=== PATIENT | male | born 1975 | race Caucasian/White ===

== ENCOUNTER 2018-06-19 13:29 | Emergency (ER) | payer MEDICAID, SELFPAY ==
[2018-06-19 13:31] VITALS: BP 160/96; PULSE 77; RESP 18; TEMP 36.7; O2SAT 98; BMI 23.3
--- NOTE | 2018-06-19 13:51 | ED.DCSUM_ITS ---
- ER Visit Summary Date of Service: 06/19/18 Chief Complaint: [] Pelvic pressure dysuria for weeks History of Present Illness: The patient is a 43 M [] indicates he has pelvic pressure and dysuria for weeks. He was seen by his primary care physician Dr. Russell he had a full physical exam cleaning rectal exam was told that he had prostatitis he was started on Cipro narcotic pain medicines, he was seen yesterday in the office and had extensive lab workup done results are not available indicates he keeps having a crampy pain in his suprapubic area and the sense that he has to void quite a bit and with dysuria he tried contacting Dr. Russell's office there was no response and he came to the emergency department. He was also told by his history that some of this might be related to prostate cancer but at 43 years of age he has no history of that. He has had no fever no cough no vomiting his bowel bladder habits have otherwise been unremarkable he is taking the Cipro and the narcotic pain medication Physical Examination: [] General, no distress resting comfortably he is afebrile his blood pressure was 160/90, he points directly to the suprapubic area as the focus of the pain when he gets it he is in no distress HEENT is generally unremarkable The neck is supple no adenopathy Cardiovascular, regular rate and rhythm Lungs, clear bilateral Abdomen, soft nontender His exam shows normal tech testicles and penis nontender no hernias are apparent, we discussed rectal exam he preferred to defer that he had one recently and it was tender, Extremities, no clubbing cyanosis or edema Neurologic, awake alert answering questions appropriately moving all 4 extremities Test Results: [] Emergency Department Course and Treatment: []'s time I discussed the patient the broad range of options we discussed additional lab work studies etc. but he indicates he just had 10 tubes of blood drawn to the doctor's office and he would prefer that we find out what those blood test showed, he is also concerned about prostate cancer and I explained that I understood his concerns but that diagnosis could not be established or followed through the emergency department but I would be happy to refer him to urology, he did really not wish to have any other ED evaluations but he did agree to provide urine sample we will send a UA and urine culture, in addition the patient's physician to try discussed the case with them and determine results of labs I did discuss with Dr. Russell, the patient had a normal PSA normal CMP and labs his white count was 11.9 in addition he had a normal abdominal ultrasound and a normal scrotal ultrasound that showed nothing acute through the outpatient management workup, his UA today shows really nothing acute Discussed all these test results with the patient, he is comfortable at this information he again agrees that there is no additional studies that need to be done to the emergency department given these lab results, he agrees to continue the medications and follow-up with all of his outpatient providers in addition he understands and I explained to his physicians that the urine culture is pending he will follow-up in his be referred to [place] [facility] and return for change in symptoms. Treatment Plan: [] Disposition: [] Home stable Impression: [] Intermittent pelvic pain, concern for prostatitis This note was generated with [employer] dictation software. It may contain incorrect words, spelling, and punctuation that were not noted in review of the chart prior to signing ED Disposition - Plan for ED Patient: Chief Complaint: Abd Pain Referrals: [facility],Out of [NON-STAFF] -
[2018-06-19 13:59] LABS: Red Blood Cells-Urine 0 SEEN /hpf (0-5); White Blood Cells 0 SEEN /hpf (0-5)
[2018-06-19 14:09] LABS: Color, Urine Yellow (Yellow); Glucose, Dipstick Normal (Normal); Ketone-Dipstick 5 mg/dl (Negative); Leukocyte Esterase-Dipstick 25 /ul (Negative); Nitrite-Dipstick Negative (Negative); Occult Blood-Urine Negative /ul (Negative); Protein-Dipstick 30 mg/dl (Negative); Urine Bilirubin Dipstick Negative (Negative); Urine Clarity Sl. Cloudy (Clear); Urine Urobilinogen 1 mg/dl (Normal)
[2018-06-19 14:21] LABS: Bacteria RARE /hpf (None Seen); Calcium Oxalate Crystals Ur 1+ /hpf (<or=2+); Mucous, Urine 1+ /hpf (<or=2+); Squamous Epithelial Cells - UA 0-5 SEEN /hpf (0-5)
--- NOTE | 2018-06-19 14:51 | ED.DEP ---
ED Disposition - Plan for ED Patient: Chief Complaint: Abd Pain Instructions: ED Pelvic Pain [facility] Referrals: [facility],Out of [NON-STAFF] - Cecilio Berrios MD [STAFF PHYSICIAN] -
[2018-06-19 15:07] VITALS: RESP 18; O2SAT 98
== END 2018-06-19 15:07 | disposition home or self-care (01) ==
LOC: ED 14:14
PROVIDERS: Emergency Provider Emergency Medicine; Family Provider Family Medicine; PCP Family Medicine
DX: R10.2 Pelvic and perineal pain (principal); R30.0 Dysuria
CPT/HCPCS: 81001; 87086; 99282; A4216

== ENCOUNTER 2018-09-06 23:58 | Emergency (ER) | payer MEDICAID, SELFPAY ==
[2018-09-07] VITALS: BP 121/72; PULSE 68; RESP 18; TEMP 36.4; O2SAT 99; BMI 23.3
[2018-09-07 00:07] VITALS: O2SAT 99
--- NOTE | 2018-09-07 00:12 | RAD_ITS ---
STUDY: X-RAY CHEST REASON FOR EXAM: Male, 43 years old. Cough TECHNIQUE: 2 views COMPARISON: 06/26/2015 FINDINGS: The lungs are clear and expanded. There is no demonstrated pleural abnormality. Normal size heart. Normal mediastinum and avril. Normal visualized pulmonary arteries. Normal visualized aortic arch and descending thoracic aorta. Normal visualized thoracic spine. Normal visualized ribs, clavicles, and shoulders. There is no demonstrated abnormality of the visualized soft tissue structures of the upper abdomen. RAD/Chest PA and Lateral IMPRESSION: Normal x-ray examination of the chest. No acute findings in the lungs Electronically Signed: Luis A Smallwood MD at 1:34 EST Tel , Service support ,
--- NOTE | 2018-09-07 00:14 | ED.VISSUMM ---
- ER Visit Summary Date of Service: 09/07/18 Chief Complaint: Subjective dyspnea History of Present Illness: The patient is a 43 M history of ADHD. Chronic pain for which she is on Percocet. And smokes half to 1 pack of cigarettes a day. Patient states the last 3 days has had a cough. At times feel as he has trouble breathing. Productive white sputum. No fever but positive chills. No history of DVT or PE. No significant travel, surgery or immobilization. No leg pain or swelling. No hemoptysis. Physical Examination: Well-appearing middle-age male. Vital signs are stable afebrile. Pulse ox 9 9% on room air no signs of hypoxia. No distress. HEENT exam unremarkable. Smell of tobacco on his breath. Neck nontender no JVD. No lymphadenopathy. Lungs clear to auscultation bilaterally. No rales, rhonchi or wheezing. Equal and symmetrical. Dry cough. Heart regular rate and rhythm no murmur. Abdomen soft nontender. Remedies moves all 4. Calves nontender without edema or cords. Neurologically awake and alert with no focal motor deficits. Test Results: Chest x-ray 2 views shows shows no acute abnormality. Read by myself. No infiltrate. No pneumothorax. Normal cardiac silhouette. Emergency Department Course and Treatment: Clinically and historically the patient has a viral bronchitis. I also counseled him to stop smoking. I went over the chest x-ray results with patient and on repeat exam at 00:35 a.m. he is doing well. Treatment Plan: Symptomatic treatment. Highly encouraged him to stop smoking. He states inhalers make him lightheaded and did not want one. Disposition: Discharge Impression: Viral bronchitis Tobacco abuse This note was generated with [employer] dictation software. It may contain incorrect words, spelling, and punctuation that were not noted in review of the chart prior to signing ED Disposition - Plan for ED Patient: Disposition: Home or Assisted Living Instructions: ED URI Viral Referrals: Isak Wallace DO [Primary Care Provider] - 1 Week if not improving Additional Instructions: Stop smoking!! Follow-up with your doctor as needed.
--- NOTE | 2018-09-07 00:16 | ED.DEP ---
ED Disposition - Plan for ED Patient: Disposition: Home or Assisted Living Instructions: ED URI Viral Referrals: Isak Wallace DO [Primary Care Provider] - 1 Week if not improving Additional Instructions: Stop smoking!! Follow-up with your doctor as needed.
[2018-09-07 00:43] VITALS: BP 128/87; PULSE 73; RESP 16; O2SAT 97
== END 2018-09-07 00:44 | disposition home or self-care (01) ==
PROVIDERS: Emergency Provider Emergency Medicine; Family Provider Family Medicine; PCP Family Medicine
DX: J20.8 Acute bronchitis due to other specified organisms (principal); Z72.0 Tobacco use; F90.9 Attention-deficit hyperactivity disorder, unspecified type; G89.29 Other chronic pain
CPT/HCPCS: 71046; 99282

== ENCOUNTER 2018-09-15 04:00 | Observation (INO) | payer MEDICAID, SELFPAY ==
[2018-09-15] VITALS (11 sets, daily range): BP systolic 117–150; BP diastolic 70–119; PULSE 64–98; RESP 14–19; TEMP 36.6–37.2; O2SAT 96–100; BMI 23.0; BMI 28.0
--- NOTE | 2018-09-15 04:24 | RAD_ITS ---
STUDY: X-RAY CHEST REASON FOR EXAM: Male, 43 years old. Dizziness this evening. Now vomiting in reporting stomach cramps. Chronic chest pain. Smoker. TECHNIQUE: Frontal and lateral views of the chest. COMPARISON: 09/07/2018. FINDINGS: The lungs are clear and expanded. There is no demonstrated pleural abnormality. Normal size heart. Normal mediastinum and avril. Normal visualized pulmonary arteries. Normal visualized aortic arch and descending thoracic aorta. Normal visualized thoracic spine. Normal visualized ribs, clavicles, and shoulders. There is no demonstrated abnormality of the visualized soft tissue structures of the upper abdomen. RAD/Chest PA and Lateral IMPRESSION: Normal x-ray examination of the chest. Electronically Signed: Rl Soto MD at 5:17 EST , Service support ,
[2018-09-15] MEDS: proMETHazine 25 MG/ML Syringe 12.5 MG IV (04:36)
[2018-09-15] MEDS: 0.9% Normal Saline 1,000 ML 1000 ML IV (04:36)
[2018-09-15 04:37] LABS: Absolute Lymphocyte Count 4.59 X10^3/ul (0.83-4.51); Absolute Neutrophil Count 12.6 X10^3/uL (2.0-7.7); Basophil# 0.03 X10^3/uL; Basophil% 0.2 % (0-1); Eosinophil# 0.49 X10^3/uL; Eosinophils% 2.6 % (0-5); Hematocrit 46.6 % (40-54); Hemoglobin 15.6 g/dl (13.0-16.5); Lymphocyte # 4.59 X10^3/ul (4.0); Lymphocyte % 24.1 % (19-41); Mean Corp Hgb Conc 33.5 g/gl (32-36); Mean Corpuscular Hgb 30.5 pg (27.0-32.0); Mean Platelet Vol. 9.2 fl (6.2-12.0); Monocyte% 6.8 % (0-10); Neutrophil # 12.61 X10^3/uL (2.7-7.7); POSITIVE COUNT NO; POSITIVE DIFFERENTIAL NO; POSITIVE MORPHOLOGY NO; Platelet Count 306 K/mm3 (150-450); RBC Distribution Width CV 12.7 % (11.6-14.6); RBC Distribution Width SD 41.4 fl (35.1-43.9); Red Blood Count 5.12 M/mm3 (4.6-6.2); White Blood Count 19.1 K/mm3 (4.4-11.0)
[2018-09-15 04:49] LABS: AST(SGOT) 16 U/L (15-37); Alanine Aminotransfer ALT/SGPT 26 U/L (16-61); Albumin, Serum 4.2 g/dL (3.2-5.0); Alkaline Phosphatase 128 U/L (45-117); Anion Gap 9 (5-15); BUN 13 mg/dL (7-18); Calcium,Total 9.8 mg/dL (8.5-10.1); Chloride 101 mmol/L (98-107); Creatinine, Serum 0.87 mg/dL (0.70-1.30); EST Glomerular Filtration Rate 101 mL/min (>60); Est Glom Filt Rate - Afr Amer 123 mL/min (>60); Glucose 117 mg/dL (74-106); Lipase 185 U/L (73-393); Potassium 4.1 mmol/L (3.5-5.1); Protein, Total 8.2 g/dL (6.4-8.2); Sodium Level 141 mmol/L (136-145)
--- NOTE | 2018-09-15 05:25 | CT_ITS ---
STUDY: CT ABDOMEN AND PELVIS WITH CONTRAST REASON FOR EXAM: Male, 43 years old. Nausea and vomiting. Abdominal pain. RADIATION DOSAGE (If Supplied By Facility): CTDIvol = ( 9.86 ) mGy, DLP = ( 475.76 ) mGycm TECHNIQUE: Transaxial images were obtained from the dome of the diaphragm to the symphysis pubis without oral contrast. 100 ml of Isovue 300 contrast was administered. Sagittal and coronal images were reconstructed. There are respiratory motion artifact at multiple levels of the mid and upper abdomen. Individualized dose optimization techniques were used for this CT. COMPARISON: None. FINDINGS: The visualized lung bases are unremarkable. The visualized portions of the heart are within normal limits. Normal liver. Normal gallbladder and extrahepatic biliary system. There is mild splenomegaly. Normal pancreas. Normal bilateral adrenal glands. Normal right kidney. Normal left kidney. Normal visualized stomach. There is mildly prominent fluid distention of loops of jejunum, without abnormal dilatation. There is also mild mural thickening of jejunal loops, possibly representing an enteritis. There is moderately prominent colonic feces. Otherwise normal colon. The appendix is visualized on coronal images 45-54 and it appears normal.. There is atherosclerotic calcification of the abdominal aorta, without a demonstrated aneurysm. Normal inferior vena cava. Normal retroperitoneum. Normal urinary bladder. Normal abdominal wall. Normal osseous structures. CT/Abdomen/Pelvis W IV Cont ONLY IMPRESSION: Mild mural thickening and fluid distention of loops of jejunum, possibly representing infectious or inflammatory enteritis. No evidence for bowel obstruction. Prominent colonic feces, suggesting constipation. Atherosclerosis. Mild splenomegaly. No evidence for appendicitis or diverticulitis. Electronically Signed: Rl Soto MD at 6:24 EST , Service support ,
--- NOTE | 2018-09-15 06:14 | ED.RN ---
PT SLEEPING. MORPHINE NOT GIVEN AT THIS TIME.
--- NOTE | 2018-09-15 06:37 | ED.DCSUM_ITS ---
- ER Visit Summary Date of Service: 09/15/18 Chief Complaint: Nausea and vomiting History of Present Illness: The patient is a 43 M who presents with nausea and vomiting. He became acutely ill about 10 hours ago. He complains of severe nausea and vomiting as well as cramping epigastric abdominal pain. Emesis has been nonbloody and nonbilious. No diarrhea. He has had a recent URI-like illness with congestion rhinorrhea and productive cough. He complains of feeling short of breath. No fever. Physical Examination: Afebrile vitals notable for heart rate 98 Moist mucous membranes Heart regular rate and rhythm Lungs are clear Abdomen soft nondistended he has diffuse nonfocal abdominal tenderness no guarding no rebound Alert Test Results: Labs notable for white blood cell count of 19.1. Alkaline phosphatase 128. Lipase normal. CT of the abdomen and pelvis shows mild mural thickening and fluid distention of the jejunum possible infectious or inflammatory enteritis. Two-view chest x-ray was normal. Emergency Department Course and Treatment: Patient was treated with IV fluids morphine and Phenergan. Given the degree of leukocytosis and findings of enteritis I did cover with antibiotics. Patient was given IV Cipro and Flagyl. Patient will be admitted. Treatment Plan: [] Disposition: Admit Impression: Enteritis This note was generated with [employer] dictation software. It may contain incorrect words, spelling, and punctuation that were not noted in review of the chart prior to signing ED Disposition - Plan for ED Patient: Referrals: Isak Wallace DO [Primary Care Provider] -
[2018-09-15] MEDS: Ciprofloxacin 400 MG/200 ML BAG 200 MG IV (06:47)
--- NOTE | 2018-09-15 06:47 | ED.RN ---
PT STATES HE'S UNABLE TO URINATE FOR UA AT THIS TIME.
--- NOTE | 2018-09-15 07:12 | ED.RN ---
OFFERED PT PAIN MEDS, HE STATES THAT HIS PAIN IS TOLERABLE RIGHT NOW AND DOESN'T WANT THE MORPHINE UNTIL HIS PAIN GETS WORSE.
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
[2018-09-15] MEDS: Morphine 4 MG/ML Syringe IV (07:49)
[2018-09-15] MEDS: Morphine 2 MG/ML Syringe 1 MG IV ×3 (10:27→21:54)
[2018-09-15] MEDS: Ondansetron 4 MG/2 ML Vial IV (10:27)
[2018-09-15] MEDS: Enoxaparin 40 MG/0.4 ML Syringe SC (10:32)
[2018-09-15 10:46] LABS: Bacteria 0 SEEN /hpf (None Seen); Mucous, Urine 0 SEEN /hpf (<or=2+); Red Blood Cells-Urine 0 SEEN /hpf (0-5)
[2018-09-15 10:48] LABS: Color, Urine Yellow (Yellow); Glucose, Dipstick Normal (Normal); Ketone-Dipstick 5 mg/dl (Negative); Leukocyte Esterase-Dipstick 25 /ul (Negative); Nitrite-Dipstick Negative (Negative); Occult Blood-Urine Negative /ul (Negative); Protein-Dipstick 15 mg/dl (Negative); Specific Gravity, Urine 1.005 (1.002-1.030); Urine Bilirubin Dipstick Negative (Negative); Urine Clarity Clear (Clear); Urine Urobilinogen 1 mg/dl (Normal)
[2018-09-15 10:55] LABS: Squamous Epithelial Cells - UA 0-5 SEEN /hpf (0-5); White Blood Cells 0-5 SEEN /hpf (0-5)
[2018-09-15] MEDS: proMETHazine 25 MG/ML Syringe 6.25 MG IV (15:04)
[2018-09-15] MEDS: 0.9% Normal Saline 1,000 ML 100 ML IV (20:43)
[2018-09-15] MEDS: Ciprofloxacin 200 MG/100 ML BAG 100 MG IV (20:46)
[2018-09-16] MEDS: Sodium Chloride 0.65% 1 SPRAY SPRAY.BTL NASAL ×3 (02:09→09:46)
[2018-09-16] MEDS: Morphine 2 MG/ML Syringe 1 MG IV ×3 (02:09→11:06)
[2018-09-16 02:19] VITALS: BP 121/77; PULSE 66; RESP 18; TEMP 37.3; O2SAT 96
[2018-09-16 06:20] LABS: Absolute Lymphocyte Count 2.18 X10^3/ul (0.83-4.51); Absolute Neutrophil Count 2.6 X10^3/uL (2.0-7.7); Basophil# 0.01 X10^3/uL; Basophil% 0.2 % (0-1); Eosinophil# 0.28 X10^3/uL; Hematocrit 35.9 % (40-54); Hemoglobin 11.6 g/dl (13.0-16.5); Lymphocyte # 2.18 X10^3/ul (4.0); Lymphocyte % 39.1 % (19-41); Mean Corp Hgb Conc 32.3 g/gl (32-36); Mean Corpuscular Hgb 30.2 pg (27.0-32.0); Mean Corpuscular Volume 93.5 fL (80-94); Monocyte# 0.46 X10^3/uL; Monocyte% 8.3 % (0-10); Neutrophil # 2.62 X10^3/uL (2.7-7.7); POSITIVE COUNT NO; POSITIVE DIFFERENTIAL NO; POSITIVE MORPHOLOGY NO; Platelet Count 197 K/mm3 (150-450); RBC Distribution Width CV 12.6 % (11.6-14.6); RBC Distribution Width SD 42.2 fl (35.1-43.9); Red Blood Count 3.84 M/mm3 (4.6-6.2); White Blood Count 5.6 K/mm3 (4.4-11.0)
[2018-09-16 06:54] LABS: Anion Gap 6 (5-15); BUN 16 mg/dL (7-18); BUN/Creat Ratio 20.8 RATIO (10-20); Calcium,Total 7.9 mg/dL (8.5-10.1); Chloride 108 mmol/L (98-107); Creatinine, Serum 0.77 mg/dL (0.70-1.30); EST Glomerular Filtration Rate 117 mL/min (>60); Est Glom Filt Rate - Afr Amer 141 mL/min (>60); Estimated Creatinine Clearance 94.55 ml/min; Glucose 99 mg/dL (74-106); Potassium 3.8 mmol/L (3.5-5.1); Sodium Level 142 mmol/L (136-145)
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
[2018-09-16 08:28] VITALS: BP 115/75; PULSE 72; RESP 18; TEMP 36.8; O2SAT 98
[2018-09-16] MEDS: Enoxaparin 40 MG/0.4 ML Syringe SC (09:34)
[2018-09-16] MEDS: proMETHazine 25 MG/ML Syringe 6.25 MG IV (09:38)
[2018-09-16] MEDS: 0.9% Normal Saline 1,000 ML 100 ML IV (09:45)
[2018-09-16] MEDS: Ciprofloxacin 200 MG/100 ML BAG 100 MG IV (11:01)
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
--- NOTE | 2018-09-16 12:30 | PCM.DC ---
- Discharge Diagnoses Current Active Problems: Current Active and Chronic Problems Enteritis (Acute) Anxiety (Chronic) Chronic pain (Chronic) Leucocytosis (Acute) You will use the following diet at home:: Other - In advise you to stick to a clear liquid diet for the next 24 hours and then advance to no caffeine diet Your food should be the consistency of: Regular Your liquids should be the consistency of: Regular/Thin Discharge Activity: Return to Normal Activity May resume sexual activity in: No Restrictions Call your doctor if you observe: Fever of 101 or Higher, Dizziness, Fainting spells, Uncontrolled pain, - - recurrent uncontrolled vomiting or severe diarrhea Instructions: ED Gastroenteritis Viral Pending Tests on Discharge: none Allergies/Adverse Reactions: Allergies No Known Allergies Allergy (Verified 09/15/18 04:06) Medications to take at Discharge ALPRAZolam [Xanax] 1 mg PO TID 06/26/15 Oxycodone HCl/Acetaminophen [Percocet 10-325 mg Tablet] 1 tablet PO Q6H PRN PRN 06/26/15 Dextroamphetamine/Amphetamine [Dextroamp-Amphet ER 30 mg Cap] 30 mg PO DAILY 06/19/18 proMETHazine tablet [Phenergan tablet] 25 mg PO Q6H PRN PRN #10 tablet 09/16/18 The following prescriptions were given: proMETHazine tablet [Phenergan tablet] 25 mg PO Q6H PRN PRN #10 tablet PRN Reason: nausea and vomiting Primary Care Physician: Isak Wallace DO [Primary Care Provider] - Please follow up with your Primary Care Physician in: has an appt for 09/17 Test Results: Test results from this visit will be discussed in further detail at your follow-up appointment, if applicable. Proposed Discharge Date: 09/16/18
--- NOTE | 2018-09-16 12:34 | DCINST_ITS ---
- Discharge Diagnoses Current Active Problems: Current Active and Chronic Problems Enteritis (Acute) Anxiety (Chronic) Chronic pain (Chronic) Leucocytosis (Acute) You will use the following diet at home:: Other - In advise you to stick to a clear liquid diet for the next 24 hours and then advance to no caffeine diet Your food should be the consistency of: Regular Your liquids should be the consistency of: Regular/Thin Discharge Activity: Return to Normal Activity May resume sexual activity in: No Restrictions Call your doctor if you observe: Fever of 101 or Higher, Dizziness, Fainting sp ells, Uncontrolled pain, - - recurrent uncontrolled vomiting or severe diarrhea Instructions: ED Gastroenteritis Viral Pending Tests on Discharge: none Allergies/Adverse Reactions: Allergies No Known Allergies Allergy (Verified 09/15/18 04:06) Medications to take at Discharge ALPRAZolam [Xanax] 1 mg PO TID 06/26/15 Oxycodone HCl/Acetaminophen [Percocet 10-325 mg Tablet] 1 tablet PO Q6H PRN PRN 06/26/15 Dextroamphetamine/Amphetamine [Dextroamp-Amphet ER 30 mg Cap] 30 mg PO DAILY 06/19/18 proMETHazine tablet [Phenergan tablet] 25 mg PO Q6H PRN PRN #10 tablet 09/16/18 The following prescriptions were given: proMETHazine tablet [Phenergan tablet] 25 mg PO Q6H PRN PRN #10 tablet PRN Reason: nausea and vomiting Primary Care Physician: Isak Wallace DO [Primary Care Provider] - Please follow up with your Primary Care Physician in: has an appt for 09/17 Test Results: Test results from this visit will be discussed in further detail at your follow- up appointment, if applicable. Proposed Discharge Date: 09/16/18
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
[2018-09-16 13:29] VITALS: BP 122/77; PULSE 64; RESP 16; TEMP 36.9; O2SAT 97
== END 2018-09-16 13:56 | disposition home or self-care (01) ==
LOC: ED 05:33 → MS3 07:29
PROVIDERS: Admitting Provider Internal Medicine; Emergency Provider Emergency Medicine; Family Provider Family Medicine; PCP Family Medicine; Visit Provider Internal Medicine
DX: K52.9 Noninfective gastroenteritis and colitis, unspecified (principal); F41.9 Anxiety disorder, unspecified; Z79.899 Other long term (current) drug therapy; G89.4 Chronic pain syndrome; F32.9 Major depressive disorder, single episode, unspecified; F17.210 Nicotine dependence, cigarettes, uncomplicated; F11.20 Opioid dependence, uncomplicated; F98.8 Other specified behavioral and emotional disorders with onset usually occurring in childhood and adolescence
CPT/HCPCS: 36415; 71046; 74177; 80048; 80053; 81001; 83690; 85025; 96361; 96365; 96366; 96367; 96372; 96375; 96376; 97802; 99218; 99282; 99406; J7030; Q9967; A4216; G0378; J0744; J2405

== ENCOUNTER 2018-09-30 22:08 | Emergency (ER) | payer MEDICAID, SELFPAY ==
[2018-09-15 08:17] VITALS: BMI 28.0
[2018-09-30 22:08] VITALS: BP 157/95; PULSE 89; RESP 18; TEMP 36.2; O2SAT 99; BMI 23.3
[2018-09-30 22:46] VITALS: PULSE 88; RESP 16; TEMP 36.8; O2SAT 98
--- NOTE | 2018-09-30 23:04 | EKG12_ITS ---
Test Reason : COUGH Blood Pressure : / mmHG Vent. Rate : 072 BPM Atrial Rate : 072 BPM P-R Int : 206 ms QRS Dur : 090 ms QT Int : 366 ms P-R-T Axes : 079 078 069 degrees QTc Int : 400 ms Normal sinus rhythm Normal ECG Confirmed by ANA MILES, ROSENDA ([id number]), order editor EMILIE ANNE ([id number] on 10/02/2018 3:52:45 PM Referred By: PANDA Confirmed By:ROSENDA PEREZ MD
[2018-09-30 23:15] VITALS: PULSE 89; RESP 16
[2018-09-30] MEDS: Ipratropium/Albuterol Sulfate 3 ML AMPUL.NEB INHALATION (23:15)
--- NOTE | 2018-09-30 23:20 | ED.VISSUMM ---
- ER Visit Summary Date of Service: 09/30/18 Chief Complaint: Cough, shortness of breath History of Present Illness: The patient is a 43 M presents to the emergency department cough and shortness of breath. The patient has a long-standing history of smoking. He was recently started on Symbicort. States over the past 24 hours, he had worsening dyspnea, wheezing, productive sputum. He denies fevers but does admit to chills. He states that sometimes, he coughed so much, he feels like he cannot catch his breath. He denies ever being diagnosed with COPD or asthma. He denies chest pain. He denies any leg swelling. He has no history of pulmonary embolus. He denies any pleuritic pain. Physical Examination: Vital signs reviewed General: Well-nourished, well-developed Head: Normocephalic, atraumatic Eyes: Pupils equal and reactive, extraocular muscles intact Neck, supple, no lymphadenopathy Heart: Regular rate and rhythm Respiratory: No distress, diminished with wheezing Abdomen: Soft, nontender, nondistended, no peritoneal signs Back: Nontender Extremities: Nontender, no edema, no cords Skin: Normal color no rash Neuro: Alert and oriented, no focal or lateralizing deficits Test Results: [] Emergency Department Course and Treatment: [Patient has wheezing and cough. He said productive sputum. I do suspect he likely has underlying lung disease. EKG was obtained. It was sinus rhythm without acute ischemia. Patient was given a nebulized breathing treatment and prednisone. He had improvement of his aeration. Chest x-ray was unremarkable. At this time, I am going to treat him as a COPD flare. Patient will be dispensed an inhaler, Prednisone, and Azithromycin. He Was Counseled on concerning Symptoms and Reasons to Return. He Will Be Discharged Home Treatment Plan: [] Disposition: Discharge Impression: 1. COPD exacerbation This note was generated with [employer] dictation software. It may contain incorrect words, spelling, and punctuation that were not noted in review of the chart prior to signing ED Disposition - Plan for ED Patient: Instructions: ED Upper Resp Infec Abx Tx Prescriptions: Albuterol Inhaler [Ventolin Hfa] 2 puff INHALATION Q4H PRN PRN #1 inhaler PRN Reason: Wheezing Azithromycin [Zithromax] 250 mg PO DAILY #4 tab Prednisone [Deltasone] 40 mg PO DAILY #10 tab Referrals: Isak Wallace DO [Primary Care Provider] -
--- NOTE | 2018-09-30 23:37 | RAD_ITS ---
STUDY: X-RAY CHEST REASON FOR EXAM: Male, 43 years old. Cough and shortness of breath TECHNIQUE: PA and lateral COMPARISON: September 15, 2018 FINDINGS: The lungs are clear and expanded. There is no demonstrated pleural abnormality. Normal size heart. Normal mediastinum and avril. Normal visualized pulmonary arteries. Normal visualized aortic arch and descending thoracic aorta. Normal visualized thoracic spine. Normal visualized ribs, clavicles, and shoulders. There is no demonstrated abnormality of the visualized soft tissue structures of the upper abdomen. No significant change since prior study RAD/Chest PA and Lateral IMPRESSION: Normal x-ray examination of the chest. Electronically Signed: Justin Osei MD at 23:52 EST , Service support ,
[2018-09-30 23:47] VITALS: PULSE 88; RESP 16; O2SAT 98
[2018-09-30] MEDS: predniSONE 20 MG Tablet 60 MG PO (23:53)
[2018-09-30] MEDS: Azithromycin 250 MG Tablet 500 MG PO (23:53)
== END 2018-09-30 23:56 | disposition home or self-care (01) ==
LOC: ED 23:20
PROVIDERS: Emergency Provider Emergency Medicine; Family Provider Family Medicine; PCP Family Medicine
DX: J44.1 Chronic obstructive pulmonary disease with (acute) exacerbation (principal); Z87.891 Personal history of nicotine dependence
CPT/HCPCS: 71046; 87804; 93005; 94640; 99282

== ENCOUNTER 2018-10-28 20:11 | Emergency (ER) | payer MEDICAID, SELFPAY ==
[2018-10-28 20:11] VITALS: BP 136/108; PULSE 87; RESP 18; TEMP 36.8; O2SAT 99; BMI 23.4
[2018-10-28 20:35] VITALS: BP 148/76; PULSE 88; RESP 16; O2SAT 98
--- NOTE | 2018-10-28 20:39 | EKG12_ITS ---
Test Reason : CP Blood Pressure : / mmHG Vent. Rate : 085 BPM Atrial Rate : 085 BPM P-R Int : 182 ms QRS Dur : 094 ms QT Int : 362 ms P-R-T Axes : 071 075 061 degrees QTc Int : 430 ms Normal sinus rhythm Normal ECG Confirmed by ANA MILES, ROSENDA ([id number]), scientific editor CAMPOS FERRARA ([id number]) on 10/30/2018 12:51:30 PM Referred By: MISSY Confirmed By:ROSENDA PEREZ MD
--- NOTE | 2018-10-28 20:39 | CT_ITS ---
STUDY: CT ABDOMEN AND PELVIS WITH CONTRAST REASON FOR EXAM: Male, 43 years old. Abdominal pain, worsening. RADIATION DOSAGE (If Supplied By Facility): CTDIvol = ( 12.11 ) mGy, DLP = ( 533.38 ) mGycm TECHNIQUE: Transaxial images were obtained from the dome of the diaphragm to the symphysis pubis without oral contrast. 100ml IV Isovue 300 was administered. Sagittal and coronal images were reconstructed. Individualized dose optimization techniques were used for this CT. COMPARISON: 09/15/2018. FINDINGS: Lung bases are clear. Visualized heart is normal. The liver is unremarkable. The gallbladder is unremarkable. The spleen and pancreas are unremarkable. The adrenal glands are normal. The kidneys are unremarkable. No stones or hydronephrosis. The aorta is normal in caliber. There is no free fluid, free air, or organized collection. No bowel obstruction or inflammatory change. Normal appendix. Urinary bladder is unremarkable. Normal abdominal wall. Normal osseous structures. CT/Abdomen/Pelvis W IV Cont ONLY IMPRESSION: Normal CT of the abdomen and pelvis. Electronically Signed: Annetta Muñiz MD at 22:56 EDT Tel , Service support ,
[2018-10-28] MEDS: Mag Hydrox/Al Hydrox/Simeth 30 ML UDC PO (20:47)
[2018-10-28 21:10] LABS: Absolute Lymphocyte Count 4.51 X10^3/ul (0.83-4.51); Absolute Neutrophil Count 4.8 X10^3/uL (2.0-7.7); Basophil# 0.01 X10^3/uL; Basophil% 0.1 % (0-1); Eosinophil# 0.18 X10^3/uL; Eosinophils% 1.8 % (0-5); Hematocrit 40.1 % (40-54); Hemoglobin 13.5 g/dl (13.0-16.5); Lymphocyte # 4.51 X10^3/ul (4.0); Mean Corp Hgb Conc 33.7 g/gl (32-36); Mean Platelet Vol. 8.8 fl (6.2-12.0); Monocyte# 0.73 X10^3/uL; Monocyte% 7.1 % (0-10); Neutrophil % 46.8 % (47-70); POSITIVE COUNT NO; POSITIVE DIFFERENTIAL NO; POSITIVE MORPHOLOGY NO; Platelet Count 255 K/mm3 (150-450); RBC Distribution Width CV 13.6 % (11.6-14.6); RBC Distribution Width SD 45.1 fl (35.1-43.9); Red Blood Count 4.36 M/mm3 (4.6-6.2); White Blood Count 10.3 K/mm3 (4.4-11.0)
[2018-10-28 21:12] LABS: AST(SGOT) 21 U/L (15-37); Alanine Aminotransfer ALT/SGPT 42 U/L (16-61); Albumin, Serum 3.5 g/dL (3.2-5.0); Alkaline Phosphatase 95 U/L (45-117); Anion Gap 4 (5-15); BUN 11 mg/dL (7-18); BUN/Creat Ratio 14.3 RATIO (10-20); Calcium,Total 8.2 mg/dL (8.5-10.1); Chloride 106 mmol/L (98-107); Creatinine, Serum 0.77 mg/dL (0.70-1.30); EST Glomerular Filtration Rate 116 mL/min (>60); Est Glom Filt Rate - Afr Amer 141 mL/min (>60); Estimated Creatinine Clearance 126.41 ml/min; Globulin 3.4 g/dL (2.2-4.2); Glucose 99 mg/dL (74-106); Lipase 72 U/L (73-393); Potassium 3.7 mmol/L (3.5-5.1); Protein, Total 6.9 g/dL (6.4-8.2); Sodium Level 138 mmol/L (136-145)
[2018-10-28 22:48] VITALS: BP 157/89; PULSE 87; RESP 14; O2SAT 98
--- NOTE | 2018-10-28 23:01 | ED.DEP ---
ED Disposition - Plan for ED Patient: Disposition: Home or Assisted Living Instructions: ED Abdominal Pain Unkn Cause Prescriptions: Sucralfate [Carafate] 1 gm PO 4X/DAY #60 tab Referrals: Isak Wallace DO [Primary Care Provider] -
[2018-10-28] MEDS: Morphine 4 MG/ML Syringe IV (23:05)
--- NOTE | 2018-10-28 23:07 | ED.DCSUM_ITS ---
- ER Visit Summary Date of Service: 10/28/18 Chief Complaint: Abdominal pain/chest pain History of Present Illness: The patient is a 43 M who has abdominal pain for a month. It radiates up into his chest today. The pain is sharp in his abdomen. It is in the epigastric region. Movement makes it worse. He denies nausea, vomiting, diarrhea or constipation. No urinary symptoms. He is taking Zofran at home to help with nausea. He is currently on amoxicillin for a tooth infection. He does have a history of GERD and takes Prevacid. He does have pain up in his chest that is worse with movement. Physical Examination: Vital signs reviewed. HEENT exam unremarkable. Heart is regular rate and rhythm without murmurs. Lungs are clear to auscultation. She does have tenderness to palpation in the sternal area. Abdomen is soft with diffuse tenderness. Extremities reveal no edema. Skin exam normal. Neurologic exam normal. Test Results: Normal sinus rhythm with rate of 85. No ST changes. Laboratory studies normal. CAT scan normal Emergency Department Course and Treatment: She was given a GI cocktail and felt better but the pain came back. He will be given morphine. I will add Carafate to his medication regimen. He will need to follow-up with his PCP Treatment Plan: [] Disposition: Discharge Impression: Abdominal pain, chest pain, muscular skeletal This note was generated with [employer]idian dictation software. It may contain incorrect words, spelling, and punctuation that were not noted in review of the chart prior to signing ED Disposition - Plan for ED Patient: Referrals: Isak Wallace DO [Primary Care Provider] -
[2018-10-28 23:11] VITALS: BP 168/80; PULSE 84; RESP 18; O2SAT 98
== END 2018-10-28 23:15 | disposition home or self-care (01) ==
PROVIDERS: Emergency Provider Emergency Medicine; Family Provider Family Medicine; PCP Family Medicine
DX: R10.9 Unspecified abdominal pain (principal); R07.89 Other chest pain; K21.9 Gastro-esophageal reflux disease without esophagitis; Z72.0 Tobacco use
CPT/HCPCS: 74177; 80053; 83690; 84484; 85025; 93005; 96374; 99285; Q9967; A4216

== ENCOUNTER → 2018-10-29 14:32 | Outpatient (CLI) | payer MEDICAID, SELFPAY ==
[2018-10-29 13:17] VITALS: BMI 22.9
== END ==
PROVIDERS: Family Provider Family Medicine; PCP Family Medicine; Referring Provider Internal Medicine Critical Care Medicine; Visit Provider Internal Medicine Critical Care Medicine
DX: R05 Cough (principal)
CPT/HCPCS: 87070; 87077; 87186; 87205

== ENCOUNTER → 2018-11-13 10:06 | Outpatient (CLI) | payer MEDICAID, SELFPAY ==
[2018-10-29 13:17] VITALS: BMI 22.9
--- NOTE | 2018-11-14 11:14 | PFT ---
INTRODUCTION: The patient is a 43-year-old male that presents for pulmonary function studies secondary to a diagnosis of dyspnea. Respiratory therapy reports good patient effort. Bronchodilators were used during testing. INTERPRETATION: Forced expiration spirometry demonstrates the presence of a mild large airways obstructive ventilatory defect. There was a significant response to aerosolized bronchodilators noted, based upon change in FEV1. Spirograms are of fair quality and do not plateau indicating slow emptying of the lungs. Body plethysmography was performed and reveals lung volumes to be within normal limits. Diffusing capacity by single breath CO is reduced at 67% of predicted. IMPRESSION: Fully reversible mild large airways obstructive ventilatory defect with preserved lung volumes and mild reduction in diffusing capacity.
== END ==
PROVIDERS: Family Provider Family Medicine; PCP Family Medicine; Referring Provider Internal Medicine Critical Care Medicine; Visit Provider Internal Medicine Critical Care Medicine
DX: R06.09 Other forms of dyspnea (principal)
CPT/HCPCS: 94060; 94726; 94729; 95811

== ENCOUNTER → 2018-11-14 10:23 | Outpatient (CLI) | payer MEDICAID, SELFPAY ==
[2018-10-29 13:17] VITALS: BMI 22.9
== END ==
PROVIDERS: Family Provider Family Medicine; PCP Family Medicine; Referring Provider Internal Medicine Infectious Disease; Visit Provider Internal Medicine Infectious Disease
DX: R05 Cough (principal)
CPT/HCPCS: 36415; 86704; 86705; 86706; 86708; 86709; 86803; 87015; 87070; 87101; 87116; 87205; 87206; 87340; 87385

== ENCOUNTER 2018-11-14 18:10 | Observation (INO) | payer MEDICAID, SELFPAY ==
[2018-10-29 13:17] VITALS: BMI 22.9
[2018-11-14] VITALS (8 sets, daily range): BP systolic 116–143; BP diastolic 63–84; PULSE 60–88; RESP 17–18; TEMP 36.7–37.1; O2SAT 92–100; BMI 22.6; BMI 22.5
--- NOTE | 2018-11-14 18:58 | EKG12_ITS ---
Test Reason : CP Blood Pressure : / mmHG Vent. Rate : 077 BPM Atrial Rate : 077 BPM P-R Int : 194 ms QRS Dur : 088 ms QT Int : 386 ms P-R-T Axes : 063 067 059 degrees QTc Int : 436 ms Normal sinus rhythm Normal ECG Confirmed by CHUCK TAYLOR ([id number]), film editor supervisor ARNOLDO POLLOCK ([id number]) on 11/17/2018 4:43:03 PM Referred By: ANTELMO/VADIM Confirmed By:CHUCK TAYLOR
--- NOTE | 2018-11-14 19:00 | RAD_ITS ---
STUDY: X-RAY CHEST REASON FOR EXAM: Male, 43 years old. Chest pain TECHNIQUE: Single AP portable view of the chest. COMPARISON: Prior study of September 30, 2018 FINDINGS: central service technician leads are present. The lungs are clear and expanded. There is no demonstrated pleural abnormality. Normal size heart. Normal mediastinum and avril. Normal visualized pulmonary arteries. Normal visualized aortic arch and descending thoracic aorta. Normal visualized thoracic spine. Normal visualized ribs, clavicles, and shoulders. There is no demonstrated abnormality of the visualized soft tissue structures of the upper abdomen. RAD/Chest 1 View (Portable) IMPRESSION: Normal x-ray examination of the chest. Electronically Signed: Juan Sarabia MD at 19:24 EDT , Service support ,
--- NOTE | 2018-11-14 19:00 | ED.VISSUMM ---
- ER Visit Summary Date of Service: 11/14/18 Chief Complaint: Chest pain History of Present Illness: The patient is a 43 M presenting with chest pain. Patient states this started 1 hour prior to arrival. He was at rest and began having 10 out of 10 midsternal chest pain. He has associated shortness of breath and diaphoresis. He has recently been treated for a lung infection and finished antibiotics 3 days ago. He is a smoker. Denies PE/DVT risk factors. Physical Examination: Vitals are stable. Patient is afebrile. Alert no acute distress. HEENT exam is unremarkable. Neck is supple. Lungs are clear and equal bilaterally. Heart is regular rate and rhythm. Abdomen is soft nontender nondistended. Extremities are unremarkable. Skin is warm and diaphoretic. No focal neurologic deficit. Remainder of exam is unremarkable. Emergency Department Course and Treatment: Patient given aspirin, morphine, Zofran. EKG is sinus rate of 77 with no acute ischemic changes. Chest x-ray shows no acute process. CBC, chemistries unremarkable. Troponin is negative. D-dimer normal. On reevaluation he is chest pain-free. Discussed with hospitalist for observation. Disposition: Observation Impression: Chest pain This note was generated with [employer] dictation software. It may contain incorrect words, spelling, and punctuation that were not noted in review of the chart prior to signing ED Disposition - Plan for ED Patient: Referrals: Isak Wallace DO [Primary Care Provider] -
[2018-11-14] MEDS: Aspirin 81 MG TAB.CHEW 324 MG PO (19:08)
[2018-11-14] MEDS: Morphine 4 MG/ML Syringe IV (19:08)
[2018-11-14] MEDS: Ondansetron 4 MG/2 ML Vial IV (19:08)
[2018-11-14 19:11] LABS: Absolute Lymphocyte Count 4.81 X10^3/ul (0.83-4.51); Absolute Neutrophil Count 3.4 X10^3/uL (2.0-7.7); Basophil# 0.02 X10^3/uL; Basophil% 0.2 % (0-1); Eosinophil# 0.39 X10^3/uL; Eosinophils% 4.2 % (0-5); Hematocrit 41.3 % (40-54); Hemoglobin 14.2 g/dl (13.0-16.5); Lymphocyte # 4.81 X10^3/ul (4.0); Lymphocyte % 51.4 % (19-41); Mean Corp Hgb Conc 34.4 g/gl (32-36); Mean Corpuscular Hgb 30.8 pg (27.0-32.0); Mean Corpuscular Volume 89.6 fL (80-94); Mean Platelet Vol. 9.4 fl (6.2-12.0); Monocyte# 0.74 X10^3/uL; Monocyte% 7.9 % (0-10); Neutrophil # 3.38 X10^3/uL (2.7-7.7); Neutrophil % 36.2 % (47-70); POSITIVE COUNT NO; POSITIVE DIFFERENTIAL NO; POSITIVE MORPHOLOGY NO; Platelet Count 307 K/mm3 (150-450); RBC Distribution Width CV 12.9 % (11.6-14.6); RBC Distribution Width SD 41.8 fl (35.1-43.9); Red Blood Count 4.61 M/mm3 (4.6-6.2); White Blood Count 9.4 K/mm3 (4.4-11.0)
[2018-11-14 19:16] LABS: D-Dimer Quantitative (DVT/PE) 0.35 FEU/ug/m (0.27-0.49)
[2018-11-14 19:22] LABS: Anion Gap 4 (5-15); BUN 14 mg/dL (7-18); BUN/Creat Ratio 18.5 RATIO (10-20); Chloride 106 mmol/L (98-107); Creatinine, Serum 0.76 mg/dL (0.70-1.30); EST Glomerular Filtration Rate 119 mL/min (>60); Est Glom Filt Rate - Afr Amer 144 mL/min (>60); Estimated Creatinine Clearance 125.61 ml/min; Glucose 91 mg/dL (74-106); Potassium 4.1 mmol/L (3.5-5.1); Sodium Level 140 mmol/L (136-145)
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
--- NOTE | 2018-11-14 21:40 | US_ITS ---
STUDY: ABDOMINAL ULTRASOUND -left UPPER QUADRANT REASON FOR VISIT: Male, 43 years old. Pain left upper quadrant TECHNIQUE: Ultrasound evaluation of the right upper quadrant was performed with real-time and static ghosh-scale imaging. TECHNICAL QUALITY: Adequate. COMPARISON: October 28, 2018 CT scan abdomen and pelvis FINDINGS: The spleen measures 9.8 x 4.6 x 3.8 cm. The spleen is homogeneous throughout and no evidence of visualized mass. The left kidney measures 10.1 x 4.6 x 3.8 cm. The left renal cortex measures 1.6 cm. There is no evidence of hydronephrosis. US/Spleen IMPRESSION: Normal visualized spleen and left kidney. Electronically Signed: Winsome Cabello MD at 22:23 EDT Tel , Service support ,
--- NOTE | 2018-11-14 21:40 | EKG12_ITS ---
Test Reason : CP Blood Pressure : / mmHG Vent. Rate : 064 BPM Atrial Rate : 064 BPM P-R Int : 214 ms QRS Dur : 094 ms QT Int : 402 ms P-R-T Axes : 070 071 071 degrees QTc Int : 414 ms Sinus rhythm with sinus arrhythmia with 1st degree A-V block Otherwise normal ECG When compared with ECG of 28-OCT-2018 20:37, WA interval has increased Confirmed by ANA MILES, ROSENDA ([id number]), graphic editor ARNOLDO POLLOCK ([id number]) on 11/19/2018 1:46:07 PM Referred By: MAYELA Confirmed By:ROSENDA PEREZ MD
[2018-11-14 21:53] LABS: Internal QC Validated? YES +Cl - CLEAR BKGD; Monotest Negative (Negative)
[2018-11-14 21:59] LABS: AST(SGOT) 17 U/L (15-37); Alanine Aminotransfer ALT/SGPT 22 U/L (16-61); Albumin, Serum 3.7 g/dL (3.2-5.0); Alkaline Phosphatase 124 U/L (45-117); Bilirubin, Direct 0.06 mg/dL (0.00-0.30); Globulin 3.5 g/dL (2.2-4.2); Lipase 91 U/L (73-393); Magnesium 1.9 mg/dL (1.6-2.6); Protein, Total 7.2 g/dL (6.4-8.2)
[2018-11-14] MEDS: Morphine 2 MG/ML Syringe IV (22:57)
[2018-11-14] MEDS: 0.9% Normal Saline 1,000 ML 100 ML IV (22:57)
[2018-11-14] MEDS: 0.9% NaCl Peripheral Flush Adult/Peds IV (22:58)
[2018-11-15] MEDS: oxyCODONE 5 MG Tablet PO (00:12)
[2018-11-15 02:59] VITALS: PULSE 57
[2018-11-15 04:00] VITALS: BP 120/73; PULSE 64; RESP 18; TEMP 36.7; O2SAT 96
[2018-11-15] MEDS: Morphine 2 MG/ML Syringe IV ×2 (04:18→09:41)
--- NOTE | 2018-11-15 05:55 | STEWCON_ITS ---
Reason For Study: CHEST PAIN Stress Results Protocol: Stress Echocardiogram Maximum Predicted HR: 176 bpm Target HR: 150 bpm % Maximum Predicted HR: 85 % DurationHeart Rate Stage (mm:ss) (bpm) BP Comment BASELINE 63 118/80DEFINITY 0.8 ML USED DURING STRESS JUNIOR PROTOCOL- STAGE 1 3:00 125 124/82PO 97% JUNIOR PROTOCOL- STAGE 2 3:00 150 130/80PO 95%, SOB, LEG PAIN RECOVERY 86 112/64PO 99% Stress Duration: 6:00 mm:ss Maximum Stress HR: 150 bpm Baseline Echocardiogram Findings The estimated ejection fraction is 60 %. Stress Echo Wall motion Data Resting WM Intermediate WM Stress WM Resting Wall Motion Wall Motion Stress No regional wall motion No regional wall motion abnormalities noted. abnormalities noted. EKG Data Normal intervals are noted. The patient exercised according to the regular Junior protocol for a total duration of 6:02. The maximum heart rate attained was 150 beats per minute. This was 85% of maximum predicted heart rate. The patient exercised into stage 3 of the Junior protocol. At peak exercise, upsloping ST changes only were noted, which did not meet the criteria for ischemia. No clinical angina was noted. Interpretation Summary The estimated ejection fraction is 60 %. Normal, adequate, treadmill echocardiogram. Negative for ischemia by EKG and echocardiographic criteria. No anginal symptoms noted. No arrhythmias noted. Appropriate blood pressure response to exercise. Below average exercise capacity for age however this may be due to his lower extremity injuries in the past. Decreased sensitivity due to poor echo windows requiring Definity agent. Final LVEF is 75%. Test terminated due to the attainment of target heart rate, leg discomfort and dyspnea. No complications. The study was technically difficult. Contrast injection was performed. Ordering Physician: Odalis^Annabel^L Referring Physician: Isak Wallace DO Performed By: ABBEY
--- NOTE | 2018-11-15 05:55 | EKG12_ITS ---
Test Reason : AM EKG Blood Pressure : / mmHG Vent. Rate : 055 BPM Atrial Rate : 055 BPM P-R Int : 214 ms QRS Dur : 096 ms QT Int : 420 ms P-R-T Axes : 061 067 067 degrees QTc Int : 401 ms Sinus bradycardia with sinus arrhythmia with 1st degree A-V block Otherwise normal ECG When compared with ECG of 14-NOV-2018 22:29, MANUAL COMPARISON REQUIRED, DATA IS UNCONFIRMED Confirmed by ANA MILES, ROSENDA ([id number]), production editor ARNOLDO POLLOCK ([id number]) on 11/19/2018 1:41:52 PM Referred By: MATEO Confirmed By:ROSENDA PEREZ MD
[2018-11-15 06:07] VITALS: BP 114/68; PULSE 68; RESP 18; TEMP 36.6; O2SAT 96
[2018-11-15] MEDS: Aspirin E.C. 81 MG Tablet PO (06:11)
[2018-11-15 06:20] LABS: Hematocrit 37.1 % (40-54); Hemoglobin 12.4 g/dl (13.0-16.5); International Normalized Ratio 1.1; Mean Corp Hgb Conc 33.4 g/gl (32-36); Mean Corpuscular Hgb 30.2 pg (27.0-32.0); Mean Corpuscular Volume 90.5 fL (80-94); Mean Platelet Vol. 8.9 fl (6.2-12.0); Platelet Count 257 K/mm3 (150-450); Prothrombin Time (Protime)PT. 13.5 SECONDS (11.7-14.9); RBC Distribution Width CV 12.8 % (11.6-14.6); Scan Indicated on CBC? Y/N NO; White Blood Count 6.7 K/mm3 (4.4-11.0)
[2018-11-15 06:21] LABS: Partial Thromboplast Time 33.8 Seconds (24.1-36.2)
[2018-11-15 06:36] LABS: AST(SGOT) 15 U/L (15-37); Alanine Aminotransfer ALT/SGPT 20 U/L (16-61); Alkaline Phosphatase 100 U/L (45-117); Anion Gap 4 (5-15); BUN 13 mg/dL (7-18); Calcium,Total 8.3 mg/dL (8.5-10.1); Chloride 110 mmol/L (98-107); Cholesterol 176 mg/dL (200); Creatinine, Serum 0.72 mg/dL (0.70-1.30); EST Glomerular Filtration Rate 126 mL/min (>60); Est Glom Filt Rate - Afr Amer 152 mL/min (>60); Estimated Creatinine Clearance 132.04 ml/min; Globulin 2.9 g/dL (2.2-4.2); Glucose 97 mg/dL (74-106); High Density Lipoprotein 34 mg/dL; Potassium 4.4 mmol/L (3.5-5.1); Protein, Total 5.9 g/dL (6.4-8.2); Sodium Level 142 mmol/L (136-145); Triglycerides 105 mg/dL; Very Low Density Lipoprotein 21 mg/dL (5-40)
[2018-11-15 06:45] VITALS: O2SAT 95
[2018-11-15 06:59] VITALS: PULSE 54
[2018-11-15] MEDS: ALPRAZolam 0.5 MG Tablet 1 MG PO (09:41)
[2018-11-15] MEDS: Pantoprazole Sodium 40 MG Tablet PO (09:41)
--- NOTE | 2018-11-15 10:05 | DCINST_ITS ---
- Discharge Diagnoses Current Active Problems: Current Active and Chronic Problems (Last Reviewed 10/29/18 @ 13:19 by Radha Miles) Chest pain (Acute) LUQ abdominal pain (Acute) Tobacco use (Chronic) You will use the following diet at home:: No restrictions Discharge Activity: Return to Normal Activity Call your doctor if you observe: Shortness of breath, Dizziness, Fainting spells, Chest pain Allergies/Adverse Reactions: Allergies No Known Allergies Allergy (Verified 11/14/18 18:11) Medications to take at Discharge ALPRAZolam [Xanax] 1 mg PO DAILY 06/26/15 Oxycodone HCl/Acetaminophen [Percocet 10-325 mg Tablet] 1 tab PO Q6H PRN PRN 06/26/15 Dextroamphetamine/Amphetamine [Dextroamp-Amphet ER 30 mg Cap] 30 mg PO BID 06/19/18 Omeprazole 40 mg PO DAILY 09/30/18 Primary Care Physician: Isak Wallace DO [Primary Care Provider] - Please follow up with your Primary Care Physician in: 1 Week Test Results: Test results from this visit will be discussed in further detail at your follow- up appointment, if applicable. Please Follow Up With: Bina House NP-C When: As scheduled Proposed Discharge Date: 11/15/18
[2018-11-15 10:17] VITALS: BP 109/68; PULSE 66; RESP 16; TEMP 36.6; O2SAT 95
--- NOTE | 2018-11-15 11:48 | NURSING ---
pt care and med administration done by SN Louise, done under the supervision of this RN.
--- NOTE | 2018-11-15 12:03 | DS.PCM_ITS ---
Discharge Date and Diagnosis Date of Admission: 11/14/18 Date of Discharge: 11/15/18 - Primary Discharge Diagnosis 1. Atypical chest pain, ACS ruled out 2. Moderate persistent asthma 3. Anxiety/depression/ADHD 4. Chronic pain syndrome/Narcotic dependence 5. Tobacco abuse 6. GERD - Secondary Discharge Diagnosis Chronic Problems (Last Reviewed 10/29/18 @ 13:19 by Radha Miles) Tobacco use (Chronic) ADD (attention deficit disorder) (Chronic) Anxiety (Chronic) Chronic pain (Chronic) Hospital Course and Treatment Imaging Results: Diagnostic Data Chest X-Ray 11/14/18 19:00 IMPRESSION: Normal x-ray examination of the chest. Electronically Signed: Juan Sarabia MD at 19:24 EDT , Service support , Spleen Ultrasound 11/14/18 21:40 IMPRESSION: Normal visualized spleen and left kidney. Electronically Signed: Winsome Cabello MD at 22:23 EDT Tel , Service support , Operations: None Procedures: - - Stress echo Summary of Care Provided: The patient is a 43 year old M admitted 11/14/18 due to chest pain. 1. Atypical chest pain, ACS ruled out-chest x-ray unremarkable. D-dimer normal. Troponin negative. Patient underwent stress echo which was negative for ischemia. Patient also complained of right upper quadrant pain on admission. Spleen ultrasound normal. Monoscreen negative. Patient denies further chest pain. Follow-up with primary care physician 1 week. 2. Moderate persistent asthma- following with Dr. Butt. Recent URI sx x3-4 weeks. CXR normal. Respiratory panel negative. Continue outpatient follow-up with pulmonary medicine. 3. Anxiety/depression/ADHD- Patient is on xanax, amphetamine. Recommend taper and discontinue benzo. Patient may benefit from SSRI. 4. Chronic pain syndrome/narcotic dependence- s/p trauma remotely. Patient refused UDS during admission. Recommend discontinuing narcotic regimen as outpatient and referral to pain management if pain is still a concern. 5. Tobacco abuse- encouraged tobacco cessation. 6. GERD-continue PPI. General: Alert, Oriented x3, Cooperative HEENT: Atraumatic, PERRLA, EOMI, Normocephalic Neck: Supple, No JVD, Negative Carotid Bruits Lungs: Clear to auscultation, Normal air movement Cardiovascular: Regular Rhythm, Normal S1, Normal S2, No murmurs, Bradycardic Abdomen: Bowel Sounds Present, Soft, Non Tender, Non-Distended Extremities: No clubbing, No cyanosis, No edema, Capillary Refill Less than 3 Seconds Skin: No rashes, No breakdown Musculoskeletal: No Tenderness to Palpation of Joints or Extremities Neurological: Cranial nerves II-XII grossly intact, Neuro grossly intact Psych/Mental Status: Normal Affect, Appropriate Patient seen and examined prior to discharge. Physical assessment as noted above. Patient is stable for discharge with follow up recommendations as noted above. This patient was seen by THI Shukla under the supervision of Dr. Ross. - Physical Exam Vital Signs Temp Pulse Resp BP Pulse Ox 97.9 F 66 16 109/68 95 11/15/18 10:17 11/15/18 10:17 11/15/18 10:17 11/15/18 10:17 11/15/18 10:17 Oxygen Delivery Method Room Air Weight: 157 lb 3.033 oz Body Mass Index (BMI) 22.5 Intake and Output for Last 24 Hours 11/13/18 11/14/18 11/15/18 23:59 23:59 23:59 Intake Total 360 / 360 598 / 598 Balance 360 / 360 598 / 598 Microbiology Past 72 Hours 11/14/18 22:34 Respiratory Panel (PCR) - Final Mucosa - Nasopharyngeal Laboratory Tests Past 24 Hrs 11/14/18 11/14/18 11/14/18 18:15 18:15 18:15 WBC 9.4 RBC 4.61 Hgb 14.2 Hct 41.3 MCV 89.6 MCH 30.8 MCHC 34.4 RDW 12.9 RDW Differential 41.8 Plt Count 307 MPV 9.4 Immature Gran % (Auto) 0.100 Neut % (Auto) 36.2 L Lymph % (Auto) 51.4 H [place] % (Auto) 7.9 Eos % (Auto) 4.2 Baso % (Auto) 0.2 Absolute Neuts (auto) 3.4 Absolute Lymphs (auto) 4.81 H Total Counted Not Reportable PT INR APTT D-Dimer Quant (PE/DVT) 0.35 Sodium 140 Potassium 4.1 Chloride 106 Carbon Dioxide 30.0 Anion Gap 4 L BUN 14 Creatinine 0.76 Estim Creat Clear Calc 125.61 Est GFR (MDRD) Af Amer 144 Est GFR (MDRD) Non-Af 119 BUN/Creatinine Ratio 18.5 Glucose 91 Calcium 9.0 Magnesium Total Bilirubin Direct Bilirubin AST ALT Alkaline Phosphatase Troponin I < 0.015 Total Protein Albumin Globulin Albumin/Globulin Ratio Triglycerides Cholesterol LDL Cholesterol VLDL Cholesterol HDL Cholesterol Lipase Monoscreen 11/14/18 11/14/18 11/14/18 18:15 21:10 21:10 WBC RBC Hgb Hct MCV MCH MCHC RDW RDW Differential Plt Count MPV Immature Gran % (Auto) Neut % (Auto) Lymph % (Auto) [place] % (Auto) Eos % (Auto) Baso % (Auto) Absolute Neuts (auto) Absolute Lymphs (auto) Total Counted PT INR APTT D-Dimer Quant (PE/DVT) Sodium Potassium Chloride Carbon Dioxide Anion Gap BUN Creatinine Estim Creat Clear Calc Est GFR (MDRD) Af Amer Est GFR (MDRD) Non-Af BUN/Creatinine Ratio Glucose Calcium Magnesium 1.9 Total Bilirubin 0.20 Direct Bilirubin 0.06 AST 17 ALT 22 Alkaline Phosphatase 124 H Troponin I 0.015 Total Protein 7.2 Albumin 3.7 Globulin 3.5 Albumin/Globulin Ratio Triglycerides Cholesterol LDL Cholesterol VLDL Cholesterol HDL Cholesterol Lipase 91 Monoscreen Negative 11/15/18 11/15/18 11/15/18 01:00 06:00 06:00 WBC 6.7 RBC 4.10 L Hgb 12.4 L Hct 37.1 L MCV 90.5 MCH 30.2 MCHC 33.4 RDW 12.8 RDW Differential 42.0 Plt Count 257 MPV 8.9 Immature Gran % (Auto) Neut % (Auto) Lymph % (Auto) [place] % (Auto) Eos % (Auto) Baso % (Auto) Absolute Neuts (auto) Absolute Lymphs (auto) Total Counted PT INR APTT D-Dimer Quant (PE/DVT) Sodium 142 Potassium 4.4 Chloride 110 H Carbon Dioxide 28.0 Anion Gap 4 L BUN 13 Creatinine 0.72 Estim Creat Clear Calc 132.04 Est GFR (MDRD) Af Amer 152 Est GFR (MDRD) Non-Af 126 BUN/Creatinine Ratio 18.0 Glucose 97 Calcium 8.3 L Magnesium Total Bilirubin 0.10 L Direct Bilirubin AST 15 ALT 20 Alkaline Phosphatase 100 Troponin I 0.015 Total Protein 5.9 L Albumin 3.0 L Globulin 2.9 Albumin/Globulin Ratio 1.0 Triglycerides 105 Cholesterol 176 LDL Cholesterol 121 VLDL Cholesterol 21 HDL Cholesterol 34 L Lipase Monoscreen 11/15/18 06:00 WBC RBC Hgb Hct MCV MCH MCHC RDW RDW Differential Plt Count MPV Immature Gran % (Auto) Neut % (Auto) Lymph % (Auto) [place] % (Auto) Eos % (Auto) Baso % (Auto) Absolute Neuts (auto) Absolute Lymphs (auto) Total Counted PT 13.5 INR 1.1 APTT 33.8 D-Dimer Quant (PE/DVT) Sodium Potassium Chloride Carbon Dioxide Anion Gap BUN Creatinine Estim Creat Clear Calc Est GFR (MDRD) Af Amer Est GFR (MDRD) Non-Af BUN/Creatinine Ratio Glucose Calcium Magnesium Total Bilirubin Direct Bilirubin AST ALT Alkaline Phosphatase Troponin I Total Protein Albumin Globulin Albumin/Globulin Ratio Triglycerides Cholesterol LDL Cholesterol VLDL Cholesterol HDL Cholesterol Lipase Monoscreen Discharge Diet: No Restrictions Discharge Activity: Return to Normal Activity Call your doctor if you observe: Shortness of breath, Dizziness, Fainting spells, Chest pain Home Medications: Medications to take at Discharge ALPRAZolam [Xanax] 1 mg PO DAILY 06/26/15 Oxycodone HCl/Acetaminophen [Percocet 10-325 mg Tablet] 1 tab PO Q6H PRN PRN 06/26/15 Dextroamphetamine/Amphetamine [Dextroamp-Amphet ER 30 mg Cap] 30 mg PO BID 06/19/18 Omeprazole 40 mg PO DAILY 09/30/18 Primary Care Physician: Isak Wallace DO [Primary Care Provider] - Please follow up with your Primary Care Physician in: 1 Week Please Follow Up With: Bina House NP-C When: As scheduled Disposition: Home Minutes spent on discharge:: 35 Patient Condition:: Stable Medical Necessity - Tobacco Use Smoking Status: Current every day smoker Tobacco Use: Cigarettes Meaningful Use Info Meaningful Use Diagnoses (Choose all that apply): None applicable
== END 2018-11-15 10:04 | disposition home or self-care (01) ==
LOC: ED 19:22 → PCU 20:59
PROVIDERS: Admitting Provider Family Medicine; Emergency Provider Emergency Medicine; Family Provider Family Medicine; PCP Family Medicine; Visit Provider Internal Medicine
DX: R07.89 Other chest pain (principal); R06.02 Shortness of breath; F98.8 Other specified behavioral and emotional disorders with onset usually occurring in childhood and adolescence; F41.9 Anxiety disorder, unspecified; G89.4 Chronic pain syndrome; F32.9 Major depressive disorder, single episode, unspecified; J45.40 Moderate persistent asthma, uncomplicated; F17.210 Nicotine dependence, cigarettes, uncomplicated; F11.20 Opioid dependence, uncomplicated; Z79.899 Other long term (current) drug therapy
CPT/HCPCS: 36415; 71045; 76705; 80048; 80053; 80061; 80076; 83690; 83735; 84484; 85025; 85027; 85379; 85610; 85730; 86308; 86704; 86705; 86706; 86708; 86709; 86803; 87015; 87070; 87077; 87101; 87106; 87116; 87205; 87206; 87340; 87385; 87633; 93005; 93017; 93350; 96361; 96374; 96375; 96376; 99218; 99285; 99406; J7030; Q9957; A4216; C8928; G0378; J2405

== ENCOUNTER → 2018-11-17 11:08 | Outpatient (CLI) | payer MEDICAID, SELFPAY ==
[2018-11-14 21:49] VITALS: BMI 22.5
== END ==
PROVIDERS: Family Provider Family Medicine; PCP Family Medicine; Referring Provider Internal Medicine Infectious Disease; Visit Provider Internal Medicine Infectious Disease
DX: R05 Cough (principal)

== ENCOUNTER 2018-11-18 03:57 | Emergency (ER) | payer MEDICAID, SELFPAY ==
[2018-11-14 21:49] VITALS: BMI 22.5
[2018-11-18 03:57] VITALS: BP 136/96; PULSE 87; RESP 20; TEMP 36.8; O2SAT 96; BMI 22.9
--- NOTE | 2018-11-18 04:13 | RAD_ITS ---
STUDY: X-RAY CHEST REASON FOR EXAM: Male, 43 years old. Productive cough TECHNIQUE: Single AP portable view of the chest. COMPARISON: None. FINDINGS: The lungs are clear and expanded. There is no demonstrated pleural abnormality. Normal size heart. Normal mediastinum and avril. Normal visualized pulmonary arteries. Normal visualized aortic arch and descending thoracic aorta. Normal visualized thoracic spine. Normal visualized ribs, clavicles, and shoulders. There is no demonstrated abnormality of the visualized soft tissue structures of the upper abdomen. RAD/Chest 1 View (Portable) IMPRESSION: Normal x-ray examination of the chest. Electronically Signed: Amadou Maguire, at 4:25 EDT Tel , Service support ,
--- NOTE | 2018-11-18 04:17 | ED.DCSUM_ITS ---
History of Present Illness Chief Complaint: Chest Other Informant: Patient Onset: Today Context: Sudden Onset Timing: Continuous Quality: Burning sensation and heartburn Location: Chest Current Severity: Mild Maximum Severity: Severe Worsened by: Breathing and coughing Relieved by: Nothing Associated Symptoms: Productive cough Narrative: Patient is a 43-year-old male. He has not a good informant. He states his respiratory panel was positive for viral infection. Reviewing prior records indicates that he was positive for strep pneumonia, staph aureus and streptococcal bacterial infection October 29, 2018. All of his respiratory panel was and influenza panel were negative. Patient is a smoker. He is decreased from 1 pack to half a pack. Discharge summary for last hospitalization was read. Diagnosis of persistent asthma and GERD. Patient reports no nasal congestion, rhinorrhea or postnasal drip. He denies ocular, visual or auditory symptoms. He denies ear pain. He does report cough of white colored sputum. This is an improvement. He denies hemoptysis. He has no history of PE or DVT. He states he is compliant with his medicine for GERD when questioned. He states he is completed all of his antibiotics. He denies leg pain, swelling or discoloration. He denies hematemesis, melena or hematochezia. Prior similar symptoms: Yes Recent Illness/Hospitalization: Yes - Past Medical History (1) Enteritis Status: Resolved (2) Hypersomnia Status: Acute (3) ADD (attention deficit disorder) Status: Chronic (4) Anxiety Status: Chronic (5) Tobacco use Status: Chronic Past Medical History - Allergies and Home Meds Allergies/Adverse Reactions: Allergies No Known Allergies Allergy (Verified 11/14/18 18:11) Primary Care Physician: Isak Wallace DO [Primary Care Provider] - Prior records reviewed: Yes - Reviewed most recent admission Surgical History: - - Multiple surgeries to the lower extremities, skin grafting. Lives: Alone Smoking Status: Current every day smoker Alcohol: Rare - Family History Maternal Family History: Reports: - - Mother with a history of stomach cancer, heart disease, stroke and at age 56 secondary to heart disease and stroke complications. Paternal Family History: Reports: - - Father with a history of heart disease, coronary disease, at age 52 secondary to heart disease complications. Review of Systems General: Denies: Chills, Fever, Malaise, Sweats Eyes: Denies: Visual changes - bilaterally, Blurred Vision - bilaterally, Diplopia ENT: Denies: Rhinorrhea, Sore throat Cardiovascular: Reports: Chest pain Respiratory: Reports: Dyspnea, Cough, Sputum. Denies: Dyspnea on exertion, Orthopnea, Paroxysmal nocturnal dyspnea Gastrointestinal: Denies: Abdominal pain, Nausea, Vomiting, Diarrhea, Constipation, Melena, Hematochezia, -, - Genitourinary: Denies: Dysuria, Hematuria, Frequency Musculoskeletal: Denies: Myalgias, Arthralgias, Neck pain, Back pain, Swelling, Extremity Pain, -, - Skin: Denies: Rash, Wounds Neurological: Denies: Headache, Weakness, Numbness Psych: Reports: Depression, Anxiety - Per review of records Allergy: Denies: Uticaria, Swelling of the mouth, Swelling of the tongue Physical Exam Vital Signs/Narrative: Vital Signs Temp Pulse Resp BP Pulse Ox 11/18/18 03:57 98.3 F 87 20 H 136/96 H 96 Inital Vital Signs reviewed: Yes General: Well nourished, Well developed, No Acute Distress Head: Normocephalic, Atraumatic Eyes: Perrl, EOMI. Negative for: Pale conjunctiva, Scleral icterus, - ENT: Moist mucous membranes, No rhinorrhea, TM's clear Neck: Supple, Nontender, No lymphadenopathy, No JVD, - Cardiovascular: Regular rate, Regular rhythm, No murmurs, Normal S1, Normal S2 Respiratory: No distress, Chest nontender, Wheezing, Decreased Air Movement - With increased expiratory phase. Negative for: CTA bilaterally Abdomen: Soft, Nontender, Nondistended, Normal bowel sounds Back: Nontender, Normal Inspection. Negative for: CVA tenderness Extremities: Nontender, No edema, - - There is no asymmetry, swelling, discoloration, leg vein distention, palpable cords or tenderness along the distribution of the deep venous system. Skin: Normal color, No rash. Negative for: Cyanosis, Jaundice, Rash Neurological: Alert, Oriented x3, Cranial nerves II-XII grossly intact, Normal Strength, Normal Sensation, Normal Gait Psychological: - - Affect is flat Diagnostic/Tx/Re-eval Chest X-Ray - ED: 1 View, Read by ED Physician, Unchanged, Normal, Heart, Lungs - There is slight aeration. The x-ray is unchanged from November 14, 2018., Mediastinum, Bony Structures, No Acute Disease Chest x-ray was interpreted by me and unchanged from prior. Impressions Chest X-Ray 11/18/18 04:13 IMPRESSION: Normal x-ray examination of the chest. Electronically Signed: Amadou Maguire, at 4:25 EDT Tel , Service support , 11/18/18 04:13 Chest 1 View (Portable) [RAD] Stat Laboratory Results 11/18/18 11/18/18 04:25 04:25 WBC 9.4 RBC 4.66 Hgb 14.5 Hct 41.7 MCV 89.5 MCH 31.1 MCHC 34.8 RDW 13.2 RDW Differential 42.7 Plt Count 264 MPV 8.7 Immature Gran % (Auto) 0.200 Neut % (Auto) 39.4 L Lymph % (Auto) 50.2 H [place] % (Auto) 4.8 Eos % (Auto) 5.0 Baso % (Auto) 0.4 Absolute Neuts (auto) 3.7 Absolute Lymphs (auto) 4.73 H Total Counted Not Reportable Sodium 142 Potassium 4.1 Chloride 108 H Carbon Dioxide 29.0 Anion Gap 5 BUN 13 Creatinine 0.87 Estim Creat Clear Calc 114.33 Est GFR (MDRD) Af Amer 122 Est GFR (MDRD) Non-Af 101 BUN/Creatinine Ratio 14.9 Glucose 92 Calcium 8.5 - Rhythm Strip Rhythm Strip: Sinus Rhythm Rate: 83 Ectopy: None - Medical Decision Making Chest x-ray is obtained because of productive cough with wheezing to evaluate for pneumonia in light of prior sputum culture positive for streptococcal pneumonia, staph aureus and streptococcal species. He received 125 mg Solu- Medrol as well as DuoNeb and albuterol. Baseline blood work was ordered in the event that he has an infiltrate or scarring severity. And because of her history of GERD and he is complaining of indigestion a GI cocktail was ordered. Patient was reassessed at 0445. He is no longer wheezing. Upon further questioning patient probably has COPD. Will discharge with tapering dose of prednisone. He was instructed to resume use of his inhalers, which he informed he was told stop. He was also informed that is his best interest to stop smoking immediately. ED Disposition - Plan for ED Patient: Disposition: Home or Assisted Living Diagnosis: Chronic obstructive pulmonary disease with bronchospasm, Chronic GERD Instructions: ED COPD Flare Prescriptions: Prednisone 10 mg PO UD #33 tab Referrals: Isak Wallace DO [Primary Care Provider] - 3-5 Days Additional Instructions: It is in your best interest to quit smoking immediately. Because you are a smoker you may have a cough for several weeks. Smoking exacerbates your reflux disease.
[2018-11-18] MEDS: Mag Hydrox/Al Hydrox/Simeth 30 ML UDC PO (04:18)
[2018-11-18] MEDS: MethylPREDNISolone 125 MG/2 ML Vial IV (04:18)
[2018-11-18] MEDS: Ipratropium/Albuterol Sulfate 3 ML AMPUL.NEB INHALATION (04:23)
[2018-11-18 04:24] VITALS: PULSE 94; RESP 18
[2018-11-18] MEDS: Albuterol 2.5 MG/3 ML VIAL.NEB. INHALATION ×2 (04:24)
[2018-11-18 04:43] LABS: Absolute Lymphocyte Count 4.73 X10^3/ul (0.83-4.51); Absolute Neutrophil Count 3.7 X10^3/uL (2.0-7.7); Basophil# 0.04 X10^3/uL; Basophil% 0.4 % (0-1); Eosinophil# 0.47 X10^3/uL; Hematocrit 41.7 % (40-54); Hemoglobin 14.5 g/dl (13.0-16.5); Lymphocyte # 4.73 X10^3/ul (4.0); Lymphocyte % 50.2 % (19-41); Mean Corp Hgb Conc 34.8 g/gl (32-36); Mean Corpuscular Hgb 31.1 pg (27.0-32.0); Mean Corpuscular Volume 89.5 fL (80-94); Mean Platelet Vol. 8.7 fl (6.2-12.0); Monocyte# 0.45 X10^3/uL; Monocyte% 4.8 % (0-10); Neutrophil # 3.71 X10^3/uL (2.7-7.7); Neutrophil % 39.4 % (47-70); Platelet Count 264 K/mm3 (150-450); RBC Distribution Width CV 13.2 % (11.6-14.6); RBC Distribution Width SD 42.7 fl (35.1-43.9); Red Blood Count 4.66 M/mm3 (4.6-6.2); White Blood Count 9.4 K/mm3 (4.4-11.0)
[2018-11-18 04:44] LABS: POSITIVE COUNT NO; POSITIVE DIFFERENTIAL NO; POSITIVE MORPHOLOGY NO
[2018-11-18 04:48] LABS: Anion Gap 5 (5-15); BUN 13 mg/dL (7-18); BUN/Creat Ratio 14.9 RATIO (10-20); Calcium,Total 8.5 mg/dL (8.5-10.1); Chloride 108 mmol/L (98-107); Creatinine, Serum 0.87 mg/dL (0.70-1.30); EST Glomerular Filtration Rate 101 mL/min (>60); Est Glom Filt Rate - Afr Amer 122 mL/min (>60); Estimated Creatinine Clearance 114.33 ml/min; Glucose 92 mg/dL (74-106); Potassium 4.1 mmol/L (3.5-5.1); Sodium Level 142 mmol/L (136-145)
[2018-11-18 05:14] VITALS: BP 137/84; PULSE 95; RESP 18; O2SAT 96
== END 2018-11-18 05:16 | disposition home or self-care (01) ==
PROVIDERS: Emergency Provider Emergency Medicine; Family Provider Family Medicine; PCP Family Medicine
DX: J44.9 Chronic obstructive pulmonary disease, unspecified (principal); J98.01 Acute bronchospasm; K21.9 Gastro-esophageal reflux disease without esophagitis; F17.200 Nicotine dependence, unspecified, uncomplicated; F41.9 Anxiety disorder, unspecified; F98.8 Other specified behavioral and emotional disorders with onset usually occurring in childhood and adolescence
CPT/HCPCS: 71045; 80048; 85025; 94640; 96374; 99285; A4216

== ENCOUNTER 2018-12-09 15:00 | Emergency (ER) | payer MEDICAID, SELFPAY ==
[2018-12-09 15:01] VITALS: BP 133/70; PULSE 85; RESP 15; TEMP 36.4; O2SAT 98; BMI 22.9
[2018-12-09 15:07] VITALS: BP 152/71; PULSE 74; RESP 18; TEMP 36.6; O2SAT 100
--- NOTE | 2018-12-09 15:17 | EKG12_ITS ---
Test Reason : DIZZY Blood Pressure : / mmHG Vent. Rate : 058 BPM Atrial Rate : 058 BPM P-R Int : 198 ms QRS Dur : 094 ms QT Int : 390 ms P-R-T Axes : 063 062 065 degrees QTc Int : 382 ms Sinus bradycardia Otherwise normal ECG Confirmed by CHUCK TAYLOR ([id number]), map editor CAMPOS FERRARA ([id number]) on 12/12/2018 11:06:46 AM Referred By: BRIDGER Confirmed By:CHUCK TAYLOR
[2018-12-09 15:24] VITALS: BP 113/80; BP 114/81; PULSE 73; PULSE 82
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
[2018-12-09] MEDS: Meclizine HCl 25 MG Tablet PO (15:32)
[2018-12-09 15:52] LABS: Anion Gap 2 (5-15); BUN 19 mg/dL (7-18); BUN/Creat Ratio 23.7 RATIO (10-20); Chloride 104 mmol/L (98-107); EST Glomerular Filtration Rate 111 mL/min (>60); Est Glom Filt Rate - Afr Amer 134 mL/min (>60); Estimated Creatinine Clearance 120.96 ml/min; Glucose 103 mg/dL (74-106); Potassium 4.2 mmol/L (3.5-5.1); Sodium Level 136 mmol/L (136-145)
[2018-12-09 16:09] LABS: Hematocrit 42.6 % (40-54); Hemoglobin 14.7 g/dl (13.0-16.5); Mean Corp Hgb Conc 34.5 g/gl (32-36); Mean Corpuscular Hgb 30.4 pg (27.0-32.0); Mean Corpuscular Volume 88.2 fL (80-94); Mean Platelet Vol. 9.4 fl (6.2-12.0); Platelet Count 238 K/mm3 (150-450); RBC Distribution Width CV 12.4 % (11.6-14.6); RBC Distribution Width SD 39.8 fl (35.1-43.9); Red Blood Count 4.83 M/mm3 (4.6-6.2); White Blood Count 6.6 K/mm3 (4.4-11.0)
[2018-12-09 16:12] LABS: Scan Indicated on CBC? Y/N NO
[2018-12-09 17:00] VITALS: BP 125/71; PULSE 65; RESP 17; O2SAT 100
--- NOTE | 2018-12-09 17:16 | ED.DEP ---
ED Disposition - Plan for ED Patient: Disposition: Home or Assisted Living Instructions: ED Dizziness [facility] Prescriptions: Meclizine HCl [Antivert] 25 mg PO 4X/DAY PRN PRN #14 tab PRN Reason: Dizziness Referrals: Isak Wallace DO [Primary Care Provider] - 1 Week if not improving
== END 2018-12-09 17:23 | disposition home or self-care (01) ==
PROVIDERS: Emergency Provider Emergency Medicine; Family Provider Family Medicine; PCP Family Medicine
DX: R42 Dizziness and giddiness (principal); R05 Cough; Z72.0 Tobacco use; R00.1 Bradycardia, unspecified
CPT/HCPCS: 80048; 85027; 93005; 99284; A4216

== ENCOUNTER → 2018-12-19 15:26 | Outpatient (CLI) | payer MEDICAID, SELFPAY ==
[2018-12-18 14:53] VITALS: BMI 22.9
[2018-12-19 16:22] LABS: Absolute Lymphocyte Count 3.51 X10^3/ul (0.83-4.51); Absolute Neutrophil Count 3.4 X10^3/uL (2.0-7.7); Basophil# 0.04 X10^3/uL; Basophil% 0.5 % (0-1); Eosinophil# 0.47 X10^3/uL; Eosinophils% 5.9 % (0-5); Hematocrit 41.4 % (40-54); Hemoglobin 14.1 g/dl (13.0-16.5); Lymphocyte # 3.51 X10^3/ul (4.0); Lymphocyte % 43.8 % (19-41); Mean Corp Hgb Conc 34.1 g/gl (32-36); Mean Corpuscular Hgb 30.3 pg (27.0-32.0); Mean Corpuscular Volume 88.8 fL (80-94); Mean Platelet Vol. 9.4 fl (6.2-12.0); Monocyte# 0.58 X10^3/uL; Monocyte% 7.2 % (0-10); Neutrophil # 3.41 X10^3/uL (2.7-7.7); Neutrophil % 42.5 % (47-70); Platelet Count 262 K/mm3 (150-450); RBC Distribution Width CV 12.5 % (11.6-14.6); RBC Distribution Width SD 39.9 fl (35.1-43.9); Red Blood Count 4.66 M/mm3 (4.6-6.2)
[2018-12-19 16:27] LABS: POSITIVE COUNT NO; POSITIVE DIFFERENTIAL NO; POSITIVE MORPHOLOGY NO
[2018-12-29 16:08] LABS: Alternaria alternata <0.10 kU/L (Class 0); Bermuda Grass <0.10 kU/L (Class 0); Bluegrass, Kentucky 0.16 kU/L (Class 0/I); Cat Hair/Dander, Standard <0.10 kU/L (Class 0); D farinae Mite <0.10 kU/L (Class 0); D pteronyssinus <0.10 kU/L (Class 0); Dog Epithelia <0.10 kU/L (Class 0); Elm, American White 0.17 kU/L (Class 0/I); Oak, White 0.11 kU/L (Class 0/I); Plantain, English 0.17 kU/L (Class 0/I)
[2018-12-30 00:09] LABS: Aspirgillus flavus Negative (Neg:<1:1); Aspirgillus fumigatus Negative (Neg:<1:1); Aspirgillus niger Negative (Neg:<1:1)
[2018-12-30 16:45] LABS: Immunoglobulin E 59 IU/mL (6-495)
[2018-12-30 16:46] LABS: Mouse Urine <0.10 kU/L (Class 0)
== END ==
PROVIDERS: Family Provider Family Medicine; PCP Family Medicine; Referring Provider Nurse Practitioner Acute Care; Visit Provider Nurse Practitioner Acute Care
DX: R05 Cough (principal)
CPT/HCPCS: 36415; 82785; 85025; 86003; 86606

== ENCOUNTER 2019-03-11 19:00 | Emergency (ER) | payer MEDICAID, SELFPAY ==
[2018-12-18 14:53] VITALS: BMI 22.9
[2019-03-11 19:00] VITALS: BP 126/87; PULSE 83; RESP 18; TEMP 36.3; O2SAT 97; BMI 24.3
--- NOTE | 2019-03-11 19:59 | EKG12_ITS ---
Test Reason : CP Blood Pressure : / mmHG Vent. Rate : 081 BPM Atrial Rate : 081 BPM P-R Int : 162 ms QRS Dur : 092 ms QT Int : 358 ms P-R-T Axes : 073 072 067 degrees QTc Int : 415 ms Normal sinus rhythm Possible Left atrial enlargement Borderline ECG Confirmed by CHUCK TAYLOR ([id number]), electronic news gathering editor CAMPOS FERRARA ([id number]) on 03/16/2019 1:26:47 PM Referred By: Confirmed By:CHUCK TAYLOR
--- NOTE | 2019-03-11 19:59 | CT_ITS ---
STUDY: CTA CHEST REASON FOR EXAM: Male, 43 years old. Chest pain RADIATION DOSAGE (If Supplied By Facility): CTDIvol = ( 9.91 ) mGy, DLP = ( 371.22 ) mGycm TECHNIQUE: The examination was performed with the intravenous administration of 100 IV Isovue 370. Post-processing of the angiographic images was performed, with multiplanar reformation and 3D reconstruction. Individualized dose optimization techniques were used for this CT. COMPARISON: None. FINDINGS: Normal enhancement of the main pulmonary artery and right and left pulmonary arteries. Normal enhancement of the bilateral peripheral pulmonary arteries. There is no demonstrated pulmonary embolism. Normal thoracic aorta and visualized great vessels. There is no demonstrated aortic dissection. Normal heart and pericardium. Normal mediastinum. Normal hilar regions. Normal visualized trachea and bronchi. The lungs are well expanded. There is no consolidation. There is a right lower lobe 2 mm nodule, series 2 image 95. Normal pleura. Normal chest wall structures. Normal osseous structures. Normal visualized upper abdomen. CT/CTA Chest W/WO Contrast IMPRESSION: No evidence of pulmonary embolism. 2 mm right lower lobe nodule. Otherwise, clear lungs. Electronically Signed: Justin Delcid, at 21:04 EDT Tel , Service support ,
[2019-03-11 20:10] LABS: Absolute Neutrophil Count 2.8 X10^3/uL (2.0-7.7); Basophil# 0.02 X10^3/uL; Basophil% 0.2 % (0-1); Eosinophil# 0.31 X10^3/uL; Eosinophils% 3.8 % (0-5); Hematocrit 41.9 % (40-54); Hemoglobin 14.3 g/dL (13.0-16.5); Lymphocyte % 56.7 % (19-41); Mean Corp Hgb Conc 34.1 g/dL (32-36); Mean Corpuscular Hgb 31.2 pg (27.0-32.0); Mean Corpuscular Volume 91.5 fL (80-94); Mean Platelet Vol. 9.1 fl (6.2-12.0); Monocyte# 0.41 X10^3/uL; Monocyte% 5.1 % (0-10); NRBC Flagged by Analyzer 0 % (0-5); Neutrophil # 2.76 X10^3/uL (2.7-7.7); Neutrophil % 34.1 % (47-70); Platelet Count 247 K/mm3 (150-450); RBC Distribution Width CV 11.9 % (11.6-14.6); RBC Distribution Width SD 39.8 fl (35.1-43.9); Red Blood Count 4.58 M/mm3 (4.6-6.2); White Blood Count 8.1 K/mm3 (4.4-11.0)
[2019-03-11 20:15] VITALS: PULSE 69; RESP 13; O2SAT 97
[2019-03-11 20:23] LABS: Anion Gap 2 (5-15); BUN 13 mg/dL (7-18); BUN/Creat Ratio 14.5 RATIO (10-20); Calcium,Total 9.2 mg/dL (8.5-10.1); Chloride 105 mmol/L (98-107); Creatinine, Serum 0.89 mg/dL (0.70-1.30); EST Glomerular Filtration Rate 98 mL/min (>60); Est Glom Filt Rate - Afr Amer 118 mL/min (>60); Estimated Creatinine Clearance 109.36 ml/min; Glucose 98 mg/dL (74-106); Potassium 4.2 mmol/L (3.5-5.1); Sodium Level 138 mmol/L (136-145)
[2019-03-11] MEDS: Ondansetron 4 MG/2 ML Vial IV (20:55)
[2019-03-11] MEDS: 0.9% Normal Saline 1,000 ML 1000 ML IV (20:55)
[2019-03-11] MEDS: Morphine 4 MG/ML Syringe IV (20:55)
[2019-03-11 20:56] VITALS: BP 123/81; PULSE 74; RESP 12; O2SAT 99
--- NOTE | 2019-03-11 21:39 | ED.DCSUM_ITS ---
- ER Visit Summary Date of Service: 03/11/19 Chief Complaint: Chest pain History of Present Illness: The patient is a 43 M with chest pain that he describes as a tightness and swelling. This has been going on for 3 days. He has been dealing with this though for a long time. He has some coughing and lightheadedness but denies any other associated symptoms. He has been evaluated by cardiology, pulmonology, GI, neuro, ED visits. He has had a stress test in November which was unremarkable. He had an echo and a sleep study. He has seen therapy. Physical Examination: Afebrile and vital signs unremarkable. Alert and oriented. No acute distress. Heart regular rate and rhythm. Lungs clear. Extremities unremarkable. Nontender no edema. Skin normal. Test Results: EKG showed sinus rhythm rate of 81. No sign of acute ischemia or infarction pattern. CBC, BMP, troponin unremarkable. CTA showed no evidence of PE. He has a 2 mm right lower lobe nodule. Emergency Department Course and Treatment: Patient presents with atypical chest pain. He has been evaluated with a stress test and by multiple specialties. He said that he had a remote history of DVT, and he has had a D-dimer test but not a CTA recently. I did repeat his EKG, labs, and I checked a CTA. His work-up was unremarkable. He received fluids and morphine for pain. I advised the patient that I do not have any answers for him. It does not seem to be ACS as he had a recent negative stress test and his testing here is unremarkable once again. There is no evidence of PE, dissection, or other acute or life-threatening pathology. Patient was advised to follow-up with his specialist. He was prescribed a burst therapy of prednisone as this has helped in the past. Treatment Plan: As above Disposition: Discharge Impression: 1. Chest pain unclear etiology This note was generated with [employer] dictation software. It may contain incorrect words, spelling, and punctuation that were not noted in review of the chart prior to signing ED Disposition - Plan for ED Patient: Referrals: Isak Wallace DO [Primary Care Provider] -
--- NOTE | 2019-03-11 21:42 | ED.DEP ---
ED Disposition - Plan for ED Patient: Instructions: CHEST PAIN, Uncertain Cause Prescriptions: Prednisone 10 mg PO UD #33 tab Prescription Printed Referrals: Isak Wallace DO [Primary Care Provider] -
[2019-03-11] MEDS: predniSONE 20 MG Tablet 60 MG PO (21:57)
[2019-03-11 21:58] VITALS: BP 124/85; PULSE 71; RESP 16; O2SAT 98
== END 2019-03-11 21:59 | disposition home or self-care (01) ==
LOC: ED 19:59
PROVIDERS: Emergency Provider Emergency Medicine; Family Provider Family Medicine; PCP Family Medicine
DX: R07.9 Chest pain, unspecified (principal); R05 Cough; R42 Dizziness and giddiness; Z86.718 Personal history of other venous thrombosis and embolism; Z72.0 Tobacco use
CPT/HCPCS: 71275; 80048; 84484; 85025; 93005; 96361; 96374; 96375; 99285; J7030; Q9967; A4216; J2405

== ENCOUNTER 2019-03-15 07:11 | Emergency (ER) | payer MEDICAID, SELFPAY ==
[2019-03-15 07:12] VITALS: BP 123/78; PULSE 86; RESP 18; TEMP 36.6; O2SAT 99; BMI 23.5
[2019-03-15 07:22] VITALS: O2SAT 98
--- NOTE | 2019-03-15 07:22 | RAD_ITS ---
STUDY: X-RAY CHEST REASON FOR EXAM: Male, 43 years old. Chest tightness. History of lung infection TECHNIQUE: PA and lateral views of the chest. COMPARISON: 11/18 2018 chest x-ray FINDINGS: The lungs are clear and expanded. There is no demonstrated pleural abnormality. Normal size heart. Normal mediastinum and avril. Normal visualized pulmonary arteries. Normal visualized aortic arch and descending thoracic aorta. Normal visualized thoracic spine. Normal visualized ribs, clavicles, and shoulders. There is no demonstrated abnormality of the visualized soft tissue structures of the upper abdomen. RAD/Chest PA and Lateral IMPRESSION: Normal x-ray examination of the chest. Electronically Signed: Winsome Cabello MD at 8:11 EDT Tel , Service support ,
--- NOTE | 2019-03-15 07:22 | ED.VIS.GEN ---
History of Present Illness Chief Complaint: Cough Onset: Days Current Severity: Moderate Maximum Severity: Moderate Narrative: Patient was seen in the ED on March 11 with long-standing atypical chest pain. He has had work-ups via multiple specialties with no specific cause. He had a stress test earlier this year and had a negative CTA of his chest just a few days ago. Patient was given a burst of prednisone at that time. Patient presents back this morning reporting no improvement in his symptoms. He continues to have cough and shortness of breath with chest heaviness. He states he is now coughing up foamy material similar to when he had pneumonia approximately a year ago. He does feel as if he is wheezing. He states he is using inhalers at home without improvement. No fever or chills. Past Medical History - Allergies and Home Meds Allergies/Adverse Reactions: Allergies No Known Allergies Allergy (Verified 03/15/19 07:12) Primary Care Physician: Isak Wallace DO [Primary Care Provider] - Surgical History: - Smoking Status: Current every day smoker - Family History Maternal Family History: Reports: - - Mother with a history of stomach cancer, heart disease, stroke and at age 56 secondary to heart disease and stroke complications. Paternal Family History: Reports: - - Father with a history of heart disease, coronary disease, at age 52 secondary to heart disease complications. Review of Systems General: Denies: Chills, Fever Eyes: Denies: Visual changes - bilaterally ENT: Denies: Bilateral ear pain Cardiovascular: Reports: Chest pain Respiratory: Reports: Dyspnea, Cough, Sputum Gastrointestinal: Denies: Abdominal pain, Nausea, Vomiting Genitourinary: Denies: Dysuria Musculoskeletal: Denies: Back pain Skin: Denies: Rash Neurological: Denies: Headache Endocrine: Denies: Polyuria, Polydipsia Hematologic: Denies: Easy bruising Allergy: Denies: Uticaria Physical Exam Vital Signs/Narrative: Vital Signs Temp Pulse Resp BP Pulse Ox 03/15/19 07:12 97.8 F 86 18 123/78 H 99 Inital Vital Signs reviewed: Yes General: Well nourished, Well developed Head: Normocephalic ENT: Moist mucous membranes Neck: Supple Cardiovascular: Regular rate, Regular rhythm Respiratory: Diminished Abdomen: Soft, Nontender Back: Nontender Extremities: Nontender Skin: Normal color, No rash Neurological: Alert, Oriented x3 Psychological: Normal affect Diagnostic/Tx/Re-eval Chest X-Ray - ED: 2 View, Read by ED Physician, Chronic Changes, No Infiltrates - Medical Decision Making Patient was given a DuoNeb treatment here. Repeat evaluation he does have improved air movement. He still has prednisone at home to continue. His chest x-ray does not show focal infiltrate per my review. He will be treated with a course of doxycycline, first dose given here. ED Disposition - Plan for ED Patient: Disposition: Home or Assisted Living Diagnosis: Bronchitis Instructions: BRONCHITIS, Antiobiotic Treatment (Adult) Prescriptions: Doxycycline 100 mg PO BID #20 capsule Referrals: Isak Wallace DO [Primary Care Provider] - 1-2 Weeks
[2019-03-15] MEDS: Ipratropium/Albuterol Sulfate 3 ML AMPUL.NEB INHALATION (07:38)
[2019-03-15 07:39] VITALS: PULSE 68; RESP 16
[2019-03-15] MEDS: Doxycycline 100 MG CAPSULE PO (08:12)
[2019-03-15 08:14] VITALS: BP 113/69; PULSE 72; RESP 15; O2SAT 98
== END 2019-03-15 08:34 | disposition home or self-care (01) ==
LOC: ED 07:55
PROVIDERS: Emergency Provider Emergency Medicine; Family Provider Family Medicine; PCP Family Medicine
DX: J40 Bronchitis, not specified as acute or chronic (principal); F17.200 Nicotine dependence, unspecified, uncomplicated
CPT/HCPCS: 71046; 94640; 99283

== ENCOUNTER 2019-03-16 12:12 | Emergency (ER) | payer MEDICAID, SELFPAY ==
[2019-03-15 07:12] VITALS: BMI 23.5
[2019-03-16 12:13] VITALS: BP 149/94; PULSE 118; RESP 20; TEMP 36.6; O2SAT 99; BMI 23.3
[2019-03-16] MEDS: Ondansetron ODT 4 MG Tablet 8 MG PO (13:08)
[2019-03-16] MEDS: Ketorolac 60 MG/2 ML Vial IM (13:08)
--- NOTE | 2019-03-16 15:38 | ED.DCSUM_ITS ---
- ER Visit Summary Date of Service: 03/16/19 Chief Complaint: Vomiting History of Present Illness: The patient is a 43 M who presents the emergency department for the third time in a week. He was seen on 03 11 for chest pain and again yesterday. He states that 3:00 this morning he began to vomit and he irais es any diarrhea. He notes his chronic chest pain which is flaring back up again. No fevers. No bad food exposure. Physical Examination: Afebrile noted slight tachycardia which was taken while he was actively vomiting Gen: Well-nourished well-developed Head: Normocephalic atraumatic Eyes: Perrl EOMI ENT: TMs clear no rhinorrhea moist mucous membranes Neck: Supple no lymphadenopathy no JVD nontender CVS: Regular rate rhythm no murmurs normal S1-S2 (heart rate down to 82 at rest) Respiratory: No distress clear to auscultation bilaterally chest nontender Abdomen: Soft nontender nondistended normal bowel sounds no masses Back: Nontender Extremity: Nontender no edema Skin: Normal color no rash Neuro: alert orientated ?3 CN II-XII intact normal strength sensation reflexes gait cerebellar Psych: Normal affect normal mood Emergency Department Course and Treatment: Dose of Toradol for pain and oral Zofran. Repeat exam finds him resting comfortably with no further vomiting. P.o. passed. I will write for Zofran at home. He will return if worsening or concerns Impression: 1. Vomiting This note was generated with [employer] dictation software. It may contain incorrect words, spelling, and punctuation that were not noted in review of the chart prior to signing ED Disposition - Plan for ED Patient: Disposition: Home or Assisted Living Instructions: VOMITING (5y-Adult) Prescriptions: Ondansetron [Zofran Odt] 4 mg PO Q6H PRN PRN #20 tab PRN Reason: Nausea Prescription Printed Referrals: Isak Wallace DO [Primary Care Provider] - As soon as possible
[2019-03-16 15:52] VITALS: RESP 18
== END 2019-03-16 15:53 | disposition home or self-care (01) ==
PROVIDERS: Emergency Provider Emergency Medicine; Family Provider Family Medicine; PCP Family Medicine
DX: R11.2 Nausea with vomiting, unspecified (principal); R10.9 Unspecified abdominal pain; R07.9 Chest pain, unspecified; G89.29 Other chronic pain; Z72.0 Tobacco use
CPT/HCPCS: 96372; 99282

== ENCOUNTER 2019-03-19 18:53 | Emergency (ER) | payer MEDICAID, SELFPAY ==
[2019-03-19 18:54] VITALS: BP 148/100; PULSE 85; RESP 16; TEMP 36.9; O2SAT 98; BMI 24.5
--- NOTE | 2019-03-19 19:01 | ED.RN ---
CALLED FOR EKG PER RN REQUEST, PULLED OLD EKGS FOR
--- NOTE | 2019-03-19 19:20 | RAD_ITS ---
STUDY: X-RAY CHEST REASON FOR EXAM: Male, 43 years old. Chest pain TECHNIQUE: Frontal view of the chest COMPARISON: X-ray chest March 15, 2019 FINDINGS: The lungs are clear. There are no pleural effusions. There is no pneumothorax. The heart is normal in size. The visualized osseous structures are within normal limits. RAD/Chest 1 View (Portable) IMPRESSION: No acute thoracic pathology. Electronically Signed: Justin Delcid, at 19:36 EDT Tel , Service support ,
[2019-03-19 19:27] LABS: D-Dimer Quantitative (DVT/PE) 0.28 FEU/ug/m (0.27-0.49)
[2019-03-19] MEDS: 0.9% Normal Saline 1,000 ML 999 ML IV (19:32)
[2019-03-19 19:33] LABS: Absolute Neutrophil Count 4.2 X10^3/uL (2.0-7.7); Basophil# 0.05 X10^3/uL; Basophil% 0.5 % (0-1); Hematocrit 40.4 % (40-54); Hemoglobin 13.9 g/dL (13.0-16.5); Lymphocyte % 48.4 % (19-41); Mean Corp Hgb Conc 34.4 g/dL (32-36); Mean Corpuscular Hgb 31.7 pg (27.0-32.0); Mean Corpuscular Volume 92.2 fL (80-94); Mean Platelet Vol. 9.1 fl (6.2-12.0); Monocyte# 0.64 X10^3/uL; Monocyte% 6.3 % (0-10); NRBC Flagged by Analyzer 0 % (0-5); Neutrophil # 4.21 X10^3/uL (2.7-7.7); Neutrophil % 41.6 % (47-70); Platelet Count 254 K/mm3 (150-450); RBC Distribution Width CV 11.8 % (11.6-14.6); RBC Distribution Width SD 40.4 fl (35.1-43.9); Red Blood Count 4.38 M/mm3 (4.6-6.2); White Blood Count 10.1 K/mm3 (4.4-11.0)
[2019-03-19 19:43] LABS: ALB/GLOB Ratio 1.3 RATIO (0.9-2.4); AST(SGOT) 13 U/L (15-37); Alanine Aminotransfer ALT/SGPT 19 U/L (16-61); Albumin, Serum 3.6 g/dL (3.2-5.0); Alkaline Phosphatase 92 U/L (45-117); Anion Gap 3 (5-15); BUN 19 mg/dL (7-18); BUN/Creat Ratio 23.8 RATIO (10-20); Calcium,Total 8.7 mg/dL (8.5-10.1); Chloride 104 mmol/L (98-107); EST Glomerular Filtration Rate 111 mL/min (>60); Est Glom Filt Rate - Afr Amer 135 mL/min (>60); Estimated Creatinine Clearance 121.67 ml/min; Globulin 2.8 g/dL (2.2-4.2); Glucose 122 mg/dL (74-106); Magnesium 1.9 mg/dL (1.6-2.6); Potassium 3.6 mmol/L (3.5-5.1); Protein, Total 6.4 g/dL (6.4-8.2); Sodium Level 138 mmol/L (136-145); Thyroid Stim Hormone (TSH) 3.67 uIU/mL (0.358-3.74)
[2019-03-19 20:01] LABS: BNP,B-Type NATRIURETIC PEPTIDE 37.7 pg/mL (0-100)
--- NOTE | 2019-03-19 20:27 | ED.DCSUM_ITS ---
History of Present Illness Chief Complaint: Chest Pain Informant: Patient Narrative: Patient presenting for evaluation secondary to chest pain and syncope. Patient reports that over the course of the last couple of months he has basically been dealing with continuous chest pain that will wax and wane. He reports that it has also been associated with a multitude of syncopal events. Patient states that these typically will be associated with him feeling lightheaded, and then passing out for short amount of time, and then when he wakes up a couple seconds later he feels as if his heart is pounding out of his chest. Patient has been admitted for this and underwent a stress echo that was found to be negative. He also has had multiple emergency department work-ups including CT angiograms and blood work that were found to be negative. Patient states that he is working with his primary care physician for this, and is waiting for approval of a 48- hour Holter monitor. Patient just states that the symptoms are persistent, and feel as if they are getting somewhat worse. There is associated with generalized malaise but he denies any fever or unintended weight loss nausea vomiting or diarrhea. No seizure-like activity with these passing out episodes. Patient denies any history of IV drug abuse. Patient had a work-up in the emergency department at an outside facility yesterday was found to be negative. Review of systems otherwise negative. Past Medical History - Allergies and Home Meds Allergies/Adverse Reactions: Allergies No Known Allergies Allergy (Verified 03/19/19 18:54) Primary Care Physician: Isak Wallace DO [Primary Care Provider] - Past Medical History: - - Prior history of syncope Surgical History: - Smoking Status: Current every day smoker Alcohol: None Drugs: None - Family History Maternal Family History: Reports: - - Mother with a history of stomach cancer, heart disease, stroke and at age 56 secondary to heart disease and stroke complications. Paternal Family History: Reports: - - Father with a history of heart disease, coronary disease, at age 52 secondary to heart disease complications. Physical Exam Vital Signs/Narrative: Vital Signs Temp Pulse Resp BP Pulse Ox 03/19/19 18:54 98.4 F 85 16 148/100 H 98 Diagnostic/Tx/Re-eval - Medical Decision Making Patient presented secondary to multiple syncopal episodes. EKG demonstrates sinus rhythm of [address] segments normal T waves no evidence of acute ischemia or arrhythmia normal MN and QTc intervals. CBC, CMP, TSH, troponin, and d-dimer were obtained which were all found to be unremarkable. Chest x-ray also unremarkable. I reviewed patient's records, he has had an admission for the same presentation with a negative cardiac echo and stress test. He had negative CT angiograms, he is a multiple negative work-ups in the emergency department but has never seen cardiology for this. I discussed patient's case with covering cardiology and did arrange for the patient to have a 48-hour Holter monitor placed in the emergency department and acute follow-up with cardiology. I do not believe that he requires admission at this point. This does not seem like seizure-like activity. Patient was informed of all this, and he will be discharged with cardiology follow-up. ED Disposition - Plan for ED Patient: Disposition: Home or Assisted Living Diagnosis: Syncope Instructions: SYNCOPE, Unk Cause Referrals: Morelia Ross MD [STAFF PHYSICIAN] - 2 Days
[2019-03-19 21:05] VITALS: BP 158/90; PULSE 66; RESP 16; O2SAT 100
== END 2019-03-19 21:06 | disposition home or self-care (01) ==
PROVIDERS: Emergency Provider Emergency Medicine; Family Provider Family Medicine; PCP Family Medicine
DX: R55 Syncope and collapse (principal); Z82.49 Family history of ischemic heart disease and other diseases of the circulatory system; F17.200 Nicotine dependence, unspecified, uncomplicated; R07.9 Chest pain, unspecified
CPT/HCPCS: 71045; 80053; 83735; 83880; 84443; 84484; 85025; 85379; 93005; 96360; 99285; J7030; A4216

== ENCOUNTER → 2019-03-19 20:41 | Outpatient (CLI) | payer MEDICAID, SELFPAY ==
[2019-03-19 18:54] VITALS: BMI 24.5
== END ==
PROVIDERS: Family Provider Family Medicine; PCP Family Medicine; Visit Provider Specialist
DX: R55 Syncope and collapse (principal); R07.9 Chest pain, unspecified
CPT/HCPCS: 71045; 80053; 83735; 83880; 84443; 84484; 85025; 85379; 93005; 93225; 93226; 96360; 99285; J7030; A4216

== ENCOUNTER → 2019-03-27 12:10 | Outpatient (CLI) | payer MEDICAID, SELFPAY ==
[2019-03-19 18:54] VITALS: BMI 24.5
[2019-03-27 12:43] LABS: Absolute Lymphocyte Count 3.89 X10^3/uL (0.83-4.51); Absolute Neutrophil Count 5.9 X10^3/uL (2.0-7.7); Basophil# 0.02 X10^3/uL; Basophil% 0.2 % (0-1); Eosinophil# 0.17 X10^3/uL; Eosinophils% 1.6 % (0-5); Hematocrit 41.7 % (40-54); Hemoglobin 14.1 g/dL (13.0-16.5); Lymphocyte # 3.89 X10^3/ul (4.0); Lymphocyte % 37.1 % (19-41); Mean Corp Hgb Conc 33.8 g/dL (32-36); Mean Corpuscular Volume 91.6 fL (80-94); Monocyte# 0.53 X10^3/uL; Monocyte% 5.1 % (0-10); NRBC Flagged by Analyzer 0 % (0-5); Neutrophil # 5.85 X10^3/uL (2.7-7.7); Neutrophil % 55.8 % (47-70); Platelet Count 283 K/mm3 (150-450); RBC Distribution Width CV 11.9 % (11.6-14.6); Red Blood Count 4.55 M/mm3 (4.6-6.2); White Blood Count 10.5 K/mm3 (4.4-11.0)
[2019-03-27 13:18] LABS: AST(SGOT) 16 U/L (15-37); Alanine Aminotransfer ALT/SGPT 23 U/L (16-61); Albumin, Serum 3.6 g/dL (3.2-5.0); Alkaline Phosphatase 109 U/L (45-117); Anion Gap 4 (5-15); BUN 17 mg/dL (7-18); BUN/Creat Ratio 22.6 RATIO (10-20); Calcium,Total 9.1 mg/dL (8.5-10.1); Chloride 106 mmol/L (98-107); Creatinine, Serum 0.75 mg/dL (0.70-1.30); EST Glomerular Filtration Rate 119 mL/min (>60); Est Glom Filt Rate - Afr Amer 144 mL/min (>60); Globulin 3.6 g/dL (2.2-4.2); Glucose 96 mg/dL (74-106); Potassium 4.1 mmol/L (3.5-5.1); Protein, Total 7.2 g/dL (6.4-8.2); Sodium Level 140 mmol/L (136-145)
== END ==
PROVIDERS: Family Provider Family Medicine; PCP Family Medicine
DX: R42 Dizziness and giddiness (principal); R51 Headache
CPT/HCPCS: 36415; 80053; 85025

== ENCOUNTER → 2019-04-22 12:50 | Outpatient (CLI) | payer MEDICAID, SELFPAY ==
[2019-04-14 11:05] VITALS: BMI 23.3
--- NOTE | 2019-04-22 12:52 | CDU_ITS ---
Reason For Study: VERTIGO Rt. Velocities/BP Lt. Velocities/BP Prox CCA 152/36 cm/sec. Prox CCA 196/53 cm/sec. Mid CCA 121/35 cm/sec. Mid CCA 124/36 cm/sec. Dist CCA 132/41 cm/sec. Dist CCA 163/47 cm/sec. Prox ICA 141/46 cm/sec. Prox ICA 131/33 cm/sec. Mid ICA 123/48 cm/sec. Mid ICA 156/476 cm/sec. Dist ICA 101/41 cm/sec. Dist ICA 116/44 cm/sec. Rt. ICA/CCA = .9. Lt. ICA/CCA = .8. Prox ECA 123/24 cm/sec. Prox ECA 128/25 cm/sec. Rt. Vert. 33/13 cm/sec. Lt. Vert. 72/33 cm/sec. Right Extracranial There is intimal thickening but no significant atherosclerotic plaque noted in the right common carotid artery. There is heterogeneous, irregular atherosclerotic plaque noted in the right internal carotid artery. There is heterogeneous, irregular atherosclerotic plaque noted in the right external carotid artery. Antegrade flow is noted in the right vertebral artery. Left Extracranial There is intimal thickening but no significant atherosclerotic plaque noted in the left common carotid artery. There is heterogeneous, irregular atherosclerotic plaque noted in the left internal carotid artery. There is homogeneous, irregular atherosclerotic plaque noted in the left external carotid artery. Antegrade flow is noted in the left vertebral artery. Procedure Carotid Duplex [id number]. Exam performed in department. Interpretation Summary Based upon velocity criteria, the degree of stenosis in the internal carotid arteries appears to be 50-69%. However, ghosh-scale and color-flow imaging suggests a lesser degree of stenosis, <50% bilaterally. Flow within the vertebral arteries is antegrade bilaterally. Ordering Physician: Morelia Ross Referring Physician: JANET NICOLAS Performed By: Alexia Zarate, RONALD, RVT
== END ==
PROVIDERS: Family Provider Family Medicine; PCP Family Medicine; Referring Provider Specialist; Visit Provider Specialist
DX: R42 Dizziness and giddiness (principal)
CPT/HCPCS: 93880

== ENCOUNTER 2019-04-25 13:22 | Emergency (ER) | payer MEDICAID, SELFPAY ==
[2019-04-14 11:05] VITALS: BMI 23.3
[2019-04-25 13:23] VITALS: BP 114/77; PULSE 97; RESP 20; TEMP 36.8; O2SAT 98; BMI 23.4
--- NOTE | 2019-04-25 13:45 | ED.DCSUM_ITS ---
History of Present Illness Informant: Patient, Spouse/S.O. Onset: Month(s) - 1 month Activity at onset: Light Activity, Rest, Sleep Timing: Continuous Quality: Dyspnea on exertion, Wheezing Current Severity: Severe Maximum Severity: Severe Worsened by: Coughing, Exertion Relieved by: Albuterol Associated Symptoms: Cough, Green sputum, Rhinorrhea, Sore throat Chest Pain: None Narrative: 43-year-old male with a history of asthma presents to the emergency department with cough congestion shortness of breath for 1 month. No hemoptysis. No chest pain. No fevers. No vomiting or diarrhea. No lightheadedness or dizziness. He has been using his albuterol MDI more frequently. No leg pain or swelling. No recent travel or surgery. No history of DVT or PE. Currently on antibiotics for dental infection. Rest of review of systems negative. Prior similar symptoms: Yes Recent Illness/Hospitalization: No <Salvador Marinelli - Last Filed: 04/25/19 15:11> <Anshu Ford - Last Filed: 04/25/19 22:08> Chief Complaint: Shortness of Breath Past Medical History Prior records reviewed: Yes Past Medical History: - - asthma Surgical History: - Smoking Status: Current every day smoker - Family History Maternal Family History: Family History (Last Reviewed 04/14/19 @ 11:54 by Morelia Ross MD) Mother Cancer Heart disease CVA (cerebral vascular accident) Father Heart disease CAD (coronary artery disease) Family History: Reports: - - Mother with a history of stomach cancer, heart di sease, stroke and at age 56 secondary to heart disease and stroke complications. Paternal Family History: Family History (Last Reviewed 04/14/19 @ 11:54 by Morelia Ross MD) Mother Cancer Heart disease CVA (cerebral vascular accident) Father Heart disease CAD (coronary artery disease) Family History: Reports: - - Father with a history of heart disease, coronary disease, at age 52 secondary to heart disease complications. <Salvador Marinelli - Last Filed: 04/25/19 15:11> - Family History Maternal Family History: Family History (Last Reviewed 04/14/19 @ 11:54 by Morelia Ross MD) Mother Cancer Heart disease CVA (cerebral vascular accident) Father Heart disease CAD (coronary artery disease) Paternal Family History: Family History (Last Reviewed 04/14/19 @ 11:54 by Morelia Ross MD) Mother Cancer Heart disease CVA (cerebral vascular accident) Father Heart disease CAD (coronary artery disease) <Anshu Ford - Last Filed: 04/25/19 22:08> - Allergies and Home Meds Allergies/Adverse Reactions: Allergies No Known Allergies Allergy (Verified 04/25/19 13:23) Primary Care Physician: Isak Wallace DO [Primary Care Provider] - Review of Systems All systems negative except as indicated General: Denies: Chills, Fever ENT: Reports: Rhinorrhea, Sore throat Respiratory: Reports: Dyspnea, Cough, Sputum, Dyspnea on exertion Gastrointestinal: Denies: Abdominal pain, Nausea, Vomiting Musculoskeletal: Denies: Myalgias, Arthralgias Neurological: Denies: Headache <Salvador Marinelli - Last Filed: 04/25/19 15:11> Physical Exam Vital Signs/Narrative: Vital Signs Temp Pulse Resp BP Pulse Ox 04/25/19 13:23 98.3 F 97 20 H 114/77 98 Inital Vital Signs reviewed: Yes General: Well nourished, Well developed, No Acute Distress Head: Normocephalic, Atraumatic Eyes: Perrl, EOMI ENT: Moist mucous membranes, TM's clear, Nasal congestion Neck: Supple, Nontender, No lymphadenopathy Cardiovascular: Regular rate, Regular rhythm, No murmurs Respiratory: No distress, Chest nontender, Wheezing, Decreased Air Movement Abdomen: Soft, Nontender, Nondistended, Normal bowel sounds, No masses Back: Nontender, Normal Inspection Extremities: Nontender, No edema Skin: Normal color, No rash <Salvador Marinelli - Last Filed: 04/25/19 15:11> Diagnostic/Tx/Re-eval Chest X-Ray - ED: 2 View, Read by ED Physician, Read by Radiologist, No Acute Disease Treatment - Dyspnea: Albuterol, Steroid Repeat Evaluation: Improved With Ambulation: Asymptomatic - Medical Decision Making Patient was given prednisone and aerosols. Chest x-ray was unremarkable. Patient feels improved on repeat evaluation. Repeat vital signs are stable. He ambulates without difficulty. He is not short of breath with ambulation. Will discharge home with prednisone and Tessalon Perles. He will follow-up with his marketing outreach coordinator. <Salvador Marinelli - Last Filed: 04/25/19 15:11> - Medical Decision Making Patient was seen with me. I did a [id number] examination with the patient. Patient presents with shortness of breath and asthma attack. Patient admits to a cough. Patient states this is been getting worse over the past several days. Patient denies any chest pain. Vital signs are stable. Patient is afebrile. Patient is in no acute distress. Oral mucosa is pink and moist. Neck is supple. Trachea is midline. There is no JVD noted. Heart was regular rate and rhythm. Lungs were slightly diminished bilaterally. There is good respiratory effort noted. Abdomen is soft and nontender. Cranial nerves II through XII are intact. There are no focal motor or sensory deficits noted. Patient was given aerosols and prednisone here. PA and lateral chest x-ray does not show any acute cardiopulmonary process. Patient was feeling better on reevaluation. Patient was given a prescription for prednisone. Patient was instructed to return if worse in any way. Patient was instructed to follow-up with his primary care physician and marketing outreach coordinator in 5 to 7 days. Patient understood and was agreeable with the plan. All questions were answered. <Anshu Ford - Last Filed: 04/25/19 22:08> ED Disposition <Salvador Marinelli - Last Filed: 04/25/19 15:11> <Anshu Ford - Last Filed: 04/25/19 22:08> - Plan for ED Patient: Disposition: Home or Assisted Living Diagnosis: Asthma exacerbation Instructions: ASTHMA, Acute (Adult) Prescriptions: Prednisone [Deltasone] 40 mg PO DAILY #10 tab Prescription Printed Benzonatate [Tessalon Perle] 200 mg PO TID PRN PRN #20 cap PRN Reason: Cough Prescription Printed Referrals: Isak Wallace DO [Primary Care Provider] -
[2019-04-25] MEDS: Ipratropium/Albuterol Sulfate 3 ML AMPUL.NEB INHALATION (13:56)
--- NOTE | 2019-04-25 14:00 | RAD_ITS ---
STUDY: X-RAY CHEST REASON FOR EXAM: Male, 43 years old. Shortness of breath TECHNIQUE: Frontal and lateral views of the chest COMPARISON: 03/19/2019 FINDINGS: The lungs are clear. There are no pleural effusions. There is no pneumothorax. The heart is normal in size. The visualized osseous structures are within normal limits. RAD/Chest PA and Lateral IMPRESSION: No acute thoracic pathology. Electronically Signed: Saad Harris, at 14:33 EDT Tel , Service support ,
[2019-04-25] MEDS: predniSONE 20 MG Tablet 60 MG PO (14:04)
[2019-04-25 14:05] VITALS: BP 114/77; PULSE 97; RESP 20; TEMP 36.8; O2SAT 99
[2019-04-25 14:11] VITALS: O2SAT 98
[2019-04-25] MEDS: Albuterol 2.5 MG/3 ML VIAL.NEB. INHALATION (14:33)
[2019-04-25 15:00] VITALS: BP 111/63; PULSE 63; RESP 18; TEMP 36.6; O2SAT 99
[2019-04-25 15:13] VITALS: BP 111/63; PULSE 64; RESP 18; O2SAT 99
[2019-04-25 15:22] VITALS: BP 111/63; PULSE 64; RESP 18; O2SAT 99
== END 2019-04-25 15:51 | disposition home or self-care (01) ==
PROVIDERS: Emergency Provider Physician Assistant Medical; Family Provider Family Medicine; PCP Family Medicine
DX: J45.901 Unspecified asthma with (acute) exacerbation (principal); F17.200 Nicotine dependence, unspecified, uncomplicated; Z82.3 Family history of stroke; Z82.49 Family history of ischemic heart disease and other diseases of the circulatory system
CPT/HCPCS: 71046; 94640; 99283

== ENCOUNTER 2019-05-01 10:07 | Day surgery (SDC) | payer MEDICAID, SELFPAY ==
[2019-04-29 15:02] VITALS: BMI 22.3
[2019-04-29 17:09] LABS: Absolute Lymphocyte Count 2.45 X10^3/uL (0.83-4.51); Absolute Neutrophil Count 6.6 X10^3/uL (2.0-7.7); Basophil# 0.02 X10^3/uL; Basophil% 0.2 % (0-1); Eosinophil# 0.01 X10^3/uL; Eosinophils% 0.1 % (0-5); Hematocrit 45.8 % (40-54); Hemoglobin 15.2 g/dL (13.0-16.5); Lymphocyte # 2.45 X10^3/ul (4.0); Lymphocyte % 26.2 % (19-41); Mean Corp Hgb Conc 33.2 g/dL (32-36); Mean Corpuscular Hgb 30.5 pg (27.0-32.0); Mean Corpuscular Volume 91.8 fL (80-94); Mean Platelet Vol. 8.9 fl (6.2-12.0); Monocyte# 0.26 X10^3/uL; Monocyte% 2.8 % (0-10); NRBC Flagged by Analyzer 0 % (0-5); Neutrophil # 6.57 X10^3/uL (2.7-7.7); Neutrophil % 70.4 % (47-70); Platelet Count 276 K/mm3 (150-450); RBC Distribution Width CV 11.9 % (11.6-14.6); RBC Distribution Width SD 40.4 fl (35.1-43.9); Red Blood Count 4.99 M/mm3 (4.6-6.2); White Blood Count 9.3 K/mm3 (4.4-11.0)
[2019-04-29 17:35] LABS: Anion Gap 4 (5-15); BUN 13 mg/dL (7-18); BUN/Creat Ratio 13.9 RATIO (10-20); Calcium,Total 9.1 mg/dL (8.5-10.1); Chloride 101 mmol/L (98-107); Creatinine, Serum 0.93 mg/dL (0.70-1.30); EST Glomerular Filtration Rate 93 mL/min (>60); Est Glom Filt Rate - Afr Amer 113 mL/min (>60); Glucose 115 mg/dL (74-106); Potassium 3.8 mmol/L (3.5-5.1); Prothrombin Time (Protime)PT. 12.9 SECONDS (11.7-14.9); Sodium Level 137 mmol/L (136-145)
[2019-04-29 17:36] LABS: Partial Thromboplast Time 30.7 Seconds (24.1-36.2)
[2019-04-30 10:00] VITALS: BMI 22.6
[2019-05-01] VITALS (12 sets, daily range): BP systolic 107–182; BP diastolic 56–108; PULSE 49–71; RESP 10–18; O2SAT 96–98; BMI 22.6
--- NOTE | 2019-05-01 14:00 | EKG12_ITS ---
Test Reason : CP Blood Pressure : / mmHG Vent. Rate : 065 BPM Atrial Rate : 065 BPM P-R Int : 168 ms QRS Dur : 096 ms QT Int : 378 ms P-R-T Axes : 069 067 067 degrees QTc Int : 393 ms Normal sinus rhythm Minimal voltage criteria for LVH, may be normal variant Borderline ECG Confirmed by LUCY MILES, KHANH ([id number]), industrial editor JADE ROSENBERG ([id number]) on 05/04/2019 3:19:02 PM Referred By: Morelia Ross Confirmed By:KHANH AYALA MD
--- NOTE | 2019-05-01 14:39 | CASEMGMT ---
FLORENCE DIOP NOTE: Pt had PCI done and plan is for pt to be discharged home on Brilinta. FLORENCE DIOP to room to talk with pt and . Brilinta Savings Card given to them and discussed how to use/apply @ drug store. Discussed importance of taking medication as prescribed. 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 Pt and voice understanding. Gary ESPINOZA RN, CM
--- NOTE | 2019-05-01 15:01 | CRPHASE1 ---
Patient Communication Former Patient:: Phase I, Phase II PHII Cardiac Rehab Discussed with Patient:: Yes Guide to Cardiac Rehab Given to Patient:: Yes Cardiac Rehab Facility Choice List Given to Patient:: Yes Choice Program [facility] PHII:: Communication Given to CR, Refer to [facility] Choice Program Other:: Communication Given to CR, With permission faxed order and referral information Refer Phase II Cardiac Rehab:: Yes Sessions:: 36 sessions - 3 days/wk, 12 weeks Risk Factors/Lifestyle Smoking Status: Current every day smoker Hx Metabolic Disorders: No Hx Dyslipidemia: No Hx Obesity: No Height: 5 ft 10 in - BMI 22.7 Stress: Home/Family Risk Factor for Sedentary Lifestyle: Moderate Risk Family History: Family History (Last Reviewed 04/29/19 @ 15:58 by Morelia Ross MD) Mother Cancer Heart disease CVA (cerebral vascular accident) Father Heart disease CAD (coronary artery disease) Family History: Cancer, Heart Disease, Stroke Phase I Education Given On:: [place], Nutrition, Antiplatelet medication, Smoking cessation Issues Affecting Care:: None Knowledge of Condition:: Yes Learning Preferences: Verbal, Written - FAMILY AT BEDSIDE Medical/Surgical History NC:: No CAD:: No Cardiomyopathy:: No COPD:: No Asthma:: Yes Diabetes:: No Hypertension:: No Dyslipidemia:: No GERD:: Yes Anxiety:: Yes Other Medical/Surgical Issues:: ADD Discharge/Home/Social Eval Discharge Disposition: Home Cardiac Rehabilitation Info Cardiac Rehabilitation Program Information: Cardiac Rehabilitation is important for patients like you who are recovering from a heart problem. Cardiac rehabilitation programs are recognized as integral to the continued care of the patient with coronary heart disease. The cardiac rehabilitation program is designed to optimize a patient's physical, psychological, and social functioning. Health client care manager work in cardiac rehabilitation programs and assist you with getting the treatments you need to get stronger and healthier - like exercise, healthy eating habits, and medications. Cardiac rehabilitation has been show to help people with heart problems live longer and have better life enjoyment than people who do not go to cardiac rehabilitation. Please contact the Cardiac Rehabilitation Program at [facility] at in two weeks if you have not heard from them.
--- NOTE | 2019-05-01 15:04 | CRPH1.INST_ITS ---
General Education CAD and cardiac anatomy and function:: Patient communicates acknowledgment, Family communicates acknowledgment Explanation of diagnoses and procedures:: Patient communicates acknowledgment, Family communicates acknowledgment Sign/Symptoms of IL:: Patient communicates acknowledgment, Family communicates acknowledgment Antiplatelet therapy: Patient communicates acknowledgment, Family communicates acknowledgment Proper use of NTG-SL: Not instructed Emergency procedures and activation of EMS: Patient communicates acknowledgment, Family communicates acknowledgment Compliance of all prescribed medications: Patient communicates acknowledgment, Family communicates acknowledgment - FAMILY AT BEDSIDE Smoking Patient Nicotine/Smoking Risk Factors Are:: Cigarettes Recommendations Include:: Smoking cessation strategies/Smoking packet, Second- hand smoke recommendation, Participation in a smoking cessation program Nicotine/Smoking Response Code:: Patient communicates acknowledgment, Family communicates acknowledgment Dyslipidemia Patient Dyslipidemia Risk Factors Are:: HDL Recommendations Include:: Lipid profile provided, Reviewed NCEP/ATP guidelines, Therapeutic Lifestyle Change dietary guidelines Dyslipidemia Response Code:: Patient communicates acknowledgment, Family communicates acknowledgment Overweight/Obesity Patient Overweight/Obesity Risk Factors Are:: BMI Normal [18-25 & < 65 years old] Hypertension Patient Hypertension Risk Factors Are:: No documented hx of HTN Heart Disease Patient Heart Disease Risk Factors Are:: Family history of heart disease < 65 years old Recommendations Include:: Educated family members of their risk, Educated family members of importance of prevention of heart disease Heart Disease Response Code:: Patient communicates acknowledgment, Family communicates acknowledgment Diabetes Patient Diabetes Risk Factors Are:: No documented hx of diabetes Metabolic Syndrome Patient Metabolic Syndrome Risk Factors Are [3 of 5]:: Low HDL <40 [male] or < 50 [female] Recommendations Include:: Does not meet criteria Sedentary Patient Sedentary Risk Factors Are:: Lack of regular exercise Recommendations Include:: Aerobic exercise 5-7 times/week for 20-30 minutes continuously, Benefits of regular exercise, Discussed home walking program, Monitored Outpatient Cardiac Rehab Sedentary Response Code:: Patient communicates acknowledgment, Family communicates acknowledgment Stress Recommendations Include:: Identification of stressors, and assessment of coping skills, Stress management techniques Stress Response Code:: Patient communicates acknowledgment, Family communicates acknowledgment
--- NOTE | 2019-05-01 15:07 | DCINST_ITS ---
Discharge Diet: Low fat/ Low Cholesterol Discharge Activity: Return to Normal Activity May shower in (days): 1 - No tub baths for 5 days May resume sexual activity in: 1-2 weeks, 4-6 weeks Lifting Restrictions: Do not lift anything greater than 10 pounds for 3 days Call your doctor if your incision/area has: Continuous Slow Oozing, Sudden Increased Bleeding, Increased Pain/ Swelling, Increased Redness, Foul Smelling Discharge, Swelling at the incision site Call your doctor if you observe: Fever of 101 or Higher, Shortness of breath, Chest pain Remove Dressing in (days):: 1 Cleanse incision/area with: Soap & Water Additional Instructions: He will continue with aspirin therapy. You will remain on Brilinta therapy for at least one year. If any when asked you to stop your Brilinta, please call the [place] [facility] at [phone]. You have been started on cholesterol lowering medication due to coronary artery disease and plaque buildup. Further cardiac medications will be assessed on an outpatient basis. You are scheduled for an appointment with Dr. Ross on 05/13/2019 at 10:30 AM to evaluate overall progress. You may be contacted by cardiac rehab prior to this appointment. Allergies/Adverse Reactions: Allergies No Known Allergies Allergy (Verified 04/30/19 10:01) Medications to take at Discharge Oxycodone HCl/Acetaminophen [Percocet 10-325 mg Tablet] 1 tab PO Q6H PRN PRN 06/26/15 Dextroamphetamine/Amphetamine [Dextroamp-Amphet ER 30 mg Cap] 30 mg PO BID 06/19/18 Ondansetron [Zofran Odt] 4 mg PO Q6H PRN PRN #20 tab 03/16/19 albuterol sulfate HFA 90 mcg/actuation aerosol inhaler 2 puff INHALATION Q6H PRN 04/14/19 Benzonatate [Tessalon Perle] 200 mg PO TID PRN PRN #20 cap 04/25/19 Prednisone [Deltasone] 40 mg PO DAILY #10 tab 04/25/19 alprazolam 1 mg tablet 1 mg PO TID tab 04/29/19 amoxicillin 500 mg capsule PO #30 cap 04/29/19 budesonide-formoterol HFA 80 mcg-4.5 mcg/actuation aerosol inhaler 2 puff INHALATION BID 04/29/19 omeprazole 40 mg capsule,delayed release 1 tab PO DAILY #30 cap 04/29/19 Primary Care Physician: Isak Wallace DO [Primary Care Provider] - Test Results: Test results from this visit will be discussed in further detail at your follow- up appointment, if applicable. Please Follow Up With: Dr. Ross When: 05/13/2019 at 10:30 AM Proposed Discharge Date: 05/02/19 Cardiac Rehabilitation Info Cardiac Rehabilitation Program Information: Cardiac Rehabilitation is important for patients like you who are recovering from a heart problem. Cardiac rehabilitation programs are recognized as integral to the continued care of the patient with coronary heart disease. The cardiac rehabilitation program is designed to optimize a patient's physical, psychological, and social functioning. Health daycare teacher work in cardiac rehabilitation programs and assist you with getting the treatments you need to get stronger and healthier - like exercise, healthy eating habits, and medications. Cardiac rehabilitation has been show to help people with heart problems live longer and have better life enjoyment than people who do not go to cardiac rehabilitation. Please contact the Cardiac Rehabilitation Program at [facility] at in two weeks if you have not heard from them.
--- NOTE | 2019-05-01 15:09 | PCM.PN.BLA ---
Progress Note Patient's medication will continually be assessed and will be considered for beta-robert and ALLYSON inhibitor/ARB therapy on an outpatient basis.
[2019-05-01] MEDS: oxyCODONE 5 MG Tablet 10 MG PO (15:26)
[2019-05-01] MEDS: ALPRAZolam 0.5 MG Tablet 1 MG PO (15:27)
[2019-05-01] MEDS: 0.9% Normal Saline 1,000 ML 100 ML IV (15:30)
[2019-05-01 16:28] LABS: Hematocrit 39.2 % (40-54); Hemoglobin 13.5 g/dL (13.0-16.5); Mean Corp Hgb Conc 34.4 g/dL (32-36); Mean Corpuscular Hgb 30.8 pg (27.0-32.0); Mean Corpuscular Volume 89.5 fL (80-94); Mean Platelet Vol. 8.8 fl (6.2-12.0); Platelet Count 258 K/mm3 (150-450); RBC Distribution Width CV 11.8 % (11.6-14.6); RBC Distribution Width SD 38.8 fl (35.1-43.9); Red Blood Count 4.38 M/mm3 (4.6-6.2); White Blood Count 12.6 K/mm3 (4.4-11.0)
[2019-05-01] MEDS: Albuterol 2.5 MG/3 ML VIAL.NEB. INHALATION (17:00)
--- NOTE | 2019-05-01 20:50 | NURSING ---
pt left AMA. Risks of leaving explained to pt and , Dr. Ross notified. IV removed, stent card given, prescription for brilinta called to pt pharmacy by Dr. Finney. Copy of AMA paper given to pt.
--- NOTE | 2019-05-06 09:50 | CL.I_ITS ---
Patient Name: RAYMOND ZAMBRANO Study Date: 05/01/2019 Performing: Clary Ross MD Ht: 70 inches 178 cm : 1975 Wt: 154.2 lbs 69.85 kg Age: 43 Gender: male BSA: 1.87 PROCEDURE(S) PERFORMED MG19-RED/COR/LV [id number] W OR WO PTCA, SINGLE CORONARY ARTERY [id number], EACH ADD'L CORONARY ART, SAME MAJOR CLINICAL PROFILE AND CO-MORBIDITIES Indications: ACS > 24 hrs Heart Failure: None Stress/Imaging Stress/Image Study Performed: No CAD Presentations: Unstable angina. CONCLUSIONS CAD as described. Preserved EF. No significant or MR. Successful PCI of pLAD/D1 bifurcation with D ES to pLAD and PTCA of D1. RECOMMENDATIONS Follow up with primary forming machine adjuster RICK Indefinijose alejandro Brdonavon for at least 12 months Risk factor modification DESCRIPTION OF PROCEDURE The patient arrived to the procedure lab. The risks and benefits of the procedure as well as a full d escription of our services here and lack of surgical backup were fully explained to the patient and/o r their significant other prior to the catheterization. The Timeout was completed, verifying the colton ect patient and procedure. The patient's procedural site was prepped and draped in the usual fashion. Local anesthetic was given subcutaneously to right radial region with Lidocaine 2%. Using a modified Seldinger technique, arterial access was obtained via the right radial artery, a 6Fr sheath was inse rted.. LV to AO pullback pressures were then recorded. Left Coronary Artery selective angiography wa s performed in multiple views using a 5 Fr. JL3.5 catheter. Left Ventriculography was performed in RA O projection using a 5 Fr. JR4. Right Coronary Artery selective angiography was then performed in mul tiple views using a 5 Fr. JR 4 catheterThe images were reviewed and options discussed. A decision was then made to proceed with an Intervention, IVUS or other adjunct procedure. XB 3 Guide catheter was inserted and engaged into the LCA. BMW Guide wire was advanced to the LAD . runthrough Guide wire was advanced to the 1st Diagonal. 2.0x12 emerge Balloon catheter was advanced across lesion in the first diagonal, ostial. PTCA balloon inflated at 12 atms for 10 secs. 2.0x 10 a ngiosculpt Cutting balloon catheter was advanced to the lesion in the first diagonal, ostial. 2.0x 10 angiosculpt Cutting balloon catheter was advanced to the lesion in the first diagonal, ostial. 3.0 x 20 emerge Balloon catheter was advanced across lesion in the LAD, proximal. PTCA balloon inflated at 6 atms for 8 secs. 3.0 x 24 EluNIR Drug Eluting stent was advanced across the lesion in the LAD, pro ximal. 2.25 x 12 emerge Balloon catheter was advanced across lesion in the first diagonal, ostial. 2. 5 x 15 Emerge Balloon catheter was advanced across lesion in the LAD, proximal. The arterial sheath was pulled and a TR Band was applied for hemostasis CORONARY ANGIOGRAPHY DOMINANCE: Right Dominant LEFT HEART ASSESSMENT Left Ventricular Ejection Fraction: by LV Gram 60 % Normal LV wall motion LEFT MAIN: Mild luminal irregularities LEFT ANTERIOR DESCENDING ARTERY: 70 % Stenosis DIAGONAL 1: Ostial - 90 % Stenosis CIRCUMFLEX ARTERY: mild difffuse disease RIGHT CORONARY ARTERY: Mild luminal irregularities VALVE FINDINGS: No Aortic Valve Stenosis No Mitral Insufficency INTERVENTION INFORMATION LESION SITE: 1st Diagonal (Ostial) Lesion Complexity: High/C, chronic total occlusion: No, lesion at bifurcation: Yes, thrombus present: No, lesion length: 12 mm, culprit lesion: Yes, Previously treated lesion: No Pre Stenosis: 90 % Pre intervention LINDY flow: 3 PROCEDURE: Balloon Angioplasty, Cutting Balloon Angioplasty Post Stenosis: 20 % Post intervention LINDY flow: 3 Lesion Devices: Cordis 6 Fr XB3.0 100cm Guide Catheter Terumo .014 Runthrough Extra Floppy 180cm straight [employer]ranetics Angiosculpt RX 2.0x10 Scoring Balloon Spectranetics Angiosculpt RX 2.5x10 Scoring Balloon Luis Daniel Sci EMERGE MR 2.00x12 BALLOON Luis Daniel Sci EMERGE MR 2.25x12 BALLOON LESION SITE: LAD (Proximal) Lesion Complexity: High/C, chronic total occlusion: No, lesion at bifurcation: Yes, thrombus present: No, lesion length: 20 mm, culprit lesion: Yes, Previously treated lesion: No Pre Stenosis: 70 % Pre intervention LINDY flow: 3 PROCEDURE: Drug Eluting Stent with pre and post dilatation Post Stenosis: 0 % Post intervention LINDY flow: 3 Lesion Devices: Cordis 6 Fr XB3.0 100cm Guide Catheter Durán .014 BMW [place] Straight 190cm Luis Daniel Sci EMERGE MR 3.00x20 BALLOON [employer] WALI RX 3.0x24 Luis Daniel Sci EMERGE MR 2.50x15 BALLOON COMPLICATIONS No Complications PROCEDURE MEDICATIONS Fentanyl 50 mcg IV Versed 1 mg IV Oxygen: 2 L/min via nasal cannula Brilinta 180 mg PO 05/01/2019 13:29:15 Aspirin (325mg) 1 Tabs PO @ 05/01/2019 13:29:40 Heparin given IA 05/01/2019 12:15:27 Heparin 3000 unit(s) IV 05/01/2019 12:34:30 Heparin 1000 unit(s) IV 05/01/2019 13:28:59 Verapamil 2.5mg, Ntg 100mcgs, 3000 units of Heparin given IA 05/01/2019 12:15:27 IV Bolus: .9 NaCl 250 ml total 05/01/2019 13:40:20 SUMMARY OF HEMODYNAMIC DATA Time AIR REST ECG 10:33:21 LV 127/16, 22 12:17:39 LV 137/13, 17 12:17:45 LVp 125/15, 18 12:17:56 AOp 122/86 (103) 12:18:01 AO 111/86 (100) SA 12:18:29 LVp 150/9, 23 12:28:21 AOp 135/77 (99) 12:28:26 AO 132/80 (101) 12:28:37 Signed By Clary Ross MD On 05/01/2019 5:19:33 PM Clary Ross MD
== END 2019-05-01 21:00 | disposition left against medical advice (07) ==
LOC: CLSP 10:07 → ICU 13:01
PROVIDERS: Family Provider Family Medicine; PCP Family Medicine; Referring Provider Specialist; Visit Provider Specialist
DX: I25.10 Atherosclerotic heart disease of native coronary artery without angina pectoris (principal); R07.9 Chest pain, unspecified; R00.2 Palpitations; R42 Dizziness and giddiness; K21.9 Gastro-esophageal reflux disease without esophagitis; F41.9 Anxiety disorder, unspecified; F17.200 Nicotine dependence, unspecified, uncomplicated
CPT/HCPCS: 36415; 80048; 85025; 85027; 85610; 85730; 92921; 92928; 93005; 93458; 94640; 99152; 99153; C1874; J7030; J7040; C1725; C1769; C1887; C1894; C9600; J1327; Q9967

== ENCOUNTER 2019-05-01 21:59 | Observation (INO) | payer MEDICAID, SELFPAY ==
[2019-05-01 14:10] VITALS: BMI 22.6
[2019-05-01 22:02] VITALS: BP 110/82; PULSE 85; RESP 18; TEMP 36.7; O2SAT 99; BMI 22.6
--- NOTE | 2019-05-01 22:20 | ED.VIS.GEN ---
History of Present Illness Chief Complaint: Chest Pain Informant: Patient Onset: Today Current Severity: Mild Maximum Severity: Moderate Narrative: Patient had a heart cath performed today with right radial approach and received 1 stent. Patient is recovering in the ICU this evening. When he was told his girlfriend would have to leave not be able to stay with him he became upset and signed out AMA from the ICU. After arriving home patient states his chest pain and shortness of breath recurred. He presents back tonight requesting readmission. - Past Medical History (1) Coronary artery disease Status: Acute (2) Chest pain Status: Acute Past Medical History - Allergies and Home Meds Allergies/Adverse Reactions: Allergies No Known Allergies Allergy (Verified 05/01/19 22:05) Prior records reviewed: Yes Past Medical History: - - Reviewed Surgical History: - Lives: Spouse/ Significant Other Smoking Status: Current every day smoker - Family History Maternal Family History: Family History (Last Reviewed 04/29/19 @ 15:58 by Morelia Ross MD) Mother Cancer Heart disease CVA (cerebral vascular accident) Father Heart disease CAD (coronary artery disease) Family History: Reports: - - Mother with a history of stomach cancer, heart disease, stroke and at age 56 secondary to heart disease and stroke complications. Paternal Family History: Family History (Last Reviewed 04/29/19 @ 15:58 by Morelia Ross MD) Mother Cancer Heart disease CVA (cerebral vascular accident) Father Heart disease CAD (coronary artery disease) Family History: Reports: - - Father with a history of heart disease, coronary disease, at age 52 secondary to heart disease complications. Review of Systems General: Denies: Chills, Fever Eyes: Denies: Visual changes - bilaterally ENT: Denies: Bilateral ear pain Cardiovascular: Reports: Chest pain Respiratory: Reports: Dyspnea. Denies: Cough Gastrointestinal: Denies: Abdominal pain, Nausea, Vomiting, Diarrhea Genitourinary: Denies: Dysuria Skin: Denies: Wounds Neurological: Denies: Headache, Weakness, Parasthesia Allergy: Denies: Uticaria Physical Exam Vital Signs/Narrative: Vital Signs Temp Pulse Resp BP Pulse Ox 05/01/19 22:02 98.0 F 85 18 110/82 H 99 Inital Vital Signs reviewed: Yes Head: Normocephalic, Atraumatic ENT: Moist mucous membranes Cardiovascular: Regular rate, Regular rhythm Respiratory: No distress, CTA bilaterally Abdomen: Soft, Nontender Extremities: - - Dressing in place to right radial cath access site intact. Neurological: Alert, Oriented x3 Psychological: - - Anxious ED Disposition - Plan for ED Patient: Disposition: Acute Care Hospital [facility] Diagnosis: Chest pain
[2019-05-01] MEDS: 0.9% Normal Saline 1,000 ML 150 ML IV (22:30)
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
[2019-05-01] MEDS: Morphine 4 MG/ML Syringe IV (22:31)
[2019-05-01] MEDS: Ondansetron 4 MG/2 ML Vial IV (22:31)
[2019-05-01 22:33] VITALS: PULSE 65; RESP 13; O2SAT 99
[2019-05-01 22:39] VITALS: BP 131/85; PULSE 64
[2019-05-01] MEDS: Nitroglycerin SL (ED/IMG/CATH) 0.4 MG TABLET SUBLINGUAL (22:39)
[2019-05-01] MEDS: TICAGRELOR 90 MG TABLET PO (22:39)
[2019-05-01 23:00] VITALS: BMI 22.8; BMI 22.9
[2019-05-01 23:20] VITALS: PULSE 61
[2019-05-01 23:30] VITALS: BP 112/57; PULSE 57; RESP 14; O2SAT 98
[2019-05-01 23:45] VITALS: BP 100/61; PULSE 56; RESP 11; O2SAT 98
[2019-05-02] VITALS (17 sets, daily range): BP systolic 86–158; BP diastolic 39–90; PULSE 44–80; RESP 10–18; TEMP 36.6–36.9; O2SAT 92–100
[2019-05-02] MEDS: ALPRAZolam 0.5 MG Tablet 1 MG PO ×2 (00:04→06:49)
--- NOTE | 2019-05-02 01:28 | NURSING ---
Report received from Patricio Fuller RN at approximately 01:10. This RN will resuming care of patient.
[2019-05-02 04:08] LABS: Absolute Lymphocyte Count 5.26 X10^3/uL (0.83-4.51); Absolute Neutrophil Count 5.4 X10^3/uL (2.0-7.7); Basophil# 0.02 X10^3/uL; Basophil% 0.2 % (0-1); Eosinophil# 0.15 X10^3/uL; Eosinophils% 1.3 % (0-5); Hematocrit 39.1 % (40-54); Hemoglobin 13.1 g/dL (13.0-16.5); Lymphocyte # 5.26 X10^3/ul (4.0); Lymphocyte % 46.1 % (19-41); Mean Corp Hgb Conc 33.5 g/dL (32-36); Mean Corpuscular Hgb 30.9 pg (27.0-32.0); Mean Corpuscular Volume 92.2 fL (80-94); Mean Platelet Vol. 8.6 fl (6.2-12.0); Monocyte# 0.53 X10^3/uL; Monocyte% 4.6 % (0-10); NRBC Flagged by Analyzer 0 % (0-5); Neutrophil # 5.41 X10^3/uL (2.7-7.7); Neutrophil % 47.4 % (47-70); POSITIVE DIFFERENTIAL YES; Platelet Count 238 K/mm3 (150-450); RBC Distribution Width CV 12.2 % (11.6-14.6); RBC Distribution Width SD 41.2 fl (35.1-43.9); Red Blood Count 4.24 M/mm3 (4.6-6.2); White Blood Count 11.4 K/mm3 (4.4-11.0)
[2019-05-02 04:11] LABS: Differential Indicated SCAN CRITERIA MET
[2019-05-02 04:25] LABS: Anion Gap 3 (5-15); BUN 10 mg/dL (7-18); BUN/Creat Ratio 13.9 RATIO (10-20); Calcium,Total 8.2 mg/dL (8.5-10.1); Chloride 109 mmol/L (98-107); Creatinine, Serum 0.72 mg/dL (0.70-1.30); EST Glomerular Filtration Rate 126 mL/min (>60); Est Glom Filt Rate - Afr Amer 152 mL/min (>60); Estimated Creatinine Clearance 134.26 ml/min; Glucose 87 mg/dL (74-106); Sodium Level 145 mmol/L (136-145)
--- NOTE | 2019-05-02 04:30 | EKG12_ITS ---
Test Reason : CP Blood Pressure : / mmHG Vent. Rate : 052 BPM Atrial Rate : 052 BPM P-R Int : 204 ms QRS Dur : 094 ms QT Int : 432 ms P-R-T Axes : 062 067 063 degrees QTc Int : 401 ms Sinus bradycardia with sinus arrhythmia Otherwise normal ECG Confirmed by LUCY MILES, KHANH ([id number]), commercial production editor JADE ROSENBERG ([id number]) on 05/13/2019 2:23:21 PM Referred By: Khanh Sanford Confirmed By:KHANH AYALA MD
[2019-05-02] MEDS: 0.9% Normal Saline 1,000 ML 150 ML IV (05:23)
[2019-05-02] MEDS: Morphine 4 MG/ML Syringe IV ×2 (05:25→09:00)
[2019-05-02] MEDS: Albuterol 2.5 MG/3 ML VIAL.NEB. INHALATION (08:45)
[2019-05-02] MEDS: Budesonide Respules 0.5 MG/2 ML AMPUL.NEB. INHALATION (08:46)
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
[2019-05-02] MEDS: TICAGRELOR 90 MG TABLET PO (09:03)
[2019-05-02] MEDS: Enoxaparin 40 MG/0.4 ML Syringe SC (09:03)
[2019-05-02] MEDS: Aspirin E.C. 81 MG Tablet PO (09:03)
[2019-05-02] MEDS: Pantoprazole Sodium 40 MG Tablet PO (09:03)
--- NOTE | 2019-05-02 09:20 | CM.UR ---
Dr. Ross asked about in-network MH providers d/t this patient has PTSD. States needs ongoing OP treatment for his MH condition. Printed list from [facility] website and in-network providers. Marisa Jordan RN, CCM.
[2019-05-02] MEDS: Sertraline 50 MG Tablet PO (10:38)
[2019-05-02] MEDS: clonazePAM 1 MG Tablet PO (10:38)
--- NOTE | 2019-05-02 11:40 | CON.PCM_ITS ---
Problem List (1) Chest pain Status: Acute Qualifiers: Chest pain type: unspecified Qualified Code(s): R07.9 - Chest pain, unspecified (2) Coronary artery disease Status: Acute (3) S/P PTCA (percutaneous transluminal coronary angioplasty) Status: Acute (4) Tobacco use Status: Chronic Reason for Consult Date of Consultation: 05/02/19 History of Present Illness: The patient is a 43 year oldigv-sjvq-hun white male who was recently evaluated by Dr. Ross with diagnostic cardiac catheterization and underwent PCI/stent of the LAD and PCI/PTCA of the diagonal branch who was being monitored overnight with tentative plans for release home today if stable who subsequently left prior to elective discharge AGAINST MEDICAL ADVICE and presented back to the hospital for concerns of chest discomfort who was placed back in the CVICU for reevaluation with cardiovascular consultation. The patient states that he left AGAINST MEDICAL ADVICE as his significant other was unable to spend the night in the room with him. He states after leaving he experienced chest discomfort. He now believes it was related to anxiety. However he presented back to the hospital for reassessment. He was placed back in the CVICU. At the present time he states he has been resting comfortably with no chest discomfort and no difficulty breathing. He has had no other new acute symptoms. His ECG demonstrated sinus rhythm with a left axis deviation with left anterior fascicular block and a nonspecific T wave abnormality. His cardiac rhythm has remained sinus rhythm. He states that the present time he request discharge home to be with his family. He states that he cannot remain in the hospital any longer. [] Past Medical History Allergies/Adverse Reactions: Allergies No Known Allergies Allergy (Verified 05/01/19 22:05) Home Medications: Ambulatory Orders Medication Instructions Recorded Oxycodone HCl/Acetaminophen 1 tab PO Q6H PRN PRN 06/26/15 [Percocet 10-325 mg Tablet] Dextroamphetamine/Amphetamine 30 mg PO BID 06/19/18 [Dextroamp-Amphet ER 30 mg Cap] Ondansetron [Zofran Odt] 4 mg PO Q6H PRN PRN #20 tab 03/16/19 albuterol sulfate HFA 90 2 puff INHALATION Q6H PRN 04/14/19 mcg/actuation aerosol inhaler Benzonatate [Tessalon Perle] 200 mg PO TID PRN PRN #20 cap 04/25/19 Prednisone [Deltasone] 40 mg PO DAILY #10 tab 04/25/19 alprazolam 1 mg tablet 1 mg PO TID tab 04/29/19 amoxicillin 500 mg capsule PO #30 cap 04/29/19 budesonide-formoterol HFA 80 2 puff INHALATION BID 04/29/19 mcg-4.5 mcg/actuation aerosol inhaler omeprazole 40 mg capsule,delayed 1 tab PO DAILY #30 cap 04/29/19 release Past Medical History (Chronic Problems): Chronic Problems (Last Reviewed 04/29/19 @ 15:58 by Morelia Ross MD) Tobacco use (Chronic) Hypersomnia (Chronic) ADD (attention deficit disorder) (Chronic) Anxiety (Chronic) Chronic pain (Chronic) Surgical History: - Psychiatric History: Anxiety, Depression - *Family History Maternal Family History: Family History (Last Reviewed 04/29/19 @ 15:58 by Morelia Ross MD) Mother Cancer Heart disease CVA (cerebral vascular accident) Father Heart disease CAD (coronary artery disease) History Items: - - Mother with a history of stomach cancer, heart disease, stroke and at age 56 secondary to heart disease and stroke complications. Paternal Family History: Family History (Last Reviewed 04/29/19 @ 15:58 by Morelia Ross MD) Mother Cancer Heart disease CVA (cerebral vascular accident) Father Heart disease CAD (coronary artery disease) History Items: - - Father with a history of heart disease, coronary disease, at age 52 secondary to heart disease complications. Lives: Spouse/ Significant Other Smoking Status: Current every day smoker Review of Systems - Review of Systems General: Denies: Fever, Night Sweats, Fatigue Cardiovascular: Reports: Chest Discomfort. Denies: Shortness of Breath, Orthopnea, PND, Peripheral Edema, Palpitations, Lightheadedness, Dizziness, Near Syncope, Syncope Respiratory: Denies: Cough, Sputum Production, Hemoptysis Gastrointestinal: Denies: Hematemesis, Hematochezia, Melena Genitourinary: Denies: Dysuria, Hematuria Skin: Denies: Rash Subjectve: This is a 43-year-old white male who appears to be resting comfortably at the moment in no acute distress. Objective: Vital Signs Temp Pulse Resp BP Pulse Ox 98.2 F 80 12 158/72 H 100 05/02/19 09:00 05/02/19 11:00 05/02/19 11:00 05/02/19 11:00 05/02/19 11:00 Oxygen Delivery Method Room Air Weight: 163 lb 12.855 oz Body Mass Index (BMI) 22.8 Intake and Output for Last 24 Hours 04/30/19 05/01/19 05/02/19 23:59 23:59 23:59 Intake Total 1834 Balance 1834 General: Awake, Alert, Oriented x 3, No Acute Distress HEENT: Atraumatic, Normocephalic, PERRL, EOMI, Sclera Non Icteric Oral: Moist Mucosa Neck: Supple, Good ROM, No JVD Lungs: Clear to auscultation Cardiovascular: Regular Rhythm, Normal S1, Normal S2 Vascular: No Carotid Bruits Abdomen: Bowel Sounds Present, Soft, Non Tender Extremities: No edema Neurological: No Focal Motor or Sensory Deficit Psych/Mental Status: Anxious 05/02/19 04:00: Sodium 145, Potassium 4.0, Chloride 109 H, Carbon Dioxide 33.0 H , Anion Gap 3 L, BUN 10, Creatinine 0.72, Est GFR (MDRD) Af Amer 152, Est GFR (MDRD) Non-Af 126, BUN/Creatinine Ratio 13.9, Glucose 87, Calcium 8.2 L 05/02/19 04:00: WBC 11.4 H, RBC 4.24 L, Hgb 13.1, Hct 39.1 L, MCV 92.2, MCH 30.9, MCHC 33.5, Plt Count 238, MPV 8.6, Immature Gran % (Auto) 0.400, Neut % (Auto) 47.4, Lymph % (Auto) 46.1 H, Sharkey % (Auto) 4.6, Eos % (Auto) 1.3, Baso % (Auto) 0.2, Absolute Neuts (auto) 5.4, Nucleated RBC % 0 Rhythm: Sinus rhythm EKG: As noted above Assessment/Plan 1. Chest pain The patient, status post discharge AGAINST MEDICAL ADVICE, return based upon concerns of chest pain. He states in retrospect he believes this was anxiety generated. At the moment he is having no ongoing symptoms. He was reassessed in the emergency department and by internal medicine. He did have a follow-up ECG. He had no acute ECG changes. At the present time he appears to be resting comfortably with no ongoing acute symptoms. His cardiac rate and rhythm appear to be sinus. Again his ECG demonstrates no acute changes. His previous cardiac catheterization/PCI films were reviewed. At the present time would be recommended he continue aggressive cardiovascular risk factor evaluation and care. It was not felt that he required additional cardiac diagnostic studies or therapeutic intervention at this time barring a change in his clinical course. He will need continued future outpatient cardiovascular follow-up. 2. CAD status post LAD PTCA/stent and diagonal branch PTCA Again at this time his recurrent symptoms appear to be atypical with respect to underlying cardiovascular disease. His symptoms may be related to his anxiety and multiple noncardiovascular issues. From a cardiac standpoint he appears to be symptomatically/hemodynamically stable. His ECG demonstrates no acute changes. It would be recommended he continue cardiovascular medical therapy and outpatient follow-up. 3. Tobacco abuse He has been counseled on the need to stop cigarette smoking. Of note, the patient has multiple noncardiovascular issues. These issues are being addressed by internal medicine as best as the patient will allow. Hop efully the patient will follow-up as an outpatient for both his cardiovascular and noncardiovascular issues. The patient's case was discussed and reviewed with Dr. Ross. This note was generated using a voice recognition system and there may be incorrect words, spelling or punctuation that were not noted when reviewing the office note prior to saving.
--- NOTE | 2019-05-02 13:18 | PCM.DC ---
- Discharge Diagnoses Current Active Problems: Current Active and Chronic Problems (Last Reviewed 04/29/19 @ 15:58 by Morelia Ross MD) S/P PTCA (percutaneous transluminal coronary angioplasty) (Acute) Chest pain (Acute) You will use the following diet at home:: Cardiac - low salt and low cholesterol Your food should be the consistency of: Regular Your liquids should be the consistency of: Regular/Thin Discharge Activity: - - work up to walking 30 minutes a day to keep your heart healthy. No hils until you start cardiac rehab and they tell you it is OK to walk hills. you can walk on the flat now. May resume sexual activity in: No Restrictions Call your doctor if your incision/area has: Continuous Slow Oozing, Sudden Increased Bleeding, Increased Pain/ Swelling, Increased Redness, Foul Smelling Discharge, Swelling at the incision site Call your doctor if you observe: Fever of 101 or Higher, Shortness of breath, Fainting spells, Chest pain Instructions: Your Body's Response to Anxiety, Treating Anxiety Disorders with Therapy, Understanding Anxiety Disorders, Treating Anxiety Disorders with Medication, Coping with PTSD, Understanding Post-Traumatic Stress Disorder (PTSD), Treating Post-Traumatic Stress Disorder (PTSD) with Medication, Treating Posttraumatic Stress Disorder (PTSD) with Therapy Additional Instructions: 1. Your heart is good. The artery is open and has a stent in it to keep it open. Take both the Brilinta and the Aspirin every day to keep the stent open. after 1 year the Brilinta can be discontinued. The chest pain that you are getting is mostly due to panic attacks and anxiety. This is not going to go away unless you get on the proper medication AND go to therapy to learn what your triggers are and how to control your response to the triggers. Meds alone will not make you better. 2. I have started you on a long acting anxiety reliever call Klonopin. You will ken this every 12 H. IF you get a panic attack with CP, lightheadedness, shortness og breath take 1/2 of a Xanax. I ahev also started you on a drug called Zoloft (also called sertraline). this drug treats anxiety and depressions and it is not addictive. It will take a month to reach its full potential. If you are still anxious in 1 month I would increase the dose to 100 mg daily. 3. Get your teeth fixed and start wearing the CPAP. Your body is sleep deprived and that will make every pain worse and increase anxiety and depression. 4. Start taking better care of yourself.......the way you feel now is crappy and there are things that can be done with therapy and medication that can help you feel better.......good luck. 5. Your cholesterol is kind of high so you will be taking Lipitor (atorvastatin) every night. You will need to have a lipid panel and a liver profile checked after 4-6 weeks on the lipitor. Allergies/Adverse Reactions: Allergies No Known Allergies Allergy (Verified 05/01/19 22:05) Medications to take at Discharge Oxycodone HCl/Acetaminophen [Percocet 10-325 mg Tablet] 1 tab PO Q6H PRN PRN 06/26/15 Dextroamphetamine/Amphetamine [Dextroamp-Amphet ER 30 mg Cap] 30 mg PO BID 06/19/18 Ondansetron [Zofran Odt] 4 mg PO Q6H PRN PRN #20 tab 03/16/19 albuterol sulfate HFA 90 mcg/actuation aerosol inhaler 2 puff INHALATION Q6H PRN 04/14/19 Benzonatate [Tessalon Perle] 200 mg PO TID PRN PRN #20 cap 04/25/19 Prednisone [Deltasone] 40 mg PO DAILY #10 tab 04/25/19 amoxicillin 500 mg capsule PO #30 cap 04/29/19 budesonide-formoterol HFA 80 mcg-4.5 mcg/actuation aerosol inhaler 2 puff INHALATION BID 04/29/19 omeprazole 40 mg capsule,delayed release 1 tab PO DAILY #30 cap 04/29/19 ALPRAZolam [Xanax] 0.5 mg PO Q6H PRN PRN tab 05/02/19 Aspirin E.C. [Ecotrin] 81 mg PO DAILY@0800 tab 05/02/19 Atorvastatin Calcium [Lipitor] 40 mg PO QHS #30 tab 05/02/19 Clonazepam [Klonopin] 1 mg PO Q12 #28 tablet 05/02/19 Nicotine [Nicoderm Cq] 21 mg TRANSDERM. DAILY #28 patch 05/02/19 Nitroglycerin (INPATIENT USE) [Nitrostat] 0.4 mg SUBLINGUAL Q5M PRN #1 bottle 05/02/19 Sertraline HCl [Zoloft] 50 mg PO DAILY #30 tab 05/02/19 Ticagrelor [Brilinta] 90 mg PO BID tab 05/02/19 The following prescriptions were given: Clonazepam [Klonopin] 1 mg PO Q12 #28 tablet Transmission Status: Sent to [facility] #30 Atorvastatin Calcium [Lipitor] 40 mg PO QHS #30 tab Transmission Status: Pending to [facility] #30 Nicotine [Nicoderm Cq] 21 mg TRANSDERM. DAILY #28 patch Transmission Status: Pending to [facility] #30 Nitroglycerin (INPATIENT USE) [Nitrostat] 0.4 mg SUBLINGUAL Q5M PRN #1 bottle PRN Reason: Cardiac/Chest Pain Transmission Status: Pending to [facility] #30 Sertraline HCl [Zoloft] 50 mg PO DAILY #30 tab Transmission Status: Pending to [facility] #30 Primary Care Physician: Isak Wallace DO [Primary Care Provider] - Please follow up with your Primary Care Physician in: 1-2 weeks Test Results: Test results from this visit will be discussed in further detail at your follow-up appointment, if applicable. Please Follow Up With: Morelia Ross MD When: 2 weeks Proposed Discharge Date: 05/02/19
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
== END 2019-05-02 14:00 | disposition home or self-care (01) ==
LOC: ED 22:35 → ICU 05-02 06:18
PROVIDERS: Admitting Provider Family Medicine; Emergency Provider Emergency Medicine; Family Provider Family Medicine; PCP Family Medicine; Referring Provider Family Medicine; Visit Provider Internal Medicine
DX: I25.110 Atherosclerotic heart disease of native coronary artery with unstable angina pectoris (principal); F98.8 Other specified behavioral and emotional disorders with onset usually occurring in childhood and adolescence; G89.4 Chronic pain syndrome; K21.9 Gastro-esophageal reflux disease without esophagitis; F32.9 Major depressive disorder, single episode, unspecified; G47.33 Obstructive sleep apnea (adult) (pediatric); F43.10 Post-traumatic stress disorder, unspecified; F17.210 Nicotine dependence, cigarettes, uncomplicated; E78.5 Hyperlipidemia, unspecified; F41.1 Generalized anxiety disorder; Z79.899 Other long term (current) drug therapy; Z79.52 Long term (current) use of systemic steroids; Z95.5 Presence of coronary angioplasty implant and graft; Z91.19 Patient's noncompliance with other medical treatment and regimen; J45.40 Moderate persistent asthma, uncomplicated; R42 Dizziness and giddiness; R00.2 Palpitations; R07.9 Chest pain, unspecified
CPT/HCPCS: 36415; 80048; 85025; 85027; 85610; 85730; 92921; 92928; 93005; 93458; 94640; 96361; 96372; 96374; 96375; 96376; 97802; 99152; 99153; 99218; 99284; 99406; C1874; J7030; J7040; A4216; C1725; C1769; C1887; C1894; C9600; G0378; J1327; J2405; Q9967

== ENCOUNTER 2019-06-10 13:24 | Emergency (ER) | payer MEDICAID, SELFPAY ==
[2019-05-28 09:19] VITALS: BMI 23.1
[2019-06-10 13:25] VITALS: BP 139/88; PULSE 84; RESP 15; TEMP 36.6; O2SAT 99; BMI 24.0
--- NOTE | 2019-06-10 13:56 | EKG12_ITS ---
Test Reason : VOMITTING Blood Pressure : / mmHG Vent. Rate : 060 BPM Atrial Rate : 060 BPM P-R Int : 216 ms QRS Dur : 096 ms QT Int : 398 ms P-R-T Axes : 063 061 065 degrees QTc Int : 398 ms Sinus rhythm with 1st degree A-V block Otherwise normal ECG Confirmed by ANA MILES, ROSENDA ([id number]), clinical editor CAMPOS FERRARA ([id number]) on 06/16/2019 2:17:28 PM Referred By: CASSIDY Confirmed By:ROSEDNA PEREZ MD
[2019-06-10] MEDS: Ondansetron 4 MG/2 ML Vial IV (14:13)
[2019-06-10] MEDS: 0.9% Normal Saline 1,000 ML 1000 ML IV (14:13)
[2019-06-10 14:31] LABS: Absolute Neutrophil Count 5.4 X10^3/uL (2.0-7.7); Basophil# 0.04 X10^3/uL; Basophil% 0.4 % (0-1); Eosinophil# 0.27 X10^3/uL; Hematocrit 40.1 % (40-54); Hemoglobin 13.3 g/dL (13.0-16.5); Mean Corp Hgb Conc 33.2 g/dL (32-36); Mean Corpuscular Hgb 30.4 pg (27.0-32.0); Mean Corpuscular Volume 91.8 fL (80-94); Mean Platelet Vol. 9.1 fl (6.2-12.0); Monocyte# 0.55 X10^3/uL; Monocyte% 6.1 % (0-10); NRBC Flagged by Analyzer 0 % (0-5); Neutrophil % 60.2 % (47-70); Platelet Count 222 K/mm3 (150-450); RBC Distribution Width CV 12.5 % (11.6-14.6); RBC Distribution Width SD 42.3 fl (35.1-43.9); Red Blood Count 4.37 M/mm3 (4.6-6.2)
[2019-06-10 14:42] LABS: AST(SGOT) 15 U/L (15-37); Alanine Aminotransfer ALT/SGPT 31 U/L (16-61); Albumin, Serum 3.5 g/dL (3.2-5.0); Alkaline Phosphatase 111 U/L (45-117); Anion Gap 6 (5-15); BUN 14 mg/dL (7-18); BUN/Creat Ratio 17.9 RATIO (10-20); Calcium,Total 8.7 mg/dL (8.5-10.1); Chloride 105 mmol/L (98-107); Creatinine, Serum 0.78 mg/dL (0.70-1.30); EST Glomerular Filtration Rate 114 mL/min (>60); Est Glom Filt Rate - Afr Amer 138 mL/min (>60); Estimated Creatinine Clearance 124.79 ml/min; Globulin 3.5 g/dL (2.2-4.2); Glucose 83 mg/dL (74-106); Lipase 67 U/L (73-393); Potassium 4.3 mmol/L (3.5-5.1); Sodium Level 139 mmol/L (136-145)
[2019-06-10 15:25] VITALS: RESP 16
--- NOTE | 2019-06-10 15:40 | CT_ITS ---
STUDY: CT ABDOMEN AND PELVIS WITH CONTRAST REASON FOR EXAM: Male, 43 years old. Abdominal pain. Nausea vomiting. RADIATION DOSAGE (If Supplied By Facility): CTDIvol = ( 13.21 ) mGy, DLP = ( 654.03 ) mGycm TECHNIQUE: Transaxial images were obtained from the dome of the diaphragm to the symphysis pubis without oral contrast. IV Isovue 300 100 was administered. Sagittal and coronal images were reconstructed. Individualized dose optimization techniques were used for this CT. COMPARISON: 10/28/2018. CTA chest 03/11/2019. FINDINGS: Heart size is normal. Ill-defined nodular density in the right middle lobe on image 1, partially imaged. This is new compared to the prior CTA of March 2019. The liver is unremarkable. The gallbladder is unremarkable. The spleen and pancreas are unremarkable. The adrenal glands are normal. The kidneys are unremarkable. No stones or hydronephrosis. The aorta is normal in caliber. There is no free fluid, free air, or organized collection. No bowel obstruction or inflammatory change. Normal appendix. Urinary bladder is unremarkable. Normal abdominal wall. Normal osseous structures. CT/Abdomen/Pelvis W IV Cont ONLY IMPRESSION: 1. Partially imaged new nodular density in the right middle lobe. Consider CT chest for further evaluation. 2. No acute abdominal or pelvic process. Electronically Signed: Annetta Muñiz MD at 17:07 EST Tel , Service support ,
--- NOTE | 2019-06-10 16:11 | ED.DCSUM_ITS ---
- ER Visit Summary Date of Service: 06/10/19 Chief Complaint: Nausea vomiting dizziness History of Present Illness: The patient is a 43 M who states that last night developed a headache some intermittent chest pain and some leg pains and generally felt poorly. This morning he felt very lightheaded had nausea vomiting. States he has been constipated but that has been ongoing for several weeks due to numerous medication changes after his HI and PCI. No fevers. Physical Examination: Afebrile vital signs are stable Gen: Well-nourished well-developed Head: Normocephalic atraumatic Eyes: Perrl EOMI ENT: TMs clear no rhinorrhea moist mucous membranes Neck: Supple no lymphadenopathy no JVD nontender CVS: Regular rate rhythm no murmurs normal S1-S2 Respiratory: No distress clear to auscultation bilaterally chest nontender Abdomen: Soft mild tenderness to palpation in the lower abdomen without guarding or rebound nondistended normal bowel sounds no masses Back: Nontender Extremity: Nontender no edema Skin: Normal color no rash Neuro: alert orientated ?3 CN II-XII intact normal Psych: Normal affect normal mood Test Results: CBC CMP and lipase are normal. Troponin 0 0.034. EKG sinus at a rate of 60. CT abdomen pelvis was obtained. Results are currently pending. Emergency Department Course and Treatment: Patient received IV fluids and Zofran. He is feeling better than what he did when he came in. He notes no further nausea but still states he has having some dizziness. I suspect that this is a viral illness. Impression: 1. Vomiting 2. Lightheaded. This note was generated with [employer] dictation software. It may contain incorrect words, spelling, and punctuation that were not noted in review of the chart prior to signing <Ron Das - Last Filed: 06/10/19 16:49> - ER Visit Summary Date of Service: 06/10/19 Patient was checked out to me to check CT abdomen results. CT abdomen shows partially imaged new nodular density in the right middle lobe. Consider CT chest for further evaluation. No acute abdominal or pelvic process. CT chest was ordered and shows bronchial wall thickening in the right middle lobe, suspicious for focal bronchitis. Nodular density in the right middle lobe is likely associated with bronchitis or alveolitis. Shotty mediastinal adenopathy, likely reactive. Patient is advised of these findings. Advised to follow-up with primary care physician. He is requesting discharge home. Advised return to ED for worsening complaints. This note was generated with [employer] dictation software. It may contain incorrect words, spelling, and punctuation that were not noted in review of the chart prior to signing <Rosa Neff - Last Filed: 06/10/19 18:07> ED Disposition <Ron Das - Last Filed: 06/10/19 16:49> <Rosa Neff - Last Filed: 06/10/19 18:07> - Plan for ED Patient: Disposition: Home or Assisted Living Instructions: DIZZINESS, Unk Cause, VOMITING (5y-Adult) Referrals: Isak Wallace DO [Primary Care Provider] - (in 2 days if continued symptoms)
[2019-06-10] MEDS: 0.9% Normal Saline 1,000 ML 250 ML IV (16:39)
[2019-06-10 17:00] VITALS: BP 127/94; PULSE 69; RESP 16; TEMP 36.7; O2SAT 96
--- NOTE | 2019-06-10 17:17 | CT_ITS ---
STUDY: CT CHEST WITHOUT CONTRAST REASON FOR EXAM: Male, 43 years old. Lower lobe density, abnormal abdominal CT. RADIATION DOSAGE (If Supplied By Facility): CTDIvol = ( 11.95 ) mGy, DLP = ( 456.81 ) mGycm TECHNIQUE: Transaxial imaging was performed without the administration of intravenous contrast material. Individualized dose optimization techniques were used for this CT. COMPARISON: None. FINDINGS: Heart size is normal. No pericardial effusion. The aorta is normal in caliber. Shotty mediastinal adenopathy. No hilar or axillary adenopathy. No pleural effusion. There is bronchial wall thickening in the right middle lobe, lateral segment. Bronchi are otherwise unremarkable. There is an ill-defined nodular density in the right middle lobe measuring approximately 1 x 1 cm. The lungs are otherwise clear. No discrete mass, interstitial or cystic disease. CT/Chest without Contrast IMPRESSION: 1. Bronchial wall thickening in the right middle lobe, suspicious for focal bronchitis. 2. Nodular density in the right middle lobe is likely associated with bronchitis or alveolitis. 3. Shotty mediastinal adenopathy, likely reactive. Electronically Signed: Annetta Muñiz MD at 17:55 EST Tel , Service support ,
== END 2019-06-10 18:21 | disposition home or self-care (01) ==
PROVIDERS: Emergency Provider Emergency Medicine; Family Provider Family Medicine; PCP Family Medicine
DX: R11.2 Nausea with vomiting, unspecified (principal); R42 Dizziness and giddiness; I25.2 Old myocardial infarction; K59.00 Constipation, unspecified; K21.9 Gastro-esophageal reflux disease without esophagitis; I25.10 Atherosclerotic heart disease of native coronary artery without angina pectoris; Z72.0 Tobacco use; F41.9 Anxiety disorder, unspecified; F98.8 Other specified behavioral and emotional disorders with onset usually occurring in childhood and adolescence
CPT/HCPCS: 71250; 74177; 80053; 83690; 84484; 85025; 93005; 96361; 96374; 99284; Q9967; J2405

== ENCOUNTER 2019-07-10 00:27 | Emergency (ER) | payer MEDICAID, SELFPAY ==
[2019-07-10 00:27] VITALS: BP 152/88; PULSE 75; RESP 16; TEMP 36.5; O2SAT 99; BMI 24.4
[2019-07-10 00:31] VITALS: PULSE 80
--- NOTE | 2019-07-10 00:51 | RAD_ITS ---
STUDY: X-RAY CHEST REASON FOR EXAM: Male, 44 years old. Chest pain TECHNIQUE: PA and lateral chest COMPARISON: 04/25/2019. FINDINGS: The lungs are clear and expanded. There is no demonstrated pleural abnormality. Normal size heart. Normal mediastinum and avril. Normal visualized pulmonary arteries. Normal visualized aortic arch and descending thoracic aorta. Normal visualized thoracic spine. Normal visualized ribs, clavicles, and shoulders. There is no demonstrated abnormality of the visualized soft tissue structures of the upper abdomen. RAD/Chest PA and Lateral IMPRESSION: Normal x-ray examination of the chest. Electronically Signed: Christophe Cohcran, at 2:09 EST Tel , Service support ,
--- NOTE | 2019-07-10 00:51 | EKG12_ITS ---
Test Reason : CP Blood Pressure : / mmHG Vent. Rate : 072 BPM Atrial Rate : 072 BPM P-R Int : 224 ms QRS Dur : 084 ms QT Int : 386 ms P-R-T Axes : 061 067 065 degrees QTc Int : 422 ms Sinus rhythm with 1st degree A-V block Otherwise normal ECG Confirmed by ALMA MILES, GEORGE ([id number]), editor in chief newspaper ARNOLDO POLLOCK ([id number]) on 07/12/2019 10:04:58 AM Referred By: ANTONINA Confirmed By:SRINIVASAN MARQUEZ MD
--- NOTE | 2019-07-10 00:52 | ED.VIS.CHEST ---
History of Present Illness Chief Complaint: Chest Pain Informant: Patient Onset: Hours - 1 Activity at onset: Rest - lying in bed when started Quality: Dull - nonpleuritic Location: Left Chest - without radiation Current Severity: Moderate Maximum Severity: Moderate Worsened By: Nothing Relieved By: Nothing - hasn't tried any meds Associated Symptoms: Diaphoresis - felt clammy, Cough - productive x 1-2 wks. Negative for: Nausea, Vomiting, Dyspnea, Fever, Lightheadedness, Palpitations Narrative: Patient had a stent placed 3 months ago. He states this is different pain than he had when that was going on. He has been compliant with his aspirin and Brilinta. Since he has been on Brilinta he has seen red spots all over on occasion. He also states while I am here I want to have my abdominal pain checked out. Is been having lower abdominal pain that wakes him up for 30 many mornings, sometimes they are better after bowel movement but not always. He has chronic constipation. The pain is been for couple months. It is currently there but mild. It does not radiate. No urinary issues. Occasionally saw some blood when he wipes after straining of bowel movements, the last time was 5 days ago. No perianal pain. States he had a trip to and from [place] a week ago. Denies any new pain or swelling in his legs but then discusses that he has chronic pain and swelling in his legs from some type of injury and surgery that he had remotely. - Past Medical History (1) Atherosclerosis of coronary artery of [place] heart without angina pectoris Status: Chronic Comment: 3.0 x 24 mm EluNIR WALI to LAD 05/01/19 (2) Carotid stenosis Status: Chronic (3) Presence of stent in coronary artery Status: Chronic Comment: 3.0 x 24 mm EluNIR WALI to LAD 05/01/19 (4) S/P PTCA (percutaneous transluminal coronary angioplasty) Status: Chronic (5) ADD (attention deficit disorder) Status: Chronic (6) Chronic pain Status: Chronic (7) Dyslipidemia (high LDL; low HDL) Status: Chronic (8) GERD (gastroesophageal reflux disease) Status: Chronic (9) Generalized anxiety disorder with panic attacks Status: Chronic (10) Hypersomnia Status: Chronic (11) Noncompliance with CPAP treatment Status: Chronic (12) Obstructive sleep apnea Status: Chronic (13) PTSD (post-traumatic stress disorder) Status: Chronic (14) Poor dentition Status: Chronic Past Medical History - Allergies and Home Meds Allergies/Adverse Reactions: Allergies No Known Allergies Allergy (Verified 07/10/19 00:35) Primary Care Physician: Isak Wallace DO [Primary Care Provider] - Surgical History: - - ortho LE Lives: With Family Smoking Status: Current every day smoker Drugs: None - Family History Maternal Family History: Family History (Last Reviewed 05/28/19 @ 09:18 by Zully Rivera) Mother Cancer Heart disease CVA (cerebral vascular accident) Father Heart disease CAD (coronary artery disease) Family History: Reports: - - Mother with a history of stomach cancer, heart disease, stroke and at age 56 secondary to heart disease and stroke complications. Paternal Family History: Family History (Last Reviewed 05/28/19 @ 09:18 by Zully Rivera) Mother Cancer Heart disease CVA (cerebral vascular accident) Father Heart disease CAD (coronary artery disease) Family History: Reports: - - Father with a history of heart disease, coronary disease, at age 52 secondary to heart disease complications. Review of Systems General: Reports: Sweats. Denies: Chills, Fever Eyes: Denies: Visual changes - bilaterally, Diplopia ENT: Denies: Rhinorrhea, Sore throat Cardiovascular: Reports: Chest pain. Denies: Palpitations Respiratory: Reports: Cough, Sputum, Dyspnea on exertion - chronic x months; at baseline. Denies: Dyspnea, Orthopnea Gastrointestinal: Reports: Abdominal pain, Constipation, Hematochezia. Denies: Nausea, Vomiting, Diarrhea, Melena Genitourinary: Denies: Dysuria, Hematuria, Frequency Musculoskeletal: Reports: Swelling, Extremity Pain. Denies: Neck pain, Back pain Skin: Denies: Rash, Wounds Neurological: Denies: Headache, Weakness, Numbness Physical Exam Vital Signs/Narrative: Vital Signs Temp Pulse Resp BP Pulse Ox 07/10/19 00:31 80 07/10/19 00:27 97.7 F L 75 16 152/88 H 99 Diagnostic/Tx/Re-eval Impressions Chest X-Ray 07/10/19 00:51 IMPRESSION: Normal x-ray examination of the chest. Electronically Signed: Christophe Cochran, at 2:09 EST Tel , Service support , 07/10/19 00:51 Chest PA and Lateral [RAD] Stat Laboratory Results 07/10/19 07/10/19 00:40 00:40 WBC 9.8 RBC 4.47 L Hgb 13.7 Hct 40.4 MCV 90.4 MCH 30.6 MCHC 33.9 RDW Std Deviation 39.8 RDW Coeff of Denia 12.1 Plt Count 244 MPV 8.9 Immature Gran % (Auto) 0.200 Neut % (Auto) 44.4 L Lymph % (Auto) 45.7 H Hopkins % (Auto) 6.1 Eos % (Auto) 3.4 Baso % (Auto) 0.2 Absolute Neuts (auto) 4.3 Absolute Lymphs (auto) 4.46 Nucleated RBC % 0 Sodium 138 Potassium 3.8 Chloride 103 Carbon Dioxide 29.0 Anion Gap 6 BUN 16 Creatinine 0.81 Estim Creat Clear Calc 118.91 Est GFR (MDRD) Af Amer 132 Est GFR (MDRD) Non-Af 109 BUN/Creatinine Ratio 19.7 Glucose 95 Calcium 9.1 Troponin I < 0.015 - Rhythm Strip Rhythm Strip: Sinus Rhythm Rate: 72 Ectopy: None - EKG Initial EKG Interpretation: Sinus Rhythm, No Acute Injury Pattern, - - nml axis, first-degree AV block, otherwise normal EKG Prior: Unchanged - 06/10/2019 Treatment: GI Cocktail Repeat Eval: 08/14 - improved LINDY Risk: H/O CAD, ASA within 7 days Score: 2 - Medical Decision Making After GI cocktail the patient is feeling better with regards to his lower abdominal pain and his left chest pain. This certainly does not confirm that it is esophageal or GI in nature although that is in the differential diagnosis, given his normal EKG I do not suspect this is acute coronary syndrome or in-stent stenosis. He wants to go home. We discussed what we know and what we do not know based on his unremarkable work-up, and discussed that we could lower his risk of going home and having an acute myocardial event with repeating his troponin III hours after the initial, or admitting him. He declines all this and understands, he will follow-up. Discussed reasons to return. ED Disposition - Plan for ED Patient: Disposition: Home or Assisted Living Diagnosis: Left-sided chest pain, Lower abdominal pain Instructions: CHEST PAIN, Uncertain Cause Referrals: Isak Wallace DO [Primary Care Provider] - Morelia Ross MD [STAFF PHYSICIAN] - 5-7 Days (call for appt)
[2019-07-10 01:01] LABS: Absolute Lymphocyte Count 4.46 X10^3/uL (0.83-4.51); Absolute Neutrophil Count 4.3 X10^3/uL (2.0-7.7); Basophil# 0.02 X10^3/uL; Basophil% 0.2 % (0-1); Eosinophil# 0.33 X10^3/uL; Eosinophils% 3.4 % (0-5); Hematocrit 40.4 % (40-54); Hemoglobin 13.7 g/dL (13.0-16.5); Lymphocyte # 4.46 X10^3/ul (4.0); Lymphocyte % 45.7 % (19-41); Mean Corp Hgb Conc 33.9 g/dL (32-36); Mean Corpuscular Hgb 30.6 pg (27.0-32.0); Mean Corpuscular Volume 90.4 fL (80-94); Mean Platelet Vol. 8.9 fl (6.2-12.0); Monocyte# 0.59 X10^3/uL; Monocyte% 6.1 % (0-10); NRBC Flagged by Analyzer 0 % (0-5); Neutrophil # 4.33 X10^3/uL (2.7-7.7); Neutrophil % 44.4 % (47-70); Platelet Count 244 K/mm3 (150-450); RBC Distribution Width CV 12.1 % (11.6-14.6); RBC Distribution Width SD 39.8 fl (35.1-43.9); Red Blood Count 4.47 M/mm3 (4.6-6.2); White Blood Count 9.8 K/mm3 (4.4-11.0)
[2019-07-10] MEDS: Mag Hydrox/Al Hydrox/Simeth 30 ML UDC PO (01:11)
[2019-07-10 01:15] LABS: Anion Gap 6 (5-15); BUN 16 mg/dL (7-18); BUN/Creat Ratio 19.7 RATIO (10-20); Calcium,Total 9.1 mg/dL (8.5-10.1); Chloride 103 mmol/L (98-107); Creatinine, Serum 0.81 mg/dL (0.70-1.30); EST Glomerular Filtration Rate 109 mL/min (>60); Est Glom Filt Rate - Afr Amer 132 mL/min (>60); Estimated Creatinine Clearance 118.91 ml/min; Glucose 95 mg/dL (74-106); Potassium 3.8 mmol/L (3.5-5.1); Sodium Level 138 mmol/L (136-145)
[2019-07-10 01:37] VITALS: BP 145/70; PULSE 80; RESP 14; O2SAT 98
[2019-07-10 02:18] VITALS: BP 146/92; PULSE 98; RESP 14; O2SAT 98
[2019-07-10 02:45] VITALS: BP 131/89; PULSE 88; RESP 14; O2SAT 98
== END 2019-07-10 02:45 | disposition home or self-care (01) ==
PROVIDERS: Emergency Provider Emergency Medicine; Family Provider Family Medicine; PCP Family Medicine
DX: R07.89 Other chest pain (principal); R10.30 Lower abdominal pain, unspecified; K59.09 Other constipation; E78.5 Hyperlipidemia, unspecified; I25.10 Atherosclerotic heart disease of native coronary artery without angina pectoris; Z95.5 Presence of coronary angioplasty implant and graft; G89.29 Other chronic pain; K21.9 Gastro-esophageal reflux disease without esophagitis; F98.8 Other specified behavioral and emotional disorders with onset usually occurring in childhood and adolescence; F41.1 Generalized anxiety disorder; G47.10 Hypersomnia, unspecified; G47.33 Obstructive sleep apnea (adult) (pediatric); F43.10 Post-traumatic stress disorder, unspecified; F17.200 Nicotine dependence, unspecified, uncomplicated; Z91.19 Patient's noncompliance with other medical treatment and regimen; Z82.3 Family history of stroke; Z82.49 Family history of ischemic heart disease and other diseases of the circulatory system
CPT/HCPCS: 71046; 80048; 84484; 85025; 93005; 99285; A4216

== ENCOUNTER 2019-12-17 12:08 | Emergency (ER) | payer MEDICAID, SELFPAY ==
[2019-08-19 10:47] VITALS: BMI 24.5
[2019-12-17 12:08] VITALS: BP 127/101; PULSE 117; RESP 18; TEMP 36.6; O2SAT 96; BMI 23.7
--- NOTE | 2019-12-17 12:25 | RAD_ITS ---
STUDY: X-RAY CHEST REASON FOR EXAM: Male, 44 years old. Cough, SOB TECHNIQUE: Single AP portable view of the chest. COMPARISON: Comparison is made with prior study dated July 10, 2019. FINDINGS: EKG electrodes are seen. The lungs are clear and expanded. There is no demonstrated pleural abnormality. Normal size heart. Normal mediastinum and avril. Normal visualized pulmonary arteries. Normal visualized aortic arch and descending thoracic aorta. Normal visualized thoracic spine. Normal visualized ribs, clavicles, and shoulders. There is no demonstrated abnormality of the visualized soft tissue structures of the upper abdomen. RAD/Chest 1 View (Portable) IMPRESSION: Normal x-ray examination of the chest. Electronically Signed: Alan Huerta, at 13:30 EDT , Service support ,
--- NOTE | 2019-12-17 12:25 | EKG12_ITS ---
Test Reason : SOB Blood Pressure : / mmHG Vent. Rate : 088 BPM Atrial Rate : 088 BPM P-R Int : 190 ms QRS Dur : 084 ms QT Int : 376 ms P-R-T Axes : 062 064 053 degrees QTc Int : 454 ms Normal sinus rhythm with sinus arrhythmia Normal ECG Confirmed by CHUCK TAYLOR ([id number]), editorial writer ARNOLDO POLLOCK ([id number]) on 12/21/2019 1:20:59 PM Referred By: MISSY Confirmed By:CHUCK TAYLOR
--- NOTE | 2019-12-17 12:36 | ED.DCSUM_ITS ---
- ER Visit Summary Date of Service: 12/17/19 Chief Complaint: Shortness of breath History of Present Illness: The patient is a 44 M who presents with shortness of breath. He states that started yesterday. He had to turn on his oxygen last night because he was getting short of breath. He has been coughing up some sputum. His temperature was 101.3 degrees last night. 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 He is on aspirin and Brilinta for coronary disease with stents. He is a smoker. Physical Examination: Vital signs reviewed. HEENT exam unremarkable. Heart is tachycardic and regular rhythm without murmurs. Lungs have rhonchorous breath sounds bilaterally. Abdomen is soft and nontender. Extremities reveal no edema. Skin exam normal. Neurologic exam normal. Test Results: EKG is sinus rhythm with a rate of 88. No ST changes. Chest x- ray normal. White blood cell count normal. Potassium 3.4. Glucose 114. Troponin and d-dimer are negative Emergency Department Course and Treatment: Patient's pulse ox and pulse have been normal throughout his stay. He is fairly him symptomatic at this point. I did speak with the [facility]. They did approve a coronavirus test for this patient. This will be sent off. He was educated to quarantine himself at home. He states that he does have family members with similar symptoms. I told him that they all need to isolate themselves together since they are all symptomatic. They will follow-up with him as far as his test results. Treatment Plan: [] Disposition: Discharge Impression: Dyspnea, suspected COVID-19 This note was generated with [employer] dictation software. It may contain incorrect words, spelling, and punctuation that were not noted in review of the chart prior to signing ED Disposition - Plan for ED Patient: Disposition: Home or Assisted Living Referrals: Isak Wallace DO [Primary Care Provider] -
[2019-12-17 13:03] VITALS: BP 146/62; PULSE 83; RESP 14; TEMP 36.2; O2SAT 96
[2019-12-17 13:09] LABS: Absolute Lymphocyte Count 3.64 X10^3/uL (0.83-4.51); Absolute Neutrophil Count 3.4 X10^3/uL (2.0-7.7); Basophil# 0.03 X10^3/uL; Basophil% 0.4 % (0-1); Eosinophil# 0.14 X10^3/uL; Eosinophils% 1.8 % (0-5); Hematocrit 36.7 % (40-54); Hemoglobin 12.7 g/dL (13.0-16.5); Lymphocyte # 3.64 X10^3/ul (4.0); Mean Corp Hgb Conc 34.6 g/dL (32-36); Mean Corpuscular Hgb 30.7 pg (27.0-32.0); Mean Corpuscular Volume 88.6 fL (80-94); Monocyte# 0.39 X10^3/uL; Monocyte% 5.1 % (0-10); NRBC Flagged by Analyzer 0 % (0-5); Neutrophil # 3.38 X10^3/uL (2.7-7.7); Neutrophil % 44.6 % (47-70); Platelet Count 216 K/mm3 (150-450); RBC Distribution Width CV 13.1 % (11.6-14.6); RBC Distribution Width SD 41.9 fl (35.1-43.9); Red Blood Count 4.14 M/mm3 (4.6-6.2); White Blood Count 7.6 K/mm3 (4.4-11.0)
[2019-12-17 13:20] LABS: Anion Gap 6 (5-15); BUN 19 mg/dL (7-18); BUN/Creat Ratio 22.1 RATIO (10-20); Chloride 103 mmol/L (98-107); Creatinine, Serum 0.86 mg/dL (0.70-1.30); EST Glomerular Filtration Rate 102 mL/min (>60); Est Glom Filt Rate - Afr Amer 124 mL/min (>60); Glucose 114 mg/dL (74-106); Potassium 3.4 mmol/L (3.5-5.1); Sodium Level 137 mmol/L (136-145)
[2019-12-17 13:28] LABS: BNP,B-Type NATRIURETIC PEPTIDE 13.9 pg/mL (0-100)
[2019-12-17 13:35] LABS: D-Dimer Quantitative (DVT/PE) 0.35 FEU/ug/m (0.27-0.49)
[2019-12-17 14:00] VITALS: BP 102/61; PULSE 87; RESP 18; TEMP 36.1; O2SAT 99
[2019-12-17 14:05] VITALS: BP 102/61; PULSE 87; RESP 18; O2SAT 99
== END 2019-12-17 14:06 | disposition home or self-care (01) ==
LOC: ED 14:05
PROVIDERS: Emergency Provider Emergency Medicine; PCP Family Medicine
DX: R06.00 Dyspnea, unspecified (principal); R05 Cough; Z03.818 Encounter for observation for suspected exposure to other biological agents ruled out; Z79.82 Long term (current) use of aspirin; Z95.5 Presence of coronary angioplasty implant and graft; I25.10 Atherosclerotic heart disease of native coronary artery without angina pectoris; K21.9 Gastro-esophageal reflux disease without esophagitis; Z72.0 Tobacco use
CPT/HCPCS: 71045; 80048; 83605; 83880; 84484; 85025; 85379; 87040; 87635; 93005; 94799; 99284; G2023; U0002; U0004

== ENCOUNTER → 2020-03-01 16:50 | Outpatient (CLI) | payer MEDICAID, SELFPAY ==
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
== END ==
PROVIDERS: PCP Family Medicine; Referring Provider Family Medicine; Visit Provider Family Medicine
DX: M54.5 Low back pain (principal)
CPT/HCPCS: 72100; 72220

== ENCOUNTER → 2020-03-08 12:36 | Outpatient (CLI) | payer MEDICAID, SELFPAY ==
[2020-03-08 13:24] LABS: Color, Urine Straw (Yellow); Glucose, Dipstick Normal (Normal); Hematocrit 39.4 % (40-54); Hemoglobin 13.2 g/dL (13.0-16.5); Ketone-Dipstick Negative (Negative); Leukocyte Esterase-Dipstick Negative /ul (Negative); Mean Corp Hgb Conc 33.5 g/dL (32-36); Mean Corpuscular Hgb 30.8 pg (27.0-32.0); Mean Corpuscular Volume 91.8 fL (80-94); Mean Platelet Vol. 8.8 fl (6.2-12.0); Nitrite-Dipstick Negative (Negative); Occult Blood-Urine Negative /ul (Negative); Platelet Count 273 K/mm3 (150-450); Protein-Dipstick Negative (Negative); RBC Distribution Width CV 12.5 % (11.6-14.6); RBC Distribution Width SD 41.6 fl (35.1-43.9); Red Blood Count 4.29 M/mm3 (4.6-6.2); Urine Bilirubin Dipstick Negative (Negative); Urine Clarity Clear (Clear); Urine Urobilinogen Normal (Normal); White Blood Count 11.6 K/mm3 (4.4-11.0)
[2020-03-08 14:05] LABS: ALB/GLOB Ratio 1.1 RATIO (0.9-2.4); AST(SGOT) 21 U/L (15-37); Alanine Aminotransfer ALT/SGPT 34 U/L (16-61); Albumin, Serum 3.8 g/dL (3.2-5.0); Alkaline Phosphatase 148 U/L (45-117); Anion Gap 3 (5-15); BUN 14 mg/dL (7-18); BUN/Creat Ratio 14.7 RATIO (10-20); Calcium,Total 8.8 mg/dL (8.5-10.1); Chloride 103 mmol/L (98-107); Creatinine, Serum 0.95 mg/dL (0.70-1.30); EST Glomerular Filtration Rate 91 mL/min (>60); Est Glom Filt Rate - Afr Amer 110 mL/min (>60); Globulin 3.4 g/dL (2.2-4.2); Glucose 102 mg/dL (74-106); Potassium 3.9 mmol/L (3.5-5.1); Protein, Total 7.2 g/dL (6.4-8.2); Sodium Level 137 mmol/L (136-145)
== END ==
PROVIDERS: PCP Family Medicine; Referring Provider Family Medicine; Visit Provider Family Medicine
DX: R23.8 Other skin changes (principal); R30.0 Dysuria
CPT/HCPCS: 36415; 80053; 81002; 85027; 87077; 87086; 87088; 87186

== ENCOUNTER 2020-03-15 20:18 | Emergency (ER) | payer MEDICAID, SELFPAY ==
[2020-03-15 20:19] VITALS: BP 139/102; PULSE 100; RESP 18; TEMP 36.3; O2SAT 97; BMI 24.4
--- NOTE | 2020-03-15 22:37 | ED.RN ---
PT WAS IMPATIENT TO STAY AFTER A 30 MIN WAITING PERIOD AFTER TRIAGE. PT EDUCATED THAT WE WERE UNABLE TO GIVE AN ESTIMATE BUT WE WERE ON AN EXTENDED WAIT TONIGHT. AT 2126 PT STATED THAT HE HAD TO PICK HIS SON UP FROM [facility]. PT WAS ENCOURAGED TO RETURN TO ED OR VISIT ANOTHER PROVIDER.
== END 2020-03-15 21:27 | disposition left against medical advice (07) ==
PROVIDERS: Emergency Provider Emergency Medicine; PCP Family Medicine
DX: R06.02 Shortness of breath (principal)

== ENCOUNTER 2020-03-16 07:04 | Emergency (ER) | payer MEDICAID, SELFPAY ==
[2020-03-15 20:19] VITALS: BMI 24.4
[2020-03-16 07:06] VITALS: BP 174/85; PULSE 88; RESP 18; TEMP 36.8; O2SAT 100; BMI 25.4
[2020-03-16 07:10] VITALS: PULSE 82; RESP 11; O2SAT 100
--- NOTE | 2020-03-16 07:29 | EKG12_ITS ---
Test Reason : SOB Blood Pressure : / mmHG Vent. Rate : 083 BPM Atrial Rate : 083 BPM P-R Int : 210 ms QRS Dur : 086 ms QT Int : 378 ms P-R-T Axes : 058 063 054 degrees QTc Int : 444 ms Sinus rhythm with 1st degree A-V block Otherwise normal ECG Confirmed by CHUCK TAYLOR ([id number]), image editor JADE ROSENBERG ([id number]) on 03/21/2020 2:21:34 PM Referred By: EMILIE Confirmed By:CHUCK TAYLOR
--- NOTE | 2020-03-16 07:29 | RAD_ITS ---
STUDY: X-RAY CHEST REASON FOR EXAM: Male, 44 years old. Cough, dyspnea, SOB TECHNIQUE: Single AP portable view of the chest. COMPARISON: Comparison is made with prior study dated 12/17/2019. FINDINGS: EKG electrodes are seen. The lungs are clear and expanded. There is no demonstrated pleural abnormality. Normal size heart. Normal mediastinum and avril. Normal visualized pulmonary arteries. Normal visualized aortic arch and descending thoracic aorta. Normal visualized thoracic spine. Normal visualized ribs, clavicles, and shoulders. There is no demonstrated abnormality of the visualized soft tissue structures of the upper abdomen. RAD/Chest 1 View (Portable) IMPRESSION: Normal x-ray examination of the chest. Electronically Signed: Alan Huerta, at 8:00 EDT , Service support ,
--- NOTE | 2020-03-16 07:30 | ED.VISSUMM ---
- ER Visit Summary Date of Service: 03/16/20 Chief Complaint: [Fever, cough, shortness of breath] History of Present Illness: The patient is a 44 M [presents to the emergency department with symptoms for about 3 days. Patient states that he had a friend help him move about 4 5 days ago who also was ill. Patient denies any known exposures to COVID-19 patients. Patient complains of headache and body aches. He has had fever up to 1024 at home. Patient denies any chest pain. Cough productive at times with brown-yellow sputum. Patient has history of coronary artery disease and anxiety. Patient states that his roommate also with URI symptoms.] Physical Examination: [HEENT-PERRLA, EOMI. Cranial nerves II through XII grossly intact. TMs clear. Mucous membranes moist. No adenopathy. Cardiovascular-regular rate and rhythm without murmur or ectopy Lungs-clear to auscultation, chest wall stable without crepitus or subcu emphysema Abdomen-normoactive bowel sounds, soft, nontender, no rebound or rigidity, no peritoneal signs. Extremities-intact ?4, normal range of motion, normal pulses, atraumatic] Test Results: [EKG obtained arrival shows sinus rhythm with a ventricular rate of 83 bpm with a first-degree AV block otherwise nothing acute. Chest x-ray obtained showed nothing acute. COVID-19 test ordered and pending.] Emergency Department Course and Treatment: [] Treatment Plan: [Patient advised to use ibuprofen or Tylenol for fever control and body aches. Patient to self quarantine for 14 days. Patient to follow-up with primary care physician in 5 to 7 days. Patient advised to return if increasing shortness of breath or condition should worsen anyway.] Disposition: [Discharged home in stable condition] Impression: [Viral URI-rule out COVID-19] This note was generated with [employer] dictation software. It may contain incorrect words, spelling, and punctuation that were not noted in review of the chart prior to signing ED Disposition - Plan for ED Patient: Referrals: Isak Wallace DO [Primary Care Provider] -
--- NOTE | 2020-03-16 07:32 | ED.DEP ---
ED Disposition - Plan for ED Patient: Instructions: ED Upper Resp Infec No Abx Tx Referrals: Isak Wallace DO [Primary Care Provider] - 5-7 Days
== END 2020-03-16 08:29 | disposition home or self-care (01) ==
LOC: ED 07:51
PROVIDERS: Emergency Provider Emergency Medicine; PCP Family Medicine
DX: J06.9 Acute upper respiratory infection, unspecified (principal); I44.0 Atrioventricular block, first degree; I25.10 Atherosclerotic heart disease of native coronary artery without angina pectoris; F41.9 Anxiety disorder, unspecified
CPT/HCPCS: 71045; 87635; 93005; 94799; 99282; U0003

== ENCOUNTER → 2020-04-19 12:31 | Outpatient (CLI) | payer MEDICAID, SELFPAY ==
[2020-04-19 11:19] VITALS: BMI 23.9
[2020-04-19 12:48] LABS: Absolute Lymphocyte Count 3.43 X10^3/uL (0.83-4.51); Absolute Neutrophil Count 5.9 X10^3/uL (2.0-7.7); Basophil# 0.03 X10^3/uL; Basophil% 0.3 % (0-1); Eosinophil# 0.08 X10^3/uL; Eosinophils% 0.8 % (0-5); Hematocrit 41.3 % (40-54); Lymphocyte # 3.43 X10^3/ul (4.0); Lymphocyte % 34.5 % (19-41); Mean Corp Hgb Conc 33.9 g/dL (32-36); Mean Corpuscular Volume 91.6 fL (80-94); Mean Platelet Vol. 8.6 fl (6.2-12.0); Monocyte# 0.46 X10^3/uL; Monocyte% 4.6 % (0-10); NRBC Flagged by Analyzer 0 % (0-5); Neutrophil # 5.93 X10^3/uL (2.7-7.7); Neutrophil % 59.7 % (47-70); Platelet Count 307 K/mm3 (150-450); RBC Distribution Width SD 40.4 fl (35.1-43.9); Red Blood Count 4.51 M/mm3 (4.6-6.2); White Blood Count 9.9 K/mm3 (4.4-11.0)
[2020-04-19 13:05] LABS: Prothrombin Time (Protime)PT. 12.8 SECONDS (11.7-14.9)
[2020-04-19 13:06] LABS: Partial Thromboplast Time 37.1 Seconds (24.1-36.2)
[2020-04-19 13:33] LABS: ALB/GLOB Ratio 1.1 RATIO (0.9-2.4); AST(SGOT) 21 U/L (15-37); Alanine Aminotransfer ALT/SGPT 37 U/L (16-61); Albumin, Serum 4.1 g/dL (3.2-5.0); Alkaline Phosphatase 150 U/L (45-117); Anion Gap 3 (5-15); BUN 10 mg/dL (7-18); BUN/Creat Ratio 10.9 RATIO (10-20); Calcium,Total 9.5 mg/dL (8.5-10.1); Chloride 104 mmol/L (98-107); Cholesterol 143 mg/dL (200); Creatinine, Serum 0.92 mg/dL (0.70-1.30); EST Glomerular Filtration Rate 95 mL/min (>60); Est Glom Filt Rate - Afr Amer 115 mL/min (>60); Globulin 3.7 g/dL (2.2-4.2); Glucose 103 mg/dL (74-106); High Density Lipoprotein 54 mg/dL; Potassium 3.9 mmol/L (3.5-5.1); Protein, Total 7.8 g/dL (6.4-8.2); Sodium Level 137 mmol/L (136-145); Triglycerides 78 mg/dL; Very Low Density Lipoprotein 16 mg/dL (5-40)
== END ==
PROVIDERS: PCP Family Medicine; Referring Provider Specialist; Visit Provider Specialist
DX: R07.9 Chest pain, unspecified (principal); R00.2 Palpitations; R42 Dizziness and giddiness; I25.10 Atherosclerotic heart disease of native coronary artery without angina pectoris; Z95.5 Presence of coronary angioplasty implant and graft
CPT/HCPCS: 36415; 80053; 80061; 85025; 85610; 85730

== ENCOUNTER 2020-04-21 10:09 | Day surgery (SDC) | payer MEDICAID, SELFPAY ==
[2020-04-19 11:19] VITALS: BMI 23.9
[2020-04-20 09:25] VITALS: BMI 23.9
[2020-04-21] VITALS (13 sets, daily range): BP systolic 109–147; BP diastolic 55–78; PULSE 46–64; RESP 16–18; TEMP 36.4–36.7; O2SAT 97–99; BMI 24.9
--- NOTE | 2020-04-21 08:02 | HP_ITS ---
HPI [facility] History of Present Illness Details: 03/31/19: 43-year-old male coming to see us because of left-sided chest pain and lightheadedness. The symptoms do not necessarily come at the same time. Lightheadedness is not related to posture. He had a Holter earlier this month and it did not reveal any significant arrhythmias. Patient had symptoms during the monitoring period. He had an echocardiogram in February 2019 at [facility] and according to the patient it was unremarkable. He had a stress echo in November 2018 which was unremarkable. Chest discomfort is non-exertional. It lasts a few minutes to a few hours. Patient was having lightheadedness when he was in the office. His blood pressure when he was sitting down at that time was 116/78 and after 2 minutes of standing it was 122/80. His heart rate was 80 bpm. Patient says he tried a vertigo medicine that starts with M. Appears to be meclizine. He did not tolerate this. He is seeing a neurologist in 2 days to have his lightheadedness evaluated. He has seen ENT in the past. 04/14/2019: Patient continues to have the same symptoms as above. Since last visit his Xanax has not been increased and he saw a neurologist who ordered bilateral carotid ultrasound which has not been approved by the insurance yet. 04/29/2019: Patient's Xanax was increased but he continues to have symptoms of chest pain and lightheadedness. 05/13/2019: Patient had stent to the LAD and PTCA of diagonal. His chest pain has improved. However he continues to have lightheadedness. This has also improved to a minor extent and he is able to walk around. He was not able to do this few weeks back. 08/19/2019: Patient's anginal chest pain has improved. Occasionally continues to have chest pain which feels different from the chest pain he had prior to the PCI. He does have significant dizziness. 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 04/19/20: Patient has started having chest pain again and states that he feels just like he felt prior to the PCI of the LAD. He also has palpitations and says that sometimes his blood pressure goes up to 200 systolic and at other times it is in the 90s systolic. 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 [Ecotrin] 81 mg PO DAILY@0800 tab 05/02/19 [Rx Confirmed 04/19/20] Clonazepam [Klonopin] 1 mg PO Q12 #28 tab 05/02/19 [Rx Confirmed 04/19/20] Nitroglycerin (INPATIENT USE) [Nitrostat] 0.4 mg SUBLINGUAL Q5M PRN #1 bottle 05/02/19 [Rx Confirmed 04/19/20] atorvastatin 40 mg tablet 40 mg PO QHS #90 tab 06/25/19 [Rx Confirmed 04/19/20] ticagrelor 90 mg tablet 90 mg PO BID #180 tab 06/25/19 [Rx Confirmed 04/19/20] amoxicillin 500 mg capsule 500 mg PO BID 04/19/20 [History Confirmed 04/19/20] ondansetron HCl 4 mg tablet 4 mg PO Q8H PRN 04/19/20 [History Confirmed 04/19/20] oxycodone-acetaminophen 10 mg-325 mg tablet 1 tab PO Q6H PRN 04/19/20 [History Confirmed 04/19/20] Ejection fraction %: 65 to 70 [facility] Medical History Carotid stenosis (Chronic) Moderate persistent asthma without complication (Chronic) GERD (gastroesophageal reflux disease) (Chronic) History of cardiac murmur as a child (Resolved) Atherosclerosis of coronary artery of [place] heart without angina pectoris (Chronic) Palpitations (Chronic) Lightheadedness (Chronic) Chest pain (Chronic) Tobacco use (Chronic) Hypersomnia (Chronic) ADD (attention deficit disorder) (Chronic) Chronic pain (Chronic) Cough (Resolved) Dental infection (Resolved) Enteritis (Resolved) LUQ abdominal pain (Resolved) Leucocytosis (Resolved) Surgical History History of artificial skin graft (Resolved) Presence of stent in coronary artery (Chronic) Family History Mother , Age 56 Cancer stomach Heart disease CVA (cerebral vascular accident) Father , Age 52 Heart disease CAD (coronary artery disease) Social History (Updated 04/19/20 @ 16:[address] Morelia Ross MD) Smoking Status: Current every day smoker second hand exposure: Yes alcohol intake: never substance use type: does not use caffeine: Yes Type: carbonated beverages ROS Const Const: Positive for fatigue, weakness and headache(s) (2-3 times per day); negative for frequent falls, difficulty sleeping or excessive sweating Eyes Eyes: Negative for loss of peripheral vision, transient loss of vision, blurry vision, double vision or tunnel vision ENT ENT: Positive for headache(s) (2-3 times per day), dizziness and balance problems; negative for Nosebleed/epistaxis Cardio Chest Pain: Yes Frequency: more than once a day Character: sharp, tightness Onset: other (randomly) Location: mid sternal (down left arm at times) Duration: minutes, hours, brief Relieving: positional, other (Nitroglycerin) Palpitations: Yes feels like its: pounding Edema: Bilateral Muscle aches with walking: None Resp Respiratory: Positive for SOB with activity and SOB at rest; negative for SOB orthopnea\SOB lying down, Cough or paroxysmal nocturnal dyspnea GI GI: Negative nausea, vomiting, heartburn or black,tarry stools : Negative for hematuria Musc Musc: Positive for muscle weakness, joint pain and balance problems; negative for muscle aches/ myalgia Skin Skin: Negative non-healing lesions, rash or unusual bruising Neuro Neuro: Positive for dizziness, lightheadedness, headache(s) (2-3 times per day) and weakness; negative for near syncope, syncope, frequent falls, blurry vision, double vision or lack of coordination Horacio Hematologic/Lymphatic: Negative for easy bleeding or easy bruising Endo Endo: Positive for fatigue; negative for excessive sweating or increased thirst/drinking Psych Psych: Negative for anxiety or depression Allergy Allergy/Immunology: Negative for hives, Negative for rash Cardiology Exam Const Appearance: cooperative; negative acute distress Nutritional Appearance: well nourished Head Head: normocephalic and atraumatic Ears: hearing grossly normal bilaterally Nose: external nose normal Face and Sinus: face symmetric Mouth: moist mucous membranes Teeth and gingiva: fair dentition Eyes General: appearance normal, both eyes and all related structures Eyelids: eyelids normal Conjunctivae: conjunctivae normal Neck Neck: trachea midline and no JVD Chest Chest inspection: symmetric chest movement; negative pursed lip breathing Auscultation: Bilateral: Clear to Auscultation Cardio Rate: regular rate Rhythm: regular rhythm Heart sounds: S1 normal and S2 normal No Murmurs GI GI: normal to inspection Neuro General: alert, awake and oriented x3 Gait: Negative ataxic Skin Skin: no rashes or lesions noted; negative atrophy or jaundice Extremities Pulses: Normal: Right Posterior Tibial Pulse, Left Posterior Tibial Pulse Lower Extremity Edema: None: Bilateral Musculoskel Musculoskeletal: No joint tenderness Psych Psychological: normal affect Assessment & Plan 1. Chest pain, unspecified type R07.9 Plan Patient states that he feels just like he felt prior to PCI of the LAD diagonal bifurcation. We will proceed with coronary angiography to evaluate this further. I did offer stress testing as an option to the patient. He preferred to proceed with coronary angiography. Orders Orders: Left Heart Cath/COR/LV Percut Today 12 Lead EKG performed by BMS Today Lipid Profile Today CBC W/Diff, Automated Today Partial Thromboplast Time Today Prothrombin Time w/INR Today Comprehensive Metabolic Profil Today 2. Palpitations R00.2 Plan Patient states that this happens when he is under a lot of stress which has been more frequent these days. Patient states that he has noticed blood pressure to be significantly elevated at times. We will check plasma free metanephrines. Orders Orders: Comprehensive Metabolic Profil Today 3. S/P PTCA (percutaneous transluminal coronary angioplasty) Z98.61 Plan Continue present management 4. Presence of stent in coronary artery Z95.5 3.0 x 24 mm EluNIR WALI to LAD 05/01/19 Plan Continue present management Orders Orders: Left Heart Cath/COR/LV Percut Today 12 Lead EKG performed by BMS Today Lipid Profile Today CBC W/Diff, Automated Today Prothrombin Time w/INR Today Comprehensive Metabolic Profil Today Plan Detail Other Orders Orders: Left Heart Cath/COR/LV Percut Today I25.10 12 Lead EKG performed by BMS Today I25.10 Lipid Profile Today I25.10 CBC W/Diff, Automated Today I25.10 Partial Thromboplast Time Today I25.10 Prothrombin Time w/INR Today I25.10 Comprehensive Metabolic Profil Today I25.10, R42 Coding Level of Care Code Off vis,est,level 4 Diagnoses Chest pain, unspecified type R07.9 ??Chest pain type: unspecified Palpitations R00.2 S/P PTCA (percutaneous transluminal coronary angioplasty) Z98.61 Presence of stent in coronary artery Z95.5 Coding Level of Care Code Off vis,est,level 4 Diagnoses Chest pain, unspecified type R07.9 ??Chest pain type: unspecified Palpitations R00.2 S/P PTCA (percutaneous transluminal coronary angioplasty) Z98.61 Presence of stent in coronary artery Z95.5 Supplemental Info Supplemental Information Labs LDL Cholesterol 73 mg/dL (0-130) 04/19/20 HDL Cholesterol 54 mg/dL (40-) 04/19/20 Triglycerides 78 mg/dL (-199) 04/19/20 VLDL Cholesterol 16 mg/dL (5-40) 04/19/20 Diagnostics Electrocardiogram 04/19/20 Echocardiogram 04/22/15 Stress Echocardiogram 11/15/18 Chest X-Ray 03/16/20 Pulmonary Pulmonary Function Test 11/14/18
--- NOTE | 2020-04-21 13:00 | EKG12_ITS ---
Test Reason : Blood Pressure : / mmHG Vent. Rate : 052 BPM Atrial Rate : 052 BPM P-R Int : 220 ms QRS Dur : 096 ms QT Int : 438 ms P-R-T Axes : 065 069 070 degrees QTc Int : 407 ms Sinus bradycardia with 1st degree A-V block Otherwise normal ECG When compared with ECG of 16-MAR-2020 07:19, Vent. rate has decreased BY 31 BPM Confirmed by ALMA MILES, GEORGE ([id number]), electronic news gathering editor CAMPOS FERRARA ([id number]) on 04/25/2020 1:21:26 PM Referred By: Morelia Ross Confirmed By:SRINIVASAN ROSS MD
--- NOTE | 2020-04-21 13:17 | CL.I_ITS ---
Patient Name: RAYMOND ZAMBRANO Study Date: 04/21/2020 Performing: Clary Ross MD Ht: 70 inches 178 cm : 1975 Wt: 167.8 lbs 76 kg Age: 44 Gender: male BSA: 1.94 PROCEDURE(S) PERFORMED ZX97-ZWL/COR/LV [id number], CORONARY OR GRAFT, INITIAL VESSEL [id number], SINGLE CORONARY ARTERY [id number], EACH ADD'L CORONARY ART, SAME MAJOR CLINICAL PROFILE AND CO-MORBIDITIES Indications: Worsening Angina Heart Failure: None Stress/Imaging Stress/Image Study Performed: No CAD Presentations: Unstable angina. CONCLUSIONS CAD as described with instent restenosis in the previously placed LAD stent. Preserved EF. No signifi cant or MR. Successful FFR guided PCI of LAD/D1 bifurcation with angiosculpt angioplasty to LAD an d PTCA alone to D1 (Kissing balloon) RECOMMENDATIONS Follow up with primary mantel craftsman RICK Tiwari for at least 12 months DESCRIPTION OF PROCEDURE The patient arrived to the procedure lab. The risks and benefits of the procedure as well as a full d escription of our services here and lack of surgical backup were fully explained to the patient and/o r their significant other prior to the catheterization. The Timeout was completed, verifying the colton ect patient and procedure. The patient's procedural site was prepped and draped in the usual fashion. Local anesthetic was given subcutaneously to right radial region with Lidocaine 2%. Using a modified Seldinger technique, arterial access was obtained via the right radial artery, a 6Fr sheath was inse rted.. Left Coronary Artery selective angiography was performed in multiple views using a 5 Fr. JL3. 5 catheter. Right Coronary Artery selective angiography was then performed in multiple views using a 5 Fr. JR 4 catheter. Left Ventriculography was performed in MILLER projection using a 5 Fr. JR 4 cathete r. LV to AO pullback pressures were then recordedThe images were reviewed and options discussed. A decision was then made to proceed with an Intervention, IVUS or other adjunct procedure. XB 3 Guide catheter was inserted and engaged into the LCA. The FFR/iFR wire was inserted. FFR Rat io Baseline: 0.90 FFR Ratio post Adenosine: 0.74 The FFR/iFR wire was left in place as guide wire. An giosculpt 3.0 x 10 Cutting balloon catheter was inserted Angiosculpt 3.0 x 10 Cutting balloon cathete r was inserted Cutting balloon catheter was advanced to the lesion in the LAD, proximal. Cutting ball oon catheter was advanced to the lesion in the LAD, proximal. Angiogram performed post balloon dilata tion. [employer] Bronson Guide wire was advanced to the 1st Diagonal. Emerge 2.0 x 15 Balloon catheter was inserted. Balloon catheter was advanced across lesion in the first diagonal, ostial. Emerge 3.0 x 15 Balloon catheter was inserted. Balloon catheter was advanced across lesion in the LAD, proximal. Ang iogram performed post balloon dilatation. The arterial sheath was pulled and a TR Band was applied for hemostasis CORONARY ANGIOGRAPHY DOMINANCE: Right Dominant LEFT HEART ASSESSMENT Left Ventricular Ejection Fraction: by LV Gram 70 % Normal LV wall motion LEFT ANTERIOR DESCENDING ARTERY: PROX LAD: 70 % Stenosis CIRCUMFLEX ARTERY: Mild luminal irregularities RIGHT CORONARY ARTERY: Mild luminal irregularities VALVE FINDINGS: No Aortic Valve Stenosis No Mitral Insufficency INTERVENTION INFORMATION LESION SITE: LAD (Proximal) Lesion Complexity: High/C, chronic total occlusion: No, lesion at bifurcation: Yes, thrombus present: No, lesion length: 12 mm, culprit lesion: Yes, Previously treated lesion: Yes, In-stent restenosis: Yes, Timeframe of previous treatment: 6-12 months, Previously treated with a stent: Yes Stent Type: w ith WALI, In-stent Thrombosis: No Pre Stenosis: 70 % Pre intervention LINDY flow: 3 PROCEDURE: Cutting Balloon Angioplasty, Balloon Angioplasty Post Stenosis: 0 % Post intervention LINDY flow: 3 Lesion Devices: Cardinal 6 Fr XB3.0 100cm Guide Catheter IGT Devices ( Former[facility] [place]) Coronary FFR Wire Brandfolder Angiosculpt 3.0x10 Scoring Balloon Luis Daniel Sci EMERGE MR 3.00x15 BALLOON LESION SITE: 1st Diagonal (Ostial) Lesion Complexity: High/C, chronic total occlusion: No, lesion at bifurcation: Yes, thrombus present: No, lesion length: 10 mm, culprit lesion: Yes, Previously treated lesion: Yes, Previously treated le joshua: Yes, Timeframe of previous treatment: 6-12 months, Previously treated with a stent: No Pre Stenosis: 95 % Pre intervention LINDY flow: 3 PROCEDURE: Balloon Angioplasty Post Stenosis: 80 % Post intervention LINDY flow: 3 Lesion Devices: Cardinal 6 Fr XB3.0 100cm Guide Catheter Durán .014 BMW Bronson Straight 190cm Luis Daniel Sci EMERGE MR 2.00x15 BALLOON COMPLICATIONS No Complications PROCEDURE MEDICATIONS Fentanyl 50 mcg IV Versed 1 mg IV Fentanyl 50 mcg IV Oxygen: 2 L/min via nasal cannula Heparin given IA 04/21/2020 11:41:26 Heparin 4000 unit(s) IV 04/21/2020 12:08:20 Verapamil 2.5mg, Ntg 100mcgs, 3000 units of Heparin given IA 04/21/2020 11:41:26 SUMMARY OF HEMODYNAMIC DATA Time AIR REST ECG 10:27:19 AO 109/55 (80) SA 11:42:07 LV 136/-2, 15 11:48:49 LV 131/-1, 14 11:48:56 LVp 132/0, 8 11:50:11 AOp 136/57 (82) 11:50:16 ECG 12:17:40 Signed By Clary Ross MD On 04/21/2020 13:16:14 Clary Ross MD
--- NOTE | 2020-04-21 13:41 | PCM.DC.CCA ---
Discharge Diet: Low fat/ Low Cholesterol Discharge Activity: Return to Normal Activity May shower in (days): 1 - No tub baths for 5 days May resume sexual activity in: 1-2 weeks Lifting Restrictions: Not left anything greater than 10 pounds for 3 days Call your doctor if your incision/area has: Continuous Slow Oozing, Sudden Increased Bleeding, Increased Pain/ Swelling, Increased Redness, Foul Smelling Discharge, Swelling at the incision site Call your doctor if you observe: Fever of 101 or Higher, Shortness of breath, Chest pain Remove Dressing in (days):: 1 Cleanse incision/area with: Soap & Water Allergies/Adverse Reactions: Allergies No Known Allergies Allergy (Verified 04/19/20 11:24) Medications to take at Discharge Dextroamphetamine/Amphetamine [Dextroamp-Amphet ER 30 mg Cap] 30 mg PO BID 06/19/18 albuterol sulfate 90 mcg/actuation aerosol inhaler 2 puff INHALATION Q6H PRN 04/14/19 budesonide-formoterol HFA 80 mcg-4.5 mcg/actuation aerosol inhaler 2 puff INHALATION BID 04/29/19 omeprazole 40 mg capsule,delayed release 1 tab PO DAILY #30 cap 04/29/19 Aspirin E.C. [Ecotrin] 81 mg PO DAILY@0800 tab 05/02/19 Clonazepam [Klonopin] 1 mg PO Q12 #28 tab 05/02/19 Nitroglycerin (INPATIENT USE) [Nitrostat] 0.4 mg SUBLINGUAL Q5M PRN #1 bottle 05/02/19 atorvastatin 40 mg tablet 40 mg PO QHS #90 tab 06/25/19 ticagrelor 90 mg tablet 90 mg PO BID #180 tab 06/25/19 amoxicillin 500 mg capsule 500 mg PO BID 04/19/20 ondansetron HCl 4 mg tablet 4 mg PO Q8H PRN 04/19/20 oxycodone-acetaminophen 10 mg-325 mg tablet 1 tab PO Q6H PRN 04/19/20 Orders to be completed after discharge: Phase II, Outpatient Cardiac Rehab Location: None Selected Primary Care Physician: Isak Wallace DO [Primary Care Provider] - Test Results: Test results from this visit will be discussed in further detail at your follow-up appointment, if applicable. Please Follow Up With: Dr. Ross When: 05/18/2020 at 2:15 PM Proposed Discharge Date: 04/22/20 Cardiac Rehabilitation Info Cardiac Rehabilitation Program Information: Cardiac Rehabilitation is important for patients like you who are recovering from a heart problem. Cardiac rehabilitation programs are recognized as integral to the continued care of the patient with coronary heart disease. The cardiac rehabilitation program is designed to optimize a patient's physical, psychological, and social functioning. Health pediatric acute care unit nurse work in cardiac rehabilitation programs and assist you with getting the treatments you need to get stronger and healthier - like exercise, healthy eating habits, and medications. Cardiac rehabilitation has been show to help people with heart problems live longer and have better life enjoyment than people who do not go to cardiac rehabilitation. Please contact the Cardiac Rehabilitation Program at [facility] at in two weeks if you have not heard from them.
[2020-04-21] MEDS: 0.9% Normal Saline 1,000 ML 60 ML IV (13:48)
--- NOTE | 2020-04-21 14:17 | CRPHASE1_ITS ---
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 Morelia Ross MD) Mother Cancer Heart disease CVA (cerebral vascular accident) Father Heart disease CAD (coronary artery disease) Family History: Heart Disease, Stroke Past Cardiac Illness: Coronary Artery Disease, Myocardial Infarction, Previous PCI w/Stent Phase I Education Given On:: [place], Nutrition, Antiplatelet medication Issues Affecting Care:: None Knowledge of Condition:: Yes Learning Preferences: Verbal Cardiac Rehabilitation Info Cardiac Rehabilitation Program Information: Cardiac Rehabilitation is important for patients like you who are recovering from a heart problem. Cardiac rehabilitation programs are recognized as integral to the continued care of the patient with coronary heart disease. The cardiac rehabilitation program is designed to optimize a patient's physical, psychological, and social functioning. Health post acute care nurse work in cardiac rehabilitation programs and assist you with getting the treatments you need to get stronger and healthier - like exercise, healthy eating habits, and medications. Cardiac rehabilitation has been show to help people with heart problems live longer and have better life enjoyment than people who do not go to cardiac rehabilitation. Please contact the Cardiac Rehabilitation Program at [facility] at in two weeks if you have not heard from them.
--- NOTE | 2020-04-21 14:19 | CRPH1.INST_ITS ---
General Education CAD and cardiac anatomy and function:: Patient communicates acknowledgment Explanation of diagnoses and procedures:: Patient communicates acknowledgment Sign/Symptoms of [place]:: Patient communicates acknowledgment Antiplatelet therapy: Patient communicates acknowledgment Proper use of NTG-SL: Patient communicates acknowledgment Emergency procedures and activation of EMS: Patient communicates acknowledgment Compliance of all prescribed medications: Patient communicates acknowledgment Smoking Patient Nicotine/Smoking Risk Factors Are:: Cigarettes Recommendations Include:: Smoking cessation strategies/Smoking packet, Second- hand smoke recommendation, Participation in a smoking cessation program Nicotine/Smoking Response Code:: Patient communicates acknowledgment Heart Disease Patient Heart Disease Risk Factors Are:: Family history of heart disease < 65 years old, Previous cardiac event Recommendations Include:: Educated family members of their risk Heart Disease Response Code:: Patient communicates acknowledgment
[2020-04-21] MEDS: oxyCODONE 5 MG Tablet 10 MG PO (15:22)
[2020-04-21] MEDS: Acetaminophen 325 MG Tablet PO (15:22)
--- NOTE | 2020-04-21 19:20 | NURSING ---
Pt states he is leaving AMA. Charge nurse notified and into room to speak to pt. Pt counseled concerning the risks of leaving AMA. Pt instructed on care of radial wrist cath site. Dr. Ross updated to pt leaving AMA.
== END 2020-04-21 18:10 | disposition left against medical advice (07) ==
LOC: CLSP 10:10 → PCU 13:34
PROVIDERS: PCP Family Medicine; Referring Provider Specialist; Visit Provider Specialist
DX: I25.110 Atherosclerotic heart disease of native coronary artery with unstable angina pectoris (principal); K21.9 Gastro-esophageal reflux disease without esophagitis; G89.29 Other chronic pain; F90.9 Attention-deficit hyperactivity disorder, unspecified type; R07.9 Chest pain, unspecified; R00.2 Palpitations; Z98.61 Coronary angioplasty status; J45.40 Moderate persistent asthma, uncomplicated; F17.200 Nicotine dependence, unspecified, uncomplicated; Z82.49 Family history of ischemic heart disease and other diseases of the circulatory system
CPT/HCPCS: 92920; 92921; 93005; 93458; 93571; 99152; 99153; J0153; J7030; J7040; Q9967; C1725; C1769; C1887; C1894

== ENCOUNTER 2020-08-22 19:05 | Emergency (ER) | payer MEDICAID, SELFPAY ==
[2020-04-21 13:33] VITALS: BMI 24.9
[2020-08-22 19:06] VITALS: BP 146/86; PULSE 100; RESP 18; TEMP 37.4; O2SAT 99; BMI 25.5
--- NOTE | 2020-08-22 19:28 | EKG12_ITS ---
Test Reason : DYSRHYTHMIA Blood Pressure : / mmHG Vent. Rate : 080 BPM Atrial Rate : 080 BPM P-R Int : 190 ms QRS Dur : 082 ms QT Int : 368 ms P-R-T Axes : 064 066 061 degrees QTc Int : 424 ms Normal sinus rhythm with sinus arrhythmia Normal ECG Confirmed by LUCY MILES, KHANH ([id number]), editorial clerk ARNOLDO POLLOCK ([id number] on 08/24/2020 7:57:03 AM Referred By: DIOGENES Confirmed By:KHANH AYALA MD
--- NOTE | 2020-08-22 19:29 | ED.VIS.GEN ---
History of Present Illness Chief Complaint: Abd Pain Informant: Patient Onset: Days Context: Gradual Onset Narrative: Patient presents with 3 to 4-day history of abdominal pain. He states his upper abdomen feels swollen and bloated but his lower abdomen feels sore. He also reports nausea and has been taking Zofran. He does report a fever up to 102.6 at home. He is also complaining of cough and congestion. He states he recently went to [place] for a and was exposed to several people. He states he then also spoke with someone in a local pharmacy who advised him that they were just recovering from Covid and they were not wearing a mask. - Past Medical History (1) ADD (attention deficit disorder) Status: Chronic (2) Atherosclerosis of coronary artery of [place] heart without angina pectoris Status: Chronic Comment: 3.0 x 24 mm EluNIR WALI to LAD 05/01/19 (3) Dyslipidemia (high LDL; low HDL) Status: Chronic (4) GERD (gastroesophageal reflux disease) Status: Chronic (5) Generalized anxiety disorder with panic attacks Status: Chronic (6) Moderate persistent asthma without complication Status: Chronic (7) Obstructive sleep apnea Status: Chronic (8) Presence of stent in coronary artery Status: Chronic Comment: 3.0 x 24 mm EluNIR WALI to LAD 05/01/19; CAD as described with instent restenosis in the previously placed LAD stent. Preserved EF. No significant or MR. Successful FFR guided PCI of LAD/D1 bifurcation with angiosculpt angioplasty to LAD and PTCA alone to D1 (Kissing balloon) 04/21/20 Past Medical History - Allergies and Home Meds Allergies/Adverse Reactions: Allergies naloxone Allergy (Verified 08/22/20 19:09) [facility] Primary Care Physician: Isak Wallace DO [Primary Care Provider] - Prior records reviewed: Yes Surgical History: - - ortho LE Lives: Spouse/ Significant Other Smoking Status: Current every day smoker - Family History Maternal Family History: Family History (Last Reviewed 04/19/20 @ 15:[address] Morelia Ross MD) Mother Cancer Heart disease CVA (cerebral vascular accident) Father Heart disease CAD (coronary artery disease) Family History: Reports: - - Mother with a history of stomach cancer, heart disease, stroke and at age 56 secondary to heart disease and stroke complications. Paternal Family History: Family History (Last Reviewed 04/19/20 @ 15:[address] Morelia Ross MD) Mother Cancer Heart disease CVA (cerebral vascular accident) Father Heart disease CAD (coronary artery disease) Family History: Reports: - - Father with a history of heart disease, coronary disease, at age 52 secondary to heart disease complications. Review of Systems General: Reports: Fever Eyes: Denies: Visual changes - bilaterally ENT: Reports: - - Congestion. Denies: Bilateral ear pain Cardiovascular: Denies: Chest pain Respiratory: Reports: Dyspnea, Cough, Sputum Gastrointestinal: Reports: Abdominal pain, Nausea. Denies: Diarrhea Genitourinary: Denies: Dysuria Musculoskeletal: Denies: Swelling, Extremity Pain Skin: Denies: Rash Hematologic: Denies: Easy bruising, Easy bleeding Allergy: Denies: Uticaria Physical Exam Vital Signs/Narrative: Vital Signs Temp Pulse Resp BP Pulse Ox 08/22/20 19:06 99.4 F H 100 18 146/86 H 99 Inital Vital Signs reviewed: Yes General: Well nourished, Well developed Head: Normocephalic ENT: Moist mucous membranes Neck: Supple Cardiovascular: Regular rate, Regular rhythm Respiratory: No distress, CTA bilaterally Abdomen: Soft, Tender - Moderate diffuse tenderness palpation., Hypoactive bowel sounds. Negative for: Guarding, Rebound tenderness Extremities: Nontender Skin: Normal color Neurological: Alert, Oriented x3 Psychological: Normal affect Diagnostic/Tx/Re-eval Chest X-Ray - ED: 1 View, Read by ED Physician, Normal, Heart, Lungs, Mediastinum Impressions Abdomen/Pelvis CT 08/22/20 21:00 IMPRESSION: Diffuse colonic fecal retention. Electronically Signed: Yimi Michel DO at 21:19 EST Tel [phone], Service support , Chest X-Ray 08/22/20 21:05 IMPRESSION: Normal x-ray examination of the chest. Electronically Signed: Yimi Michel DO at 21:31 EST Tel [phone], Service support , 08/22/20 21:00 Abdomen/Pelvis WITH Contrast [CT] Stat 08/22/20 21:05 Chest 1 View (Portable) [RAD] Stat 08/22/20 19:40 Mucosa - Nose SARS-CoV-2 Antigen (Rapid) - Final Laboratory Results 08/22/20 08/22/20 08/22/20 19:48 19:48 19:48 WBC 9.4 RBC 4.16 L Hgb 12.8 L Hct 37.5 L MCV 90.1 MCH 30.8 MCHC 34.1 RDW Std Deviation 41.5 RDW Coeff of Denia 12.5 Plt Count 284 MPV 9.1 Immature Gran % (Auto) 0.300 Neut % (Auto) 55.3 Lymph % (Auto) 37.2 [place] % (Auto) 4.5 Eos % (Auto) 2.3 Baso % (Auto) 0.4 Absolute Neuts (auto) 5.2 Absolute Lymphs (auto) 3.51 Nucleated RBC % 0 D-Dimer Quant (PE/DVT) <= 0.27 Sodium 139 Potassium 3.9 Chloride 105 Carbon Dioxide 29.0 Anion Gap 5 BUN 15 Creatinine 0.76 Estim Creat Clear Calc 125.40 Est GFR (MDRD) Af Amer 141 Est GFR (MDRD) Non-Af 116 BUN/Creatinine Ratio 19.6 Glucose 97 Lactic Acid Calcium 8.7 Total Bilirubin 0.40 Direct Bilirubin 0.09 AST 17 ALT 35 Alkaline Phosphatase 136 H Troponin I < 0.015 Total Protein 6.9 Albumin 3.6 Globulin 3.3 Lipase 52 L Urine Color Urine Clarity Urine pH Ur Specific [place] Urine Protein Urine Glucose (UA) Urine Ketones Urine Occult Blood Urine Nitrite Urine Bilirubin Urine Urobilinogen Ur Leukocyte Esterase Urine RBC Urine WBC Ur Squamous Epith Cells Urine Bacteria Urine Mucus 08/22/20 08/22/20 19:48 20:45 WBC RBC Hgb Hct MCV MCH MCHC RDW Std Deviation RDW Coeff of Denia Plt Count MPV Immature Gran % (Auto) Neut % (Auto) Lymph % (Auto) [place] % (Auto) Eos % (Auto) Baso % (Auto) Absolute Neuts (auto) Absolute Lymphs (auto) Nucleated RBC % D-Dimer Quant (PE/DVT) Sodium Potassium Chloride Carbon Dioxide Anion Gap BUN Creatinine Estim Creat Clear Calc Est GFR (MDRD) Af Amer Est GFR (MDRD) Non-Af BUN/Creatinine Ratio Glucose Lactic Acid 0.9 Calcium Total Bilirubin Direct Bilirubin AST ALT Alkaline Phosphatase Troponin I Total Protein Albumin Globulin Lipase Urine Color Straw Urine Clarity Clear Urine pH 7.0 Ur Specific [place] 1.005 Urine Protein Negative Urine Glucose (UA) Normal Urine Ketones Negative Urine Occult Blood Negative Urine Nitrite Negative Urine Bilirubin Negative Urine Urobilinogen Normal Ur Leukocyte Esterase Negative Urine RBC 0 SEEN Urine WBC 0 SEEN Ur Squamous Epith Cells 0 SEEN Urine Bacteria 0 SEEN Urine Mucus 0 SEEN - EKG Initial EKG Interpretation: Sinus Rhythm - Sinus at 80 with no acute ischemia. - Medical Decision Making Patient was given morphine and Zofran for pain and nausea. Portable chest x-ray is unremarkable. EKG is normal. Blood work including urinalysis is normal. Rapid Covid test is negative. CT abdomen pelvis shows fecal retention. Test results discussed with the patient. I did advise him that often the p.o. contrast from his CT scan will help clean him out. If not he can take MiraLAX at home. We will send a Covid PCR prior to patient leaving, however he was advised that this would be a send out test and result to be available to couple days. I did advise him that regardless of what the test result is he needs to quarantine until he is feeling better. If he still has symptoms in 4 days he should be retested. ED Disposition - Plan for ED Patient: Disposition: Home or Assisted Living Diagnosis: Viral URI, Abdominal pain Instructions: ED URI, Viral, No Abx (Adult), ED Constipation (Adult) Referrals: Isak Wallace DO [Primary Care Provider] - 1 Week if not improving
[2020-08-22] MEDS: Morphine 4 MG/ML Syringe IV (19:50)
[2020-08-22] MEDS: Ondansetron 4 MG/2 ML Vial IV (19:50)
[2020-08-22 20:13] LABS: Absolute Lymphocyte Count 3.51 X10^3/uL (0.83-4.51); Absolute Neutrophil Count 5.2 X10^3/uL (2.0-7.7); Basophil# 0.04 X10^3/uL; Basophil% 0.4 % (0-1); Eosinophil# 0.22 X10^3/uL; Eosinophils% 2.3 % (0-5); Hematocrit 37.5 % (40-54); Hemoglobin 12.8 g/dL (13.0-16.5); Lymphocyte # 3.51 X10^3/ul (4.0); Lymphocyte % 37.2 % (19-41); Mean Corp Hgb Conc 34.1 g/dL (32-36); Mean Corpuscular Hgb 30.8 pg (27.0-32.0); Mean Corpuscular Volume 90.1 fL (80-94); Mean Platelet Vol. 9.1 fl (6.2-12.0); Monocyte# 0.42 X10^3/uL; Monocyte% 4.5 % (0-10); NRBC Flagged by Analyzer 0 % (0-5); Neutrophil # 5.21 X10^3/uL (2.7-7.7); Neutrophil % 55.3 % (47-70); Platelet Count 284 K/mm3 (150-450); RBC Distribution Width CV 12.5 % (11.6-14.6); RBC Distribution Width SD 41.5 fl (35.1-43.9); Red Blood Count 4.16 M/mm3 (4.6-6.2); White Blood Count 9.4 K/mm3 (4.4-11.0)
[2020-08-22 20:31] LABS: D-Dimer Quantitative (DVT/PE) <= 0.27 FEU/ug/m (0.27-0.49)
[2020-08-22 20:34] LABS: Lactic Acid 0.9 mmol/L (0.4-1.9)
[2020-08-22 20:38] LABS: AST(SGOT) 17 U/L (15-37); Alanine Aminotransfer ALT/SGPT 35 U/L (16-61); Albumin, Serum 3.6 g/dL (3.2-5.0); Alkaline Phosphatase 136 U/L (45-117); Anion Gap 5 (5-15); BUN 15 mg/dL (7-18); BUN/Creat Ratio 19.6 RATIO (10-20); Bilirubin, Direct 0.09 mg/dL (0.00-0.30); Calcium,Total 8.7 mg/dL (8.5-10.1); Chloride 105 mmol/L (98-107); Creatinine, Serum 0.76 mg/dL (0.70-1.30); EST Glomerular Filtration Rate 116 mL/min (>60); Est Glom Filt Rate - Afr Amer 141 mL/min (>60); Globulin 3.3 g/dL (2.2-4.2); Glucose 97 mg/dL (74-106); Lipase 52 U/L (73-393); Potassium 3.9 mmol/L (3.5-5.1); Protein, Total 6.9 g/dL (6.4-8.2); Sodium Level 139 mmol/L (136-145)
[2020-08-22 20:52] LABS: Bacteria 0 SEEN /hpf (None Seen); Mucous, Urine 0 SEEN /hpf (<or=2+); Red Blood Cells-Urine 0 SEEN /hpf (0-5); Squamous Epithelial Cells - UA 0 SEEN /hpf (0-5); White Blood Cells 0 SEEN /hpf (0-5)
--- NOTE | 2020-08-22 21:00 | CT_ITS ---
STUDY: CT ABDOMEN AND PELVIS WITH CONTRAST REASON FOR EXAM: Male, 45 years old. ABDOMINAL PAIN WITH FEVER AND NAUSEA X 3 DAYS. HX OF INTESTINAL INFECTION RADIATION DOSAGE (If Supplied By Facility): CTDIvol = ( 14.58 ) mGy, DLP = ( 824.92 ) mGycm TECHNIQUE: Transaxial images were obtained from the dome of the diaphragm to the symphysis pubis without oral contrast. Oral and amp; IV Gastrografin and amp; 100mL Isovue-300 was administered. Sagittal and coronal images were reconstructed. Individualized dose optimization techniques were used for this CT. COMPARISON: 06/10/2019 FINDINGS: The visualized lung bases are unremarkable. The visualized portions of the heart are within normal limits. Normal liver. Normal gallbladder and extrahepatic biliary system. Normal spleen. Normal pancreas. Normal bilateral adrenal glands. Normal right kidney. Normal left kidney. Normal visualized stomach. Normal small intestine. Diffuse fecal retention in the colon. The appendix is visualized and appears normal. Normal abdominal aorta. Normal inferior vena cava. Normal retroperitoneum. Normal urinary bladder. Normal abdominal wall. Normal osseous structures. CT/Abdomen/Pelvis WITH Contrast IMPRESSION: Diffuse colonic fecal retention. Electronically Signed: Yimi Michel DO at 21:19 EST Tel [phone], Service support ,
[2020-08-22 21:04] LABS: Color, Urine Straw (Yellow); Glucose, Dipstick Normal (Normal); Ketone-Dipstick Negative (Negative); Leukocyte Esterase-Dipstick Negative /ul (Negative); Nitrite-Dipstick Negative (Negative); Occult Blood-Urine Negative /ul (Negative); Protein-Dipstick Negative (Negative); Specific Gravity, Urine 1.005 (1.002-1.030); Urine Bilirubin Dipstick Negative (Negative); Urine Clarity Clear (Clear); Urine Urobilinogen Normal (Normal)
--- NOTE | 2020-08-22 21:05 | RAD_ITS ---
STUDY: X-RAY CHEST REASON FOR EXAM: Male, 45 years old. Abdominal pain and nausea and fever that started 3 days ago. TECHNIQUE: Frontal view COMPARISON: 03/16/2020 FINDINGS: The lungs are clear and expanded. There is no demonstrated pleural abnormality. Normal size heart. Normal mediastinum and avril. Normal visualized pulmonary arteries. Normal visualized aortic arch and descending thoracic aorta. Normal visualized thoracic spine. Normal visualized ribs, clavicles, and shoulders. There is no demonstrated abnormality of the visualized soft tissue structures of the upper abdomen. RAD/Chest 1 View (Portable) IMPRESSION: Normal x-ray examination of the chest. Electronically Signed: Yimi Michel DO at 21:31 EST Tel [phone], Service support ,
[2020-08-22 22:04] VITALS: BP 136/90; PULSE 76; RESP 16; O2SAT 98
== END 2020-08-22 22:05 | disposition home or self-care (01) ==
PROVIDERS: Emergency Provider Emergency Medicine; PCP Family Medicine
DX: J06.9 Acute upper respiratory infection, unspecified (principal); R10.9 Unspecified abdominal pain; E78.5 Hyperlipidemia, unspecified; G47.33 Obstructive sleep apnea (adult) (pediatric); I25.10 Atherosclerotic heart disease of native coronary artery without angina pectoris; K21.9 Gastro-esophageal reflux disease without esophagitis; J45.40 Moderate persistent asthma, uncomplicated; F17.200 Nicotine dependence, unspecified, uncomplicated; Z82.3 Family history of stroke; Z82.49 Family history of ischemic heart disease and other diseases of the circulatory system; Z95.5 Presence of coronary angioplasty implant and graft; F41.0 Panic disorder [episodic paroxysmal anxiety]; F98.8 Other specified behavioral and emotional disorders with onset usually occurring in childhood and adolescence
CPT/HCPCS: 71045; 74177; 80048; 80076; 81001; 83605; 83690; 84484; 85025; 85379; 87426; 87635; 93005; 96374; 96375; 99283; Q9967; A4216; J2405; U0002; U0003

== ENCOUNTER 2020-11-05 07:59 | Emergency (ER) | payer MEDICAID, SELFPAY ==
[2020-11-05 08:00] VITALS: BP 167/92; PULSE 84; RESP 16; TEMP 36.7; O2SAT 99; BMI 25.5
[2020-11-05 08:33] LABS: Absolute Lymphocyte Count 4.66 X10^3/uL (0.83-4.51); Absolute Neutrophil Count 4.5 X10^3/uL (2.0-7.7); Basophil# 0.04 X10^3/uL; Basophil% 0.4 % (0-1); Eosinophil# 0.24 X10^3/uL; Eosinophils% 2.4 % (0-5); Hematocrit 37.1 % (40-54); Hemoglobin 12.6 g/dL (13.0-16.5); Lymphocyte # 4.66 X10^3/ul (4.0); Lymphocyte % 46.4 % (19-41); Mean Corpuscular Hgb 30.5 pg (27.0-32.0); Mean Corpuscular Volume 89.8 fL (80-94); Mean Platelet Vol. 8.6 fl (6.2-12.0); Monocyte# 0.57 X10^3/uL; Monocyte% 5.7 % (0-10); NRBC Flagged by Analyzer 0 % (0-5); Neutrophil # 4.52 X10^3/uL (2.7-7.7); Platelet Count 265 K/mm3 (150-450); RBC Distribution Width CV 12.1 % (11.6-14.6); RBC Distribution Width SD 39.5 fl (35.1-43.9); Red Blood Count 4.13 M/mm3 (4.6-6.2)
--- NOTE | 2020-11-05 08:35 | ED.VIS.GEN ---
History of Present Illness Chief Complaint: Substance Abuse Informant: Patient Narrative: Patient is a 45-year-old male with a past medical history of CAD, sleep apnea who presents to the emergency department to request to detox from fentanyl. He states use of his up to a half a gram of fentanyl per day. He typically snorts this. He also takes oxycodone which is prescribed to him for chronic pain from a previous accident. He states that he has been using regularly over the past 7 months. He has never been through a detox program before. He denies any alcohol use with this. Last time patient used any fentanyl was yesterday. He did take oxycodone today. Patient states he does get some intermittent chest pains. He does have abdominal pain with some distention. He states that he has a hard time having bowel movements and is constipated most of the time. He does have chronic headaches. He recently had a left elbow surgery. He gets pains in his lower extremities bilaterally after a previous accident in the early . Patient does smoke cigarettes. Past Medical History - Allergies and Home Meds Allergies/Adverse Reactions: Allergies naloxone Allergy (Verified 11/05/20 08:02) [facility] Primary Care Physician: Isak Wallace DO [NON-STAFF] - As Needed Prior records reviewed: Yes Surgical History: - - ortho LE Smoking Status: Current every day smoker - Family History Maternal Family History: Family History (Last Reviewed 04/19/20 @ 15:[address] Morelia Ross MD) Mother Cancer Heart disease CVA (cerebral vascular accident) Father Heart disease CAD (coronary artery disease) Family History: Reports: - - Mother with a history of stomach cancer, heart disease, stroke and at age 56 secondary to heart disease and stroke complications. Paternal Family History: Family History (Last Reviewed 04/19/20 @ 15:[address] Morelia Ross MD) Mother Cancer Heart disease CVA (cerebral vascular accident) Father Heart disease CAD (coronary artery disease) Family History: Reports: - - Father with a history of heart disease, coronary disease, at age 52 secondary to heart disease complications. Review of Systems All systems negative except as indicated General: Denies: Chills, Fever, Sweats Eyes: Denies: Visual changes - bilaterally, Diplopia ENT: Denies: Rhinorrhea Cardiovascular: Reports: Chest pain - Intermittent. Denies: Palpitations Respiratory: Denies: Dyspnea, Cough, Dyspnea on exertion Gastrointestinal: Reports: Constipation. Denies: Abdominal pain, Nausea, Vomiting, Diarrhea Genitourinary: Denies: Dysuria, Hematuria, Frequency Musculoskeletal: Reports: Extremity Pain. Denies: Back pain Skin: Denies: Rash, Wounds Neurological: Reports: Headache. Denies: Weakness, Numbness Physical Exam Vital Signs/Narrative: Vital Signs Temp Pulse Resp BP Pulse Ox 11/05/20 08:00 98.0 F 84 16 167/92 H 99 Inital Vital Signs reviewed: Yes General: Well nourished, Well developed, No Acute Distress Head: Normocephalic, Atraumatic Eyes: Perrl, EOMI ENT: Moist mucous membranes, No rhinorrhea Neck: Supple, Nontender Cardiovascular: Regular rate, Regular rhythm, No murmurs Respiratory: No distress, CTA bilaterally, Chest nontender Abdomen: Soft, Nontender, Nondistended, Normal bowel sounds Back: Nontender, Normal Inspection Extremities: Nontender, No edema Skin: Normal color, No rash Neurological: Alert, Oriented x3, Cranial nerves II-XII grossly intact, Normal Strength, Normal Sensation Psychological: Normal affect, Normal Mood Diagnostic/Tx/Re-eval - Medical Decision Making Patient presents to the emergency department to request to detox from fentanyl. Upon arrival to the emergency department he is mildly hypertensive but otherwise normal vital signs. He has a benign physical exam. He does have a positive review of systems but these issues are all chronic for him. We will check basic lab work at this time. Patient's lab work came back positive for opiates as well as amphetamines. He is on Ritalin which is consistent with his PDMP review. Lab work shows him to be mildly anemic but otherwise no significant acute abnormality on work-up. Patient looked over the contract with the detox program. He is concerned that he will not be getting his Percocets. Patient understands that he will be treated for the opiate addiction and will not be receiving this. He was initially okay with this and when the hospitalist came down to evaluate him patient decided to leave and detox at home. He understands that he can return anytime to go through the program. He otherwise to follow-up with his PCP. Return precautions are reviewed. He is agreeable with this plan. Discharged home in stable condition. All questions answered. ED Disposition - Plan for ED Patient: Disposition: Home or Assisted Living Diagnosis: Substance abuse Instructions: ED Drug Abuse Referrals: Isak Wallace, [NON-STAFF] - As Needed
[2020-11-05 08:49] LABS: ALB/GLOB Ratio 1.2 RATIO (0.9-2.4); AST(SGOT) 18 U/L (15-37); Alanine Aminotransfer ALT/SGPT 33 U/L (16-61); Albumin, Serum 3.7 g/dL (3.2-5.0); Alkaline Phosphatase 141 U/L (45-117); Anion Gap 3 (5-15); BUN 18 mg/dL (7-18); BUN/Creat Ratio 20.4 RATIO (10-20); Calcium,Total 8.6 mg/dL (8.5-10.1); Chloride 102 mmol/L (98-107); Creatinine, Serum 0.88 mg/dL (0.70-1.30); EST Glomerular Filtration Rate 99 mL/min (>60); Est Glom Filt Rate - Afr Amer 119 mL/min (>60); Estimated Creatinine Clearance 111.71 ml/min; Globulin 3.2 g/dL (2.2-4.2); Glucose 92 mg/dL (74-106); Potassium 3.6 mmol/L (3.5-5.1); Protein, Total 6.9 g/dL (6.4-8.2); Sodium Level 136 mmol/L (136-145)
[2020-11-05 09:08] LABS: Alcohol, Blood (Medical)-Serum < 3.0 mg/dL
[2020-11-05 09:29] LABS: Amphetamine Urine VISTA POSITIVE (<1000 ng/mL); Barbiturate Urine VISTA NEGATIVE (< 200 ng/mL); Benzodiazepine Urine VISTA NEGATIVE (< 200 ng/mL); Cocaine Urine VISTA NEGATIVE (< 300 ng/mL); Ecstacy Urine VISTA POSITIVE (< 500 ng/mL); Methadone Urine VISTA NEGATIVE (< 300 ng/mL); PCP Urine VISTA NEGATIVE (< 25 ng/mL); THC Urine VISTA NEGATIVE (< 50 ng/mL); Vista UDS pH Range 6
[2020-11-05 10:07] VITALS: BP 160/82; PULSE 82; RESP 16; O2SAT 98
== END 2020-11-05 10:36 | disposition home or self-care (01) ==
PROVIDERS: Emergency Provider Emergency Medicine
DX: F19.10 Other psychoactive substance abuse, uncomplicated (principal); K59.00 Constipation, unspecified; R51.9 Headache, unspecified; R07.9 Chest pain, unspecified; F17.210 Nicotine dependence, cigarettes, uncomplicated; G89.29 Other chronic pain; I25.10 Atherosclerotic heart disease of native coronary artery without angina pectoris; G47.30 Sleep apnea, unspecified; Z82.3 Family history of stroke; Z82.49 Family history of ischemic heart disease and other diseases of the circulatory system
CPT/HCPCS: 36415; 80053; 80307; 82077; 85025; 99282

== ENCOUNTER 2020-11-10 19:46 | Inpatient (IN) | payer MEDICAID, SELFPAY ==
[2020-11-10 19:47] VITALS: BP 133/79; PULSE 87; RESP 16; TEMP 36.5; O2SAT 97; BMI 25.8
--- NOTE | 2020-11-10 20:05 | ED.DCSUM_ITS ---
- ER Visit Summary Date of Service: 11/10/20 Chief Complaint: Detox from opiates and Klonopin History of Present Illness: The patient is a 45 M who presents requesting detox from opiates and Klonopin. Patient states he takes oral Percocet and snorts fentanyl. Patient states he uses approximately 1 g/day. Patient states his last use was approximately 12 hours ago. Patient states he also takes Klonopin. Patient states he takes this orally. Patient denies any vomiting but admits to some nausea. Patient admits to some palpitations. Patient denies any fevers or chills. Patient denies any seizures. Patient states he did have recent procedure on his left elbow where they opened it up and removed something and then closed it back up. Patient states that the other day when he was here he was having some postoperative pain in his elbow and wanted to wait until that healed more before he came back for detox. Patient is prescribed Klonopin and Percocet. Physical Examination: Vital signs are stable. Patient is afebrile. Patient is in no acute distress. Neck is supple. Trachea is midline. There is no JVD. Heart was regular rate and rhythm. Lungs are clear and equal bilaterally. Abdomen is soft. Bowel sounds are normal. There is no tenderness. Cranial nerves II through XII are intact. There are no focal motor or sensory deficits noted. Skin is warm dry. There is a healing incision over the posterior aspect of the left elbow. There is no discharge or drainage. There is full range of motion. Sutures are in place. Test Results: BC shows a slight anemia with a hemoglobin of 12.9 hematocrit of 38.3. Comprehensive metabolic profile showed a slightly elevated alk phos of 141 and AST of 14. Urinalysis does not show any evidence of urinary tract infection. Serum alcohol level was less than 3.0. Urine tox screen was positive for opiates, benzodiazepines, and MDMA/methamphetamines. Emergency Department Course and Treatment: Case was discussed with the hospitalist. He will admit the patient for detox. Patient understood and was agreeable with the plan. All questions were answered. Disposition: Admit to hospital Impression: 1. Opiate dependence 2. Benzodiazepine withdrawal This note was generated with [employer] software. It may contain incorrect words, spelling, and punctuation that were not noted in review of the chart prior to signing ED Disposition - Plan for ED Patient: Disposition: Acute Care Hospital [facility] Diagnosis: Opiate dependence, Benzodiazepine withdrawal
--- NOTE | 2020-11-10 20:24 | CM.ED ---
Social Work Consult: Substance Abuse Referral source: Self referral due to reason for visit. Met with patient in room. Introduced self and high school social studies tutor role. Patient agreeable to speak with this high school social studies tutor. Patient seeking medical management of withdrawal symptoms, I was trying at home, and wasn't doing so well. Patient verbally agreeing to [facility]. Patient denies any other concerns. Patient reports substance of choice as Fentanyl and Percocet. Telephone call to Jaydon Turner. Updated on patient admission to [facility] program. Autumn Sierra MSW, DIANNE-S
[2020-11-10 20:29] LABS: Bacteria 0 SEEN /hpf (None Seen); Red Blood Cells-Urine 0 SEEN /hpf (0-5); Squamous Epithelial Cells - UA 0 SEEN /hpf (0-5); White Blood Cells 0 SEEN /hpf (0-5)
[2020-11-10 20:40] LABS: Absolute Lymphocyte Count 4.05 X10^3/uL (0.83-4.51); Absolute Neutrophil Count 4.4 X10^3/uL (2.0-7.7); Basophil# 0.03 X10^3/uL; Basophil% 0.3 % (0-1); Eosinophil# 0.21 X10^3/uL; Eosinophils% 2.3 % (0-5); Hematocrit 38.3 % (40-54); Hemoglobin 12.9 g/dL (13.0-16.5); Lymphocyte # 4.05 X10^3/ul (4.0); Mean Corp Hgb Conc 33.7 g/dL (32-36); Mean Corpuscular Hgb 30.6 pg (27.0-32.0); Mean Corpuscular Volume 90.8 fL (80-94); Mean Platelet Vol. 8.8 fl (6.2-12.0); Monocyte# 0.47 X10^3/uL; Monocyte% 5.1 % (0-10); NRBC Flagged by Analyzer 0 % (0-5); Neutrophil # 4.43 X10^3/uL (2.7-7.7); Neutrophil % 48.1 % (47-70); Platelet Count 280 K/mm3 (150-450); RBC Distribution Width CV 12.1 % (11.6-14.6); RBC Distribution Width SD 40.6 fl (35.1-43.9); Red Blood Count 4.22 M/mm3 (4.6-6.2); White Blood Count 9.2 K/mm3 (4.4-11.0)
[2020-11-10 20:50] LABS: Color, Urine Yellow (Yellow); Glucose, Dipstick Normal (Normal); Ketone-Dipstick 5 mg/dl (Negative); Leukocyte Esterase-Dipstick Negative /ul (Negative); Nitrite-Dipstick Negative (Negative); Occult Blood-Urine 10 /ul (Negative); Protein-Dipstick 30 mg/dl (Negative); Specific Gravity, Urine 1.025 (1.002-1.030); Urine Clarity Clear (Clear); Urine Urobilinogen 1 mg/dl (Normal)
[2020-11-10 21:04] LABS: ALB/GLOB Ratio 1.2 RATIO (0.9-2.4); AST(SGOT) 14 U/L (15-37); Alanine Aminotransfer ALT/SGPT 30 U/L (16-61); Albumin, Serum 3.7 g/dL (3.2-5.0); Alkaline Phosphatase 141 U/L (45-117); Anion Gap 2 (5-15); BUN 16 mg/dL (7-18); BUN/Creat Ratio 17.6 RATIO (10-20); Calcium,Total 8.8 mg/dL (8.5-10.1); Chloride 106 mmol/L (98-107); Creatinine, Serum 0.91 mg/dL (0.70-1.30); EST Glomerular Filtration Rate 95 mL/min (>60); Est Glom Filt Rate - Afr Amer 115 mL/min (>60); Estimated Creatinine Clearance 104.73 ml/min; Globulin 3.2 g/dL (2.2-4.2); Glucose 123 mg/dL (74-106); Potassium 3.8 mmol/L (3.5-5.1); Protein, Total 6.9 g/dL (6.4-8.2); Sodium Level 136 mmol/L (136-145)
[2020-11-10 21:15] VITALS: BMI 25.4
[2020-11-10 21:16] VITALS: BP 121/86; BP 135/80; PULSE 65; PULSE 80; RESP 18; TEMP 36.8; TEMP 36.9; O2SAT 96; O2SAT 97
[2020-11-10 21:16] LABS: Amphetamine Urine VISTA NEGATIVE (<1000 ng/mL); Barbiturate Urine VISTA NEGATIVE (< 200 ng/mL); Benzodiazepine Urine VISTA POSITIVE (< 200 ng/mL); Cocaine Urine VISTA NEGATIVE (< 300 ng/mL); Ecstacy Urine VISTA POSITIVE (< 500 ng/mL); Methadone Urine VISTA NEGATIVE (< 300 ng/mL); PCP Urine VISTA NEGATIVE (< 25 ng/mL); THC Urine VISTA NEGATIVE (< 50 ng/mL); Vista UDS pH Range 6
[2020-11-10 21:18] LABS: Urine Bilirubin Dipstick 1 mg/dL (Negative)
[2020-11-10 21:19] LABS: Mucous, Urine RARE /hpf (<or=2+)
[2020-11-10 21:30] VITALS: BMI 25.4
[2020-11-10 21:32] LABS: Alcohol, Blood (Medical)-Serum < 3.0 mg/dL
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
[2020-11-10] MEDS: TICAGRELOR 90 MG TABLET PO (22:04)
[2020-11-10] MEDS: Buprenorphine HCl 2 MG TAB.SUBL SL (22:04)
[2020-11-10] MEDS: Gabapentin 600 MG Tablet PO (22:04)
[2020-11-10] MEDS: Methocarbamol 750 MG Tablet 1500 MG PO (22:04)
[2020-11-10] MEDS: Pantoprazole Sodium 40 MG Tablet PO (22:04)
[2020-11-10] MEDS: Dicyclomine 10 MG Capsule 20 MG PO (22:05)
[2020-11-10] MEDS: Atorvastatin Calcium 40 MG Tablet PO (22:05)
[2020-11-10] MEDS: clonazePAM 1 MG Tablet PO (22:05)
[2020-11-10] MEDS: cloNIDine HCl 0.1 MG Tablet PO (22:05)
[2020-11-10] MEDS: Ondansetron 8 MG Tablet PO (23:44)
[2020-11-10] MEDS: traZODone 100 MG Tablet PO (23:45)
[2020-11-10] MEDS: Loperamide 2 MG Capsule PO (23:45)
[2020-11-10] MEDS: hydrOXYzine PAM 25 MG Capsule 50 MG PO (23:45)
[2020-11-11] VITALS (7 sets, daily range): BP systolic 117–145; BP diastolic 69–81; PULSE 54–112; RESP 16–18; TEMP 36.3–37.1; O2SAT 94–98
--- NOTE | 2020-11-11 00:46 | NURSING ---
patient moved to room [id number] at this time for patient safety. Severe withdrawal symptoms and multiple bed exits. Frequent diarrhea and vomiting. Medicated for all symptoms. Patient very unsteady on feet requiring assist of 1-2 staff.
[2020-11-11] MEDS: Gabapentin 300 MG Capsule PO ×2 (03:40→13:32)
[2020-11-11] MEDS: Buprenorphine HCl 2 MG TAB.SUBL SL ×3 (05:58→21:57)
[2020-11-11] MEDS: cloNIDine HCl 0.1 MG Tablet PO (05:58)
[2020-11-11] MEDS: Methocarbamol 750 MG Tablet 1500 MG PO ×2 (05:58→20:05)
[2020-11-11] MEDS: Dicyclomine 10 MG Capsule 20 MG PO ×2 (05:58→13:32)
[2020-11-11] MEDS: clonazePAM 1 MG Tablet PO ×3 (06:05→21:57)
[2020-11-11] MEDS: Albuterol 2.5 MG/3 ML VIAL.NEB. INHALATION ×3 (06:47→19:40)
[2020-11-11] MEDS: Budesonide Respules 0.5 MG/2 ML AMPUL.NEB. INHALATION ×2 (06:48→19:40)
[2020-11-11] MEDS: Aspirin E.C. 81 MG Tablet PO (09:02)
[2020-11-11] MEDS: TICAGRELOR 90 MG TABLET PO ×2 (09:03→21:57)
[2020-11-11] MEDS: Pantoprazole Sodium 40 MG Tablet PO ×2 (09:03→21:57)
--- NOTE | 2020-11-11 10:59 | ADDICTION ---
This show card writer attempted to meet with PT to conduct ASAM, MSE, and DUDIT assessments and to plan for d/c. PT requested to be seen tomorrow as he is not feeling well and wanted to rest today. This show card writer informed 24 Hour Navigator that he will need seen tomorrow.
--- NOTE | 2020-11-11 12:27 | PN_ITS ---
Patient Problems: Active and Suspected Problems (Last Reviewed 04/19/20 @ 15:[address] Morelia Ross MD) Opiate dependence (Acute) Benzodiazepine withdrawal (Acute) Subjective: Patient seen and examined. He complains of tremors, abdominal cramps and having the shakes. Review of systems is otherwise negative. Vitals/I&O's: Vital Signs Temp Pulse Resp BP Pulse Ox 98.2 F 69 16 117/69 96 11/11/20 08:02 11/11/20 08:02 11/11/20 08:02 11/11/20 08:02 11/11/20 08:02 Oxygen Delivery Method Room Air Weight: 177 lb 0.499 oz Body Mass Index (BMI) 25.4 Intake and Output for Last 24 Hours 11/09/20 11/10/20 11/11/20 23:59 23:59 23:59 Intake Total 500 / 500 Balance 500 / 500 General: Alert, Oriented x3, Cooperative HEENT: Atraumatic, PERRLA, EOMI, Normocephalic Oral: Moist Mucosa Neck: Supple, No JVD, Negative Carotid Bruits Lungs: Clear to auscultation, Normal air movement Cardiovascular: Regular rate, No murmurs Abdomen: Bowel Sounds Present, Soft, Non Tender Extremities: No edema, Capillary Refill Less than 3 Seconds Skin: No rashes, No breakdown Musculoskeletal: No Tenderness to Palpation of Joints or Extremities Neurological: Cranial nerves II-XII grossly intact, Neuro grossly intact, Motor Exam 5/5 strength throughout Psych/Mental Status: Normal Affect, Appropriate, Alert and oriented to time, place, person, mood and affect Laboratory Results 11/10/20 20:20: WBC 9.2, RBC 4.22 L, Hgb 12.9 L, Hct 38.3 L, MCV 90.8, MCH 30.6, MCHC 33.7, RDW Std Deviation 40.6, RDW Coeff of [place] 12.1, Plt Count 280, MPV 8.8, Immature Gran % (Auto) 0.200, Neut % (Auto) 48.1, Lymph % (Auto) 44.0 H, [place] % (Auto) 5.1, Eos % (Auto) 2.3, Baso % (Auto) 0.3, Absolute Neuts (auto) 4.4, Absolute Lymphs (auto) 4.05, Nucleated RBC % 0 11/10/20 20:20: Sodium 136, Potassium 3.8, Chloride 106, Carbon Dioxide 28.0, Anion Gap 2 L, BUN 16, Creatinine 0.91, Estim Creat Clear Calc 104.73, Est GFR (MDRD) Af Amer 115, Est GFR (MDRD) Non-Af 95, BUN/Creatinine Ratio 17.6, Glucose 123 H, Calcium 8.8, Total Bilirubin 0.30, AST 14 L, ALT 30, Alkaline Phosphatase 141 H, Total Protein 6.9, Albumin 3.7, Globulin 3.2, Albumin/Globulin Ratio 1.2 11/10/20 20:20: Ethyl Alcohol < 3.0 11/10/20 20:20: Urine Color Yellow, Urine Clarity Clear, Urine pH 6.0, Ur Specific [place] 1.025, Urine Protein 30 H, Urine Glucose (UA) Normal, Urine Ketones 5 H, Urine Occult Blood 10 H, Urine Nitrite Negative, Urine Bilirubin 1 H, Urine Urobilinogen 1 H, Ur Leukocyte Esterase Negative, Urine RBC 0 SEEN, Urine WBC 0 SEEN, Ur Squamous Epith Cells 0 SEEN, Urine Bacteria 0 SEEN, Urine Mucus RARE 11/10/20 20:20: Urine Opiates Screen POSITIVE H, Urine Methadone Screen NEGATIVE, Ur Barbiturates Screen NEGATIVE, Ur Phencyclidine Scrn NEGATIVE, Ur Amphetamines Screen NEGATIVE, U Methamphetamin-MDMA POSITIVE H, U Benzodiazepines Scrn POSITIVE H, Urine Cocaine Screen NEGATIVE, U Cannabinoids Screen NEGATIVE, Ur Drug Screen Comment Current Medications Albuterol Sulfate (Albuterol 2.5 Mg/3 Ml Vial.Neb.) 2.5 mg INHALATION Q4H PRN PRN PRN Reason: SOB &/OR WHEEZING Albuterol Sulfate (Albuterol 2.5 Mg/3 Ml Vial.Neb.) 2.5 mg INHALATION Q6HWA.RT [facility] Last Admin: 11/11/20 06:47 Dose: 2.5 mg Documented by: Aspirin (Aspirin E.C. 81 Mg Tablet) 81 mg PO DAILY@0800 [facility] Last Admin: 11/11/20 09:02 Dose: 81 mg Documented by: Atorvastatin Calcium (Atorvastatin Calcium 40 Mg Tablet) 40 mg PO QHS [facility] Last Admin: 11/10/20 22:05 Dose: 40 mg Documented by: Budesonide (Budesonide Respules 0.5 Mg/2 Ml Ampul.Neb.) 0.5 mg INHALATION Q12H.RT [facility] Last Admin: 11/11/20 06:48 Dose: 0.5 mg Documented by: Buprenorphine HCl (Buprenorphine Hcl 2 Mg Tab.Subl) 4 mg SL Q8H [facility]; Taper Stop: 11/13/20 21:44 Last Admin: 11/11/20 05:58 Dose: 4 mg Documented by: Clonazepam (Clonazepam 1 Mg Tablet) 1 mg PO TID [facility] Last Admin: 11/11/20 06:05 Dose: 1 mg Documented by: Clonidine (Clonidine Hcl 0.1 Mg Tablet) 0.1 mg PO Q8H PRN PRN PRN Reason: RESTLESSNESS Last Admin: 11/11/20 05:58 Dose: 0.1 mg Documented by: Dicyclomine HCl (Dicyclomine 10 Mg Capsule) 20 mg PO Q6H PRN PRN PRN Reason: Abdominal Discomfort Last Admin: 11/11/20 05:58 Dose: 20 mg Documented by: Gabapentin (Gabapentin 600 Mg Tablet) 600 mg PO QHS [facility] Last Admin: 11/10/20 22:04 Dose: 600 mg Documented by: Gabapentin (Gabapentin 300 Mg Capsule) 300 mg PO Q8H PRN PRN PRN Reason: moderate to severe anxiety Last Admin: 11/11/20 03:40 Dose: 300 mg Documented by: Hydroxyzine Pamoate (Hydroxyzine [place] 25 Mg Capsule) 50 mg PO Q6H PRN PRN PRN Reason: mild anxiety Last Admin: 11/10/20 23:45 Dose: 50 mg Documented by: Loperamide HCl (Loperamide 2 Mg Capsule) 2 mg PO Q4H PRN PRN PRN Reason: LOOSE STOOLS Last Admin: 11/10/20 23:45 Dose: 2 mg Documented by: Methocarbamol (Methocarbamol 750 Mg Tablet) 1,500 mg PO Q6H PRN PRN PRN Reason: MUSCLE SPASM Last Admin: 11/11/20 05:58 Dose: 1,500 mg Documented by: Nicotine (Nicotine 21 Mg Patch) 21 mg TD DAILY [facility] Last Admin: 11/11/20 09:03 Dose: 21 mg Documented by: Nitroglycerin (Nitroglycerin Sl (Ed/Img/Cath) 0.4 Mg Tablet) 0.4 mg SL Q5M PRN PRN Reason: CARDIAC/CHEST PAIN Ondansetron HCl (Ondansetron 8 Mg Tablet) 8 mg PO Q8H PRN PRN PRN Reason: NAUSEA Last Admin: 11/10/20 23:44 Dose: 8 mg Documented by: Pantoprazole Sodium (Pantoprazole Sodium 40 Mg Tablet) 40 mg PO BID [facility] Last Admin: 11/11/20 09:03 Dose: 40 mg Documented by: Ticagrelor (Ticagrelor 90 Mg Tablet) 90 mg PO BID [facility] Last Admin: 11/11/20 09:03 Dose: 90 mg Documented by: Trazodone HCl (Trazodone 100 Mg Tablet) 100 mg PO QHS PRN PRN PRN Reason: INSOMNIA Last Admin: 11/10/20 23:45 Dose: 100 mg Documented by: Medical Necessity - Tobacco Use Smoking Status: Current every day smoker Tobacco Use: Cigarettes Assessment/Plan All Active Problems (Last Reviewed 04/19/20 @ 15:[address] Morelia Ross MD) Opiate dependence (Acute) Benzodiazepine withdrawal (Acute) History of artificial skin graft (Resolved) History of cardiac murmur as a child (Resolved) Cough (Resolved) Enteritis (Resolved) LUQ abdominal pain (Resolved) Leucocytosis (Resolved) #Acute opiate withdrawal * on opiate withdrawal protocol with buprenorphine * monitor CINA score. #CAD s/p stents: on aspirin and brilinta as well as lipitor #GERD: on PPI DVT prophylaxis: low risk. encourage to ambulate. Inpatient E&M: 30929 Subs Hosp L2
[2020-11-11] MEDS: hydrOXYzine PAM 25 MG Capsule 50 MG PO (20:05)
[2020-11-11] MEDS: Gabapentin 600 MG Tablet PO (21:57)
[2020-11-11] MEDS: Atorvastatin Calcium 40 MG Tablet PO (21:57)
[2020-11-11] MEDS: traZODone 100 MG Tablet PO (21:57)
[2020-11-12] VITALS (7 sets, daily range): BP systolic 104–134; BP diastolic 56–81; PULSE 59–96; RESP 16–18; TEMP 36.8–37.1; O2SAT 93–97
[2020-11-12] MEDS: Dicyclomine 10 MG Capsule 20 MG PO ×2 (02:46→17:27)
[2020-11-12] MEDS: cloNIDine HCl 0.1 MG Tablet PO ×2 (02:46→13:51)
[2020-11-12] MEDS: clonazePAM 1 MG Tablet PO ×3 (05:52→22:07)
[2020-11-12] MEDS: Buprenorphine HCl 2 MG TAB.SUBL SL ×3 (05:52→22:11)
[2020-11-12] MEDS: Methocarbamol 750 MG Tablet 1500 MG PO ×2 (05:52→13:51)
[2020-11-12] MEDS: Gabapentin 300 MG Capsule PO ×2 (05:52→13:51)
[2020-11-12] MEDS: Budesonide Respules 0.5 MG/2 ML AMPUL.NEB. INHALATION ×2 (07:22→19:38)
[2020-11-12] MEDS: Albuterol 2.5 MG/3 ML VIAL.NEB. INHALATION ×3 (07:22→19:38)
[2020-11-12] MEDS: hydrOXYzine PAM 25 MG Capsule 50 MG PO ×2 (09:50→17:28)
[2020-11-12] MEDS: Pantoprazole Sodium 40 MG Tablet PO ×2 (09:50→22:16)
[2020-11-12] MEDS: Aspirin E.C. 81 MG Tablet PO (09:50)
[2020-11-12] MEDS: TICAGRELOR 90 MG TABLET PO ×2 (09:51→22:07)
--- NOTE | 2020-11-12 12:18 | PN_ITS ---
Patient Problems: Active and Suspected Problems (Last Reviewed 04/19/20 @ 15:[address] Morelia Ross MD) Opiate dependence (Acute) Benzodiazepine withdrawal (Acute) Subjective: Patient seen and examined. He had no complaints. Review of systems is otherwise negative. Vitals/I&O's: Vital Signs Temp Pulse Resp BP Pulse Ox 98.5 F 77 16 122/74 H 97 11/12/20 09:35 11/12/20 09:35 11/12/20 09:35 11/12/20 09:35 11/12/20 09:35 Oxygen Delivery Method Room Air Weight: 177 lb 0.499 oz Body Mass Index (BMI) 25.4 Intake and Output for Last 24 Hours 11/10/20 11/11/20 11/12/20 23:59 23:59 23:59 Intake Total 900 / 900 500 / 500 Balance 900 / 900 500 / 500 General: Alert, Oriented x3, Cooperative HEENT: Atraumatic, PERRLA, EOMI, Normocephalic Oral: Moist Mucosa Neck: Supple, No JVD, Negative Carotid Bruits Lungs: Clear to auscultation, Normal air movement Cardiovascular: Regular rate, No murmurs Abdomen: Bowel Sounds Present, Soft, Non Tender Extremities: No edema, Capillary Refill Less than 3 Seconds Skin: No rashes, No breakdown Musculoskeletal: No Tenderness to Palpation of Joints or Extremities Neurological: Cranial nerves II-XII grossly intact, Neuro grossly intact, Motor Exam 5/5 strength throughout Psych/Mental Status: Normal Affect, Appropriate, Alert and oriented to time, place, person, mood and affect Current Medications Albuterol Sulfate (Albuterol 2.5 Mg/3 Ml Vial.Neb.) 2.5 mg INHALATION Q4H PRN PRN PRN Reason: SOB &/OR WHEEZING Albuterol Sulfate (Albuterol 2.5 Mg/3 Ml Vial.Neb.) 2.5 mg INHALATION Q6HWA.RT [facility] Last Admin: 11/12/20 07:22 Dose: 2.5 mg Documented by: Aspirin (Aspirin E.C. 81 Mg Tablet) 81 mg PO DAILY@0800 [facility] Last Admin: 11/12/20 09:50 Dose: 81 mg Documented by: Atorvastatin Calcium (Atorvastatin Calcium 40 Mg Tablet) 40 mg PO QHS [facility] Last Admin: 11/11/20 21:57 Dose: 40 mg Documented by: Budesonide (Budesonide Respules 0.5 Mg/2 Ml Ampul.Neb.) 0.5 mg INHALATION Q12H.RT [facility] Last Admin: 11/12/20 07:22 Dose: 0.5 mg Documented by: Buprenorphine HCl (Buprenorphine Hcl 2 Mg Tab.Subl) 2 mg SL Q8H [facility]; Taper Stop: 11/13/20 21:44 Last Admin: 11/12/20 05:52 Dose: 2 mg Documented by: Clonazepam (Clonazepam 1 Mg Tablet) 1 mg PO TID [facility] Last Admin: 11/12/20 05:52 Dose: 1 mg Documented by: Clonidine (Clonidine Hcl 0.1 Mg Tablet) 0.1 mg PO Q8H PRN PRN PRN Reason: RESTLESSNESS Last Admin: 11/12/20 02:46 Dose: 0.1 mg Documented by: Dicyclomine HCl (Dicyclomine 10 Mg Capsule) 20 mg PO Q6H PRN PRN PRN Reason: Abdominal Discomfort Last Admin: 11/12/20 02:46 Dose: 20 mg Documented by: Gabapentin (Gabapentin 600 Mg Tablet) 600 mg PO QHS [facility] Last Admin: 11/11/20 21:57 Dose: 600 mg Documented by: Gabapentin (Gabapentin 300 Mg Capsule) 300 mg PO Q8H PRN PRN PRN Reason: moderate to severe anxiety Last Admin: 11/12/20 05:52 Dose: 300 mg Documented by: Hydroxyzine Pamoate (Hydroxyzine [place]enn[place] 25 Mg Capsule) 50 mg PO Q6H PRN PRN PRN Reason: mild anxiety Last Admin: 11/12/20 09:50 Dose: 50 mg Documented by: Loperamide HCl (Loperamide 2 Mg Capsule) 2 mg PO Q4H PRN PRN PRN Reason: LOOSE STOOLS Last Admin: 11/10/20 23:45 Dose: 2 mg Documented by: Methocarbamol (Methocarbamol 750 Mg Tablet) 1,500 mg PO Q6H PRN PRN PRN Reason: MUSCLE SPASM Last Admin: 11/12/20 05:52 Dose: 1,500 mg Documented by: Nicotine (Nicotine 21 Mg Patch) 21 mg TD DAILY [facility] Last Admin: 11/12/20 09:50 Dose: 21 mg Documented by: Nitroglycerin (Nitroglycerin Sl (Ed/Img/Cath) 0.4 Mg Tablet) 0.4 mg SL Q5M PRN PRN Reason: CARDIAC/CHEST PAIN Ondansetron HCl (Ondansetron 8 Mg Tablet) 8 mg PO Q8H PRN PRN PRN Reason: NAUSEA Last Admin: 11/10/20 23:44 Dose: 8 mg Documented by: Pantoprazole Sodium (Pantoprazole Sodium 40 Mg Tablet) 40 mg PO BID [facility] Last Admin: 11/12/20 09:50 Dose: 40 mg Documented by: Ticagrelor (Ticagrelor 90 Mg Tablet) 90 mg PO BID [facility] Last Admin: 11/12/20 09:51 Dose: 90 mg Documented by: Trazodone HCl (Trazodone 100 Mg Tablet) 100 mg PO QHS PRN PRN PRN Reason: INSOMNIA Last Admin: 11/11/20 21:57 Dose: 100 mg Documented by: STROKE Vital Signs/Narrative: Vital Signs Temp Pulse Resp BP Pulse Ox 11/12/20 09:35 98.5 F 77 16 122/74 H 97 Medical Necessity - Tobacco Use Smoking Status: Current every day smoker Tobacco Use: Cigarettes Assessment/Plan All Active Problems (Last Reviewed 04/19/20 @ 15:[address] Morelia Ross MD) Opiate dependence (Acute) Benzodiazepine withdrawal (Acute) History of artificial skin graft (Resolved) History of cardiac murmur as a child (Resolved) Cough (Resolved) Enteritis (Resolved) LUQ abdominal pain (Resolved) Leucocytosis (Resolved) #Acute opiate withdrawal * on opiate withdrawal protocol with buprenorphine * monitor CINA score. #CAD s/p stents: on aspirin and brilinta as well as lipitor #GERD: on PPI DVT prophylaxis: low risk. encourage to ambulate. Inpatient E&M: 92507 Subs Hosp L2
[2020-11-12] MEDS: Ondansetron 8 MG Tablet PO (17:28)
[2020-11-12] MEDS: Gabapentin 600 MG Tablet PO (22:07)
[2020-11-12] MEDS: Atorvastatin Calcium 40 MG Tablet PO (22:07)
[2020-11-12] MEDS: traZODone 100 MG Tablet PO (22:11)
[2020-11-13 04:45] VITALS: BP 112/58; PULSE 61; RESP 16; TEMP 36.6; O2SAT 94
[2020-11-13] MEDS: Methocarbamol 750 MG Tablet 1500 MG PO (04:49)
[2020-11-13] MEDS: Dicyclomine 10 MG Capsule 20 MG PO (04:49)
[2020-11-13] MEDS: clonazePAM 1 MG Tablet PO (06:34)
[2020-11-13 07:38] VITALS: PULSE 60; RESP 18
[2020-11-13] MEDS: Budesonide Respules 0.5 MG/2 ML AMPUL.NEB. INHALATION (07:38)
[2020-11-13] MEDS: Albuterol 2.5 MG/3 ML VIAL.NEB. INHALATION (07:38)
[2020-11-13 09:29] VITALS: BP 102/66; PULSE 55; RESP 18; TEMP 36.6; O2SAT 94
[2020-11-13] MEDS: Aspirin E.C. 81 MG Tablet PO (09:31)
[2020-11-13] MEDS: Buprenorphine HCl 2 MG TAB.SUBL SL (09:31)
[2020-11-13] MEDS: Pantoprazole Sodium 40 MG Tablet PO (09:31)
[2020-11-13] MEDS: TICAGRELOR 90 MG TABLET PO (09:32)
--- NOTE | 2020-11-13 09:40 | DCINST_ITS ---
- Discharge Diagnoses Current Active Problems: Current Active and Chronic Problems (Last Reviewed 04/19/20 @ 15:[address] Morelia Ross MD) Opiate dependence (Acute) Benzodiazepine withdrawal (Acute) You will use the following diet at home:: Cardiac Your food should be the consistency of: Regular Your liquids should be the consistency of: Regular/Thin Discharge Activity: Return to Normal Activity Weight Bearing Status: Weight bearing as tolerated Instructions: ED Opiate Abuse, ED Abuse Drug Narcotic Sedative Rx Allergies/Adverse Reactions: Allergies naloxone Allergy (Verified 11/10/20 19:48) Hives Medications to take at Discharge albuterol sulfate 90 mcg/actuation aerosol inhaler 2 puff INHALATION Q6H PRN 04/14/19 omeprazole 40 mg capsule,delayed release 40 mg PO BID #30 cap 04/29/19 ondansetron HCl 4 mg tablet 4 mg PO Q8H PRN 04/19/20 oxycodone-acetaminophen 10 mg-325 mg tablet 1 tab PO Q6H PRN 04/19/20 nitroglycerin 0.4 mg sublingual tablet 0.4 mg SUBLINGUAL Q5M PRN #25 tab 05/24/20 Clonazepam [Klonopin] 1 mg PO TID 08/22/20 Gabapentin 600 mg PO QHS 08/22/20 Ticagrelor [Brilinta] 90 mg PO BID 08/22/20 Aspirin E.C. [Ecotrin] 81 mg PO DAILY@0800 11/10/20 Atorvastatin Calcium [Lipitor] 40 mg PO QHS 11/10/20 Budesonide/Formoterol 160/4.5 [Symbicort 160/4.5 Mcg Inhaler (SP)] 2 puff INHALATION DAILY 11/10/20 Primary Care Physician: Care Physician,No Primary [Primary Care Provider] - Test Results: Test results from this visit will be discussed in further detail at your follow- up appointment, if applicable. Please Follow Up With: Rebecca Arizmendi MD When: call office to set up PCP appointment in 1-2 weeks Proposed Discharge Date: 11/13/20
--- NOTE | 2020-11-13 09:42 | PCM.DC.SUM ---
Discharge Date and Diagnosis - Problem List Patient Problems: Active and Suspected Problems (Last Reviewed 04/19/20 @ 15:[address] Morelia Ross MD) Opiate dependence (Acute) Benzodiazepine withdrawal (Acute) Date of Admission: 11/10/20 Date of Discharge: 11/13/20 - Primary Discharge Diagnosis Acute Problems: Active Problems (Last Reviewed 04/19/20 @ 15:[address] Morelia Ross MD) Opiate dependence (Acute) Benzodiazepine withdrawal (Acute) - Secondary Discharge Diagnosis Chronic Problems: Chronic Problems (Last Reviewed 04/19/20 @ 15:[address] Morelia Ross MD) Carotid stenosis (Chronic) Moderate persistent asthma without complication (Chronic) GERD (gastroesophageal reflux disease) (Chronic) Presence of stent in coronary artery (Chronic) 3.0 x 24 mm EluNIR WALI to LAD 05/01/19; CAD as described with instent restenosis in the previously placed LAD stent. Preserved EF. No significant or MR. Successful FFR guided PCI of LAD/D1 bifurcation with angiosculpt angioplasty to LAD and PTCA alone to D1 (Kissing balloon) 04/21/20 Atherosclerosis of coronary artery of [place] heart without angina pectoris (Chronic) 3.0 x 24 mm EluNIR WALI to LAD 05/01/19 Dyslipidemia (high LDL; low HDL) (Chronic) Poor dentition (Chronic) Noncompliance with CPAP treatment (Chronic) Obstructive sleep apnea (Chronic) PTSD (post-traumatic stress disorder) (Chronic) Generalized anxiety disorder with panic attacks (Chronic) S/P PTCA (percutaneous transluminal coronary angioplasty) (Chronic) Palpitations (Chronic) Lightheadedness (Chronic) Chest pain (Chronic) Tobacco use (Chronic) Hypersomnia (Chronic) ADD (attention deficit disorder) (Chronic) Chronic pain (Chronic) Hospital Course and Treatment Operations: None Procedures: None Summary of Care Provided: The patient is a 45 year old M with a past medical history as outlined was admitted through the ED on 11/10/2020 for acute opiate withdrawal. He used fentanyl IV and his last use was about 10 hours prior to his admission. He said he followed up with a counselor at 180 already. He was admitted and managed for acute opioid withdrawal. Urine tox was positive for methamphetamines, benzodiazepines and opiates. Blood alcohol level was less than 3. He was started on opiate withdrawal protocol with buprenorphine. Patient tolerated 3-day detox process well. His hospital stay was uncomplicated. He was discharged home on 11/13/2020. At time of discharge, patient requested for a blood toxicology screen because he said he was was reported by The court on the day after admission to help him go through the process of getting his children back. Counseled that these labs could not be requested as he was here for detox and so would have to follow-up with the court to see what ever other tests were requested and to possibly follow-up with his primary care doctor for ordering these tests, if that was what was required. Patient is to follow up with PCP in 1-2 weeks. Patient seen and examined prior to discharge. Had no complaints and felt well and wanted to be discharged home. Review of systems otherwise negative. Labs and vitals reviewed. Home medication reviewed and reconciled. O/E: Vital Signs Temp Pulse Resp BP Pulse Ox 97.9 F 55 L 18 102/66 94 11/13/20 09:11/13/20 09:11/13/20 09:11/13/20 09:11/13/20 09:29 General: Alert, Oriented x3, Cooperative HEENT: Atraumatic, PERRLA, EOMI, Normocephalic Oral: Moist Mucosa Neck: Supple, No JVD, Negative Carotid Bruits Lungs: Clear to auscultation, Normal air movement Cardiovascular: Regular rate, No murmurs Abdomen: Bowel Sounds Present, Soft, Non Tender Extremities: No edema, Capillary Refill Less than 3 Seconds Skin: No rashes, No breakdown Musculoskeletal: No Tenderness to Palpation of Joints or Extremities Neurological: Cranial nerves II-XII grossly intact, Neuro grossly intact, Motor Exam 5/5 strength throughout Psych/Mental Status: Normal Affect, Appropriate, Alert and oriented to time, place, person, mood and affect Plan is for discharge home today. Patient Problems: Active and Suspected Problems (Last Reviewed 04/19/20 @ 15:[address] Morelia Ross MD) Opiate dependence (Acute) Benzodiazepine withdrawal (Acute) - Physical Exam Vitals/I&O's: Vital Signs Temp Pulse Resp BP Pulse Ox 97.9 F 55 L 18 102/66 94 11/13/20 09:29 11/13/20 09:29 11/13/20 09:29 11/13/20 09:29 11/13/20 09:29 Oxygen Delivery Method Room Air Weight: 177 lb 0.499 oz Body Mass Index (BMI) 25.4 Intake and Output for Last 24 Hours 11/11/20 11/12/20 11/13/20 23:59 23:59 23:59 Intake Total 900 / 900 500 / 500 Balance 900 / 900 500 / 500 Current Medications Albuterol Sulfate (Albuterol 2.5 Mg/3 Ml Vial.Neb.) 2.5 mg INHALATION Q4H PRN PRN PRN Reason: SOB &/OR WHEEZING Albuterol Sulfate (Albuterol 2.5 Mg/3 Ml Vial.Neb.) 2.5 mg INHALATION Q6HWA.RT [facility], [facility]1983 Last Admin: 11/13/20 07:38 Dose: 2.5 mg Documented by: Aspirin (Aspirin E.C. 81 Mg Tablet) 81 mg PO DAILY@0800 [facility], [facility] Last Admin: 11/13/20 09:31 Dose: 81 mg Documented by: Atorvastatin Calcium (Atorvastatin Calcium 40 Mg Tablet) 40 mg PO QHS [facility], [facility] Last Admin: 11/12/20 22:07 Dose: 40 mg Documented by: Budesonide (Budesonide Respules 0.5 Mg/2 Ml Ampul.Neb.) 0.5 mg INHALATION Q12H.RT [facility], [facility]1983 Last Admin: 11/13/20 07:38 Dose: 0.5 mg Documented by: Buprenorphine HCl (Buprenorphine Hcl 2 Mg Tab.Subl) 2 mg SL Q12H [facility], [facility]1983; Taper Stop: 11/13/20 21:44 Last Admin: 11/13/20 09:31 Dose: 2 mg Documented by: Clonazepam (Clonazepam 1 Mg Tablet) 1 mg PO TID [facility] Last Admin: 11/13/20 06:34 Dose: 1 mg Documented by: Clonidine (Clonidine Hcl 0.1 Mg Tablet) 0.1 mg PO Q8H PRN PRN PRN Reason: RESTLESSNESS Last Admin: 11/12/20 13:51 Dose: 0.1 mg Documented by: Dicyclomine HCl (Dicyclomine 10 Mg Capsule) 20 mg PO Q6H PRN PRN PRN Reason: Abdominal Discomfort Last Admin: 11/13/20 04:49 Dose: 20 mg Documented by: Gabapentin (Gabapentin 600 Mg Tablet) 600 mg PO QHS [facility] Last Admin: 11/12/20 22:07 Dose: 600 mg Documented by: Gabapentin (Gabapentin 300 Mg Capsule) 300 mg PO Q8H PRN PRN PRN Reason: moderate to severe anxiety Last Admin: 11/12/20 13:51 Dose: 300 mg Documented by: Hydroxyzine Pamoate (Hydroxyzine Dennise 25 Mg Capsule) 50 mg PO Q6H PRN PRN PRN Reason: mild anxiety Last Admin: 11/12/20 17:28 Dose: 50 mg Documented by: Loperamide HCl (Loperamide 2 Mg Capsule) 2 mg PO Q4H PRN PRN PRN Reason: LOOSE STOOLS Last Admin: 11/10/20 23:45 Dose: 2 mg Documented by: Methocarbamol (Methocarbamol 750 Mg Tablet) 1,500 mg PO Q6H PRN PRN PRN Reason: MUSCLE SPASM Last Admin: 11/13/20 04:49 Dose: 1,500 mg Documented by: Nicotine (Nicotine 21 Mg Patch) 21 mg TD DAILY [facility] Last Admin: 11/13/20 09:33 Dose: 21 mg Documented by: Nitroglycerin (Nitroglycerin Sl (Ed/Img/Cath) 0.4 Mg Tablet) 0.4 mg SL Q5M PRN PRN Reason: CARDIAC/CHEST PAIN Ondansetron HCl (Ondansetron 8 Mg Tablet) 8 mg PO Q8H PRN PRN PRN Reason: NAUSEA Last Admin: 11/12/20 17:28 Dose: 8 mg Documented by: Pantoprazole Sodium (Pantoprazole Sodium 40 Mg Tablet) 40 mg PO BID [facility] Last Admin: 11/13/20 09:31 Dose: 40 mg Documented by: Ticagrelor (Ticagrelor 90 Mg Tablet) 90 mg PO BID [facility] Last Admin: 11/13/20 09:32 Dose: 90 mg Documented by: Trazodone HCl (Trazodone 100 Mg Tablet) 100 mg PO QHS PRN PRN PRN Reason: INSOMNIA Last Admin: 11/12/20 22:11 Dose: 100 mg Documented by: Discharge Diet: Low fat/ Low Cholesterol Discharge Activity: Return to Normal Activity Weight Bearing Status: Weight bearing as tolerated Home Medications: Medications to take at Discharge albuterol sulfate 90 mcg/actuation aerosol inhaler 2 puff INHALATION Q6H PRN 04/14/19 omeprazole 40 mg capsule,delayed release 40 mg PO BID #30 cap 04/29/19 ondansetron HCl 4 mg tablet 4 mg PO Q8H PRN 04/19/20 oxycodone-acetaminophen 10 mg-325 mg tablet 1 tab PO Q6H PRN 04/19/20 nitroglycerin 0.4 mg sublingual tablet 0.4 mg SUBLINGUAL Q5M PRN #25 tab 05/24/20 Clonazepam [Klonopin] 1 mg PO TID 08/22/20 Gabapentin 600 mg PO QHS 08/22/20 Ticagrelor [Brilinta] 90 mg PO BID 08/22/20 Aspirin E.C. [Ecotrin] 81 mg PO DAILY@0800 11/10/20 Atorvastatin Calcium [Lipitor] 40 mg PO QHS 11/10/20 Budesonide/Formoterol 160/4.5 [Symbicort 160/4.5 Mcg Inhaler (SP)] 2 puff INHALATION DAILY 11/10/20 Primary Care Physician: Care Physician,No Primary [Primary Care Provider] - Please Follow Up With: Rebecca Arizmendi MD When: call office to set up PCP appointment in 1-2 weeks Patient Instructions: ED Opiate Abuse, ED Abuse Drug Narcotic Sedative Rx Disposition: Home Minutes spent on discharge:: 40 Medical Necessity - Tobacco Use Smoking Status: Current every day smoker Tobacco Use: Cigarettes Meaningful Use Info Meaningful Use Diagnoses (Choose all that apply): None applicable Inpatient E&M: 68457 Disch Hosp
== END 2020-11-13 10:21 | disposition home or self-care (01) | DRG 773 ==
LOC: ED 20:39 → MS3 21:36
PROVIDERS: Admitting Provider Family Medicine; Emergency Provider Emergency Medicine; Visit Provider Student in an Organized Health Care Education/Training Program
DX: F11.23 Opioid dependence with withdrawal (principal); F13.239 Sedative, hypnotic or anxiolytic dependence with withdrawal, unspecified; F41.1 Generalized anxiety disorder; F41.0 Panic disorder [episodic paroxysmal anxiety]; F32.9 Major depressive disorder, single episode, unspecified; I25.10 Atherosclerotic heart disease of native coronary artery without angina pectoris; K21.9 Gastro-esophageal reflux disease without esophagitis; Z95.5 Presence of coronary angioplasty implant and graft; F17.210 Nicotine dependence, cigarettes, uncomplicated; E78.5 Hyperlipidemia, unspecified; F43.12 Post-traumatic stress disorder, chronic; G47.33 Obstructive sleep apnea (adult) (pediatric); F98.8 Other specified behavioral and emotional disorders with onset usually occurring in childhood and adolescence; Z79.02 Long term (current) use of antithrombotics/antiplatelets; Z79.51 Long term (current) use of inhaled steroids; Z79.82 Long term (current) use of aspirin; Z82.3 Family history of stroke; Z82.49 Family history of ischemic heart disease and other diseases of the circulatory system; Z91.19 Patient's noncompliance with other medical treatment and regimen
CPT/HCPCS: 80053; 80307; 81001; 82077; 85025; 94640; 99284; 99406

== ENCOUNTER 2020-11-28 13:41 | Emergency (ER) | payer MEDICAID, SELFPAY ==
[2020-11-28 13:42] VITALS: BP 126/81; PULSE 114; RESP 18; TEMP 36.3; O2SAT 97; BMI 25.2
[2020-11-28 14:07] VITALS: BP 131/78; PULSE 107; RESP 13; O2SAT 97
--- NOTE | 2020-11-28 14:33 | CT_ITS ---
EXAMINATION : Head CT w/out contrast HISTORY : Vertigo, diplopia COMPARISON : None. TECHNIQUE : Multiple contiguous axial images were obtained from the skull base to the vertex without intravenous contrast. A radiation dose optimization technique was used for this scan. FINDINGS : The ventricles and sulci are normal in size. There is no evidence for acute intracranial hemorrhage, mass effect, or midline shift. There is no extra-axial fluid collection. There is normal vines-white differentiation, without CT evidence of acute ischemia or infarct. The skull base and calvarium are unremarkable. The orbits are unremarkable. The paranasal sinuses are clear. There is arun bullosa. The mastoid air cells are well-aerated. The soft tissues are unremarkable. CT/Brain/Head without Contrast IMPRESSION: No acute intracranial abnormality. Electronically Signed: Khai Arnold MD at 16:29 EDT Tel , Service support ,
--- NOTE | 2020-11-28 14:34 | EKG12_ITS ---
Test Reason : CP Blood Pressure : / mmHG Vent. Rate : 099 BPM Atrial Rate : 099 BPM P-R Int : 182 ms QRS Dur : 082 ms QT Int : 322 ms P-R-T Axes : 054 064 056 degrees QTc Int : 413 ms Normal sinus rhythm Normal ECG Confirmed by LUCY MILES, KHANH ([id number]), online editor CAMPOS FERRARA ([id number]) on 12/01/2020 8:59:31 AM Referred By: TIARRA Confirmed By:KHANH AYALA MD
[2020-11-28 14:45] LABS: Absolute Lymphocyte Count 2.98 X10^3/uL (0.83-4.51); Basophil# 0.01 X10^3/uL; Basophil% 0.1 % (0-1); Hematocrit 38.1 % (40-54); Hemoglobin 12.8 g/dL (13.0-16.5); Lymphocyte # 2.98 X10^3/ul (0.83-4.51); Lymphocyte % 31.1 % (19-41); Mean Corp Hgb Conc 33.6 g/dL (32-36); Mean Corpuscular Hgb 30.6 pg (27.0-32.0); Mean Corpuscular Volume 91.1 fL (80-94); Monocyte% 5.2 % (0-10); NRBC Flagged by Analyzer 0 % (0-5); Neutrophil # 5.98 X10^3/uL (2.7-7.7); Neutrophil % 62.4 % (47-70); Platelet Count 241 K/mm3 (150-450); RBC Distribution Width SD 40.4 fl (35.1-43.9); Red Blood Count 4.18 M/mm3 (4.6-6.2); White Blood Count 9.6 K/mm3 (4.4-11.0)
[2020-11-28 14:53] LABS: D-Dimer Quantitative (DVT/PE) 0.29 FEU/ug/m (0.27-0.49)
[2020-11-28 14:59] LABS: AST(SGOT) 20 U/L (15-37); Alanine Aminotransfer ALT/SGPT 38 U/L (16-61); Albumin, Serum 3.4 g/dL (3.2-5.0); Alkaline Phosphatase 132 U/L (45-117); Anion Gap 5 (5-15); BUN 14 mg/dL (7-18); BUN/Creat Ratio 17.2 RATIO (10-20); Calcium,Total 8.9 mg/dL (8.5-10.1); Chloride 101 mmol/L (98-107); Creatinine, Serum 0.81 mg/dL (0.70-1.30); EST Glomerular Filtration Rate 108 mL/min (>60); Est Glom Filt Rate - Afr Amer 131 mL/min (>60); Estimated Creatinine Clearance 117.66 ml/min; Globulin 3.5 g/dL (2.2-4.2); Glucose 105 mg/dL (74-106); Lipase 37 U/L (73-393); Potassium 3.7 mmol/L (3.5-5.1); Protein, Total 6.9 g/dL (6.4-8.2); Sodium Level 136 mmol/L (136-145)
[2020-11-28 15:39] VITALS: BP 115/86; BP 121/82; BP 125/82; PULSE 84; PULSE 92; PULSE 99
[2020-11-28] MEDS: Ketorolac 15 MG/ML Vial IV (15:40)
[2020-11-28] MEDS: 0.9% Normal Saline 1,000 ML 1000 ML IV (15:40)
[2020-11-28] MEDS: Ondansetron 4 MG/2 ML Vial IV (15:40)
--- NOTE | 2020-11-28 15:54 | RAD_ITS ---
STUDY: X-RAY CHEST REASON FOR EXAM: Male, 45 years old. Chest pain TECHNIQUE: Frontal view COMPARISON: 08/22/2020 FINDINGS: The lungs are clear and expanded. There is no demonstrated pleural abnormality. Normal size heart. Normal mediastinum and avril. Normal visualized pulmonary arteries. Normal visualized aortic arch and descending thoracic aorta. Normal visualized thoracic spine. Normal visualized ribs, clavicles, and shoulders. There is no demonstrated abnormality of the visualized soft tissue structures of the upper abdomen. RAD/Chest 1 View (Portable) IMPRESSION: Normal x-ray examination of the chest. Electronically Signed: Yimi Michel DO at 16:27 EDT Tel [phone], Service support ,
[2020-11-28 15:58] LABS: Mucous, Urine 0 SEEN /hpf (<or=2+); Red Blood Cells-Urine 0 SEEN /hpf (0-5); Squamous Epithelial Cells - UA 0 SEEN /hpf (0-5); White Blood Cells 0 SEEN /hpf (0-5)
[2020-11-28 16:12] LABS: Color, Urine Yellow (Yellow); Glucose, Dipstick Normal (Normal); Ketone-Dipstick Negative (Negative); Leukocyte Esterase-Dipstick Negative /ul (Negative); Nitrite-Dipstick Positive (Negative); Occult Blood-Urine 50 /ul (Negative); Protein-Dipstick Negative (Negative); Urine Bilirubin Dipstick Negative (Negative); Urine Clarity Cloudy (Clear); Urine Urobilinogen Normal (Normal)
[2020-11-28 16:23] LABS: Amorphous Sediment 1+; Bacteria 4+ /hpf (None Seen)
[2020-11-28 16:27] VITALS: BP 115/86; PULSE 86; RESP 11; O2SAT 96
--- NOTE | 2020-11-28 16:52 | ED.VISSUMM ---
- ER Visit Summary Date of Service: 11/28/20 Chief Complaint: Syncope History of Present Illness: The patient is a [address] Ross and Dr. Russell. Patient reports that he has a history of a heart catheterization and stent placement 2 years ago. States that 6 to 7 months ago his stent required revision. He reports that he has had chest pain off and on ever since that time. Is gradually increasing. Began again approximately 9 AM while he was at rest. Describes it as a dull, aching pain that is intermittent and lasts 1 to 30 minutes at a time. Is increased with exertion. It resolves after approximately 10 minutes of rest. States pain is 10 out of 10 at worst and 3-10 currently. Denies any radiation of the pain. He is nauseated with it. No vomiting. He is diaphoretic and short of breath with this. Patient reports approximate 1030 this morning he got out of bed and was lightheaded he walked into the bathroom and then in the kitchen he been standing for approximately 3 minutes when he had a syncopal episode. This was preceded by nausea, diaphoresis, and shortness of breath. On review of system patient reports that he has had constant vertigo for the past 2 to 3 weeks. It waxes and wanes. He does report he gets double vision at times with this as well. Physical Examination: Vitals: Stable. Afebrile. General: Well-nourished and well-developed. Head: Normocephalic atraumatic. Neck: Supple, no lymphadenopathy. No JVD. Nontender. Cardiovascular: Regular rate and rhythm. No murmurs. Respiratory: No respiratory distress. Clear to auscultation bilaterally. Abdominal: Soft, nontender, nondistended, normal bowel sounds. No guarding, rebound, or peritoneal signs. Back: Nontender. Extremities: Nontender, no edema. Skin: Normal color, no rash. Neurologic: Alert and oriented ?3. Cranial nerves II through XII are intact. Normal strength and sensation. Psych: Normal affect. Test Results: EKG sinus at [address] changes. CBC shows an H&H 12.8 and 38.1. Chem-7 is normal. LFTs show an alk phos 132 and lipase 32. UA shows 4+ bacteria, nitrites, and blood. Troponin is negative. D-dimer is negative. Clinical Impression(s) from Imaging Studies Brain CT 11/28/20 14:33 IMPRESSION: No acute intracranial abnormality. Electronically Signed: Khai Arnold MD at 16:29 EDT Tel , Service support , Chest X-Ray 11/28/20 15:54 IMPRESSION: Normal x-ray examination of the chest. Electronically Signed: Yimi Michel DO at 16:27 EDT Tel [phone], Service support , Emergency Department Course and Treatment: Patient had negative orthostatic vital signs. He had a IV placed and was given a liter of normal saline. He actually now wants to leave before the rest of the work-up is undertaken. I had a prolonged discussion with patient that his pain is concerning for ischemia. He also has vertigo and the CT does not rule out a posterior circulation problem or stroke. He understands these things and would like to leave regardless. He will be signed out AGAINST MEDICAL ADVICE. Treatment Plan: Patient be discharged instructions follow-up his primary care physician and Dr. Ross as soon as possible. Return to the emergency department for any worsening symptoms. Disposition: To home in improved and stable condition. Impression: 1. Syncope. 2. Chest pain. 3. Heart score of 5. 4. Vertigo. 5. Left AMA. This note was generated with [employer] dictation software. It may contain incorrect words, spelling, and punctuation that were not noted in review of the chart prior to signing ED Disposition - Plan for ED Patient: Disposition: Home or Assisted Living Instructions: ED Fainting, Uncertain Cause Prescriptions: Penicillin V Potassium 500 mg PO 4X/DAY #40 tablet Prescription Printed Referrals: Isak Wallace DO [Primary Care Provider] - 3-5 Days Morelia Ross MD [STAFF PHYSICIAN] - As soon as possible
[2020-11-28 17:00] VITALS: BP 139/87; PULSE 97; RESP 15; O2SAT 99
== END 2020-11-28 17:01 | disposition left against medical advice (07) ==
LOC: ED 14:58
PROVIDERS: Emergency Provider Emergency Medicine; PCP Family Medicine
DX: R55 Syncope and collapse (principal); R07.9 Chest pain, unspecified; R42 Dizziness and giddiness; R61 Generalized hyperhidrosis; R06.02 Shortness of breath; R11.0 Nausea
CPT/HCPCS: 70450; 71045; 80053; 81001; 83605; 83690; 84484; 85025; 85379; 87040; 87426; 93005; 96361; 96374; 96375; 99285; J7030; A4216; J2405

== ENCOUNTER 2020-12-15 01:07 | Inpatient (IN) | payer MEDICAID, SELFPAY ==
[2020-12-15] VITALS (9 sets, daily range): BP systolic 99–190; BP diastolic 57–84; PULSE 60–99; RESP 16–18; TEMP 36.4–36.9; O2SAT 96–100; BMI 27.8; BMI 26.2
[2020-12-15 01:20] LABS: Absolute Lymphocyte Count 4.99 X10^3/uL (0.83-4.51); Absolute Neutrophil Count 4.3 X10^3/uL (2.0-7.7); Basophil# 0.03 X10^3/uL; Basophil% 0.3 % (0-1); Eosinophil# 0.19 X10^3/uL; Eosinophils% 1.9 % (0-5); Hematocrit 38.2 % (40-54); Hemoglobin 12.7 g/dL (13.0-16.5); Lymphocyte # 4.99 X10^3/ul (0.83-4.51); Lymphocyte % 49.6 % (19-41); Mean Corp Hgb Conc 33.2 g/dL (32-36); Mean Corpuscular Hgb 30.8 pg (27.0-32.0); Mean Corpuscular Volume 92.7 fL (80-94); Mean Platelet Vol. 8.5 fl (6.2-12.0); Monocyte# 0.54 X10^3/uL; Monocyte% 5.4 % (0-10); NRBC Flagged by Analyzer 0 % (0-5); Neutrophil # 4.26 X10^3/uL (2.7-7.7); Neutrophil % 42.3 % (47-70); Platelet Count 336 K/mm3 (150-450); RBC Distribution Width CV 12.5 % (11.6-14.6); RBC Distribution Width SD 42.4 fl (35.1-43.9); Red Blood Count 4.12 M/mm3 (4.6-6.2); White Blood Count 10.1 K/mm3 (4.4-11.0)
[2020-12-15 01:37] LABS: AST(SGOT) 26 U/L (15-37); Alanine Aminotransfer ALT/SGPT 45 U/L (16-61); Albumin, Serum 3.7 g/dL (3.2-5.0); Alkaline Phosphatase 159 U/L (45-117); Anion Gap 3 (5-15); BUN 14 mg/dL (7-18); BUN/Creat Ratio 16.6 RATIO (10-20); Calcium,Total 8.5 mg/dL (8.5-10.1); Chloride 103 mmol/L (98-107); Creatinine, Serum 0.84 mg/dL (0.70-1.30); EST Glomerular Filtration Rate 104 mL/min (>60); Est Glom Filt Rate - Afr Amer 126 mL/min (>60); Estimated Creatinine Clearance 109.88 ml/min; Globulin 3.6 g/dL (2.2-4.2); Glucose 121 mg/dL (74-106); Potassium 3.6 mmol/L (3.5-5.1); Protein, Total 7.3 g/dL (6.4-8.2); Sodium Level 136 mmol/L (136-145)
[2020-12-15 01:38] LABS: Amphetamine Urine VISTA NEGATIVE (<1000 ng/mL); Barbiturate Urine VISTA NEGATIVE (< 200 ng/mL); Benzodiazepine Urine VISTA NEGATIVE (< 200 ng/mL); Cocaine Urine VISTA NEGATIVE (< 300 ng/mL); Ecstacy Urine VISTA NEGATIVE (< 500 ng/mL); Methadone Urine VISTA NEGATIVE (< 300 ng/mL); PCP Urine VISTA NEGATIVE (< 25 ng/mL); THC Urine VISTA NEGATIVE (< 50 ng/mL); Vista UDS pH Range 6
--- NOTE | 2020-12-15 01:55 | EX.ED.DYSGE1 ---
HPI History of Present Illness Chief Complaint: Substance Abuse Detail of Chief Complaint: Opioid withdrawal Informant: patient Onset/Context/Timing Context: Gradual Onset Timing: Continuous Quality: No symptoms currently Current Severity: 0/10 Associated Symptoms Associated Symptoms: None Narrative Narrative: Patient uses fentanyl daily, 1/2 to 1 g. Last use was about 2-1/2 hours ago. He was admitted for detox about a month ago. He also reports Klonopin use up to 1 mg 3 times a day. No alcohol use. No suicidal thoughts. History of coronary disease. Takes aspirin, but denies chest pain. He missed his appointment for pulmonology testing. He is not having any respiratory complaints at this time. PFSH PFSH Medical History ADD (attention deficit disorder) Atherosclerosis of coronary artery of [place] heart without angina pectoris Carotid stenosis Chest pain Chronic pain Cough Dental infection Enteritis GERD (gastroesophageal reflux disease) History of cardiac murmur as a child Hypersomnia Leucocytosis Lightheadedness LUQ abdominal pain Moderate persistent asthma without complication Palpitations Tobacco use Home Medications albuterol sulfate 90 mcg/actuation aerosol inhaler 2 puff INHALATION Q6H PRN 04/14/19 [History Last Taken 04/20/20 13:00] omeprazole 40 mg capsule,delayed release 40 mg PO BID #30 cap 04/29/19 [History Last Taken 11/10/20] ondansetron HCl 4 mg tablet 4 mg PO Q8H PRN 04/19/20 [History Last Taken 04/18/20 09:00] oxycodone-acetaminophen 10 mg-325 mg tablet 1 tab PO Q6H PRN 04/19/20 [History Last Taken 11/10/20] nitroglycerin 0.4 mg sublingual tablet 0.4 mg SUBLINGUAL Q5M PRN #25 tab 05/24/20 [Rx Last Taken Unknown] Gabapentin 600 mg PO QHS 08/22/20 [History Last Taken 11/09/20] clonazepam 1 mg PO TID 08/22/20 [History Last Taken 11/10/20] ticagrelor 90 mg PO BID 08/22/20 [History Last Taken 11/10/20] aspirin 81 mg PO DAILY@0800 11/10/20 [History Last Taken 11/10/20] atorvastatin 40 mg PO QHS 11/10/20 [History Last Taken 11/09/20] budesonide-formoterol 2 puff INHALATION DAILY 11/10/20 [History Last Taken 11/10/20] penicillin V potassium 500 mg PO 4X/DAY #40 tablet 11/28/20 [Rx Last Taken Unknown] dextroamphetamine-amphetamine 30 mg PO BID 12/15/20 [History Last Taken Unknown] trazodone 50 - 100 mg PO QHS 12/15/20 [History Last Taken Unknown] Allergy/AdvReac Type Severity Reaction Status Date / Time naloxone Allergy Hives Verified 11/28/20 13:45 Family History Mother , Age 56 Cancer stomach Heart disease CVA (cerebral vascular accident) Father , Age 52 Heart disease CAD (coronary artery disease) Surgical History History of artificial skin graft Presence of stent in coronary artery Social History Smoking Status: Current every day smoker second hand exposure: Yes alcohol intake: never substance use type: does not use caffeine: Yes Type: carbonated beverages ROS ROS ED Constitutional Constitutional ED: Denies chills or fever(s) Eyes Eyes: Denies change in vision ENT ENT ED: Denies ear pain Cardiovascular Cardiovascular: Denies chest pain Respiratory/Chest Respiratory/Chest: Denies dyspnea Gastrointestinal Gastrointestinal: Denies abdominal pain Genitourinary Genitourinary ED: Denies dysuria Musculoskeletal Musculoskeletal: Denies myalgias Integumentary Denies rash Neurologic Neurologic: Denies headache(s) Psychiatric Psychiatric: Denies anxiety, depression, suicidal ideation or suicidal thoughts Endocrine Endocrinology: Denies polyuria Allergic/Immunologic Allergic/Immunologic ED: Denies urticaria EXAM Physical Exam Const Vital Signs: 12/15/20 01:08 Temperature 97.5 F L Temperature Source Temporal Pulse Rate 84 Respiratory Rate 18 Blood Pressure 190/82 H Blood Pressure Mean 118 Pulse Ox 100 Oxygen Delivery Method Room Air Positive well nourished and well developed General Appearance ED: well developed HEENT Negative for trauma Eyes EOMs intact bilaterally Neck supple Resp normal respiratory effort Cardio regular rate Extremity normal to inspection General Extremety ED: Negative for edema or tenderness General Extremity: Negative for edema Neuro oriented x3 and no sensory deficits noted Sensorium / Orientation: alert Motor Exam: strength 5/5 throughout Psych mental status grossly normal Attitude: No agitated Mood & Affect: Negative for depressed, anxious or tearful Skin no rashes or lesions noted MDM MDM MDM Narrative Medical decision making narrative: Tox screen was negative. Patient says he takes fentanyl. He is not suicidal. He is not having any medical complaints. He is requesting detox. I contacted the hospitalist who will admit for further care. Lab Data Labs: Laboratory Results - last 24 hr 12/15/20 12/15/20 12/15/20 01:14 01:14 01:14 WBC 10.1 RBC 4.12 L Hgb 12.7 L Hct 38.2 L MCV 92.7 MCH 30.8 MCHC 33.2 RDW Std Deviation 42.4 RDW Coeff of Denia 12.5 Plt Count 336 MPV 8.5 Immature Gran % (Auto) 0.500 Neut % (Auto) 42.3 L Lymph % (Auto) 49.6 H [place] % (Auto) 5.4 Eos % (Auto) 1.9 Baso % (Auto) 0.3 Absolute Neuts (auto) 4.3 Absolute Lymphs (auto) 4.99 H Nucleated RBC % 0 Sodium 136 Potassium 3.6 Chloride 103 Carbon Dioxide 30.0 Anion Gap 3 L BUN 14 Creatinine 0.84 Estim Creat Clear Calc 109.88 Est GFR (MDRD) Af Amer 126 Est GFR (MDRD) Non-Af 104 BUN/Creatinine Ratio 16.6 Glucose 121 H Calcium 8.5 Total Bilirubin 0.30 AST 26 ALT 45 Alkaline Phosphatase 159 H Total Protein 7.3 Albumin 3.7 Globulin 3.6 Albumin/Globulin Ratio 1.0 Urine Opiates Screen Urine Methadone Screen Ur Barbiturates Screen Ur Phencyclidine Scrn Ur Amphetamines Screen U Methamphetamin-MDMA U Benzodiazepines Scrn Urine Cocaine Screen U Cannabinoids Screen Ur Drug Screen Comment Ethyl Alcohol 4.0 12/15/20 01:16 WBC RBC Hgb Hct MCV MCH MCHC RDW Std Deviation RDW Coeff of Denia Plt Count MPV Immature Gran % (Auto) Neut % (Auto) Lymph % (Auto) [place] % (Auto) Eos % (Auto) Baso % (Auto) Absolute Neuts (auto) Absolute Lymphs (auto) Nucleated RBC % Sodium Potassium Chloride Carbon Dioxide Anion Gap BUN Creatinine Estim Creat Clear Calc Est GFR (MDRD) Af Amer Est GFR (MDRD) Non-Af BUN/Creatinine Ratio Glucose Calcium Total Bilirubin AST ALT Alkaline Phosphatase Total Protein Albumin Globulin Albumin/Globulin Ratio Urine Opiates Screen NEGATIVE Urine Methadone Screen NEGATIVE Ur Barbiturates Screen NEGATIVE Ur Phencyclidine Scrn NEGATIVE Ur Amphetamines Screen NEGATIVE U Methamphetamin-MDMA NEGATIVE U Benzodiazepines Scrn NEGATIVE Urine Cocaine Screen NEGATIVE U Cannabinoids Screen NEGATIVE Ur Drug Screen Comment Ethyl Alcohol Discharge Plan Triage Chief Complaint: Substance Abuse ED Provider: Ron Saenz Dx/Rx/DC Orders Prescriptions: No Action albuterol sulfate 90 mcg/actuation HFA aerosol inhaler 2 puff INHALATION Q6H PRN (Reason: Sob &/Or Wheezing) RF: 0 omeprazole 40 mg capsule,delayed release(DR/EC) 40 mg PO BID Qty: 30 RF: 0 oxycodone-acetaminophen [Percocet] 10-325 mg tablet 1 tab PO Q6H PRN (Reason: Pain/Inflammation) RF: 0 ondansetron HCl 4 mg tablet 4 mg PO Q8H PRN (Reason: Nausea) RF: 0 ticagrelor 90 MG tablet 90 mg PO BID RF: 0 Gabapentin 600 MG tablet 600 mg PO QHS RF: 0 clonazepam 1 MG tablet 1 mg PO TID RF: 0 budesonide-formoterol 1 INHALER inhaler 2 puff INHALATION DAILY RF: 0 atorvastatin 40 MG tablet 40 mg PO QHS RF: 0 aspirin 81 MG tablet 81 mg PO DAILY@0800 RF: 0 penicillin V potassium 500 MG tablet 500 mg PO 4X/DAY Qty: 40 RF: 0 trazodone 50 mg tablet 50 - 100 mg PO QHS RF: 0 dextroamphetamine-amphetamine 30 mg tablet 30 mg PO BID RF: 0 nitroglycerin 0.4 mg tablet, sublingual 0.4 mg SUBLINGUAL Q5M PRN (Reason: Cardiac/Chest Pain) Qty: 25 RF: 3 Primary Care Provider: Isak Wallace
--- NOTE | 2020-12-15 01:58 | PCM.HP.STD ---
HPI - General General Date of Admission: 12/15/20 Chief Complaint: Desire for detoxification HPI Narrative RAYMOND ZAMBRANO, is a 45 M with a significant history of tobacco abuse; chronic pain on Percocet and gabapentin; PTSD; depression; and anxiety on clonazepam; and CAD status post stent who present to the emergency department with a desire to detox from fentanyl. Of note the patient's snort half gram to a full gram of fentanyl per day. He reported that the court has ordered him to come for detoxification. Last time he used fentanyl was 1 hour to an hour and a half prior to presentation. [facility] Medical History ADD (attention deficit disorder) Atherosclerosis of coronary artery of [place] heart without angina pectoris Benzodiazepine withdrawal Carotid stenosis Chest pain Chronic pain Cough Dental infection Enteritis GERD (gastroesophageal reflux disease) History of cardiac murmur as a child Hypersomnia Leucocytosis Lightheadedness LUQ abdominal pain Moderate persistent asthma without complication Palpitations Tobacco use Home Medications albuterol sulfate 90 mcg/actuation aerosol inhaler 2 puff INHALATION Q6H PRN 04/14/19 [History Last Taken 04/20/20 13:00] omeprazole 40 mg capsule,delayed release 40 mg PO BID #30 cap 04/29/19 [History Last Taken 11/10/20] ondansetron HCl 4 mg tablet 4 mg PO Q8H PRN 04/19/20 [History Last Taken 04/18/20 09:00] oxycodone-acetaminophen 10 mg-325 mg tablet 1 tab PO Q6H PRN 04/19/20 [History Last Taken 11/10/20] nitroglycerin 0.4 mg sublingual tablet 0.4 mg SUBLINGUAL Q5M PRN #25 tab 05/24/20 [Rx Last Taken Unknown] Gabapentin 600 mg PO QHS 08/22/20 [History Last Taken 11/09/20] clonazepam 1 mg PO TID 08/22/20 [History Last Taken 11/10/20] ticagrelor 90 mg PO BID 08/22/20 [History Last Taken 11/10/20] aspirin 81 mg PO DAILY@0800 11/10/20 [History Last Taken 11/10/20] atorvastatin 40 mg PO QHS 11/10/20 [History Last Taken 11/09/20] budesonide-formoterol 2 puff INHALATION DAILY 11/10/20 [History Last Taken 11/10/20] penicillin V potassium 500 mg PO 4X/DAY #40 tablet 11/28/20 [Rx Last Taken Unknown] dextroamphetamine-amphetamine 30 mg PO BID 12/15/20 [History Last Taken Unknown] trazodone 50 - 100 mg PO QHS 12/15/20 [History Last Taken Unknown] Allergy/AdvReac Type Severity Reaction Status Date / Time naloxone Allergy Hives Verified 11/28/20 13:45 Family History Mother , Age 56 Cancer stomach Heart disease CVA (cerebral vascular accident) Father , Age 52 Heart disease CAD (coronary artery disease) Surgical History History of artificial skin graft Presence of stent in coronary artery Social History Smoking Status: Current every day smoker second hand exposure: Yes alcohol intake: never substance use type: does not use caffeine: Yes Type: carbonated beverages ROS ROS Narrative 12 point review of system is negative except as stated in HPI. Vital Signs Vital Signs Vital Signs: 12/15/20 01:08 Temperature 97.5 F L Temperature Source Temporal Pulse Rate 84 Respiratory Rate 18 Blood Pressure 190/82 H Blood Pressure Mean 118 Pulse Ox 100 Oxygen Delivery Method Room Air Physical Exam Narrative Alert and oriented x3 Nontraumatic; normocephalic Lung clear to auscultate Heart sounds S1-S2. No murmur, gallop or rubs. Abdomen bowel sounds present soft, nontender nondistended Extremity without edema cyanosis or clubbing. Lab / Micro Data Result Diagrams: 12/15/20 01:14 12/15/20 01:14 Labs: Laboratory Results - last 24 hr 12/15/20 12/15/20 12/15/20 01:14 01:14 01:14 WBC 10.1 RBC 4.12 L Hgb 12.7 L Hct 38.2 L MCV 92.7 MCH 30.8 MCHC 33.2 RDW Std Deviation 42.4 RDW Coeff of Denia 12.5 Plt Count 336 MPV 8.5 Immature Gran % (Auto) 0.500 Neut % (Auto) 42.3 L Lymph % (Auto) 49.6 H [place] % (Auto) 5.4 Eos % (Auto) 1.9 Baso % (Auto) 0.3 Absolute Neuts (auto) 4.3 Absolute Lymphs (auto) 4.99 H Nucleated RBC % 0 Sodium 136 Potassium 3.6 Chloride 103 Carbon Dioxide 30.0 Anion Gap 3 L BUN 14 Creatinine 0.84 Estim Creat Clear Calc 109.88 Est GFR (MDRD) Af Amer 126 Est GFR (MDRD) Non-Af 104 BUN/Creatinine Ratio 16.6 Glucose 121 H Calcium 8.5 Total Bilirubin 0.30 AST 26 ALT 45 Alkaline Phosphatase 159 H Total Protein 7.3 Albumin 3.7 Globulin 3.6 Albumin/Globulin Ratio 1.0 Urine Opiates Screen Urine Methadone Screen Ur Barbiturates Screen Ur Phencyclidine Scrn Ur Amphetamines Screen U Methamphetamin-MDMA U Benzodiazepines Scrn Urine Cocaine Screen U Cannabinoids Screen Ur Drug Screen Comment Ethyl Alcohol 4.0 12/15/20 01:16 WBC RBC Hgb Hct MCV MCH MCHC RDW Std Deviation RDW Coeff of Denia Plt Count MPV Immature Gran % (Auto) Neut % (Auto) Lymph % (Auto) [place] % (Auto) Eos % (Auto) Baso % (Auto) Absolute Neuts (auto) Absolute Lymphs (auto) Nucleated RBC % Sodium Potassium Chloride Carbon Dioxide Anion Gap BUN Creatinine Estim Creat Clear Calc Est GFR (MDRD) Af Amer Est GFR (MDRD) Non-Af BUN/Creatinine Ratio Glucose Calcium Total Bilirubin AST ALT Alkaline Phosphatase Total Protein Albumin Globulin Albumin/Globulin Ratio Urine Opiates Screen NEGATIVE Urine Methadone Screen NEGATIVE Ur Barbiturates Screen NEGATIVE Ur Phencyclidine Scrn NEGATIVE Ur Amphetamines Screen NEGATIVE U Methamphetamin-MDMA NEGATIVE U Benzodiazepines Scrn NEGATIVE Urine Cocaine Screen NEGATIVE U Cannabinoids Screen NEGATIVE Ur Drug Screen Comment Ethyl Alcohol Assessment & Plan Assessment/Plan (1) Opiate dependence: QUALIFIERS: Substance use status: uncomplicated Qualified Code(s): F11.20 - Opioid dependence, uncomplicated (2) Tobacco use: (3) Elevated blood pressure reading without diagnosis of hypertension: PLAN: RAYMOND ZAMBRANO, is a 45 M with a significant history of tobacco abuse; chronic pain on Percocet and gabapentin; PTSD; depression; and anxiety on clonazepam; and CAD status post stent who present to the emergency department with a desire to detox from fentanyl. Opioid dependence and withdrawal Of note patient is on prescribed gabapentin; clonazepam; and Percocet. Patient will like to be maintained on gabapentin and clonazepam. He says that his anxiety is on top of the roof so we will continue his clonazepam. Gabapentin is a nightly and will continue. Patient states that after he leaves the hospital he will stop taking Percocet. Patient be started on Subutex and other adjunctive medications; dicyclomine as needed; Vistaril as needed; methocarbamol as needed; clonidine as needed; Imodium as needed; trazodone as needed and Zofran as needed. Monitor COWS and CINA score Elevated blood pressure diagnosis of hypertension Discussed emergent department doctor. Labetalol given. Clonidine as needed as above. Trend blood pressures. Tobacco abuse Counseled Nicotine patch prescribed. Anxiety disorder Clonazepam continued CAD status post stent Aspirin and Brilinta continue COPD/asthma Home breathing treatment continued. ADHD Adderall continue Recent dental infection Penicillin V continued DVT prophylaxis Moderate risk. Because of significant comorbidities will start patient on Lovenox subcutaneous. Visit Charges Inpatient E&M: 45263 Init Hosp L3
[2020-12-15] MEDS: traZODone 50 MG Tablet PO (03:15)
[2020-12-15] MEDS: cloNIDine HCl 0.1 MG Tablet PO ×2 (03:15→17:58)
--- NOTE | 2020-12-15 03:34 | EKG12_ITS ---
Test Reason : SOB Blood Pressure : / mmHG Vent. Rate : 081 BPM Atrial Rate : 081 BPM P-R Int : 152 ms QRS Dur : 150 ms QT Int : 412 ms P-R-T Axes : 035 115 037 degrees QTc Int : 478 ms Normal sinus rhythm Right bundle branch block Left posterior fascicular block Bifascicular block Abnormal ECG Confirmed by LUCY MILES, KHANH ([id number]), book or script editor CAMPOS FERRARA ([id number]) on 12/19/2020 2:27:27 PM Referred By: BRIGIDA Confirmed By:KHANH AYALA MD
[2020-12-15] MEDS: clonazePAM 1 MG Tablet PO ×3 (06:04→21:59)
[2020-12-15] MEDS: Aspirin E.C. 81 MG Tablet PO (09:24)
[2020-12-15] MEDS: TICAGRELOR 90 MG TABLET PO ×2 (09:25→21:30)
[2020-12-15] MEDS: Penicillin Vk 250 MG Tablet 500 MG PO ×4 (09:25→21:30)
[2020-12-15] MEDS: Pantoprazole Sodium 40 MG Tablet PO ×2 (09:25→21:29)
--- NOTE | 2020-12-15 10:46 | ADDICTION ---
This telegraphic typewriter operator attempted to meet with PT. PT did not rouse to 3x attempts at verbal queuing. PT to be seen at later date.
--- NOTE | 2020-12-15 11:05 | PCM.PN.HOSP ---
Documented by User: Adam JOHNSON 12/15/20 11:16 Subjective Subjective Patient is a 45-year-old male comfortably resting in bed, alert and oriented x3. Patient endorses hot and cold chills, however has no other complaints. Denies fever, N/V/D, chest pain, shortness of breath and palpitations. Objective Data Objective Data Vital Signs: Vital Signs Temp Pulse Resp BP Pulse Ox 97.8 F 60 16 111/62 98 12/15/20 09:23 12/15/20 09:23 12/15/20 09:23 12/15/20 09:23 12/15/20 09:23 Oxygen Delivery Method Room Air Weight: 182 lb 6.4 oz Body Mass Index (BMI) 26.2 Intake & Output: Intake and Output for Last 24 Hours 12/13/20 12/14/20 12/15/20 23:59 23:59 23:59 Intake Total 320 / 320 Balance 320 / 320 Lab / Micro Data Result Diagrams: 12/15/20 01:14 12/15/20 01:14 Labs: Laboratory Results - last 24 hr 12/15/20 12/15/20 12/15/20 01:14 01:14 01:14 WBC 10.1 RBC 4.12 L Hgb 12.7 L Hct 38.2 L MCV 92.7 MCH 30.8 MCHC 33.2 RDW Std Deviation 42.4 RDW Coeff of Denia 12.5 Plt Count 336 MPV 8.5 Immature Gran % (Auto) 0.500 Neut % (Auto) 42.3 L Lymph % (Auto) 49.6 H [place] % (Auto) 5.4 Eos % (Auto) 1.9 Baso % (Auto) 0.3 Absolute Neuts (auto) 4.3 Absolute Lymphs (auto) 4.99 H Nucleated RBC % 0 Sodium 136 Potassium 3.6 Chloride 103 Carbon Dioxide 30.0 Anion Gap 3 L BUN 14 Creatinine 0.84 Estim Creat Clear Calc 109.88 Est GFR (MDRD) Af Amer 126 Est GFR (MDRD) Non-Af 104 BUN/Creatinine Ratio 16.6 Glucose 121 H Calcium 8.5 Total Bilirubin 0.30 AST 26 ALT 45 Alkaline Phosphatase 159 H Total Protein 7.3 Albumin 3.7 Globulin 3.6 Albumin/Globulin Ratio 1.0 Urine Opiates Screen Urine Methadone Screen Ur Barbiturates Screen Ur Phencyclidine Scrn Ur Amphetamines Screen U Methamphetamin-MDMA U Benzodiazepines Scrn Urine Cocaine Screen U Cannabinoids Screen Ur Drug Screen Comment Ethyl Alcohol 4.0 12/15/20 01:16 WBC RBC Hgb Hct MCV MCH MCHC RDW Std Deviation RDW Coeff of Denia Plt Count MPV Immature Gran % (Auto) Neut % (Auto) Lymph % (Auto) [place] % (Auto) Eos % (Auto) Baso % (Auto) Absolute Neuts (auto) Absolute Lymphs (auto) Nucleated RBC % Sodium Potassium Chloride Carbon Dioxide Anion Gap BUN Creatinine Estim Creat Clear Calc Est GFR (MDRD) Af Amer Est GFR (MDRD) Non-Af BUN/Creatinine Ratio Glucose Calcium Total Bilirubin AST ALT Alkaline Phosphatase Total Protein Albumin Globulin Albumin/Globulin Ratio Urine Opiates Screen NEGATIVE Urine Methadone Screen NEGATIVE Ur Barbiturates Screen NEGATIVE Ur Phencyclidine Scrn NEGATIVE Ur Amphetamines Screen NEGATIVE U Methamphetamin-MDMA NEGATIVE U Benzodiazepines Scrn NEGATIVE Urine Cocaine Screen NEGATIVE U Cannabinoids Screen NEGATIVE Ur Drug Screen Comment Ethyl Alcohol Physical Exam Narrative See subjective. Const alert, oriented x3 and no apparent distress HEENT head/scalp atraumatic Head and Scalp: normocephalic Eyes PERRL and EOMs intact bilaterally Neck no lymphadenopathy, supple and no JVD Resp normal respiratory effort, no use of accessory muscles and clear to auscultation bilaterally Cardio regular rate, regular rhythm, no murmurs and no JVD GI normal to inspection, nondistended, normoactive bowel sounds, soft to palpation, non-tender and non-distended Extremity normal to inspection, full ROM and no clubbing, cyanosis or edema Skin no rashes or lesions noted, no wounds and no jaundice Neuro CN's II-XII intact bilaterally Sensorium / Orientation: awake Psych affect normal Assessment & Plan Assessment/Plan (1) Opiate dependence: QUALIFIERS: Substance use status: uncomplicated Qualified Code(s): F11.20 - Opioid dependence, uncomplicated (2) Tobacco use: (3) Elevated blood pressure reading without diagnosis of hypertension: (4) S/P PTCA (percutaneous transluminal coronary angioplasty): PLAN: Patient is a 45-year-old male who was admitted to [facility] on 12/15/2020 requesting detoxification from opiates and medical stabilization. See subjective for patient presentation. Addiction medicine counselor was not able to arouse patient from sleep during attempted counseling session. Will attempt to meet with patient tomorrow. 1) Opiate dependence Patient endorses hot and cold chills, however denies any other symptoms related to opiate withdrawal. Plan; continue Subutex, dicyclomine as needed, Vistaril as needed methocarbamol as needed, clonidine as needed, Imodium as needed, trazodone as needed and Zofran as needed, addiction medicine consult ordered, monitor COWS and CINA score. 2) Elevated BP w/out Hypertension diagnosis Stable, currently 111/62. Plan; clonidine as needed. 3) Tobacco use Continue nicotine patch. 4) Anxiety disorder Continue clonazepam. 5) CAD s/p stent Continue aspirin and Brilinta. 6) COPD/asthma Continue albuterol. 7) ADHD Continue Adderall. 8) Hx of recent dental infection Continue penicillin V DVT prophylaxis -Lovenox SC Patient seen by Adam Fierro PA-C, under the supervision of Dr. Crenshaw. Documented by User: Dr. Lisa Crenshaw MD 12/15/20 18:10 Objective Data Lab / Micro Data Result Diagrams: 12/15/20 01:14 12/15/20 01:14 Addendum Addendum: This patient was seen in conjunction with ELIZABETH Wise. I have independently interviewed and examined the patient and reviewed pertinent historical, laboratory, and other data. Please refer to ELIZABETH Wise's note for his patient's presentation, findings, and recommendations. I have reviewed and his note and concur with his documentation Patient was seen and examined. He complains of dyspepsia and burning sensation in the chest. He denied any dizziness or palpitations. Physical Exam: Gen: Comfortable, not pale, not jaundiced CVS:HS I +II, regular, no murmurs RESP: Diminished at lung bases GI: BS present and normal, soft, nontender, no palpable organs EXT:No edema ASSESSMENT: 1. Acute opioid withdrawal 2. Hypertension 3. Recent dental infection 4. CAD 5. [place] 6. Asthma 7. Hyperlipidemia Plan: Continue on Suboxone withdrawal protocol Continue on PPI Continue penicillin Visit Charges Inpatient E&M: 76478 Subs Hosp L2
[2020-12-15] MEDS: Buprenorphine HCl 2 MG TAB.SUBL SL ×2 (13:27→21:59)
[2020-12-15] MEDS: Dicyclomine 10 MG Capsule 20 MG PO (14:52)
[2020-12-15] MEDS: hydrOXYzine PAM 25 MG Capsule 50 MG PO (14:52)
[2020-12-15] MEDS: Methocarbamol 750 MG Tablet 1500 MG PO (14:53)
[2020-12-15] MEDS: Gabapentin 300 MG Capsule PO (17:58)
[2020-12-15] MEDS: Gabapentin 600 MG Tablet PO (21:29)
[2020-12-15] MEDS: Atorvastatin Calcium 40 MG Tablet PO (21:31)
[2020-12-16] MEDS: traZODone 50 MG Tablet PO ×2 (01:07→21:15)
[2020-12-16] MEDS: Dicyclomine 10 MG Capsule 20 MG PO (01:07)
--- NOTE | 2020-12-16 01:11 | NURSING ---
pt having severe abd cramping, bentyl given
[2020-12-16] MEDS: Methocarbamol 750 MG Tablet 1500 MG PO ×2 (01:24→09:24)
[2020-12-16 02:30] VITALS: BP 132/74; PULSE 80; RESP 16; TEMP 36.6; O2SAT 96
[2020-12-16] MEDS: Gabapentin 300 MG Capsule PO (02:42)
[2020-12-16] MEDS: hydrOXYzine PAM 25 MG Capsule 50 MG PO ×2 (02:42→17:59)
[2020-12-16] MEDS: Buprenorphine HCl 2 MG TAB.SUBL SL ×3 (06:01→21:14)
[2020-12-16] MEDS: clonazePAM 1 MG Tablet PO ×2 (06:04→21:14)
[2020-12-16] MEDS: Penicillin Vk 250 MG Tablet 500 MG PO ×4 (09:24→21:16)
[2020-12-16] MEDS: Aspirin E.C. 81 MG Tablet PO (09:24)
[2020-12-16] MEDS: Pantoprazole Sodium 40 MG Tablet PO ×2 (09:24→21:17)
[2020-12-16] MEDS: TICAGRELOR 90 MG TABLET PO ×2 (09:24→21:16)
[2020-12-16 09:27] VITALS: BP 119/62; PULSE 86; RESP 18; TEMP 37.2; O2SAT 99
--- NOTE | 2020-12-16 11:57 | ADDICTION ---
This scientific technical writer met with PT to conduct ASAM, MSE, DUDIT assessments and to plan for d/c. PT A+Ox4 and participated appropriately. PT plans to attend an appointment with [facility] counselor on 12/19/20 and will start Intensive Outpatient treatment following counseling appointment. PT has independent transportation.
--- NOTE | 2020-12-16 12:05 | PN.HOSP_ITS ---
Documented by User: Adam JOHNSON 12/16/20 12:18 Subjective Subjective Patient is a 45-year-old male with currently resting in bed, alert and oriented x3. Patient reports that his hot/cold chills have improved from yesterday, however now reports leg pain/cramping. Denies fever, N/V/D, chest pain, shortn ess of breath and palpitations. Objective Data Objective Data Vital Signs: Vital Signs Temp Pulse Resp BP Pulse Ox 98.9 F 86 18 119/62 99 12/16/20 09:27 12/16/20 09:27 12/16/20 09:27 12/16/20 09:27 12/16/20 09:27 Oxygen Delivery Method Room Air Weight: 182 lb 5.156 oz Body Mass Index (BMI) 26.2 Intake & Output: Intake and Output for Last 24 Hours 12/14/20 12/15/20 12/16/20 23:59 23:59 23:59 Intake Total 320 / 320 Balance 320 / 320 Lab / Micro Data Result Diagrams: 12/15/20 01:14 12/15/20 01:14 Physical Exam Narrative See subjective. Const alert, oriented x3, no apparent distress and average body habitus HEENT head/scalp atraumatic and moist oral mucous membranes Head and Scalp: normocephalic Eyes PERRL and EOMs intact bilaterally Neck no lymphadenopathy, supple and no JVD Resp normal respiratory effort, no retractions, no use of accessory muscles and clear to auscultation bilaterally Cardio regular rate, regular rhythm, no murmurs and no JVD GI normal to inspection, nondistended, normoactive bowel sounds, soft to palpation, non-tender and non-distended Extremity normal to inspection, full ROM and no clubbing, cyanosis or edema Skin no rashes or lesions noted, no wounds, skin turgor normal and no jaundice Neuro CN's II-XII intact bilaterally Psych affect normal Assessment & Plan Assessment/Plan (1) Opiate dependence: QUALIFIERS: Substance use status: uncomplicated Qualified Code(s): F11.20 - Opioid dependence, uncomplicated (2) Tobacco use: (3) Elevated blood pressure reading without diagnosis of hypertension: (4) Presence of stent in coronary artery: (5) Atherosclerosis of coronary artery of [place] heart without angina pectoris: QUALIFIERS: Coronary Disease-Associated Artery/Lesion type: [place] artery Qualified Code(s): I25.10 - Atherosclerotic heart disease of [place] coronary artery without angina pectoris PLAN: See subjective for patient presentation. Physical exam is unremarkable. Patient did get a chance to meet with addiction medicine counselor and reports that he intends to schedule an appointment with a 180 counselor on 12/19/2020. Patient remained admitted overnight. 1) Opiate dependence Patient endorses . Plan; continue Subutex, dicyclomine as needed, Vistaril as needed methocarbamol as needed, clonidine as needed, Imodium as needed, trazodone as needed and Zofran as needed, addiction medicine consult ordered, monitor COWS and CINA score. 2) Elevated BP w/out Hypertension diagnosis Stable, currently 111/62. Plan; clonidine as needed. 3) Tobacco use Continue nicotine patch. 4) Anxiety disorder Continue clonazepam. 5) CAD s/p stent Continue aspirin and Brilinta. 6) COPD/asthma Continue albuterol. 7) ADHD Continue Adderall. 8) Hx of recent dental infection Continue penicillin V DVT prophylaxis -Lovenox SC Patient seen by Adam Fierro PA-C, under the supervision of Dr. Crenshaw. Documented by User: Dr. Lisa Crenshaw MD 12/16/20 16:23 Objective Data Lab / Micro Data Result Diagrams: 12/15/20 01:14 12/15/20 01:14 Addendum Addendum: This patient was seen in conjunction with ELIZABETH Wise. I have independently interviewed and examined the patient and reviewed pertinent historical, laboratory, and other data. Please refer to ELIZABETH Wise's note for his patient's presentation, findings, and recommendations. I have reviewed and his note and concur with his documentation Patient was seen and examined. No new events. His dyspepsia has markedly improved. He denied any dizziness or palpitations. Physical Exam: Gen: Comfortable, not pale, not jaundiced CVS:HS I +II, regular, no murmurs RESP: Diminished at lung bases GI: BS present and normal, soft, nontender, no palpable organs EXT:No edema ASSESSMENT: 1. Acute opioid withdrawal 2. Hypertension 3. Recent dental infection 4. CAD 5. [place] 6. Asthma 7. Hyperlipidemia Plan: Continue on Suboxone withdrawal protocol Continue on PPI Continue penicillin Visit Charges Inpatient E&M: 60651 Subs Hosp L2
[2020-12-16] MEDS: cloNIDine HCl 0.1 MG Tablet PO (13:27)
[2020-12-16 13:29] VITALS: BP 109/57; PULSE 85; RESP 18; TEMP 36.7; O2SAT 98
[2020-12-16] MEDS: Atorvastatin Calcium 40 MG Tablet PO (21:16)
[2020-12-16] MEDS: Gabapentin 600 MG Tablet PO (21:17)
[2020-12-16 21:30] VITALS: BP 118/70; PULSE 77; RESP 16; TEMP 36.8; O2SAT 96
[2020-12-17 03:30] VITALS: BP 132/73; PULSE 78; RESP 16; TEMP 36.7; O2SAT 97
[2020-12-17] MEDS: Buprenorphine HCl 2 MG TAB.SUBL SL (05:11)
[2020-12-17] MEDS: clonazePAM 1 MG Tablet PO (05:11)
[2020-12-17] MEDS: traZODone 50 MG Tablet PO (05:15)
[2020-12-17 08:38] VITALS: BP 129/79; PULSE 83; RESP 16; TEMP 36.7; O2SAT 97
--- NOTE | 2020-12-17 08:40 | PCM.DC ---
Discharge Instructions Diet Discharge Diet: No restrictions Activity Discharge Activity: Return to Normal Activity Follow Up Care Please Follow Up With: 180 behavorial counselor When: 12/19/2020 Test Results: Test results from this visit will be discussed in further detail at your follow-up appointment, if applicable. Discharge Plan Admission Admit Date/Time: 12/15/20 01:57 Primary Reason for Your Visit: Opioate detoxification Attending Provider: Lisa Crenshaw Primary Care Provider: Isak Wallace Instructions Patient Instructions: ED Chest Pain, Noncardiac Discharge Orders/Prescriptions Prescriptions: Continued albuterol sulfate 90 mcg/actuation HFA aerosol inhaler 2 puff INHALATION Q6H PRN (Reason: Sob &/Or Wheezing) RF: 0 omeprazole 40 mg capsule,delayed release(DR/EC) 40 mg PO BID Qty: 30 RF: 0 ondansetron HCl 4 mg tablet 4 mg PO Q8H PRN (Reason: Nausea) RF: 0 ticagrelor 90 MG tablet 90 mg PO BID RF: 0 Gabapentin 600 MG tablet 600 mg PO QHS RF: 0 clonazepam 1 MG tablet 1 mg PO TID RF: 0 budesonide-formoterol 1 INHALER inhaler 2 puff INHALATION DAILY RF: 0 atorvastatin 40 MG tablet 40 mg PO QHS RF: 0 aspirin 81 MG tablet 81 mg PO DAILY@0800 RF: 0 trazodone 50 mg tablet 50 - 100 mg PO QHS RF: 0 dextroamphetamine-amphetamine 30 mg tablet 30 mg PO BID RF: 0 nitroglycerin 0.4 mg tablet, sublingual 0.4 mg SUBLINGUAL Q5M PRN (Reason: Cardiac/Chest Pain) Qty: 25 RF: 3 Discontinued oxycodone-acetaminophen [Percocet] 10-325 mg tablet 1 tab PO Q6H PRN (Reason: Pain/Inflammation) RF: 0 penicillin V potassium 500 MG tablet 500 mg PO 4X/DAY Qty: 40 RF: 0 Referrals / Follow Up: Isak Wallace DO [Primary Care Provider] - Disposition Disposition (needs filled in before D/C Order can be placed): Home, self care
[2020-12-17] MEDS: Penicillin Vk 250 MG Tablet 500 MG PO (08:42)
[2020-12-17] MEDS: Pantoprazole Sodium 40 MG Tablet PO (08:42)
[2020-12-17] MEDS: Aspirin E.C. 81 MG Tablet PO (08:42)
[2020-12-17] MEDS: TICAGRELOR 90 MG TABLET PO (08:42)
--- NOTE | 2020-12-17 13:02 | DS.PCM_ITS ---
Providers Date of Admission: 12/15/20 Primary Care Physician: Dr. Isak Wallace DO Reason For Visit: OPIOID DETOX Diagnosis Discharge Diagnosis (1) Opiate dependence: Status: Acute Code(s): F11.20 - Opioid dependence, uncomplicated Qualifiers: Substance use status: uncomplicated Qualified Code(s): F11.20 - Opioid dependence, uncomplicated (2) Tobacco use: Status: Chronic Code(s): Z72.0 - Tobacco use (3) Elevated blood pressure reading without diagnosis of hypertension: Status: Acute Code(s): R03.0 - Elevated blood-pressure reading, without diagnosis of hypertension (4) Presence of stent in coronary artery: Status: Chronic Code(s): Z95.5 - Presence of coronary angioplasty implant and graft (5) Atherosclerosis of coronary artery of [place] heart without angina pectoris: Status: Chronic Code(s): I25.10 - Atherosclerotic heart disease of [place] coronary artery without angina pectoris Qualifiers: Coronary Disease-Associated Artery/Lesion type: [place] artery Qualified Code(s): I25.10 - Atherosclerotic heart disease of [place] coronary artery without angina pectoris Medications at Discharge Home Medications albuterol sulfate 90 mcg/actuation aerosol inhaler 2 puff INHALATION Q6H PRN 04/14/19 omeprazole 40 mg capsule,delayed release 40 mg PO BID #30 cap 04/29/19 ondansetron HCl 4 mg tablet 4 mg PO Q8H PRN 04/19/20 nitroglycerin 0.4 mg sublingual tablet 0.4 mg SUBLINGUAL Q5M PRN #25 tab 05/24/20 Gabapentin 600 mg PO QHS 08/22/20 clonazepam 1 mg PO TID 08/22/20 ticagrelor 90 mg PO BID 08/22/20 aspirin 81 mg PO DAILY@0800 11/10/20 atorvastatin 40 mg PO QHS 11/10/20 budesonide-formoterol 2 puff INHALATION DAILY 11/10/20 dextroamphetamine-amphetamine 30 mg PO BID 12/15/20 trazodone 50 - 100 mg PO QHS 12/15/20 Hospital Course Summary of Care Provided Minutes Spent on Discharge: 35 Hospital Course: See subjective for patient presentation. Physical exam is unremarkable. Patient did get a chance to meet with addiction medicine counselor and reports that he intends to schedule an appointment with a 180 cou nselor on 12/19/2020. Patient remained admitted overnight. 1) Opiate dependence Plan; follow-up with 180 appointment on Saturday as above, home Percocets stopped on discharge. 2) Elevated BP w/out Hypertension diagnosis Stable. Follow-up with primary care provider within the next 2 weeks. 3) Tobacco use Continue nicotine patch. 4) Anxiety disorder Continue clonazepam. 5) CAD s/p stent Continue aspirin and Brilinta. 6) COPD/asthma Continue albuterol. 7) ADHD Continue Adderall. 8) Hx of recent dental infection Penicillin V discontinued due to completion. Patient seen by Adam Fierro PA-C, under the supervision of Dr. Crenshaw. Physical Exam Narrative Patient is a 45-year-old male comes the resting in bed, alert and oriented x3. Patient denies any progression in symptoms from yesterday and reports feeling well enough to be able to return home. Denies chest pain, shortness of breath, palpitations, fever, chills, N/V/D. Const alert, oriented x3 and no apparent distress HEENT normocephalic, head/scalp atraumatic and hearing grossly normal bilaterally Eyes PERRL and EOMs intact bilaterally Resp normal respiratory effort, no retractions, no use of accessory muscles and clear to auscultation bilaterally Cardio regular rate, regular rhythm, no murmurs and no JVD GI normal to inspection, nondistended, normoactive bowel sounds, soft to palpation, non-tender and non-distended Extremity normal to inspection, full ROM and no clubbing, cyanosis or edema Skin no rashes or lesions noted, no wounds and no jaundice Neuro CN's II-XII intact bilaterally Psych affect normal ABG / Lab / Microbiology Data Result Diagrams: 12/15/20 01:14 12/15/20 01:14 D/C Instructions Discharge Diet: No restrictions Discharge Activity: Return to Normal Activity Please Follow Up With: 180 behavorial counselor When: 12/19/2020 Meaningful Use Info Meaningful Use Diagnoses (Choose all that apply): None applicable Discharge Plan Admission Admit Date/Time: 12/15/20 01:57 Primary Reason for Your Visit: Opioate detoxification Attending Provider: iLsa Crenshaw Primary Care Provider: Isak Wallace Instructions Patient Instructions: ED Chest Pain, Noncardiac Additional Instructions / Restrictions: Patient Problems: Altered Health Status related to Hospitalization Patient Goals: *Optimal Level of Health *Keep Appointments *Medication Compliance *Remain Safe Discharge Orders/Prescriptions Prescriptions: Continued albuterol sulfate 90 mcg/actuation HFA aerosol inhaler 2 puff INHALATION Q6H PRN (Reason: Sob &/Or Wheezing) RF: 0 omeprazole 40 mg capsule,delayed release(DR/EC) 40 mg PO BID Qty: 30 RF: 0 ondansetron HCl 4 mg tablet 4 mg PO Q8H PRN (Reason: Nausea) RF: 0 ticagrelor 90 MG tablet 90 mg PO BID RF: 0 Gabapentin 600 MG tablet 600 mg PO QHS RF: 0 clonazepam 1 MG tablet 1 mg PO TID RF: 0 budesonide-formoterol 1 INHALER inhaler 2 puff INHALATION DAILY RF: 0 atorvastatin 40 MG tablet 40 mg PO QHS RF: 0 aspirin 81 MG tablet 81 mg PO DAILY@0800 RF: 0 trazodone 50 mg tablet 50 - 100 mg PO QHS RF: 0 dextroamphetamine-amphetamine 30 mg tablet 30 mg PO BID RF: 0 nitroglycerin 0.4 mg tablet, sublingual 0.4 mg SUBLINGUAL Q5M PRN (Reason: Cardiac/Chest Pain) Qty: 25 RF: 3 Discontinued oxycodone-acetaminophen [Percocet] 10-325 mg tablet 1 tab PO Q6H PRN (Reason: Pain/Inflammation) RF: 0 penicillin V potassium 500 MG tablet 500 mg PO 4X/DAY Qty: 40 RF: 0 Referrals / Follow Up: Isak Wallace DO [Primary Care Provider] - 12/19/20 9:00 am Disposition Disposition (needs filled in before D/C Order can be placed): Home, self care
== END 2020-12-17 09:33 | disposition home or self-care (01) | DRG 773 ==
LOC: ED 01:22 → PCU 02:15
PROVIDERS: Admitting Provider Hospitalist; Emergency Provider Emergency Medicine; PCP Family Medicine; Visit Provider Internal Medicine
DX: F11.23 Opioid dependence with withdrawal (principal); I10 Essential (primary) hypertension; F41.9 Anxiety disorder, unspecified; I25.10 Atherosclerotic heart disease of native coronary artery without angina pectoris; F90.9 Attention-deficit hyperactivity disorder, unspecified type; J44.9 Chronic obstructive pulmonary disease, unspecified; Z95.5 Presence of coronary angioplasty implant and graft; K04.7 Periapical abscess without sinus; E78.5 Hyperlipidemia, unspecified; G47.33 Obstructive sleep apnea (adult) (pediatric); K21.9 Gastro-esophageal reflux disease without esophagitis; F17.200 Nicotine dependence, unspecified, uncomplicated; F43.10 Post-traumatic stress disorder, unspecified; G89.29 Other chronic pain; Z79.82 Long term (current) use of aspirin; Z86.73 Personal history of transient ischemic attack (TIA), and cerebral infarction without residual deficits; Z79.899 Other long term (current) drug therapy; F98.8 Other specified behavioral and emotional disorders with onset usually occurring in childhood and adolescence
CPT/HCPCS: 80053; 80307; 82077; 85025; 93005; 97802; 99283

== ENCOUNTER 2021-01-13 23:43 | Emergency (ER) | payer MEDICAID, SELFPAY ==
[2020-12-15 02:40] VITALS: BMI 26.2
[2021-01-13 23:44] VITALS: BP 161/85; PULSE 78; RESP 16; TEMP 36.3; O2SAT 98; BMI 26.2
--- NOTE | 2021-01-14 00:04 | EKG12_ITS ---
Test Reason : SUBS ABUSE Blood Pressure : / mmHG Vent. Rate : 082 BPM Atrial Rate : 082 BPM P-R Int : 198 ms QRS Dur : 094 ms QT Int : 386 ms P-R-T Axes : 052 056 051 degrees QTc Int : 450 ms Normal sinus rhythm with sinus arrhythmia Normal ECG Confirmed by ANA MILES, ROSENDA ([id number]), editor publications CAMPOS FERRARA ([id number]) on 01/16/2021 1:39:59 PM Referred By: BB Confirmed By:ROSENDA PEREZ MD
--- NOTE | 2021-01-14 00:05 | EDS_ITS ---
HPI History of Present Illness Chief Complaint: Substance Abuse Informant: patient Narrative Narrative: Patient presenting with his significant other, both are addicted to snorting fentanyl, this patient also uses oxycodone that is prescribed to him because of his leg pain that is chronic after a traumatic accident. He is seeking inpatient detox as is his significant other. He does not abuse any other substances. He has also been having intermittent sharp left-sided chest pain for the past week or so and had an appointment with his food science professor today but he accidentally overslept and missed it. He has a stent in his heart and states then he had to have angioplasty after that to open up some in-stent stenosis. States when he has the sharp left-sided chest pains he occasionally gets some tingling in his left fingers. It usually happens at rest and is not exertional or pleuritic or associated with drug use. When he stops using fentanyl, he has severe withdrawal symptoms such as achy all over, anxiety, abdominal cramping, malaise. He last used around 2 or 3 hours ago so he does not have any other symptoms right now. States he has been using for years. He does admit that he is prescribed oxycodone for his chronic pain in his legs due to orthopedic injuries and abnormal bone healing, he has consulted with orthopedics, but not pain management. He does not necessarily have a plan for his chronic pain, but states that he will have to figure it out, he is motivated by trying to get custody of his children and states he must stop using drugs. PFSH PFSH Medical History ADD (attention deficit disorder) Anxiety Asthma Atherosclerosis of coronary artery of [place] heart without angina pectoris Benzodiazepine withdrawal Carotid stenosis Chronic pain GERD (gastroesophageal reflux disease) History of cardiac murmur as a child Hypersomnia Leucocytosis Moderate persistent asthma without complication Palpitations Substance abuse Tobacco use Home Medications albuterol sulfate 90 mcg/actuation aerosol inhaler 2 puff INHALATION Q6H PRN 04/14/19 [History Last Taken 04/20/20 13:00] omeprazole 40 mg capsule,delayed release 40 mg PO BID #30 cap 04/29/19 [History Last Taken 11/10/20] ondansetron HCl 4 mg tablet 4 mg PO Q8H PRN 04/19/20 [History Last Taken 04/18/20 09:00] Gabapentin 600 mg PO QHS 08/22/20 [History Last Taken 11/09/20] clonazepam 1 mg PO TID 08/22/20 [History Last Taken 11/10/20] ticagrelor 90 mg PO BID 08/22/20 [History Last Taken 11/10/20] aspirin 81 mg PO DAILY@0800 11/10/20 [History Last Taken 11/10/20] atorvastatin 40 mg PO QHS 11/10/20 [History Last Taken 11/09/20] budesonide-formoterol 2 puff INHALATION DAILY 11/10/20 [History Last Taken 11/10/20] dextroamphetamine-amphetamine 30 mg PO BID 12/15/20 [History Last Taken Unknown] trazodone 50 - 100 mg PO QHS 12/15/20 [History Last Taken Unknown] isosorbide mononitrate 30 mg tablet,extended release 24 hr 30 mg PO DAILY #30 tab 01/03/21 [Rx Last Taken Unknown] nitroglycerin 0.4 mg sublingual tablet 0.4 mg SUBLINGUAL Q5M PRN #25 tab 01/03/21 [Rx Last Taken Unknown] Allergy/AdvReac Type Severity Reaction Status Date / Time naloxone Allergy Hives Verified 11/28/20 13:45 Family History Mother , Age 56 Cancer stomach Heart disease CVA (cerebral vascular accident) Father , Age 52 Heart disease CAD (coronary artery disease) Surgical History History of artificial skin graft Presence of stent in coronary artery Social History (Updated 01/14/21 @ 00:[address] Aleksander Amaro MD) household members: significant other Smoking Status: Current every day smoker tobacco type: cigarettes second hand exposure: Yes alcohol intake: never substance use type: opiates caffeine: Yes Type: carbonated beverages ROS ROS ED Constitutional Constitutional ED: Denies chills or fever(s) Eyes Eyes: Denies change in vision or diplopia ENT ENT ED: Denies rhinorrhea or sore throat Cardiovascular Cardiovascular: Reports as per HPI and chest pain at rest; Denies chest pain or palpitations Respiratory/Chest Respiratory/Chest: Denies cough or dyspnea Gastrointestinal Gastrointestinal: Denies abdominal pain, diarrhea, nausea or vomiting Genitourinary Genitourinary ED: Denies dysuria or hematuria Musculoskeletal Musculoskeletal: Reports as per HPI and extremity pain; Denies back pain or neck pain Integumentary Denies abscess or rash Neurologic Neurologic: Denies headache(s), paresthesias or weakness Psychiatric Psychiatric: Denies anxiety or suicidal thoughts EXAM Physical Exam Const Vital Signs: 01/13/21 23:44 Temperature 97.4 F L Temperature Source Temporal Pulse Rate 78 Respiratory Rate 16 Blood Pressure 161/85 H Blood Pressure Mean 110 Pulse Ox 98 Oxygen Delivery Method Room Air Positive well nourished and well developed General Appearance ED: well developed and NAD HEENT Reports moist mucous membranes normocephalic and atraumatic Eyes PERRL and EOMs intact bilaterally Neck full ROM and supple Chest Wall inspection of chest normal and palpation of chest normal Resp normal respiratory effort and clear to auscultation bilaterally Cardio regular rate, regular rhythm and no murmurs GI non-tender and non-distended Auscultation: normoactive bowel sounds Palpation: soft Back/Spine no CVA tenderness General Back: other FROM Extremity normal to inspection General Extremety ED: Negative for edema, pulses abnormal or tenderness General Extremity: Negative for edema or pulses abnormal Neuro oriented x3, CN's II-XII intact bilaterally and no sensory deficits noted Sensorium / Orientation: awake and alert Motor Exam: strength 5/5 throughout Skin no rashes or lesions noted and no wounds MDM MDM MDM Narrative Medical decision making narrative: Given the patient's atypical chest discomfort I also did cardiac studies with an EKG in addition to the basic addiction medicine labs. It is all within normal limits except for nonspecific leukocytosis. His EKG is normal. He is not currently having any chest discomfort. Discussed with hospitalist for admission for inpatient detox. Lab Data Attestation: I reviewed the patient's lab results. Labs: Laboratory Results - last 24 hr 01/14/21 01/14/21 01/14/21 00:00 00:00 00:00 WBC 12.9 H RBC 4.42 L Hgb 13.4 Hct 40.2 MCV 91.0 MCH 30.3 MCHC 33.3 RDW Std Deviation 41.3 RDW Coeff of [place] 12.4 Plt Count 328 MPV 8.6 Immature Gran % (Auto) 0.300 Neut % (Auto) 39.4 L Lymph % (Auto) 52.7 H [place] % (Auto) 5.1 Eos % (Auto) 2.1 Baso % (Auto) 0.4 Absolute Neuts (auto) 5.1 Absolute Lymphs (auto) 6.82 H Nucleated RBC % 0 Differential Comment SCANNED Reactive Lymphocytes 1+ Sodium 138 Potassium 3.8 Chloride 104 Carbon Dioxide 29.0 Anion Gap 5 BUN 15 Creatinine 0.85 Estim Creat Clear Calc 112.12 Est GFR (MDRD) Af Amer 124 Est GFR (MDRD) Non-Af 103 BUN/Creatinine Ratio 17.6 Glucose 96 Calcium 8.8 Total Bilirubin 0.20 AST 18 ALT 33 Alkaline Phosphatase 153 H Troponin I < 0.015 Total Protein 7.2 Albumin 3.7 Globulin 3.5 Albumin/Globulin Ratio 1.1 Urine Opiates Screen Urine Methadone Screen Ur Barbiturates Screen Ur Phencyclidine Scrn Ur Amphetamines Screen U Methamphetamin-MDMA U Benzodiazepines Scrn Urine Cocaine Screen U Cannabinoids Screen Ur Drug Screen Comment Ethyl Alcohol < 3.0 01/14/21 00:00 WBC RBC Hgb Hct MCV MCH MCHC RDW Std Deviation RDW Coeff of [place] Plt Count MPV Immature Gran % (Auto) Neut % (Auto) Lymph % (Auto) [place] % (Auto) Eos % (Auto) Baso % (Auto) Absolute Neuts (auto) Absolute Lymphs (auto) Nucleated RBC % Differential Comment Reactive Lymphocytes Sodium Potassium Chloride Carbon Dioxide Anion Gap BUN Creatinine Estim Creat Clear Calc Est GFR (MDRD) Af Amer Est GFR (MDRD) Non-Af BUN/Creatinine Ratio Glucose Calcium Total Bilirubin AST ALT Alkaline Phosphatase Troponin I Total Protein Albumin Globulin Albumin/Globulin Ratio Urine Opiates Screen POSITIVE H Urine Methadone Screen NEGATIVE Ur Barbiturates Screen NEGATIVE Ur Phencyclidine Scrn NEGATIVE Ur Amphetamines Screen NEGATIVE U Methamphetamin-MDMA NEGATIVE U Benzodiazepines Scrn NEGATIVE Urine Cocaine Screen NEGATIVE U Cannabinoids Screen NEGATIVE Ur Drug Screen Comment Ethyl Alcohol EKG Initial EKG: Attestation: I personally reviewed and interpreted this EKG as follows: Interpretation: Sinus Rhythm and No Acute Injury Pattern Comments: Normal EKG rate 82 normal intervals Discharge Plan Dx/Rx/DC Orders Clinical Impression: Opiate dependence, Intermittent left-sided chest pain Disposition Disposition: Acute Care [facility]
[2021-01-14 00:11] LABS: Absolute Lymphocyte Count 6.82 X10^3/uL (0.83-4.51); Absolute Neutrophil Count 5.1 X10^3/uL (2.0-7.7); Basophil# 0.05 X10^3/uL; Basophil% 0.4 % (0-1); Eosinophil# 0.27 X10^3/uL; Eosinophils% 2.1 % (0-5); Hematocrit 40.2 % (40-54); Hemoglobin 13.4 g/dL (13.0-16.5); Lymphocyte # 6.82 X10^3/ul (0.83-4.51); Lymphocyte % 52.7 % (19-41); Mean Corp Hgb Conc 33.3 g/dL (32-36); Mean Corpuscular Hgb 30.3 pg (27.0-32.0); Mean Platelet Vol. 8.6 fl (6.2-12.0); Monocyte# 0.66 X10^3/uL; Monocyte% 5.1 % (0-10); NRBC Flagged by Analyzer 0 % (0-5); Neutrophil % 39.4 % (47-70); POSITIVE DIFFERENTIAL YES; Platelet Count 328 K/mm3 (150-450); RBC Distribution Width CV 12.4 % (11.6-14.6); RBC Distribution Width SD 41.3 fl (35.1-43.9); Red Blood Count 4.42 M/mm3 (4.6-6.2); White Blood Count 12.9 K/mm3 (4.4-11.0)
[2021-01-14 00:23] LABS: Differential Indicated SCAN CRITERIA MET
[2021-01-14 00:24] LABS: Amphetamine Urine VISTA NEGATIVE (<1000 ng/mL); Barbiturate Urine VISTA NEGATIVE (< 200 ng/mL); Benzodiazepine Urine VISTA NEGATIVE (< 200 ng/mL); Cocaine Urine VISTA NEGATIVE (< 300 ng/mL); Ecstacy Urine VISTA NEGATIVE (< 500 ng/mL); Methadone Urine VISTA NEGATIVE (< 300 ng/mL); PCP Urine VISTA NEGATIVE (< 25 ng/mL); THC Urine VISTA NEGATIVE (< 50 ng/mL); Vista UDS pH Range 6
[2021-01-14 00:27] LABS: Alcohol, Blood (Medical)-Serum < 3.0 mg/dL
[2021-01-14 00:33] LABS: ALB/GLOB Ratio 1.1 RATIO (0.9-2.4); AST(SGOT) 18 U/L (15-37); Alanine Aminotransfer ALT/SGPT 33 U/L (16-61); Albumin, Serum 3.7 g/dL (3.2-5.0); Alkaline Phosphatase 153 U/L (45-117); Anion Gap 5 (5-15); BUN 15 mg/dL (7-18); BUN/Creat Ratio 17.6 RATIO (10-20); Calcium,Total 8.8 mg/dL (8.5-10.1); Chloride 104 mmol/L (98-107); Creatinine, Serum 0.85 mg/dL (0.70-1.30); Differential Comment SCANNED; EST Glomerular Filtration Rate 103 mL/min (>60); Est Glom Filt Rate - Afr Amer 124 mL/min (>60); Estimated Creatinine Clearance 112.12 ml/min; Globulin 3.5 g/dL (2.2-4.2); Glucose 96 mg/dL (74-106); Potassium 3.8 mmol/L (3.5-5.1); Protein, Total 7.2 g/dL (6.4-8.2); Reactive Lymphocyte 1+; Sodium Level 138 mmol/L (136-145)
--- NOTE | 2021-01-14 01:07 | PCM.HP.STD ---
HPI - General HPI Narrative RAYMOND ZAMBRANO, is a 45 M with a significant history of tobacco abuse; chronic pain on Percocet and gabapentin; PTSD; depression; and anxiety on clonazepam; and CAD status post stent and with in-stent stenosis who present to the emergency department with a desire to detox from fentanyl. Of note the patient's snort half gram to a full gram of fentanyl per day. He denies any withdrawal symptoms at this time. He came with his girlfriend second above the detoxed. And he is adamant that his girlfriend should stay before he would also stay for the program as if his girlfriend is not a detox he will go back and resume use of fentanyl. However his girlfriend quit fentanyl use and only resumed using a day before presentation and for about 24 hours. Further he also reports intermittent chest pain. Last time he had chest pain was several hours before presentation. At the emergency department he had he also reports a brief. Of chest pain that he thinks was because of an air bubble trapped in his chest and attributes that to anxiety. He was supposed to see his cardiology on the same day of presentation but he overslept. [facility] Medical History ADD (attention deficit disorder) Anxiety Asthma Atherosclerosis of coronary artery of [place] heart without angina pectoris Benzodiazepine withdrawal Carotid stenosis Chronic pain GERD (gastroesophageal reflux disease) History of cardiac murmur as a child Hypersomnia Leucocytosis Moderate persistent asthma without complication Palpitations Substance abuse Tobacco use Home Medications albuterol sulfate 90 mcg/actuation aerosol inhaler 2 puff INHALATION Q6H PRN 04/14/19 [History Last Taken 04/20/20 13:00] omeprazole 40 mg capsule,delayed release 40 mg PO BID #30 cap 04/29/19 [History Last Taken 11/10/20] ondansetron HCl 4 mg tablet 4 mg PO Q8H PRN 04/19/20 [History Last Taken 04/18/20 09:00] Gabapentin 600 mg PO QHS 08/22/20 [History Last Taken 11/09/20] clonazepam 1 mg PO TID 08/22/20 [History Last Taken 11/10/20] ticagrelor 90 mg PO BID 08/22/20 [History Last Taken 11/10/20] aspirin 81 mg PO DAILY@0800 11/10/20 [History Last Taken 11/10/20] atorvastatin 40 mg PO QHS 11/10/20 [History Last Taken 11/09/20] budesonide-formoterol 2 puff INHALATION DAILY 11/10/20 [History Last Taken 11/10/20] dextroamphetamine-amphetamine 30 mg PO BID 12/15/20 [History Last Taken Unknown] trazodone 50 - 100 mg PO QHS 12/15/20 [History Last Taken Unknown] isosorbide mononitrate 30 mg tablet,extended release 24 hr 30 mg PO DAILY #30 tab 01/03/21 [Rx Last Taken Unknown] nitroglycerin 0.4 mg sublingual tablet 0.4 mg SUBLINGUAL Q5M PRN #25 tab 01/03/21 [Rx Last Taken Unknown] Allergy/AdvReac Type Severity Reaction Status Date / Time naloxone Allergy Hives Verified 11/28/20 13:45 Family History Mother , Age 56 Cancer stomach Heart disease CVA (cerebral vascular accident) Father , Age 52 Heart disease CAD (coronary artery disease) Surgical History History of artificial skin graft Presence of stent in coronary artery Social History household members: significant other Smoking Status: Current every day smoker tobacco type: cigarettes second hand exposure: Yes alcohol intake: never substance use type: opiates caffeine: Yes Type: carbonated beverages ROS ROS Narrative 12 point review of system is negative except as stated in HPI. Vital Signs Vital Signs Vital Signs: 01/13/21 23:44 Temperature 97.4 F L Temperature Source Temporal Pulse Rate 78 Respiratory Rate 16 Blood Pressure 161/85 H Blood Pressure Mean 110 Pulse Ox 98 Oxygen Delivery Method Room Air Weight Weight: 83.007 kg Body Mass Index (BMI) 26.2 Physical Exam Narrative Alert and oriented x3 Nontraumatic; normocephalic Lung clear to auscultate Heart sounds S1-S2. No murmur, gallop or rubs. Abdomen bowel sounds present soft, nontender nondistended Extremity without edema cyanosis or clubbing. Results Lab / Micro Data Result Diagrams: 01/14/21 00:00 01/14/21 00:00 Labs: Laboratory Results - last 24 hr 01/14/21 01/14/21 01/14/21 00:00 00:00 00:00 WBC 12.9 H RBC 4.42 L Hgb 13.4 Hct 40.2 MCV 91.0 MCH 30.3 MCHC 33.3 RDW Std Deviation 41.3 RDW Coeff of Denia 12.4 Plt Count 328 MPV 8.6 Immature Gran % (Auto) 0.300 Neut % (Auto) 39.4 L Lymph % (Auto) 52.7 H [place] % (Auto) 5.1 Eos % (Auto) 2.1 Baso % (Auto) 0.4 Absolute Neuts (auto) 5.1 Absolute Lymphs (auto) 6.82 H Nucleated RBC % 0 Differential Comment SCANNED Reactive Lymphocytes 1+ Sodium 138 Potassium 3.8 Chloride 104 Carbon Dioxide 29.0 Anion Gap 5 BUN 15 Creatinine 0.85 Estim Creat Clear Calc 112.12 Est GFR (MDRD) Af Amer 124 Est GFR (MDRD) Non-Af 103 BUN/Creatinine Ratio 17.6 Glucose 96 Calcium 8.8 Total Bilirubin 0.20 AST 18 ALT 33 Alkaline Phosphatase 153 H Troponin I < 0.015 Total Protein 7.2 Albumin 3.7 Globulin 3.5 Albumin/Globulin Ratio 1.1 Urine Opiates Screen Urine Methadone Screen Ur Barbiturates Screen Ur Phencyclidine Scrn Ur Amphetamines Screen U Methamphetamin-MDMA U Benzodiazepines Scrn Urine Cocaine Screen U Cannabinoids Screen Ur Drug Screen Comment Ethyl Alcohol < 3.0 01/14/21 00:00 WBC RBC Hgb Hct MCV MCH MCHC RDW Std Deviation RDW Coeff of Denia Plt Count MPV Immature Gran % (Auto) Neut % (Auto) Lymph % (Auto) [place] % (Auto) Eos % (Auto) Baso % (Auto) Absolute Neuts (auto) Absolute Lymphs (auto) Nucleated RBC % Differential Comment Reactive Lymphocytes Sodium Potassium Chloride Carbon Dioxide Anion Gap BUN Creatinine Estim Creat Clear Calc Est GFR (MDRD) Af Amer Est GFR (MDRD) Non-Af BUN/Creatinine Ratio Glucose Calcium Total Bilirubin AST ALT Alkaline Phosphatase Troponin I Total Protein Albumin Globulin Albumin/Globulin Ratio Urine Opiates Screen POSITIVE H Urine Methadone Screen NEGATIVE Ur Barbiturates Screen NEGATIVE Ur Phencyclidine Scrn NEGATIVE Ur Amphetamines Screen NEGATIVE U Methamphetamin-MDMA NEGATIVE U Benzodiazepines Scrn NEGATIVE Urine Cocaine Screen NEGATIVE U Cannabinoids Screen NEGATIVE Ur Drug Screen Comment Ethyl Alcohol Assessment & Plan Assessment/Plan (1) Chest pain: (2) Opiate dependence: PLAN: Opioid dependence and withdrawal Plan was to admit patient and start him on Subutex with other adjunctive medications. Patient wanted a joint detoxification with his girlfriend. However patient girlfriend did not meet criteria for inpatient admission. This was discussed with patient's girlfriend and by phone communication between the 2 patient became aware. Patient got agitated and is ready to leave the hospital but she was reassured that further interventions will be explored and he should stay in his room for a while. Case was then discussed with emergency department doctor and the plan was to observe patient's girlfriend at the hospital to make sure that there at least she is not withdrawing and then discharged home. However patient left his room unceremoniously. Hospital police reported that patient is in his car and is now coming back to the hospital. Chest pain Left against medical advise Charges/Coding Multi Select Codes Visit Charges Office Visit/Consults: 52875 ED Visit; Moderate Severity
[2021-01-14 01:13] VITALS: BP 147/83; PULSE 81; RESP 16; TEMP 37.2; O2SAT 98
--- NOTE | 2021-01-14 02:26 | ED.RN ---
pt decided he did not want to stay for detox tonight. left department before getting d/c information.
== END 2021-01-14 01:50 | disposition left against medical advice (07) ==
PROVIDERS: Emergency Provider Emergency Medicine
DX: F11.23 Opioid dependence with withdrawal (principal); R07.89 Other chest pain; F17.210 Nicotine dependence, cigarettes, uncomplicated; Z95.5 Presence of coronary angioplasty implant and graft; I25.10 Atherosclerotic heart disease of native coronary artery without angina pectoris; K21.9 Gastro-esophageal reflux disease without esophagitis; G89.29 Other chronic pain; J45.40 Moderate persistent asthma, uncomplicated
CPT/HCPCS: 80053; 80307; 82077; 84484; 85025; 93005; 96372; 99284

== ENCOUNTER 2021-01-19 02:58 | Inpatient (IN) | payer MEDICAID, SELFPAY ==
[2021-01-19] VITALS (8 sets, daily range): BP systolic 93–173; BP diastolic 42–85; PULSE 51–83; RESP 15–18; TEMP 36.2–37.2; O2SAT 93–100; BMI 33.0; BMI 25.0
--- NOTE | 2021-01-19 03:20 | EKG12_ITS ---
Test Reason : SUBSTANCE ABUSE Blood Pressure : / mmHG Vent. Rate : 067 BPM Atrial Rate : 067 BPM P-R Int : 194 ms QRS Dur : 092 ms QT Int : 386 ms P-R-T Axes : 062 061 055 degrees QTc Int : 407 ms Normal sinus rhythm with sinus arrhythmia Normal ECG Confirmed by ALMA MILES, GEORGE ([id number]), city editor CAMPOS FERRARA ([id number]) on 01/20/2021 10:47:19 A M Referred By: BÁRBARA Confirmed By:SRINIVASAN MARQUEZ MD
--- NOTE | 2021-01-19 03:24 | EDS_ITS ---
HPI History of Present Illness Chief Complaint: Substance Abuse Informant: patient Narrative Narrative: Patient is a 45-year-old male with history of opioid dependency as well as coronary artery disease presenting for drug detox. Patient states he daily uses oxycodone and fentanyl. He last use 11 PM. He states he tried to clear his own about 4 days ago but started help withdrawal symptoms too bad including spasms of his legs suicide using again. Patient was seen earlier this week and attempt to detox but ultimately left that because he could not be in detox with his girlfriend. Patient states this time he is willing to stay, his girlfriend is not involved and he is not plan on going home to her he is going to the [facility] afterwards because he needs her to be clean before he can go home. Patient does not inject drugs. He denies any other complaints at this time. PFSH PFSH Medical History ADD (attention deficit disorder) Anxiety Asthma Atherosclerosis of coronary artery of [place] heart without angina pectoris Benzodiazepine withdrawal Carotid stenosis Chronic pain GERD (gastroesophageal reflux disease) History of cardiac murmur as a child Hypersomnia Leucocytosis Moderate persistent asthma without complication Palpitations Substance abuse Tobacco use Home Medications albuterol sulfate 90 mcg/actuation aerosol inhaler 2 puff INHALATION Q6H PRN 04/14/19 [History Last Taken 04/20/20 13:00] omeprazole 40 mg capsule,delayed release 40 mg PO BID #30 cap 04/29/19 [History Last Taken 11/10/20] ondansetron HCl 4 mg tablet 4 mg PO Q8H PRN 04/19/20 [History Last Taken 04/18/20 09:00] Gabapentin 600 mg PO QHS 08/22/20 [History Last Taken 11/09/20] clonazepam 1 mg PO TID 08/22/20 [History Last Taken 11/10/20] ticagrelor 90 mg PO BID 08/22/20 [History Last Taken 11/10/20] aspirin 81 mg PO DAILY@0800 11/10/20 [History Last Taken 11/10/20] atorvastatin 40 mg PO QHS 11/10/20 [History Last Taken 11/09/20] budesonide-formoterol 2 puff INHALATION DAILY 11/10/20 [History Last Taken 11/10/20] dextroamphetamine-amphetamine 30 mg PO BID 12/15/20 [History Last Taken Unknown] trazodone 50 - 100 mg PO QHS 12/15/20 [History Last Taken Unknown] isosorbide mononitrate 30 mg tablet,extended release 24 hr 30 mg PO DAILY #30 tab 01/03/21 [Rx Last Taken Unknown] nitroglycerin 0.4 mg sublingual tablet 0.4 mg SUBLINGUAL Q5M PRN #25 tab 01/03/21 [Rx Last Taken Unknown] Allergy/AdvReac Type Severity Reaction Status Date / Time naloxone Allergy Hives Verified 01/19/21 03:00 Family History Mother , Age 56 Cancer stomach Heart disease CVA (cerebral vascular accident) Father , Age 52 Heart disease CAD (coronary artery disease) Surgical History History of artificial skin graft Presence of stent in coronary artery Social History household members: significant other Smoking Status: Current every day smoker tobacco type: cigarettes second hand exposure: Yes alcohol intake: never substance use type: opiates caffeine: Yes Type: carbonated beverages ROS ROS ED Constitutional Constitutional ED: Denies chills, fever(s) or malaise Eyes Eyes: Denies blurry vision or loss of vision ENT ENT ED: Denies rhinorrhea or sore throat Cardiovascular Cardiovascular: Denies chest pain or dizziness Respiratory/Chest Respiratory/Chest: Denies cough or dyspnea Gastrointestinal Gastrointestinal: Denies nausea or vomiting Genitourinary Genitourinary ED: Denies dysuria or hematuria Musculoskeletal Musculoskeletal: Denies arthralgias or myalgias Integumentary Denies rash or wounds Neurologic Neurologic: Denies focal weakness or headache(s) Psychiatric Psychiatric: Denies anxiety or behavioral changes EXAM Physical Exam Const Vital Signs: 01/19/21 02:58 Temperature 97.3 F L Temperature Source Temporal Pulse Rate 81 Respiratory Rate 18 Blood Pressure 173/85 H Blood Pressure Mean 114 Pulse Ox 99 Positive well nourished, well developed and no apparent distress General Appearance ED: well developed HEENT Reports normocephalic atraumatic Nose: no nasal discharge External Ear: external ears normal Eyes PERRL and EOMs intact bilaterally Neck full ROM and no meningeal signs Chest Wall inspection of chest normal Resp normal respiratory effort and normal air movement Cardio regular rate and regular rhythm GI normal to inspection, nondistended, normoactive bowel sounds Extremity normal to inspection and full ROM Neuro oriented x3 and no focal motor deficits Psych mental status grossly normal and thought process normal Skin no rashes or lesions noted and no wounds MDM MDM MDM Narrative Medical decision making narrative: Patient evaluated for inpatient detox. Will obtain screening labs and will also obtain EKG as patient does have cardiac history. he is not currently have any chest pain. Lab Data Attestation: I reviewed the patient's lab results. Labs: Laboratory Results - last 24 hr 01/19/21 01/19/21 01/19/21 03:10 03:10 03:10 WBC 12.2 H RBC 4.25 L Hgb 12.9 L Hct 38.7 L MCV 91.1 MCH 30.4 MCHC 33.3 RDW Std Deviation 40.9 RDW Coeff of Denia 12.4 Plt Count 324 MPV 8.6 Immature Gran % (Auto) 0.300 Neut % (Auto) 53.0 Lymph % (Auto) 40.2 [place] % (Auto) 5.2 Eos % (Auto) 1.0 Baso % (Auto) 0.3 Absolute Neuts (auto) 6.5 Absolute Lymphs (auto) 4.90 H Nucleated RBC % 0 Sodium 137 Potassium 3.9 Chloride 102 Carbon Dioxide 30.0 Anion Gap 5 BUN 16 Creatinine 0.85 Estim Creat Clear Calc 83.86 Est GFR (MDRD) Af Amer 124 Est GFR (MDRD) Non-Af 103 BUN/Creatinine Ratio 18.8 Glucose 99 Calcium 8.6 Total Bilirubin 0.40 AST 17 ALT 25 Alkaline Phosphatase 149 H Total Protein 7.1 Albumin 3.8 Globulin 3.3 Albumin/Globulin Ratio 1.2 Urine Opiates Screen Urine Methadone Screen Ur Barbiturates Screen Ur Phencyclidine Scrn Ur Amphetamines Screen U Methamphetamin-MDMA U Benzodiazepines Scrn Urine Cocaine Screen U Cannabinoids Screen Ur Drug Screen Comment Ethyl Alcohol < 3.0 01/19/21 03:10 WBC RBC Hgb Hct MCV MCH MCHC RDW Std Deviation RDW Coeff of Denia Plt Count MPV Immature Gran % (Auto) Neut % (Auto) Lymph % (Auto) [place] % (Auto) Eos % (Auto) Baso % (Auto) Absolute Neuts (auto) Absolute Lymphs (auto) Nucleated RBC % Sodium Potassium Chloride Carbon Dioxide Anion Gap BUN Creatinine Estim Creat Clear Calc Est GFR (MDRD) Af Amer Est GFR (MDRD) Non-Af BUN/Creatinine Ratio Glucose Calcium Total Bilirubin AST ALT Alkaline Phosphatase Total Protein Albumin Globulin Albumin/Globulin Ratio Urine Opiates Screen POSITIVE H Urine Methadone Screen NEGATIVE Ur Barbiturates Screen NEGATIVE Ur Phencyclidine Scrn NEGATIVE Ur Amphetamines Screen NEGATIVE U Methamphetamin-MDMA POSITIVE H U Benzodiazepines Scrn NEGATIVE Urine Cocaine Screen NEGATIVE U Cannabinoids Screen NEGATIVE Ur Drug Screen Comment Ethyl Alcohol Rhythm Strip Rhythm Strip: Sinus Rhythm Rate: 67 Ectopy: None EKG Initial EKG: Attestation: I personally reviewed and interpreted this EKG as follows: Interpretation: Sinus Arrythmia Comments: Normal sinus rhythm at a rate of 67 with sinus arrhythmia Normal intervals Normal axis Normal ST segments No change made to prior EKG on 01/14/2021 Discharge Plan Dx/Rx/DC Orders Clinical Impression: Opiate abuse, continuous, Desire for detoxification Disposition Disposition: Acute Care Hospital [facility] Discharge Date/Time: 01/19/21 04:06
[2021-01-19 03:25] LABS: Absolute Neutrophil Count 6.5 X10^3/uL (2.0-7.7); Basophil# 0.04 X10^3/uL; Basophil% 0.3 % (0-1); Eosinophil# 0.12 X10^3/uL; Hematocrit 38.7 % (40-54); Hemoglobin 12.9 g/dL (13.0-16.5); Lymphocyte % 40.2 % (19-41); Mean Corp Hgb Conc 33.3 g/dL (32-36); Mean Corpuscular Hgb 30.4 pg (27.0-32.0); Mean Corpuscular Volume 91.1 fL (80-94); Mean Platelet Vol. 8.6 fl (6.2-12.0); Monocyte# 0.63 X10^3/uL; Monocyte% 5.2 % (0-10); NRBC Flagged by Analyzer 0 % (0-5); Neutrophil # 6.47 X10^3/uL (2.7-7.7); Platelet Count 324 K/mm3 (150-450); RBC Distribution Width CV 12.4 % (11.6-14.6); RBC Distribution Width SD 40.9 fl (35.1-43.9); Red Blood Count 4.25 M/mm3 (4.6-6.2); White Blood Count 12.2 K/mm3 (4.4-11.0)
[2021-01-19 03:36] LABS: Alcohol, Blood (Medical)-Serum < 3.0 mg/dL
[2021-01-19 03:37] LABS: ALB/GLOB Ratio 1.2 RATIO (0.9-2.4); AST(SGOT) 17 U/L (15-37); Alanine Aminotransfer ALT/SGPT 25 U/L (16-61); Albumin, Serum 3.8 g/dL (3.2-5.0); Alkaline Phosphatase 149 U/L (45-117); Anion Gap 5 (5-15); BUN 16 mg/dL (7-18); BUN/Creat Ratio 18.8 RATIO (10-20); Calcium,Total 8.6 mg/dL (8.5-10.1); Chloride 102 mmol/L (98-107); Creatinine, Serum 0.85 mg/dL (0.70-1.30); EST Glomerular Filtration Rate 103 mL/min (>60); Est Glom Filt Rate - Afr Amer 124 mL/min (>60); Estimated Creatinine Clearance 83.86 ml/min; Globulin 3.3 g/dL (2.2-4.2); Glucose 99 mg/dL (74-106); Potassium 3.9 mmol/L (3.5-5.1); Protein, Total 7.1 g/dL (6.4-8.2); Sodium Level 137 mmol/L (136-145)
[2021-01-19 03:41] LABS: Amphetamine Urine VISTA NEGATIVE (<1000 ng/mL); Barbiturate Urine VISTA NEGATIVE (< 200 ng/mL); Benzodiazepine Urine VISTA NEGATIVE (< 200 ng/mL); Cocaine Urine VISTA NEGATIVE (< 300 ng/mL); Ecstacy Urine VISTA POSITIVE (< 500 ng/mL); Methadone Urine VISTA NEGATIVE (< 300 ng/mL); PCP Urine VISTA NEGATIVE (< 25 ng/mL); THC Urine VISTA NEGATIVE (< 50 ng/mL); Vista UDS pH Range 6
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
--- NOTE | 2021-01-19 03:59 | ED.RN ---
CALLED 180 PT NAVIGATOR AND ADVISED OF ADMISSION
[2021-01-19] MEDS: clonazePAM 1 MG Tablet PO ×2 (05:25→21:26)
--- NOTE | 2021-01-19 06:52 | PN.HOSP_ITS ---
Subjective Subjective Patient seen and examined. He is being managed for acute opioid withdrawal. He has no complaints this morning and review of systems is otherwise negative. HE has remained hemodynamically stable. Objective Data Objective Data Vital Signs: Vital Signs Temp Pulse Resp BP Pulse Ox 98.0 F 57 L 15 126/70 H 99 01/19/21 04:56 01/19/21 04:56 01/19/21 04:56 01/19/21 04:56 01/19/21 04:56 Oxygen Delivery Method Room Air Weight: 174 lb 2.643 oz Body Mass Index (BMI) 25.0 Lab / Micro Data Result Diagrams: 01/19/21 03:10 01/19/21 03:10 Labs: Laboratory Results - last 24 hr 01/19/21 01/19/21 01/19/21 03:10 03:10 03:10 WBC 12.2 H RBC 4.25 L Hgb 12.9 L Hct 38.7 L MCV 91.1 MCH 30.4 MCHC 33.3 RDW Std Deviation 40.9 RDW Coeff of Denia 12.4 Plt Count 324 MPV 8.6 Immature Gran % (Auto) 0.300 Neut % (Auto) 53.0 Lymph % (Auto) 40.2 [place] % (Auto) 5.2 Eos % (Auto) 1.0 Baso % (Auto) 0.3 Absolute Neuts (auto) 6.5 Absolute Lymphs (auto) 4.90 H Nucleated RBC % 0 Sodium 137 Potassium 3.9 Chloride 102 Carbon Dioxide 30.0 Anion Gap 5 BUN 16 Creatinine 0.85 Estim Creat Clear Calc 83.86 Est GFR (MDRD) Af Amer 124 Est GFR (MDRD) Non-Af 103 BUN/Creatinine Ratio 18.8 Glucose 99 Calcium 8.6 Total Bilirubin 0.40 AST 17 ALT 25 Alkaline Phosphatase 149 H Total Protein 7.1 Albumin 3.8 Globulin 3.3 Albumin/Globulin Ratio 1.2 Urine Opiates Screen Urine Methadone Screen Ur Barbiturates Screen Ur Phencyclidine Scrn Ur Amphetamines Screen U Methamphetamin-MDMA U Benzodiazepines Scrn Urine Cocaine Screen U Cannabinoids Screen Ur Drug Screen Comment Ethyl Alcohol < 3.0 01/19/21 03:10 WBC RBC Hgb Hct MCV MCH MCHC RDW Std Deviation RDW Coeff of Denia Plt Count MPV Immature Gran % (Auto) Neut % (Auto) Lymph % (Auto) [place] % (Auto) Eos % (Auto) Baso % (Auto) Absolute Neuts (auto) Absolute Lymphs (auto) Nucleated RBC % Sodium Potassium Chloride Carbon Dioxide Anion Gap BUN Creatinine Estim Creat Clear Calc Est GFR (MDRD) Af Amer Est GFR (MDRD) Non-Af BUN/Creatinine Ratio Glucose Calcium Total Bilirubin AST ALT Alkaline Phosphatase Total Protein Albumin Globulin Albumin/Globulin Ratio Urine Opiates Screen POSITIVE H Urine Methadone Screen NEGATIVE Ur Barbiturates Screen NEGATIVE Ur Phencyclidine Scrn NEGATIVE Ur Amphetamines Screen NEGATIVE U Methamphetamin-MDMA POSITIVE H U Benzodiazepines Scrn NEGATIVE Urine Cocaine Screen NEGATIVE U Cannabinoids Screen NEGATIVE Ur Drug Screen Comment Ethyl Alcohol Rhythm Strip Rhythm Strip: Sinus Rhythm Rate: 67 Ectopy: None Physical Exam Const alert, oriented x3 and no apparent distress Exam Limitations: no limitations HEENT head/scalp atraumatic and moist oral mucous membranes Head and Scalp: normocephalic Eyes EOMs intact bilaterally and conjunctivae normal Neck no lymphadenopathy Resp normal respiratory effort, no retractions, no use of accessory muscles and clear to auscultation bilaterally Cardio regular rate, regular rhythm, S1 normal heart sound, S2 normal heart sound and no murmurs GI normal to inspection, nondistended, normoactive bowel sounds, soft to palpation, non-tender and non-distended Extremity normal to inspection, full ROM and no clubbing, cyanosis or edema Peripheral Pulses: Yes pulses 2+ throughout Neuro oriented x3 Sensorium / Orientation: awake and alert Psych affect normal Assessment & Plan Assessment/Plan (1) Opiate dependence: QUALIFIERS: Substance use status: uncomplicated Qualified Code(s): F11.20 - Opioid dependence, uncomplicated PLAN: #acute opioid withdrawal * on opioid withdrawal protocol with buprenorphine * monitor CINA score * adjunctive meds for symptomatic treatment as per opioid withdrawal protocol * #Nicotine dependence: Counseled to quit. On nicotine patch #Anxiety disorder: On clonazepam #CAD s/p stent: On aspirin and Brilinta as well as high intensity statin. #COPD and asthma: On breathing treatments of bronchodilators. #ADHD: Adderall held the patient requested DVT prophylaxis: Low risk. Encouraged to ambulate.
[2021-01-19] MEDS: Budesonide Respules 0.5 MG/2 ML AMPUL.NEB. INHALATION (07:07)
[2021-01-19] MEDS: Albuterol 2.5 MG/3 ML VIAL.NEB. INHALATION (07:07)
--- NOTE | 2021-01-19 08:59 | ADDICTION ---
This curriculum writer attempted to meet with PT. PT did not rouse to verbal queuing. PT to be seen at next visit.
[2021-01-19] MEDS: Isosorbide Mononitrate 30 MG Tablet PO (09:54)
[2021-01-19] MEDS: TICAGRELOR 90 MG TABLET PO ×2 (09:54→21:26)
[2021-01-19] MEDS: Aspirin E.C. 81 MG Tablet PO (09:55)
[2021-01-19] MEDS: Pantoprazole Sodium 40 MG Tablet PO ×2 (09:55→21:26)
[2021-01-19] MEDS: Buprenorphine HCl 2 MG TAB.SUBL SL ×2 (11:09→18:46)
[2021-01-19] MEDS: Dicyclomine 10 MG Capsule 20 MG PO (13:25)
[2021-01-19] MEDS: Ondansetron 8 MG Tablet PO (14:01)
[2021-01-19] MEDS: proMETHazine 25 MG/ML Syringe IM (15:09)
[2021-01-19] MEDS: Loperamide 2 MG Capsule PO (15:09)
[2021-01-19] MEDS: traZODone 50 MG Tablet PO (21:26)
[2021-01-19] MEDS: Atorvastatin Calcium 40 MG Tablet PO (21:26)
[2021-01-20] VITALS (8 sets, daily range): BP systolic 127–145; BP diastolic 48–65; PULSE 60–87; RESP 16–18; TEMP 36.7–37.4; O2SAT 94–97
[2021-01-20] MEDS: Dicyclomine 10 MG Capsule 20 MG PO ×3 (02:41→23:50)
[2021-01-20] MEDS: Buprenorphine HCl 2 MG TAB.SUBL SL ×3 (02:42→19:09)
[2021-01-20] MEDS: clonazePAM 1 MG Tablet PO ×2 (05:36→22:13)
[2021-01-20] MEDS: Ondansetron 8 MG Tablet PO ×2 (05:38→23:50)
--- NOTE | 2021-01-20 07:28 | PN.HOSP_ITS ---
Subjective Subjective Patient seen and examined. He had no active events overnight and had no complaints. REview of systems is otherwise negative. He has remained hemodynamically stable. Objective Data Objective Data Vital Signs: Vital Signs Temp Pulse Resp BP Pulse Ox 99 F 78 18 135/65 H 94 01/20/21 05:33 01/20/21 05:33 01/20/21 05:33 01/20/21 05:33 01/20/21 07:17 Oxygen Delivery Method Room Air Weight: 174 lb 2.643 oz Body Mass Index (BMI) 25.0 Intake & Output: Intake and Output for Last 24 Hours 01/18/21 01/19/21 01/20/21 23:59 23:59 23:59 Intake Total 350 / 350 Balance 350 / 350 Lab / Micro Data Result Diagrams: 01/19/21 03:10 01/19/21 03:10 Rhythm Strip Rhythm Strip: Sinus Rhythm Rate: 67 Ectopy: None Physical Exam Const alert, oriented x3 and no apparent distress Exam Limitations: no limitations HEENT head/scalp atraumatic and moist oral mucous membranes Head and Scalp: normocephalic Eyes PERRL, EOMs intact bilaterally and conjunctivae normal Neck no lymphadenopathy Resp normal respiratory effort, no retractions, no use of accessory muscles and clear to auscultation bilaterally Cardio regular rate, regular rhythm, S1 normal heart sound, S2 normal heart sound and no murmurs GI normal to inspection, nondistended, normoactive bowel sounds, soft to palpation, non-tender and non-distended Extremity normal to inspection, full ROM and no clubbing, cyanosis or edema Peripheral Pulses: Yes pulses 2+ throughout Skin no rashes or lesions noted Neuro oriented x3 Sensorium / Orientation: awake and alert Psych affect normal Assessment & Plan Assessment/Plan (1) Opiate dependence: QUALIFIERS: Substance use status: uncomplicated Qualified Co de(s): F11.20 - Opioid dependence, uncomplicated PLAN: #acute opioid withdrawal * on opioid withdrawal protocol with buprenorphine * monitor CINA score * adjunctive meds for symptomatic treatment as per opioid withdrawal protocol * #Nicotine dependence: Counseled to quit. On nicotine patch #Anxiety disorder: On clonazepam #CAD s/p stent: On aspirin and Brilinta as well as high intensity statin. #COPD and asthma: On breathing treatments of bronchodilators. #ADHD: Adderall held as it is not in our formulary DVT prophylaxis: Low risk. Encouraged to ambulate. Charges/Coding Visit Charges Inpatient E&M: 46612 Subs Hosp L2
[2021-01-20] MEDS: TICAGRELOR 90 MG TABLET PO ×2 (12:21→22:14)
[2021-01-20] MEDS: Pantoprazole Sodium 40 MG Tablet PO ×2 (12:21→22:13)
[2021-01-20] MEDS: Isosorbide Mononitrate 30 MG Tablet PO (12:21)
[2021-01-20] MEDS: Aspirin E.C. 81 MG Tablet PO (12:21)
--- NOTE | 2021-01-20 12:36 | ADDICTION ---
This press writer met with PT to conduct ASAM, MSE, AUDIT assessments and to plan for d/c. PT A+Ox4 and participated actively. All assessments completed, faxed to [facility] and placed in PT's chart. PT plans to f/u with individual counselor at [facility] for follow-up counseling and IOP services. PT did not indicate a need for transportation post d/c from [facility].
[2021-01-20] MEDS: Methocarbamol 750 MG Tablet 1500 MG PO (17:41)
[2021-01-20] MEDS: 0.9% Normal Saline 1,000 ML 125 ML IV (18:32)
[2021-01-20] MEDS: Atorvastatin Calcium 40 MG Tablet PO (22:13)
[2021-01-20] MEDS: traZODone 50 MG Tablet PO (22:21)
[2021-01-20] MEDS: proMETHazine 25 MG/ML Syringe IM (22:22)
[2021-01-21] MEDS: Buprenorphine HCl 2 MG TAB.SUBL SL ×2 (02:57→10:09)
[2021-01-21 03:00] VITALS: BP 153/60; PULSE 65; RESP 16; TEMP 37.4; O2SAT 97
[2021-01-21] MEDS: hydrOXYzine PAM 25 MG Capsule 50 MG PO (03:07)
[2021-01-21] MEDS: Methocarbamol 750 MG Tablet 1500 MG PO (03:07)
[2021-01-21] MEDS: proMETHazine 25 MG/ML Syringe IM (04:35)
[2021-01-21] MEDS: clonazePAM 1 MG Tablet PO (05:44)
[2021-01-21] MEDS: Dicyclomine 10 MG Capsule 20 MG PO (05:50)
[2021-01-21 07:20] VITALS: O2SAT 96
[2021-01-21 10:00] VITALS: BP 133/69; PULSE 53; RESP 14; TEMP 36.7; O2SAT 95
[2021-01-21] MEDS: Enoxaparin 40 MG/0.4 ML Syringe SC (10:04)
[2021-01-21] MEDS: Isosorbide Mononitrate 30 MG Tablet PO (10:05)
[2021-01-21] MEDS: Pantoprazole Sodium 40 MG Tablet PO (10:05)
[2021-01-21] MEDS: TICAGRELOR 90 MG TABLET PO (10:05)
[2021-01-21] MEDS: Aspirin E.C. 81 MG Tablet PO (10:05)
--- NOTE | 2021-01-21 11:27 | DS.PCM_ITS ---
Providers Date of Admission: 01/19/21 Primary Care Physician: Brandie Primary Care Phys Reason For Visit: DESIRE FOR DETOXIFICATION Diagnosis Discharge Diagnosis (1) Opiate dependence: Status: Acute Code(s): F11.20 - Opioid dependence, uncomplicated Qualifiers: Substance use status: uncomplicated Qualified Code(s): F11.20 - Opioid dependence, uncomplicated Medications at Discharge Home Medications albuterol sulfate 90 mcg/actuation aerosol inhaler 2 puff INHALATION Q6H PRN 04/14/19 omeprazole 40 mg capsule,delayed release 40 mg PO BID #30 cap 04/29/19 ondansetron HCl 4 mg tablet 4 mg PO Q8H PRN 04/19/20 Gabapentin 600 mg PO QHS PRN 08/22/20 clonazepam 1 mg PO TID 08/22/20 ticagrelor 90 mg PO BID 08/22/20 aspirin 81 mg PO DAILY@0800 11/10/20 atorvastatin 40 mg PO QHS 11/10/20 budesonide-formoterol 2 puff INHALATION DAILY 11/10/20 dextroamphetamine-amphetamine 30 mg PO BID 12/15/20 trazodone 50 - 100 mg PO QHS 12/15/20 isosorbide mononitrate 30 mg tablet,extended release 24 hr 30 mg PO DAILY #30 tab 01/03/21 nitroglycerin 0.4 mg sublingual tablet 0.4 mg SUBLINGUAL Q5M PRN #25 tab 01/03/21 Hospital Course Operations None Procedures None Summary of Care Provided Minutes Spent on Discharge: 35 Hospital Course: Patient is a 45 y/o male with a PMH as outlined which includes chronic opioid abuse and nicotine dependence as well as anxiety, PTSD and depression.He was admitted via the ED on 01/19/2021 for acute opioid withdrawal from fentanyl. He snorts up to 1.5 gram of fentanyl daily and also takes oxycodone. He was admitted and managed for acute opioid withdrawal. He was started on the opioid withdrawal protocol with buprenorphine. Patient tolerated 3-day detox process though during the admission he complained of abdominal cramping which was part of the withdrawal process. He remained stable and was discharged home on 01/21/2021. He is to follow-up with his primary care doctor and is also to follow-up with rehab services on outpatient basis. Patient seen and examined. He was sleeping in bed but was arousable and said he still has some abdominal cramps but felt well enough to go home. Review of sy stems otherwise negative. Labs and vitals reviewed. Home medication reviewed and reconciled. Physical Exam Const alert, oriented x3 and no apparent distress General Appearance: cooperative Exam Limitations: no limitations HEENT normocephalic, head/scalp atraumatic, hearing grossly normal bilaterally and moist oral mucous membranes Eyes PERRL, EOMs intact bilaterally and conjunctivae normal Neck no lymphadenopathy Resp normal respiratory effort, no retractions, no use of accessory muscles and clear to auscultation bilaterally Cardio regular rate, regular rhythm, S1 normal heart sound, S2 normal heart sound and no murmurs GI normal to inspection, nondistended, normoactive bowel sounds, soft to palpation, non-tender and non-distended Extremity normal to inspection, full ROM and no clubbing, cyanosis or edema Skin no rashes or lesions noted Neuro oriented x3 Sensorium / Orientation: awake and alert Psych affect normal Weight / BMI Weight Weight: 174 lb 2.643 oz Body Mass Index (BMI) 25.0 ABG / Lab / Microbiology Data Result Diagrams: 01/19/21 03:10 01/19/21 03:10 D/C Instructions Discharge Diet: 2000 mg Sodium Diet Discharge Activity: Return to Normal Activity Weight Bearing Status: Weight bearing as tolerated Call your doctor if you observe: Fever of 101 or Higher, Shortness of breath, Swelling in the ankles and Increased palpitations (irregular heartbeat) Meaningful Use Info Meaningful Use Diagnoses (Choose all that apply): None applicable Discharge Plan Admission Admit Date/Time: 01/19/21 03:45 Primary Reason for Your Visit: acute opioid withdrawal Attending Provider: Ailyn Pretty Primary Care Provider: Care Physician,No Primary Instructions Patient Instructions: ED Abuse Drug Narcotic Sedative Rx Discharge Orders/Prescriptions Prescriptions: Continued albuterol sulfate 90 mcg/actuation HFA aerosol inhaler 2 puff INHALATION Q6H PRN (Reason: Sob &/Or Wheezing) RF: 0 omeprazole 40 mg capsule,delayed release(DR/EC) 40 mg PO BID Qty: 30 RF: 0 ondansetron HCl 4 mg tablet 4 mg PO Q8H PRN (Reason: Nausea) RF: 0 ticagrelor 90 MG tablet 90 mg PO BID RF: 0 Gabapentin 600 MG tablet 600 mg PO QHS PRN (Reason: legs) RF: 0 clonazepam 1 MG tablet 1 mg PO TID RF: 0 budesonide-formoterol 1 INHALER inhaler 2 puff INHALATION DAILY RF: 0 atorvastatin 40 MG tablet 40 mg PO QHS RF: 0 aspirin 81 MG tablet 81 mg PO DAILY@0800 RF: 0 trazodone 50 mg tablet 50 - 100 mg PO QHS RF: 0 dextroamphetamine-amphetamine 30 mg tablet 30 mg PO BID RF: 0 nitroglycerin 0.4 mg tablet, sublingual 0.4 mg sublingual Q5M PRN (Reason: Cardiac/Chest Pain) Qty: 25 RF: 3 isosorbide mononitrate 30 mg tablet extended release 24 hr 30 mg PO DAILY Qty: 30 RF: 11 Referrals / Follow Up: Care Physician,No Primary [Primary Care Provider] - Disposition Disposition (needs filled in before D/C Order can be placed): Home, self care Charges/Coding Visit Charges Inpatient E&M: 19742 Disch Hosp
== END 2021-01-21 12:50 | disposition home or self-care (01) | DRG 773 ==
LOC: ED 03:33 → MS3 03:49
PROVIDERS: Admitting Provider Hospitalist; Emergency Provider Emergency Medicine; Visit Provider Student in an Organized Health Care Education/Training Program
DX: F11.23 Opioid dependence with withdrawal (principal); F17.210 Nicotine dependence, cigarettes, uncomplicated; I25.10 Atherosclerotic heart disease of native coronary artery without angina pectoris; F98.8 Other specified behavioral and emotional disorders with onset usually occurring in childhood and adolescence; K21.9 Gastro-esophageal reflux disease without esophagitis; F41.1 Generalized anxiety disorder; F41.0 Panic disorder [episodic paroxysmal anxiety]; F43.10 Post-traumatic stress disorder, unspecified; G89.29 Other chronic pain; Z95.5 Presence of coronary angioplasty implant and graft; Z86.73 Personal history of transient ischemic attack (TIA), and cerebral infarction without residual deficits; J44.9 Chronic obstructive pulmonary disease, unspecified; F90.9 Attention-deficit hyperactivity disorder, unspecified type
CPT/HCPCS: 80053; 80307; 82077; 85025; 93005; 94640; 99283; 99406; J7030

== ENCOUNTER → 2021-02-03 07:41 | Outpatient (CLI) | payer MEDICAID, SELFPAY ==
[2021-01-26 10:25] VITALS: BMI 24.3
--- NOTE | 2021-02-03 07:43 | CDU_ITS ---
Reason For Study: Lightheadedness Rt. Velocities/BP Lt. Velocities/BP Prox CCA 155/32 cm/sec. Prox CCA 168/28 cm/sec. Mid CCA 142/28 cm/sec. Mid CCA 144/30 cm/sec. Dist CCA 155/45 cm/sec. Dist CCA 131/34 cm/sec. Prox ICA 113/29 cm/sec. Prox ICA 102/21 cm/sec. Mid ICA 114/32 cm/sec. Mid ICA 114/30 cm/sec. Dist ICA 120/41 cm/sec. Dist ICA 125/34 cm/sec. Rt. ICA/CCA = 0.8. Lt. ICA/CCA = 0.9. Prox ECA 153/19 cm/sec. Prox ECA 116/16 cm/sec. Rt. Vert. 61/13 cm/sec. Lt. Vert. 49/16 cm/sec. Right Extracranial There is heterogeneous, irregular atherosclerotic plaque noted in the right common carotid artery. There is heterogeneous, irregular atherosclerotic plaque noted in the right internal carotid artery. There is no significant atherosclerotic plaque noted in the right external carotid artery. Antegrade flow is noted in the right vertebral artery. Left Extracranial There is heterogeneous, irregular atherosclerotic plaque noted in the left common carotid artery. There is heterogeneous, irregular atherosclerotic plaque noted in the left internal carotid artery. There is no significant atherosclerotic plaque noted in the left external carotid artery. Antegrade flow is noted in the left vertebral artery. Procedure Carotid Duplex [id number]. Exam performed in department. VL/Carotid Duplex Ultrasound Interpretation Summary Irregular calcific plaque with mild shadowing at the proximal right internal ca rotid artery with a less than 50% stenosis Less than 50% stenosis right external carotid artery Smooth heterogenous plaque noted at the proximal left internal carotid artery w ith less than 50% stenosis. Less than 50% stenosis left external carotid artery Patent and antegrade vertebral arteries bilaterally No hemodynamically significant change from a previous examination of April 22, 2019 where less than 50% bilateral internal carotid artery stenosis was identified. Ordering Physician: Adam Lozada Referring Physician: Adam Lozada Performed By: Codi Lozada RDCS, RVT
--- NOTE | 2021-02-03 10:56 | STRESSREP ---
Stress Test Report Pharmacologic myocardial perfusion stress test. 45-year-old man with a history of chest pain. Stress protocol: Resting EKG demonstrates normal sinus rhythm with a rate of 77 bpm normal intervals are noted resting blood pressure is 138/80 mmHg. 0.4 mg of regadenoson was infused per usual protocol followed by rapid intravenous saline flush injection continuous EKG monitoring was performed. The maximum heart rate attained was 121 bpm which was 69% of maximum predicted heart rate the maximum workload was 1 metabolic equivalent. At rest there were no ST or T wave changes noted to suggest abnormal flow reserve and at peak infusion nonspecific ST changes noted which did not meet the criteria for ischemia. Myocardial perfusion protocol. 11.2 mCi of technetium 99m sestamibi was injected at rest. 0.4 mg of regadenoson was infused per usual protocol. At peak infusion 34.1 mCi of technetium 99m sestamibi was injected stress images were obtained stress and rest images were reconstructed and compared in the short axis vertical long and horizontal long axis. Gated images were also obtained per Perfusion SPECT analysis: Review of the stress images demonstrate normal uptake of tracer noted in all areas of the myocardium. The resting images similarly demonstrate normal uptake of tracer noted in all areas of the myocardium. No areas of reversibility are noted to suggest ischemia. Gated SPECT analysis: The gated ejection fraction is noted to be 64%. Conclusion: Normal pharmacologic myocardial perfusion stress test. Preserved ejection fraction.
== END ==
PROVIDERS: Referring Provider Nurse Practitioner Family; Visit Provider Nurse Practitioner Family
DX: I65.22 Occlusion and stenosis of left carotid artery (principal); R07.9 Chest pain, unspecified; I25.10 Atherosclerotic heart disease of native coronary artery without angina pectoris; Z72.0 Tobacco use; Z95.5 Presence of coronary angioplasty implant and graft
CPT/HCPCS: 78452; 93017; 93880; A9500; A4216; J2785

== ENCOUNTER 2021-02-07 13:57 | Emergency (ER) | payer MEDICAID, SELFPAY ==
[2021-01-26 10:25] VITALS: BMI 24.3
[2021-02-07 13:58] VITALS: BP 136/82; PULSE 88; RESP 16; TEMP 36.1; O2SAT 97; BMI 24.0
--- NOTE | 2021-02-07 14:12 | EKG12_ITS ---
Test Reason : CP Blood Pressure : / mmHG Vent. Rate : 083 BPM Atrial Rate : 083 BPM P-R Int : 170 ms QRS Dur : 090 ms QT Int : 366 ms P-R-T Axes : 065 062 056 degrees QTc Int : 430 ms Normal sinus rhythm Normal ECG Confirmed by ANA MILES, ROSENDA ([id number]), science editor JADE ROSENBERG ([id number]) on 02/08/2021 2:21:12 PM Referred By: PC Confirmed By:ROSENDA PEREZ MD
[2021-02-07] MEDS: Ondansetron 4 MG/2 ML Vial IV (14:18)
[2021-02-07] MEDS: Aspirin 81 MG TAB.CHEW 324 MG PO (14:18)
[2021-02-07] MEDS: Morphine 4 MG/ML Syringe IV (14:19)
[2021-02-07 14:27] LABS: Absolute Lymphocyte Count 3.05 X10^3/uL (0.83-4.51); Absolute Neutrophil Count 4.7 X10^3/uL (2.0-7.7); Basophil# 0.03 X10^3/uL; Basophil% 0.4 % (0-1); Eosinophil# 0.06 X10^3/uL; Eosinophils% 0.7 % (0-5); Lymphocyte # 3.05 X10^3/ul (0.83-4.51); Mean Corp Hgb Conc 34.2 g/dL (32-36); Mean Corpuscular Hgb 30.9 pg (27.0-32.0); Mean Corpuscular Volume 90.3 fL (80-94); Mean Platelet Vol. 8.6 fl (6.2-12.0); Monocyte# 0.41 X10^3/uL; NRBC Flagged by Analyzer 0 % (0-5); Neutrophil # 4.67 X10^3/uL (2.7-7.7); Neutrophil % 56.7 % (47-70); Platelet Count 299 K/mm3 (150-450); RBC Distribution Width CV 12.6 % (11.6-14.6); Red Blood Count 4.21 M/mm3 (4.6-6.2); White Blood Count 8.2 K/mm3 (4.4-11.0)
--- NOTE | 2021-02-07 14:29 | ED.VIS.CHEST ---
HPI History of Present Illness Chief Complaint: Chest Pain Narrative Narrative: Patient presents with chest pain that started earlier this morning it is been on and off but got worse after he took a nap this afternoon. He does have a history of heart attack with prior stents. He has no fever chills cough or congestion. There is no back pain or tearing sensation. There is no pleuritic component. No lower extremity edema or calf pain. No DVT or PE risk factors PFSH PFSH Medical History ADD (attention deficit disorder) Anxiety Asthma Atherosclerosis of coronary artery of [place] heart without angina pectoris Benzodiazepine withdrawal Carotid stenosis Chronic pain CPAP (continuous positive airway pressure) dependence DVT (deep venous thrombosis) GERD (gastroesophageal reflux disease) History of cardiac murmur as a child Hypersomnia Leucocytosis Migraines Moderate persistent asthma without complication On home oxygen therapy Palpitations Sleep apnea Smoker Substance abuse Tobacco use Home Medications albuterol sulfate 90 mcg/actuation aerosol inhaler 2 puff INHALATION Q6H PRN 04/14/19 [History Last Taken 01/18/21 15:00] omeprazole 40 mg capsule,delayed release 40 mg PO BID #30 cap 04/29/19 [History Last Taken 01/18/21 12:00] ondansetron HCl 4 mg tablet 4 mg PO Q8H PRN 04/19/20 [History Last Taken 04/18/20 09:00] Gabapentin 600 mg PO QHS PRN 08/22/20 [History Last Taken 11/09/20] clonazepam 1 mg PO TID 08/22/20 [History Last Taken 01/18/21 12:00] ticagrelor 90 mg PO BID 08/22/20 [History Last Taken 11/10/20] aspirin 81 mg PO DAILY@0800 11/10/20 [History Last Taken 01/18/21 12:00] atorvastatin 40 mg PO QHS 11/10/20 [History Last Taken 01/17/21 21:00] budesonide-formoterol 2 puff INHALATION DAILY 11/10/20 [History Last Taken 11/10/20] dextroamphetamine-amphetamine 30 mg PO BID 12/15/20 [History Last Taken Unknown] trazodone 50 - 100 mg PO QHS 12/15/20 [History Last Taken Unknown] isosorbide mononitrate 30 mg tablet,extended release 24 hr 30 mg PO DAILY #30 tab 01/03/21 [Rx Last Taken Unknown] nitroglycerin 0.4 mg sublingual tablet 0.4 mg SUBLINGUAL Q5M PRN #25 tab 01/03/21 [Rx Last Taken Unknown] oxycodone-acetaminophen [Percocet] 1 tab PO Q6H PRN 02/07/21 [History Last Taken Unknown] Allergy/AdvReac Type Severity Reaction Status Date / Time naloxone Allergy Hives Verified 02/07/21 14:00 Family History Mother , Age 56 Cancer stomach Heart disease CVA (cerebral vascular accident) Father , Age 52 Heart disease CAD (coronary artery disease) Surgical History History of artificial skin graft Hx of heart artery stent Presence of stent in coronary artery Social History household members: significant other Smoking Status: Current every day smoker tobacco type: cigarettes second hand exposure: Yes alcohol intake: never substance use type: opiates caffeine: Yes Type: carbonated beverages ROS ROS ED ROS Narrative Past medical history: Reviewed, includes prior cardiac disease, hyperlipidemia, hypertension, anxiety, he continues to smoke Medications: Reviewed Social history: Smoker otherwise noncontributory Review of systems: All systems negative except as indicated General: No fever Eyes: No visual changes ENT: No upper airway congestion, normal voice Neck: No neck pain Cardiovascular: No chest pain Respiratory: No shortness of breath or cough Gastrointestinal: No abdominal pain, nausea vomiting or diarrhea Genitourinary: No dysuria Musculoskeletal: Denies myalgias no difficulty with ambulation Skin: No rash Neurological: No memory loss, confusion or any focal weakness Psych: No recent behavioral changes Hematologic: No easy bleeding or easy bruising EXAM Physical Exam Narrative Exam Narrative: Physical exam General: Patient appears in some distress Head: Normocephalic, Atraumatic Eyes: Conjunctiva not pale ENT: Moist mucous membranes Neck: Supple, Nontender, No lymphadenopathy Cardiovascular: Regular rate, Regular rhythm Respiratory: No distress, CTA bilaterally Abdomen: Soft, Nontender, Nondistended Back: Nontender, Normal Inspection. Negative for: CVA tenderness Extremities: Nontender, No edema Skin: Normal color, No rash Neurological: Alert, Normal Strength, Normal Sensation Psychological: Normal affect Const Vital Signs: 02/07/21 13:58 02/07/21 14:07 02/07/21 14:13 Temperature 97 F L Temperature Source Temporal Pulse Rate 88 Respiratory Rate 16 Respiratory Effort Normal Non-Labored Blood Pressure 136/82 H Blood Pressure Mean 100 Pulse Ox 97 Oxygen Delivery Method Room Air Room Air 02/07/21 15:15 Temperature Temperature Source Pulse Rate Respiratory Rate Respiratory Effort Blood Pressure 117/76 Blood Pressure Mean 89 Pulse Ox Oxygen Delivery Method Heart Score History: Moderately Suspicious ECG: Normal Age: >45 - <65 years Risk Factors: >/= 3 Risk Factors or History of CAD Score: 4 MDM MDM MDM Narrative Medical decision making narrative: Patient has a heart score of 4 although he has an unremarkable troponin and EKG he still meets criteria for inpatient admission. I discussed with cardiology, Dr. Eason who also agrees. In fact he is thinking the patient may need a catheterization in the morning. However when I went to talk to the patient he is refusing admission. He tells me he feels better he cannot miss court or else he would lose his children. I try to tell him that I would write a note to the administrative law judge, I tried to find other ways to see if he is willing to stay, he tells me he will not stay any further and that he will return if anything changes I warned him that he may not get the chance if he has a major heart attack or a life-threatening arrhythmia. He understands that he could he could become impotent he could have a persistent vegetative state or he could have chronic significant weakness, he tells me he started all this before and does not wish to stay. I do not agree with his decision but he is lucid coherent he understands the consequences and if I were to keep him against his will this would be an assault. Therefore I will discharge him AGAINST MEDICAL ADVICE and told him very specifically that if he changes his mind or if he has the symptoms back or any symptoms he needs to return. He verbalized and agreed. The nurse Melvin was in the room with me throughout the conversation. Lab Data Labs: Laboratory Results - last 24 hr 02/07/21 02/07/21 14:18 14:18 WBC 8.2 RBC 4.21 L Hgb 13.0 Hct 38.0 L MCV 90.3 MCH 30.9 MCHC 34.2 RDW Std Deviation 42.0 RDW Coeff of Denia 12.6 Plt Count 299 MPV 8.6 Immature Gran % (Auto) 0.200 Neut % (Auto) 56.7 Lymph % (Auto) 37.0 Fountain % (Auto) 5.0 Eos % (Auto) 0.7 Baso % (Auto) 0.4 Absolute Neuts (auto) 4.7 Absolute Lymphs (auto) 3.05 Nucleated RBC % 0 Sodium 137 Potassium 3.6 Chloride 106 Carbon Dioxide 28.0 Anion Gap 3 L BUN 12 Creatinine 0.85 Estim Creat Clear Calc 112.12 Est GFR (MDRD) Af Amer 125 Est GFR (MDRD) Non-Af 103 BUN/Creatinine Ratio 14.2 Glucose 122 H Calcium 8.8 Troponin I High Sens 38.2 Radiography Diagnostic Testing: Radiology Impression Chest X-Ray 02/07/21 14:35 IMPRESSION: Stable examination. Hyperinflation with decreased markings in the upper lobes suggestive of emphysematous changes. Electronically Signed: Alan Huerta MD at 14:53 EDT , Service support , Discharge Plan Triage Chief Complaint: Chest Pain ED Provider: Michel Stevens Dx/Rx/DC Orders Clinical Impression: Chest pain Instructions: ED Chest Pain, Uncertain Cause, AMA Prescriptions: No Action albuterol sulfate 90 mcg/actuation HFA aerosol inhaler 2 puff INHALATION Q6H PRN (Reason: Sob &/Or Wheezing) RF: 0 omeprazole 40 mg capsule,delayed release(DR/EC) 40 mg PO BID Qty: 30 RF: 0 ondansetron HCl 4 mg tablet 4 mg PO Q8H PRN (Reason: Nausea) RF: 0 ticagrelor 90 MG tablet 90 mg PO BID RF: 0 Gabapentin 600 MG tablet 600 mg PO QHS PRN (Reason: legs) RF: 0 clonazepam 1 MG tablet 1 mg PO TID RF: 0 budesonide-formoterol 1 INHALER inhaler 2 puff INHALATION DAILY RF: 0 atorvastatin 40 MG tablet 40 mg PO QHS RF: 0 aspirin 81 MG tablet 81 mg PO DAILY@0800 RF: 0 trazodone 50 mg tablet 50 - 100 mg PO QHS RF: 0 dextroamphetamine-amphetamine 30 mg tablet 30 mg PO BID RF: 0 oxycodone-acetaminophen [Percocet] 10-325 mg Tablet 1 tab PO Q6H PRN (Reason: Pain, Severe) RF: 0 nitroglycerin 0.4 mg tablet, sublingual 0.4 mg sublingual Q5M PRN (Reason: Cardiac/Chest Pain) Qty: 25 RF: 3 isosorbide mononitrate 30 mg tablet extended release 24 hr 30 mg PO DAILY Qty: 30 RF: 11 Primary Care Provider: Isak Wallace Referrals: Isak Wallace DO [Primary Care Provider] - As soon as possible Disposition Disposition: Home, Self Care
--- NOTE | 2021-02-07 14:35 | RAD_ITS ---
STUDY: X-RAY CHEST REASON FOR EXAM: Male, 45 years old. Chest pain TECHNIQUE: Single AP portable view of the chest. COMPARISON: Comparison is made with prior study dated 11/28/2020. FINDINGS: EKG electrodes are seen. Hyperinflation. Decreased bronchovascular markings in the upper lobes suggestive of emphysematous changes. There is no demonstrated pleural abnormality. Normal size heart. Normal mediastinum and avril. Normal visualized pulmonary arteries. Normal visualized aortic arch and descending thoracic aorta. Normal visualized thoracic spine. Normal visualized ribs, clavicles, and shoulders. There is no demonstrated abnormality of the visualized soft tissue structures of the upper abdomen. RAD/Chest 1 View (Portable) IMPRESSION: Stable examination. Hyperinflation with decreased markings in the upper lobes suggestive of emphysematous changes. Electronically Signed: Alan Huerta MD at 14:53 EDT , Service support ,
[2021-02-07 14:39] LABS: Anion Gap 3 (5-15); BUN 12 mg/dL (7-18); BUN/Creat Ratio 14.2 RATIO (10-20); Calcium,Total 8.8 mg/dL (8.5-10.1); Chloride 106 mmol/L (98-107); Creatinine, Serum 0.85 mg/dL (0.70-1.30); EST Glomerular Filtration Rate 103 mL/min (>60); Est Glom Filt Rate - Afr Amer 125 mL/min (>60); Estimated Creatinine Clearance 112.12 ml/min; Glucose 122 mg/dL (74-106); Potassium 3.6 mmol/L (3.5-5.1); Sodium Level 137 mmol/L (136-145); Troponin-I HS 38.2 pg/mL (3.0-78.5)
[2021-02-07 15:15] VITALS: BP 117/76
[2021-02-07 15:48] VITALS: BP 117/76; PULSE 86; RESP 16; O2SAT 95
== END 2021-02-07 15:48 | disposition home or self-care (01) ==
PROVIDERS: Emergency Provider Emergency Medicine; PCP Family Medicine
DX: R07.9 Chest pain, unspecified (principal); E78.5 Hyperlipidemia, unspecified; F41.9 Anxiety disorder, unspecified; G47.30 Sleep apnea, unspecified; I10 Essential (primary) hypertension; I25.10 Atherosclerotic heart disease of native coronary artery without angina pectoris; F17.210 Nicotine dependence, cigarettes, uncomplicated; K21.9 Gastro-esophageal reflux disease without esophagitis; I25.2 Old myocardial infarction; J45.40 Moderate persistent asthma, uncomplicated; Z79.82 Long term (current) use of aspirin; Z86.718 Personal history of other venous thrombosis and embolism
CPT/HCPCS: 71045; 80048; 84484; 85025; 93005; 96374; 96375; 99284; A4216; J2405

== ENCOUNTER → 2021-03-23 13:43 | Outpatient (CLI) | payer MEDICAID, SELFPAY ==
[2021-02-24 11:38] VITALS: BMI 24.0
[2021-03-23 09:29] VITALS: BMI 24.7
[2021-03-23 14:07] LABS: Absolute Lymphocyte Count 3.61 X10^3/uL (0.83-4.51); Basophil# 0.03 X10^3/uL; Basophil% 0.3 % (0-1); Eosinophil# 0.13 X10^3/uL; Eosinophils% 1.3 % (0-5); Hematocrit 40.4 % (40-54); Hemoglobin 13.3 g/dL (13.0-16.5); Lymphocyte # 3.61 X10^3/ul (0.83-4.51); Lymphocyte % 34.9 % (19-41); Mean Corp Hgb Conc 32.9 g/dL (32-36); Mean Corpuscular Hgb 29.8 pg (27.0-32.0); Mean Corpuscular Volume 90.4 fL (80-94); Mean Platelet Vol. 9.1 fl (6.2-12.0); Monocyte# 0.55 X10^3/uL; Monocyte% 5.3 % (0-10); NRBC Flagged by Analyzer 0 % (0-5); Neutrophil # 5.96 X10^3/uL (2.7-7.7); Neutrophil % 57.7 % (47-70); Platelet Count 293 K/mm3 (150-450); RBC Distribution Width CV 12.5 % (11.6-14.6); RBC Distribution Width SD 41.6 fl (35.1-43.9); Red Blood Count 4.47 M/mm3 (4.6-6.2); White Blood Count 10.3 K/mm3 (4.4-11.0)
[2021-03-23 14:32] LABS: Anion Gap 5 (5-15); BUN 13 mg/dL (7-18); BUN/Creat Ratio 17.6 RATIO (10-20); Calcium,Total 8.9 mg/dL (8.5-10.1); Chloride 104 mmol/L (98-107); Creatinine, Serum 0.74 mg/dL (0.70-1.30); EST Glomerular Filtration Rate 121 mL/min (>60); Est Glom Filt Rate - Afr Amer 147 mL/min (>60); Estimated Creatinine Clearance 128.79 ml/min; Glucose 101 mg/dL (74-106); Potassium 3.5 mmol/L (3.5-5.1); Sodium Level 137 mmol/L (136-145)
== END ==
PROVIDERS: Nurse Practitioner Family; PCP Family Medicine; Referring Provider Internal Medicine Cardiovascular Disease; Visit Provider Internal Medicine Cardiovascular Disease
DX: R07.9 Chest pain, unspecified (principal); I25.10 Atherosclerotic heart disease of native coronary artery without angina pectoris; Z95.5 Presence of coronary angioplasty implant and graft
CPT/HCPCS: 36415; 80048; 85025

== ENCOUNTER 2022-03-16 05:41 | Emergency (ER) | payer MEDICAID, SELFPAY ==
--- NOTE | 2022-03-16 05:43 | EKG12_ITS ---
Test Reason : LE Blood Pressure : / mmHG Vent. Rate : 098 BPM Atrial Rate : 098 BPM P-R Int : 208 ms QRS Dur : 088 ms QT Int : 350 ms P-R-T Axes : 057 061 059 degrees QTc Int : 446 ms Normal sinus rhythm Normal ECG Confirmed by LUCY MILES, KHANH ([id number]), scientific editor CAMPOS FERRARA ([id number]) on 03/16/2022 1:49:41 PM Referred By: ANTONINA Confirmed By:KHANH AYALA MD
--- NOTE | 2022-03-16 05:43 | RAD_ITS ---
STUDY: X-RAY - RIGHT ANKLE REASON FOR EXAM: Male, 46 years old. injury TECHNIQUE: 3 view(s) of the ankle. COMPARISON: None. FINDINGS: BONES: No fracture demonstrated. Plantar calcaneal spur. JOINTS: No dislocation. SOFT TISSUES: Unremarkable. RAD/Ankle min 3 Views IMPRESSION: No evidence of fracture. Electronically Signed: Alexia Aldridge MD at 6:06 EDT ,
--- NOTE | 2022-03-16 05:44 | EDS_ITS ---
HPI History of Present Illness Chief Complaint: Lower Extremity Injury Informant: patient Occured/Mechanism Mechanism/Context: Yes fall Onset/Context/Timing Onset: Today (JPTA) Context: Sudden Onset Timing: Continuous Quality of Pain: Aching Location: medial R ankle Current Severity: Moderate Maximum Severity: Severe Worsened by: moving, trying to bear weight R foot Relieved by: remaining still/EMS splint Associated Symptoms Associated Symptoms: Positive for Parasthesia (chronic R toes and L fingers, unchanged); Negative for Weakness Narrative Narrative: Patient was running from the police after siphoning gasoline from vehicles around 4-5 AM, he went down a grassy hill and slipped, twisting his right ankle causing severe pain to the medial aspect. He has chronic problems in his right ankle including nerve damage, fracture, skin graft according to the patient. He states he did not injure anything else but about 10 minutes after the fall, while police were discussing with him, he started having left-sided nonradiating burning chest pain that is gone now. Nonpleuritic. States this feels like a common symptom that he gets when he gets worked up and anxious. He has a history of heart problems, has stents, states he usually feels different discomfort and goes down his left arm which this did not do. [facility] Medical History ADD (attention deficit disorder) Anxiety Asthma Atherosclerosis of coronary artery of [place] heart without angina pectoris Benzodiazepine withdrawal Chronic pain CPAP (continuous positive airway pressure) dependence Desire for detoxification DVT (deep venous thrombosis) Exertional chest pain Generalized anxiety disorder with panic attacks GERD (gastroesophageal reflux disease) Hypersomnia Leucocytosis Migraines Moderate persistent asthma without complication Noncompliance with CPAP treatment Obstructive sleep apnea On home oxygen therapy Opiate abuse, continuous Opiate dependence Palpitations Poor dentition PTSD (post-traumatic stress disorder) Substance abuse Tobacco abuse Home Medications albuterol sulfate 90 mcg/actuation aerosol inhaler 2 puff inhalation Q6H PRN Sob &/Or Wheezing 04/14/19 [History Last Taken 01/18/21 15:00] omeprazole 40 mg capsule,delayed release 40 mg PO BID GERD #30 caps 04/29/19 [History Last Taken 01/18/21 12:00] ondansetron HCl 4 mg tablet 4 mg PO Q8H PRN Nausea 04/19/20 [History Last Taken 04/18/20 09:00] clonazepam 1 mg tablet 1 mg PO TID anxiety 08/22/20 [History Last Taken 01/18/21 12:00] aspirin 81 mg tablet,delayed release 81 mg PO DAILY@0800 heart health 11/10/20 [History Last Taken 01/18/21 12:00] budesonide-formoterol HFA 160 mcg-4.5 mcg/actuation aerosol inhaler 2 puff inhalation DAILY respiratory 11/10/20 [History Last Taken 11/10/20] dextroamphetamine-amphetamine 30 mg tablet 30 mg PO BID ADD 12/15/20 [History Last Taken Unknown] nitroglycerin 0.4 mg sublingual tablet 0.4 mg sublingual Q5M PRN Cardiac/Chest Pain #25 tabs 01/03/21 [Rx Last Taken Unknown] oxycodone-acetaminophen 10 mg-325 mg tablet (Percocet) 1 tab PO Q6H PRN Pain, Severe 02/07/21 [History Last Taken Unknown] atorvastatin 40 mg tablet 40 mg PO QHS cholesterol #90 tabs 09/11/21 [Rx Last Taken Unknown] ticagrelor 90 mg tablet 90 mg PO BID blood thinner #180 tabs 09/11/21 [Rx Last Taken Unknown] Allergy/AdvReac Type Severity Reaction Status Date / Time naloxone Allergy Hives Verified 03/16/22 05:52 Family History Mother , Age 56 Cancer stomach Heart disease CVA (cerebral vascular accident) Father , Age 52 Heart disease CAD (coronary artery disease) Surgical History History of artificial skin graft History of coronary angioplasty (04/21/20) History of coronary artery stent placement (05/01/19) Hx of heart artery stent Social History household members: significant other Smoking Status: Current every day smoker tobacco type: cigarettes second hand exposure: Yes alcohol intake: never substance use type: opiates caffeine: Yes Type: carbonated beverages ROS ROS ED Constitutional Constitutional ED: Denies chills or fever(s) Eyes Eyes: Denies change in vision or diplopia ENT ENT ED: Denies rhinorrhea or sore throat Cardiovascular Cardiovascular: Reports chest pain; Denies palpitations Respiratory/Chest Respiratory/Chest: Denies cough or dyspnea Gastrointestinal Gastrointestinal: Denies abdominal pain, diarrhea, nausea or vomiting Genitourinary Genitourinary ED: Denies dysuria or hematuria Musculoskeletal Musculoskeletal: Reports extremity pain; Denies neck pain Integumentary Denies Abrasions, rash or wounds Neurologic Neurologic: Reports paresthesias; Denies weakness Psychiatric Psychiatric: Reports anxiety; Denies suicidal thoughts EXAM Physical Exam Const Vital Signs: 03/16/22 05:46 Temperature 98.4 F Temperature Source Temporal Pulse Rate 119 H Respiratory Rate 18 Blood Pressure 140/114 H Blood Pressure Mean 122 Pulse Ox 95 Oxygen Delivery Method Room Air Positive well nourished and well developed General Appearance ED: well developed and NAD HEENT Reports moist mucous membranes normocephalic and atraumatic Eyes PERRL and EOMs intact bilaterally Neck full ROM and supple Resp normal respiratory effort and clear to auscultation bilaterally Cardio regular rate, regular rhythm and no murmurs GI non-tender and non-distended Auscultation: normoactive bowel sounds Palpation: soft Back/Spine normal ROM and normal to inspection General Back: other FROM Extremity normal to inspection Extremity Narrative: Localized swelling and tenderness to the right medial malleolus. Patient also indicates pain distally in the soft tissues including the arch but no bony midfoot tenderness. No tenderness in the toes. Limited range of motion of the ankle due to pain. No deformity. Nontender lateral malleolus, the tibia proximal to the medial malleolus, and the proximal fibula/knee. General Extremety ED: Negative for edema or pulses abnormal General Extremity: Negative for edema or pulses abnormal Neuro oriented x3, no focal motor deficits and no sensory deficits noted Sensorium / Orientation: alert Motor Exam: strength 5/5 throughout Psych mental status grossly normal and thought process normal Mood & Affect: anxious Skin no wounds Rashes: no rashes MDM MDM MDM Narrative Medical decision making narrative: Three-view x-ray series of the right ankle negative on my interpretation. Radiology interpretation pending. Patient was given an ice pack, Naprosyn, he has had multiple injuries to this ankle in the past, he has a boot orthosis as well as an Aircast and crutches at home. I advised him to use the Aircast and crutches if needed, so we are giving him an Adrián wrap for now to get home with. He has no more chest discomfort, his EKG is normal, when compared to the EMS EKG that was performed when he had chest discomfort, it is unchanged they were both normal. He does not want further work-up and I think that is fine, we discussed reasons to return he is comfortable with that plan. Rhythm Strip Rhythm Strip: Sinus Rhythm Rate: 95 Ectopy: None EKG Initial EKG: Attestation: I personally reviewed and interpreted this EKG as follows: Interpretation: Sinus Rhythm and No Acute Injury Pattern Comments: Normal EKG; unchanged compared with EMS EKG except for rate was faster. Discharge Plan Triage Chief Complaint: Lower Extremity Injury ED Provider: Aleksander Amaro Dx/Rx/DC Orders Clinical Impression: Right ankle sprain, Chest pain, Anxiety Instructions: ED Ankle Sprain (Adult) Prescriptions: No Action albuterol sulfate 90 mcg/actuation HFA aerosol inhaler 2 puff INHALATION Q6H PRN (Reason: Sob &/Or Wheezing) omeprazole 40 mg capsule,delayed release(DR/EC) 40 mg PO BID Qty: 30 Label Comments: TAKE ONE CAPSULE BY MOUTH EVERY DAY ondansetron HCl 4 mg tablet 4 mg PO Q8H PRN (Reason: Nausea) clonazepam 1 MG tablet 1 mg PO TID budesonide-formoterol 1 INHALER inhaler 2 puff INHALATION DAILY aspirin 81 MG tablet 81 mg PO DAILY@0800 dextroamphetamine-amphetamine 30 mg tablet 30 mg PO BID Label Comments: TAKE ONE TABLET BY MOUTH TWICE DAILY oxycodone-acetaminophen [Percocet] 10-325 mg Tablet 1 tab PO Q6H PRN (Reason: Pain, Severe) nitroglycerin 0.4 mg tablet, sublingual 0.4 mg sublingual Q5M PRN (Reason: Cardiac/Chest Pain) Qty: 25 3RF Rx Instructions: as directed atorvastatin 40 mg tablet 40 mg PO QHS Qty: 90 3RF ticagrelor 90 mg tablet 90 mg PO BID Qty: 180 3RF Primary Care Provider: Isak Wallace Referrals: Isak Wallace, [Primary Care Provider] - 1 Week if not improving Activity Restrictions/Additional Instructions: Going forward, use the Aircast and crutches as needed for your right ankle pain. Disposition Disposition: Home, Self Care
[2022-03-16 05:46] VITALS: BP 140/114; PULSE 119; RESP 18; TEMP 36.9; O2SAT 95; BMI 22.6
[2022-03-16] MEDS: Naproxen 250 MG Tablet 500 MG PO (06:12)
== END 2022-03-16 06:20 | disposition home or self-care (01) ==
PROVIDERS: Emergency Provider Emergency Medicine; PCP Family Medicine; Visit Provider Emergency Medicine
DX: S93.401A Sprain of unspecified ligament of right ankle, initial encounter (principal); R07.9 Chest pain, unspecified; F41.9 Anxiety disorder, unspecified; Z72.0 Tobacco use; I25.10 Atherosclerotic heart disease of native coronary artery without angina pectoris; W17.81XA Fall down embankment (hill), initial encounter; Y93.02 Activity, running; Y92.828 Other wilderness area as the place of occurrence of the external cause; G47.33 Obstructive sleep apnea (adult) (pediatric); Z99.89 Dependence on other enabling machines and devices; K21.9 Gastro-esophageal reflux disease without esophagitis; Z86.718 Personal history of other venous thrombosis and embolism
CPT/HCPCS: 73610; 93005; 99284

== ENCOUNTER 2022-11-01 06:50 | Observation (INO) | payer MEDICAID, SELFPAY ==
[2022-11-01 06:52] VITALS: BP 164/74; PULSE 60; RESP 19; TEMP 36.6; O2SAT 99; BMI 18.3
--- NOTE | 2022-11-01 06:57 | EKG12_ITS ---
Test Reason : CP Blood Pressure : / mmHG Vent. Rate : 053 BPM Atrial Rate : 053 BPM P-R Int : 164 ms QRS Dur : 080 ms QT Int : 452 ms P-R-T Axes : 062 076 061 degrees QTc Int : 424 ms Sinus bradycardia Otherwise normal ECG Confirmed by ALMA MILES, GEORGE ([id number]), senior editor ZOHAIB SHARMA ([id number]) on 11/05/2022 10:42:16 AM Referred By: BB Confirmed By:SRINIVASAN MARQUEZ MD
--- NOTE | 2022-11-01 07:15 | RAD_ITS ---
EXAM: XR CHEST, 1 VIEW CLINICAL INDICATION: chest pain TECHNIQUE: Frontal view of the chest. This report was created using [employer] report generation technology. COMPARISON: XR Chest dated 02/07/2021 FINDINGS: LUNGS AND PLEURAL SPACES: Normal. No consolidation or edema. No pneumothorax. No effusion. HEART: Normal heart size. MEDIASTINUM: No mediastinal or hilar mass. BONES/JOINTS: No acute abnormality. RAD/Chest 1 View (Portable) IMPRESSION: No acute cardiopulmonary abnormality. No interval change Electronically Signed: Sonny Miller MD at 7:53 EDT ,
[2022-11-01 07:17] LABS: Absolute Neutrophil Count 10.3 X10^3/uL (2.0-7.7); Basophil# 0.04 X10^3/uL; Basophil% 0.2 % (0-1); Eosinophil# 0.12 X10^3/uL; Eosinophils% 0.7 % (0-5); Hematocrit 39.1 % (40-54); Hemoglobin 13.3 g/dL (13.0-16.5); Lymphocyte % 35.9 % (19-41); Mean Corpuscular Hgb 31.8 pg (27.0-32.0); Mean Corpuscular Volume 93.5 fL (80-94); Mean Platelet Vol. 9.4 fl (6.2-12.0); Monocyte# 1.12 X10^3/uL; Monocyte% 6.2 % (0-10); NRBC Flagged by Analyzer 0 % (0-5); Neutrophil # 10.25 X10^3/uL (2.7-7.7); Neutrophil % 56.6 % (47-70); POSITIVE DIFFERENTIAL YES; POSITIVE MORPHOLOGY YES; Platelet Count 326 K/mm3 (150-450); RBC Distribution Width CV 12.1 % (11.6-14.6); RBC Distribution Width SD 41.7 fl (35.1-43.9); Red Blood Count 4.18 M/mm3 (4.6-6.2); White Blood Count 18.1 K/mm3 (4.4-11.0)
[2022-11-01 07:18] LABS: Differential Indicated SCAN CRITERIA MET
--- NOTE | 2022-11-01 07:23 | ED.VIS.CHEST ---
HPI History of Present Illness Chief Complaint: Chest Pain Detail of Chief Complaint: Exertional chest pain with a history of coronary disease with stents. Informant: patient Onset/Context/Timing Onset: Weeks Activity at onset: gradual Timing: Intermittent Quality: Positive for Dull and Heaviness Location: Substernal Current Severity: Gone Maximum Severity: Mild Worsened By: Exertion Relieved By: Rest Associated Symptoms: Positive for Nausea, Diaphoresis, Dyspnea and Lightheadedness; Negative for Cough, Fever, Acid Reflux or Palpitations Narrative Narrative: 47-year-old male history of coronary disease with stents, PTSD, former substance abuse. Believes his last heart catheter was around 2020. Recently was incarcerated. Just got out of detention. States that he has been having more frequent and more intense chest pain over the last month. Primarily associated with exertion sometimes at rest. Improves with rest. Has associated dyspnea and nausea when he gets it. Denies any hemoptysis. No leg pain or swelling. No recent travel or surgery. Says he does not take his nitro very often but when he does it does help. Also states he has had a recent 30 pound weight loss over the last month. Prior Similar Symptoms: Yes Recent Illness/Hospitalization: No CVD Risk Factors: Positive for Hypertension and Smoking PE Risk Factors: Negative for Recent Travel/Surgery, Recent Immobilization, Prior DVT or PE, Cancer or OCP + Smoking + >/=35 TAD Risk Factors: Negative for Marfan's Syndrome [facility] Medical History ADD (attention deficit disorder) Anxiety Asthma Atherosclerosis of coronary artery of [place] heart without angina pectoris Benzodiazepine withdrawal Chronic pain CPAP (continuous positive airway pressure) dependence Desire for detoxification DVT (deep venous thrombosis) Exertional chest pain Generalized anxiety disorder with panic attacks GERD (gastroesophageal reflux disease) Hypersomnia Leucocytosis Migraines Moderate persistent asthma without complication Noncompliance with CPAP treatment Obstructive sleep apnea On home oxygen therapy Opiate abuse, continuous Opiate dependence Palpitations Poor dentition PTSD (post-traumatic stress disorder) Substance abuse Tobacco abuse Home Medications aspirin 81 mg tablet,delayed release 81 mg PO DAILY@0800 heart health 11/10/20 [History Last Taken 01/18/21 12:00] nitroglycerin 0.4 mg sublingual tablet 0.4 mg sublingual Q5M PRN Cardiac/Chest Pain #25 tabs 01/03/21 [Rx Last Taken Unknown] Allergy/AdvReac Type Severity Reaction Status Date / Time naloxone Allergy Hives Verified 11/01/22 06:52 Family History Mother , Age 56 Cancer stomach Heart disease CVA (cerebral vascular accident) Father , Age 52 Heart disease CAD (coronary artery disease) Surgical History History of artificial skin graft History of coronary angioplasty (04/21/20) History of coronary artery stent placement (05/01/19) Hx of heart artery stent Social History household members: significant other Smoking Status: Current every day smoker tobacco type: cigarettes second hand exposure: Yes alcohol intake: never substance use type: opiates caffeine: Yes Type: carbonated beverages ROS ROS ED ROS Narrative Exertional chest pain. Weight loss. Review of Systems ROS Unobtainable: Denies due to encephalopathy Constitutional Constitutional ED: Denies chills or fever(s) Eyes Eyes: Reports none ENT ENT ED: Denies ear pain Cardiovascular Cardiovascular: Reports as per HPI and chest pain; Denies palpitations or racing heartbeat Respiratory/Chest Respiratory/Chest: Reports dyspnea and dyspnea on exertion; Denies cough Gastrointestinal Gastrointestinal: Denies abdominal pain Genitourinary Genitourinary ED: Denies dysuria or hematuria Musculoskeletal Musculoskeletal: Denies arthralgias Integumentary Denies abscess Neurologic Neurologic: Denies headache(s) Psychiatric Psychiatric: Denies anxiety or depression Endocrine Endocrinology: Denies cold intolerance Hematologic/Lymphatic Hematologic/Lymphatic: Denies easy bleeding Allergic/Immunologic Allergic/Immunologic ED: Denies mouth swelling EXAM Physical Exam Narrative Exam Narrative: 39-year-old male no acute distress. Vital signs stable afebrile. Pulse ox 9 9% on room air no signs hypoxia. HEENT exam poor dentition. Otherwise unremarkable. Neck nontender no JVD. No lymphadenopathy. Lungs clear to auscultation bilaterally. Chest wall nontender. Heart regular rate and rhythm rate about 60 no murmur. Abdomen soft nontender. Moving all 4 extremities. Calves are nontender without edema or cords. Equal symmetrical radial pulses. Back nontender. Neurologically is awake and alert with no focal motor deficits. Const Vital Signs: 11/01/22 06:52 11/01/22 06:54 11/01/22 06:57 Temperature 97.8 F Temperature Source Temporal Pulse Rate 60 Respiratory Rate 19 H Respiratory Effort Normal Respiratory Pattern Normal Blood Pressure 164/74 H Blood Pressure Mean 104 Pulse Ox 99 Oxygen Delivery Method Room Air Room Air Positive well nourished; Negative for obese, cachectic, contractures or unkempt General Appearance ED: Negative for unkempt, cachectic, contractures or pallor Nutritional Appearance: Negative for cachectic or obese HEENT Reports moist mucous membranes normocephalic and atraumatic; Negative for trauma or tenderness Eyes PERRL and EOMs intact bilaterally General Eye ED: Negative for pale conjunctiva or scleral icterus Neck no lymphadenopathy, supple and no JVD Chest Wall inspection of chest normal and palpation of chest normal Chest: Negative for tenderness Resp normal respiratory effort and clear to auscultation bilaterally Effort and Inspection: Negative for respiratory distress Auscultation: Negative for rales, rhonchi or wheezes Cardio regular rate, regular rhythm, S1 normal heart sound, S2 normal heart sound and no murmurs Peripheral Pulses: pulses 2+ throughout GI normal to inspection, nondistended, normoactive bowel sounds, soft to palpation, non-tender, non-distended and no masses Back/Spine no CVA tenderness and no thoracic nor lumbar tenderness General Back: Negative for CVA tenderness Cervical Spine: Negative for cervical spine tenderness Extremity normal to inspection General Extremety ED: Negative for edema or pulses abnormal General Extremity: Negative for edema or pulses abnormal Neuro oriented x3 and CN's II-XII intact bilaterally Sensorium / Orientation: awake, alert, oriented to person, oriented to place and oriented to time; Negative for confused or lethargic Motor Exam: strength 5/5 throughout Psych mental status grossly normal Appearance: Negative for unkempt Attitude: No agitated Mood & Affect: Negative for depressed, anxious or tearful Skin no rashes or lesions noted and no wounds General Skin Exam: Negative for jaundice or pallor Rashes: No rashes noted Trauma: Negative for abrasion Heart Score History: Moderately Suspicious ECG: Normal Age: >45 - <65 years Risk Factors: >/= 3 Risk Factors or History of CAD Score: 4 MDM MDM MDM Narrative Medical decision making narrative: 47-year-old male with concerning history of chest pain with a history of CAD with stents. Pain is exertional but better with rest and nitroglycerin. His exam is benign. He is also recently had a 30 pound weight loss. Undergo cardiac work-up. At this time we will probably need to be admitted for further cardiac testing. Repeat exam at 7:47 AM patient doing well. Remains pain-free in the emergency department. Due to his known coronary disease and stents with a history of more frequent and intense exertional chest pain I do feel he warrants admission and further evaluation. I have the hospitalist on page. History & Record Review Discussion w/independent historian: Patient Lab Data Attestation: I reviewed the patient's lab results. Lab results narrative: CBC shows a white count 18.1. H&H 13 and 39. Platelets 326. Chest x-ray portable shows no acute abnormality. Electrolytes show potassium of 3.2. Gap of 4. BUN 29 creatinine 0.77. Glucose 112. Initial troponin is 19. Labs: Laboratory Results - last 24 hr 11/01/22 11/01/22 07:00 07:00 WBC 18.1 H RBC 4.18 L Hgb 13.3 Hct 39.1 L MCV 93.5 MCH 31.8 MCHC 34.0 RDW Std Deviation 41.7 RDW Coeff of Denia 12.1 Plt Count 326 MPV 9.4 Immature Gran % (Auto) 0.400 Neut % (Auto) 56.6 Lymph % (Auto) 35.9 [place] % (Auto) 6.2 Eos % (Auto) 0.7 Baso % (Auto) 0.2 Absolute Neuts (auto) 10.3 H Absolute Lymphs (auto) 6.50 H Nucleated RBC % 0 Differential Comment SCANNED Reactive Lymphocytes RARE Sodium 140 Potassium 3.2 L Chloride 103 Carbon Dioxide 33.0 H Anion Gap 4 L BUN 29 H Creatinine 0.77 Estim Creat Clear Calc 96.58 Est GFR (MDRD) Af Amer 138 Est GFR (MDRD) Non-Af 114 BUN/Creatinine Ratio 37.5 H Glucose 112 H Calcium 9.0 Troponin I High Sens 19 Radiography Chest X-Ray - ED: 1 View, Read by ED Physician, Normal, Heart, Lungs, Mediastinum, Bony Structures and No Acute Disease Rhythm Strip Rhythm Strip: Sinus Rhythm Rate: 53 Ectopy: None EKG Initial EKG: Attestation: I personally reviewed and interpreted this EKG as follows: Interpretation: No Acute Injury Pattern and Sinus Bradycardia Comments: Sinus bradycardia rate of 53. No acute signs of NC or ischemia. Discharge Plan Triage Chief Complaint: Chest Pain ED Provider: Michael Zamora Dx/Rx/DC Orders Clinical Impression: Chest pain, History of coronary artery stent placement, History of posttraumatic stress disorder (PTSD), History of drug abuse Prescriptions: No Action aspirin 81 MG tablet 81 mg PO DAILY@0800 nitroglycerin 0.4 mg tablet, sublingual 0.4 mg sublingual Q5M PRN (Reason: Cardiac/Chest Pain) Qty: 25 3RF Rx Instructions: as directed Primary Care Provider: Isak Wallace Referrals: Isak Wallace DO [Primary Care Provider] - Disposition Disposition: Acute Care Hospital [facility]
[2022-11-01 07:28] LABS: Differential Comment SCANNED; Reactive Lymphocyte RARE
[2022-11-01 07:38] LABS: Anion Gap 4 (5-15); BUN 29 mg/dL (7-18); BUN/Creat Ratio 37.5 RATIO (10-20); Chloride 103 mmol/L (98-107); Creatinine, Serum 0.77 mg/dL (0.70-1.30); EST Glomerular Filtration Rate 114 mL/min (>60); Est Glom Filt Rate - Afr Amer 138 mL/min (>60); Estimated Creatinine Clearance 96.58 ml/min; Glucose 112 mg/dL (74-106); Potassium 3.2 mmol/L (3.5-5.1); Sodium Level 140 mmol/L (136-145); Troponin-I HS (w/2H Reflex) 19 pg/mL (3.0-78.0)
[2022-11-01 07:52] VITALS: BP 140/78; PULSE 58; RESP 21; O2SAT 100
--- NOTE | 2022-11-01 08:15 | HP.PCM.HOS_ITS ---
HPI - General General Date of Admission: 11/01/22 Date of Service: 11/01/22 Chief Complaint: Chest pain HPI Narrative RAYMOND ZAMBRANO, is a 47 M who presents with chest pain. It is variable can be with activity, relieved with rest. Chest pain goes down his arm and up his jaw. Associated with diaphoresis and shortness of breath. Similar to when he has had prior stents in the past. He had presented to the emergency room and his work-up here was unremarkable. The hospital service was contacted for admission. [facility] Medical History ADD (attention deficit disorder) Anxiety Asthma Atherosclerosis of coronary artery of [place] heart without angina pectoris Benzodiazepine withdrawal Chronic pain CPAP (continuous positive airway pressure) dependence Desire for detoxification DVT (deep venous thrombosis) Exertional chest pain Generalized anxiety disorder with panic attacks GERD (gastroesophageal reflux disease) Hypersomnia Leucocytosis Migraines Moderate persistent asthma without complication Noncompliance with CPAP treatment Obstructive sleep apnea On home oxygen therapy Opiate abuse, continuous Opiate dependence Palpitations Poor dentition PTSD (post-traumatic stress disorder) Substance abuse Tobacco abuse Home Medications aspirin 81 mg tablet,delayed release 81 mg PO DAILY@0800 [facility] 11/10/20 [History Last Taken 01/18/21 12:00] nitroglycerin 0.4 mg sublingual tablet 0.4 mg sublingual Q5M PRN Cardiac/Chest Pain #25 tabs 01/03/21 [Rx Last Taken Unknown] Allergy/AdvReac Type Severity Reaction Status Date / Time naloxone Allergy Hives Verified 11/01/22 06:52 Family History Mother , Age 56 Cancer stomach Heart disease CVA (cerebral vascular accident) Father , Age 52 Heart disease CAD (coronary artery disease) Surgical History History of artificial skin graft History of coronary angioplasty (04/21/20) History of coronary artery stent placement (05/01/19) Hx of heart artery stent Social History household members: significant other Smoking Status: Current every day smoker tobacco type: cigarettes second hand exposure: Yes alcohol intake: never substance use type: opiates caffeine: Yes Type: carbonated beverages ROS ROS Narrative Patient states that he has lost 30 pounds over the past several months. Was recently in long term for 3 weeks but was losing weight before that. Was eating some long term food but did not have much of an appetite for long term food. Does get constipated generally uses loose stools when he was withdrawing from the fentanyl while he was in nursing home. Denies ever injecting heroin. Denies ever having HIV. Denies having sex with prostitutes nor sex with men. All review of systems were negative except as mentioned above in the history of present illness and the other review of systems. Vital Signs Vital Signs Vital Signs: 11/01/22 06:52 11/01/22 06:54 11/01/22 06:57 Temperature 36.6 C Temperature Source Temporal Pulse Rate 60 Respiratory Rate 19 H Respiratory Effort Normal Respiratory Pattern Normal Blood Pressure 164/74 H Blood Pressure Mean 104 Pulse Ox 99 Oxygen Delivery Method Room Air Room Air 11/01/22 07:52 Temperature Temperature Source Pulse Rate 58 L Respiratory Rate 21 H Respiratory Effort Respiratory Pattern Blood Pressure 140/78 H Blood Pressure Mean 98 Pulse Ox 100 Oxygen Delivery Method Room Air Weight Weight: 58.2 kg Body Mass Index (BMI) 18.3 Physical Exam Narrative - Physical Exam General: Alert, Oriented x3, Cooperative HEENT: Atraumatic, PERRLA, EOMI, Normocephalic Oral: Moist Mucosa, No Gingival or Mucosal Lesions/ Ulcerations Neck: Supple, No JVD, Negative Carotid Bruits Lungs: Clear to auscultation, Normal air movement. Old broken left ribs. Cardiovascular: Regular rate, Normal S1, Normal S2, No murmurs Abdomen: Bowel Sounds Present, Soft, Non Tender, Non-Distended, No Hepato- splenomegaly Extremities: No clubbing, No cyanosis, No edema, Capillary Refill Less than 3 Seconds Skin: No rashes, No breakdown Musculoskeletal: No Tenderness to Palpation of Joints or Extremities Neurological: Neuro grossly intact Psych/Mental Status: Normal Affect, Appropriate Results Lab / Micro Data Attestation: I reviewed the patient's lab results. Result Diagrams: 11/01/22 07:00 11/01/22 07:00 Labs: Laboratory Results - last 24 hr 11/01/22 07:00: WBC 18.1 H, RBC 4.18 L, Hgb 13.3, Hct 39.1 L, MCV 93.5, MCH 31.8, MCHC 34.0, RDW Std Deviation 41.7, RDW Coeff of Denia 12.1, Plt Count 326, MPV 9.4, Immature Gran % (Auto) 0.400, Neut % (Auto) 56.6, Lymph % (Auto) 35.9, [place] % (Auto) 6.2, Eos % (Auto) 0.7, Baso % (Auto) 0.2, Absolute Neuts (auto) 10.3 H, Absolute Lymphs (auto) 6.50 H, Nucleated RBC % 0, Differential Comment SCANNED, Reactive Lymphocytes RARE 11/01/22 07:00: Sodium 140, Potassium 3.2 L, Chloride 103, Carbon Dioxide 33.0 H , Anion Gap 4 L, BUN 29 H, Creatinine 0.77, Estim Creat Clear Calc 96.58, Est GFR (MDRD) Af Amer 138, Est GFR (MDRD) Non-Af 114, BUN/Creatinine Ratio 37.5 H, Glucose 112 H, Calcium 9.0, Troponin I High Sens 19 Rhythm Strip Rhythm Strip: Sinus Rhythm Rate: 53 Ectopy: None EKG Initial EKG: Attestation: I personally reviewed and interpreted this EKG as follows: Prior EKG tracings: available for review EKG Rhythm Intrepretation: Sinus Rhythm Radiology Impression Chest X-Ray 11/01/22 07:15 IMPRESSION: No acute cardiopulmonary abnormality. No interval change Electronically Signed: Sonny Miller MD at 7:53 EDT , Assessment & Plan Assessment/Plan (1) Unstable angina: PLAN: No evidence of myocardial infarction at this time.. Plan is to order a nuclear stress test. Did discuss with cardiology lab and they would not be able to get contrast form today so that be performed tomorrow. Let patient as troponins become scantly elevated or if he does have an abnormal stress test, consult cardiology. Check lipid panel Continue with aspirin (2) Protein calorie malnutrition: PLAN: Unintentional Lost 30 pounds over the past several months We will check HIV, patient is aware and agreeable Start supplements Consult nutrition PLAN: Plan VTE prophylaxis: Not indicated at this time. Charges/Coding Visit Charges Inpatient E&M: 83367 Init Hosp L2
--- NOTE | 2022-11-01 08:16 | EKG12_ITS ---
Test Reason : Blood Pressure : / mmHG Vent. Rate : 051 BPM Atrial Rate : 051 BPM P-R Int : 172 ms QRS Dur : 096 ms QT Int : 474 ms P-R-T Axes : 070 080 074 degrees QTc Int : 436 ms Sinus bradycardia Minimal voltage criteria for LVH, may be normal variant ( Sokolow-Figueroa ) Borderline ECG When compared with ECG of 01-NOV-2022 06:53, MANUAL COMPARISON REQUIRED, DATA IS UNCONFIRMED Confirmed by ALMA MILES, GEORGE ([id number]), design editor CAMPOS FERRARA ([id number]) on 11/06/2022 7:48:32 AM Referred By: RAFAELA Confirmed By:SRINIVASAN MARQUEZ MD
[2022-11-01 08:41] VITALS: BP 113/85; PULSE 60; RESP 14; TEMP 36.5; O2SAT 99
[2022-11-01 08:41] LABS: AST(SGOT) 11 U/L (15-37); Alanine Aminotransfer ALT/SGPT 25 U/L (16-61); Albumin, Serum 3.9 g/dL (3.2-5.0); Alkaline Phosphatase 94 U/L (45-117); Bilirubin, Direct 0.14 mg/dL (0.00-0.30); Magnesium 2.2 mg/dL (1.6-2.6); Protein, Total 6.9 g/dL (6.4-8.2)
[2022-11-01 08:44] VITALS: BMI 17.7
[2022-11-01] MEDS: Potassium Chloride Oral Tablet 20 MEQ 40 MEQ PO (09:06)
[2022-11-01] MEDS: Ondansetron 4 MG/2 ML Vial IV (09:06)
[2022-11-01] MEDS: 0.9% Saline Lock 10 ML Syringe IV ×2 (09:06→22:25)
[2022-11-01 09:44] LABS: Troponin-I HS 18 pg/mL (3.0-78.0)
[2022-11-01 10:10] LABS: HIV - WCH Non-Reactive (Nonreactive)
--- NOTE | 2022-11-01 11:09 | EKG12_ITS ---
Test Reason : AM EKG Blood Pressure : / mmHG Vent. Rate : 054 BPM Atrial Rate : 054 BPM P-R Int : 200 ms QRS Dur : 092 ms QT Int : 442 ms P-R-T Axes : 066 072 069 degrees QTc Int : 419 ms Sinus bradycardia Otherwise normal ECG When compared with ECG of 01-NOV-2022 11:16, MANUAL COMPARISON REQUIRED, DATA IS UNCONFIRMED Confirmed by ANA MILES, ROSENDA ([id number]), assistant editor CAMPOS FERRARA ([id number]) on 11/02/2022 1:20:55 PM Referred By: FOX Confirmed By:ROSENDA PEREZ MD
[2022-11-01 13:06] LABS: Troponin-I HS 18 pg/mL (3.0-78.0)
[2022-11-01] MEDS: Ensure Plus High Protein 120 ML LIQUID PO ×2 (14:44→17:32)
[2022-11-01 14:47] VITALS: BP 132/85; PULSE 76; RESP 12; TEMP 36.6; O2SAT 100
[2022-11-01 20:58] VITALS: BP 151/87; PULSE 63; RESP 18; TEMP 36.4; O2SAT 100
[2022-11-01] MEDS: Mag Hydrox/Al Hydrox/Simeth 30 ML UDC PO (22:25)
[2022-11-02 03:00] VITALS: BP 129/72; PULSE 63; RESP 18; TEMP 36.6; O2SAT 98
[2022-11-02] MEDS: Acetaminophen 325 MG Tablet 650 MG PO (03:20)
[2022-11-02] MEDS: Ondansetron 4 MG/2 ML Vial IV ×2 (03:21→13:21)
[2022-11-02] MEDS: 0.9% Saline Lock 10 ML Syringe IV ×2 (03:21→13:21)
--- NOTE | 2022-11-02 05:55 | EKG12_ITS ---
Test Reason : Blood Pressure : / mmHG Vent. Rate : 056 BPM Atrial Rate : 056 BPM P-R Int : 186 ms QRS Dur : 096 ms QT Int : 426 ms P-R-T Axes : 074 078 072 degrees QTc Int : 411 ms Sinus bradycardia Otherwise normal ECG When compared with ECG of 01-NOV-2022 08:21, MANUAL COMPARISON REQUIRED, DATA IS UNCONFIRMED Confirmed by ANA MILES, ROSENDA ([id number]), greeting card editor CAMPOS FERRARA ([id number]) on 11/02/2022 1:21:58 PM Referred By: RAFAELA Confirmed By:ROSENDA PEREZ MD
[2022-11-02 06:02] LABS: Absolute Lymphocyte Count 3.47 X10^3/uL (0.83-4.51); Absolute Neutrophil Count 5.7 X10^3/uL (2.0-7.7); Basophil# 0.03 X10^3/uL; Basophil% 0.3 % (0-1); Eosinophil# 0.07 X10^3/uL; Eosinophils% 0.7 % (0-5); Hematocrit 36.1 % (40-54); Hemoglobin 12.1 g/dL (13.0-16.5); Lymphocyte # 3.47 X10^3/ul (0.83-4.51); Lymphocyte % 35.2 % (19-41); Mean Corp Hgb Conc 33.5 g/dL (32-36); Mean Corpuscular Hgb 31.9 pg (27.0-32.0); Mean Corpuscular Volume 95.3 fL (80-94); Mean Platelet Vol. 9.5 fl (6.2-12.0); Monocyte# 0.62 X10^3/uL; Monocyte% 6.3 % (0-10); NRBC Flagged by Analyzer 0 % (0-5); Neutrophil # 5.65 X10^3/uL (2.7-7.7); Neutrophil % 57.3 % (47-70); Platelet Count 260 K/mm3 (150-450); RBC Distribution Width CV 12.2 % (11.6-14.6); RBC Distribution Width SD 42.9 fl (35.1-43.9); Red Blood Count 3.79 M/mm3 (4.6-6.2); White Blood Count 9.9 K/mm3 (4.4-11.0)
[2022-11-02 06:32] VITALS: BP 147/81; PULSE 60; RESP 16; TEMP 36.4; O2SAT 100
[2022-11-02] MEDS: Aspirin E.C. 81 MG Tablet PO (06:34)
[2022-11-02 06:57] LABS: Anion Gap 2 (5-15); BUN 24 mg/dL (7-18); BUN/Creat Ratio 40.1 RATIO (10-20); Calcium,Total 8.6 mg/dL (8.5-10.1); Chloride 106 mmol/L (98-107); EST Glomerular Filtration Rate 153 mL/min (>60); Est Glom Filt Rate - Afr Amer 185 mL/min (>60); Estimated Creatinine Clearance 121.39 ml/min; Glucose 84 mg/dL (74-106); Potassium 3.9 mmol/L (3.5-5.1); Sodium Level 139 mmol/L (136-145)
--- NOTE | 2022-11-02 08:00 | PN.HOSP_ITS ---
Reason for Visit Reason for Visit: Diagnoses Unspecified protein-calorie malnutrition (11/01/22) Unstable angina (11/01/22) Subjective Subjective no further chest pain. Complains of abdominal pain. Objective Data Objective Data Vital Signs: Vital Signs Temp Pulse Resp BP Pulse Ox O2 Del Method 36.4 C L 60 16 147/81 H 100 Room Air 11/02/22 06:32 11/02/22 06:32 11/02/22 06:32 11/02/22 06:32 11/02/22 06:32 11/02/22 06:32 Oxygen Delivery Method Room Air Weight: 57 kg Body Mass Index (BMI) 17.7 Intake & Output: Intake and Output for Last 24 Hours 10/31/22 11/01/22 11/02/22 23:59 23:59 23:59 Intake Total 1530 / 1530 Balance 1530 / 1530 Lab / Micro Data Result Diagrams: 11/02/22 04:49 11/02/22 04:49 Labs: Laboratory Results - last 24 hr 11/01/22 07:00: Magnesium 2.2, Total Bilirubin 0.30, Direct Bilirubin 0.14, AST 11 L, ALT 25, Alkaline Phosphatase 94, Total Protein 6.9, Albumin 3.9, Globulin 3.0 11/01/22 08:56: HIV 1&2 Antibody Non-Reactive 11/01/22 08:56: Troponin I High Sens 18 11/01/22 12:30: Troponin I High Sens 18 11/02/22 04:49: WBC 9.9, RBC 3.79 L, Hgb 12.1 L, Hct 36.1 L, MCV 95.3 H, MCH 31.9, MCHC 33.5, RDW Std Deviation 42.9, RDW Coeff of Denia 12.2, Plt Count 260, MPV 9.5, Immature Gran % (Auto) 0.200, Neut % (Auto) 57.3, Lymph % (Auto) 35.2, [place] % (Auto) 6.3, Eos % (Auto) 0.7, Baso % (Auto) 0.3, Absolute Neuts (auto) 5.7, Absolute Lymphs (auto) 3.47, Nucleated RBC % 0 11/02/22 04:49: Sodium 139, Potassium 3.9, Chloride 106, Carbon Dioxide 31.0, Anion Gap 2 L, BUN 24 H, Creatinine 0.60 L, Estim Creat Clear Calc 121.39, Est GFR (MDRD) Af Amer 185, Est GFR (MDRD) Non-Af 153, BUN/Creatinine Ratio 40.1 H, Glucose 84, Calcium 8.6 Rhythm Strip Rhythm Strip: Sinus Rhythm Rate: 53 Ectopy: None Physical Exam Const alert and no apparent distress Resp normal respiratory effort, no retractions, no use of accessory muscles and clear to auscultation bilaterally Cardio regular rate, regular rhythm, S1 normal heart sound and S2 normal heart sound GI normal to inspection, nondistended, normoactive bowel sounds Assessment & Plan Assessment/Plan (1) Unstable angina: PLAN: No evidence of myocardial infarction at this time.. Plan is to order a nuclear stress test. Did discuss with cardiology lab and they would not be able to get contrast form today so that be performed tomorrow. Let patient as troponins become scantly elevated or if he does have an abnormal stress test, consult cardiology. Check lipid panel Continue with aspirin Stress negative (2) Protein calorie malnutrition: PLAN: Unintentional Lost 30 pounds over the past several months HIV negative Start supplements Consult nutrition TSH negative (3) Abdominal pain: PLAN: Ongoing Said he takes Prevacid BID Recommend continuing BID PPI Follow up with GI as outpt. PLAN: Plan DC home.
[2022-11-02 08:09] VITALS: BP 132/79; PULSE 81; RESP 12; TEMP 36.8; O2SAT 99
--- NOTE | 2022-11-02 11:29 | STRESSREP_ITS ---
Stress Test Report Date: 11/02/2022 Procedure: Pharmacologic stress nuclear imaging study Indications: Chest pain Consent: Per the patient Procedure: The patient underwent pharmacologic (Regadenoson) evaluation with a peak heart rate of 95 beats per minute (55%predicted maximal heart rate) and a peak blood pressure of 140/82 mmHg. The baseline ECG demonstrated normal sinus rhythm. EKG during lexiscan infusion revealed no significant ischemic changes. EKG post infusion revealed no significant ischemic changes [There were no cardiac dysrhythmias pretest, during pharmacologic infusion, or recovery]. Patient had 3/10 chest pain prior to the test that did not change with Lexiscan infusion or during recovery. The examination was discontinued secondary to completion of protocol. Impression: 1. Lexiscan stress test test is negative for Lexiscan infusion induced EKG changes of ischemia. 2. Lexiscan stress test test is negative for Lexiscan infusion induced chest pain. 3. Results of the nuclear portion of the test is as below Myocardial perfusion imaging study: Technique: The patient was injected with 11.7 millicuries of technetium 99m Cardiolite and subsequently rest SPECT Cardiolite nuclear imaging was obtained in the horizontal long, vertical long, and short axis views. The patient underwent pharmacologic [Regadenoson 0.4mg] evaluation. Please see above for details. The patient was injected with 34.4 millicuries of technetium 99m Cardiolite and subsequently stress SPECT Cardiolite nuclear imaging was obtained in the horizontal long, vertical long, and short axis views. A gated Cardiolite study at peak stress was obtained. Interpretation: Rest and stress SPECT Cardiolite nuclear imaging status post realignment, normalization, and attenuation correction demonstrate no evidence of significant ischemia or infarction. Gated images reveal no significant regional wall motion abnormalities. The reported LVEF is 61%. Impression: 1. There is no evidence of significant ischemia or infarction. 2. Estimated ejection fraction is 61%. This note was generated with Appointeddation software. It may contain incorrect words, spelling, and punctuation that were not noted in checking the note before signing.
[2022-11-02 12:28] VITALS: BP 126/75; PULSE 86; RESP 14; TEMP 36.9; O2SAT 98
[2022-11-02] MEDS: oxyCODONE 5 MG Tablet PO (12:31)
[2022-11-02] MEDS: Ensure Plus High Protein 120 ML LIQUID PO (12:31)
[2022-11-02 12:58] LABS: Thyroid Stim Hormone (TSH) 0.97 uIU/mL (0.358-3.74)
--- NOTE | 2022-11-02 13:10 | DCINST_ITS ---
Discharge Instructions Diet Discharge Diet: No restrictions (supplements with meals. ) Follow Up Care Test Results: Test results from this visit will be discussed in further detail at your follow- up appointment, if applicable. Discharge Plan Admission Admit Date/Time: 11/01/22 08:07 Primary Reason for Your Visit: chest pain Attending Provider: Anshu France Primary Care Provider: Isak Wallace Discharge Orders/Prescriptions Prescriptions: New Ensure Plus High Protein 0.08 gram-1.5 kcal/mL Liquid 120 ml PO 4X/DAY Qty: 30 0RF acetaminophen 325 mg Tablet 650 mg PO Q6H PRN PRN (Reason: Pain 1-10 Or Fever >100.7) Qty: 0 0RF pantoprazole [Protonix] 40 mg tablet,delayed release (DR/EC) 40 mg PO DAILY Qty: 60 0RF Continued aspirin 81 MG tablet 81 mg PO DAILY@0800 nitroglycerin 0.4 mg tablet, sublingual 0.4 mg sublingual Q5M PRN (Reason: Cardiac/Chest Pain) Qty: 25 3RF Rx Instructions: as directed Referrals / Follow Up: [facility] [Provider Group] - Within 1 Month (Abdominal pain) Isak Wallace DO [Primary Care Provider] - Within 2 Weeks Disposition Disposition (needs filled in before D/C Order can be placed): Home, Self Care
--- NOTE | 2022-11-02 13:16 | PCM.DC.SUM ---
Providers Date of Admission: 11/01/22 Primary Care Physician: Dr. Isak Wallace DO Reason For Visit: CHEST PAIN Diagnosis Discharge Diagnosis (1) Unstable angina: Status: Acute Code(s): I20.0 - Unstable angina Plan: No evidence of myocardial infarction at this time.. Plan is to order a nuclear stress test. Did discuss with cardiology lab and they would not be able to get contrast form today so that be performed tomorrow. Let patient as troponins become scantly elevated or if he does have an abnormal stress test, consult cardiology. Check lipid panel Continue with aspirin Stress negative (2) Protein calorie malnutrition: Status: Acute Code(s): E46 - Unspecified protein-calorie malnutrition Plan: Unintentional Lost 30 pounds over the past several months HIV negative Start supplements Consult nutrition TSH negative (3) Abdominal pain: Status: Acute Code(s): R10.9 - Unspecified abdominal pain Plan: Ongoing Said he takes Prevacid BID Recommend continuing BID PPI Follow up with GI as outpt. Plan DC home. Medications at Discharge Home Medications aspirin 81 mg tablet,delayed release 81 mg PO DAILY@0800 [facility] 11/10/20 nitroglycerin 0.4 mg sublingual tablet 0.4 mg sublingual Q5M PRN Cardiac/Chest Pain #25 tabs 01/03/21 acetaminophen 325 mg tablet 650 mg PO Q6H PRN PRN Pain 1-10 Or Fever >100.7 #0 tabs 11/02/22 food supplemt, lactose-reduced 0.08 gram-1.5 kcal/mL oral liquid (Ensure Plus High Protein) 120 ml PO 4X/DAY #30 BOTTLES 11/02/22 pantoprazole 40 mg tablet,delayed release (Protonix) 40 mg PO DAILY #60 tabs 11/02/22 Hospital Course Operations None Procedures Nuclear stress test Summary of Care Provided Hospital Course: 47-year-old male presents with chest pain. Patient has known history of CAD s/p similar to prior events. Be related with exertion but also at rest. So therefore, patient brought in for unstable angina and underwent a stress test. Troponins and stress test were negative. Today, the patient complains of abdominal pain which has happened. He states that he is taking Prevacid twice a day but does not on his MAR. Recommended that patient follow-up with gastroenterology for further endoscopy. Patient recommended to continue with twice daily PPI. He also states that he has been losing weight unintentionally. On the check of her HIV and checked his thyroid which were both normal. Unclear of the etiology of his weight loss. Patient starting to eat regular diet as well as take supplements with meals. Patient to follow-up with gastroenterology as outpatient. Weight / BMI Weight Weight: 57 kg Body Mass Index (BMI) 17.7 ABG / Lab / Microbiology Data Result Diagrams: 11/02/22 04:49 11/02/22 04:49 Laboratory: Laboratory Results - last 24 hr 11/02/22 04:49: WBC 9.9, RBC 3.79 L, Hgb 12.1 L, Hct 36.1 L, MCV 95.3 H, MCH 31.9, MCHC 33.5, RDW Std Deviation 42.9, RDW Coeff of Denia 12.2, Plt Count 260, MPV 9.5, Immature Gran % (Auto) 0.200, Neut % (Auto) 57.3, Lymph % (Auto) 35.2, Wheeler % (Auto) 6.3, Eos % (Auto) 0.7, Baso % (Auto) 0.3, Absolute Neuts (auto) 5.7, Absolute Lymphs (auto) 3.47, Nucleated RBC % 0 11/02/22 04:49: Sodium 139, Potassium 3.9, Chloride 106, Carbon Dioxide 31.0, Anion Gap 2 L, BUN 24 H, Creatinine 0.60 L, Estim Creat Clear Calc 121.39, Est GFR (MDRD) Af Amer 185, Est GFR (MDRD) Non-Af 153, BUN/Creatinine Ratio 40.1 H, Glucose 84, Calcium 8.6 11/02/22 04:49: TSH 0.97 D/C Instructions Discharge Diet: No restrictions (supplements with meals. ) Meaningful Use Info Meaningful Use Diagnoses (Choose all that apply): None applicable Discharge Plan Admission Admit Date/Time: 11/01/22 08:07 Primary Reason for Your Visit: chest pain Attending Provider: Anshu France Primary Care Provider: Isak Wallace Discharge Orders/Prescriptions Prescriptions: New Ensure Plus High Protein 0.08 gram-1.5 kcal/mL Liquid 120 ml PO 4X/DAY Qty: 30 0RF acetaminophen 325 mg Tablet 650 mg PO Q6H PRN PRN (Reason: Pain 1-10 Or Fever >100.7) Qty: 0 0RF pantoprazole [Protonix] 40 mg tablet,delayed release (DR/EC) 40 mg PO DAILY Qty: 60 0RF Continued aspirin 81 MG tablet 81 mg PO DAILY@0800 nitroglycerin 0.4 mg tablet, sublingual 0.4 mg sublingual Q5M PRN (Reason: Cardiac/Chest Pain) Qty: 25 3RF Rx Instructions: as directed Referrals / Follow Up: [facility] [Provider Group] - Within 1 Month (Abdominal pain) Isak Wallace DO [Primary Care Provider] - Within 2 Weeks Disposition Disposition (needs filled in before D/C Order can be placed): Home, Self Care Charges/Coding Visit Charges Inpatient E&M: 36641 Disch Hosp
== END 2022-11-02 13:16 | disposition home or self-care (01) ==
LOC: ED 07:50 → PCU 08:43
PROVIDERS: Emergency Provider Emergency Medicine; PCP Family Medicine
DX: I25.110 Atherosclerotic heart disease of native coronary artery with unstable angina pectoris (principal); E46 Unspecified protein-calorie malnutrition; I10 Essential (primary) hypertension; Z79.82 Long term (current) use of aspirin; Z95.5 Presence of coronary angioplasty implant and graft; Z68.1 Body mass index [BMI] 19.9 or less, adult; F17.210 Nicotine dependence, cigarettes, uncomplicated; Z86.718 Personal history of other venous thrombosis and embolism; K21.9 Gastro-esophageal reflux disease without esophagitis; J45.40 Moderate persistent asthma, uncomplicated; R10.9 Unspecified abdominal pain
CPT/HCPCS: 36415; 71045; 78452; 80048; 80076; 83735; 84443; 84484; 85025; 86703; 93005; 93017; 96374; 96376; 97802; 99221; 99283; 99406; A9500; A4216; G0378; J2405; J2785

== ENCOUNTER 2022-12-27 22:06 | Emergency (ER) | payer MEDICAID, SELFPAY ==
[2022-12-27 22:07] VITALS: BP 144/92; PULSE 87; RESP 16; TEMP 36.6; O2SAT 98; BMI 20.5
--- NOTE | 2022-12-27 22:23 | EKG12_ITS ---
Test Reason : CP Blood Pressure : / mmHG Vent. Rate : 088 BPM Atrial Rate : 088 BPM P-R Int : 166 ms QRS Dur : 084 ms QT Int : 364 ms P-R-T Axes : 076 075 071 degrees QTc Int : 440 ms Normal sinus rhythm with sinus arrhythmia Normal ECG Confirmed by ANA MILES, ROSENDA ([id number]), legal editor CAMPOS FERRARA ([id number]) on 01/01/2023 10:31:03 AM Referred By: RICHIE Confirmed By:ROSENDA PEREZ MD
[2022-12-27 22:30] LABS: Absolute Lymphocyte Count 4.44 X10^3/uL (0.83-4.51); Absolute Neutrophil Count 5.9 X10^3/uL (2.0-7.7); Basophil# 0.04 X10^3/uL; Basophil% 0.4 % (0-1); Eosinophils% 1.8 % (0-5); Hematocrit 38.4 % (40-54); Hemoglobin 12.9 g/dL (13.0-16.5); Lymphocyte # 4.44 X10^3/ul (0.83-4.51); Lymphocyte % 39.8 % (19-41); Mean Corp Hgb Conc 33.6 g/dL (32-36); Mean Corpuscular Hgb 31.7 pg (27.0-32.0); Mean Corpuscular Volume 94.3 fL (80-94); Mean Platelet Vol. 8.5 fl (6.2-12.0); Monocyte# 0.55 X10^3/uL; Monocyte% 4.9 % (0-10); NRBC Flagged by Analyzer 0 % (0-5); Neutrophil # 5.89 X10^3/uL (2.7-7.7); Neutrophil % 52.7 % (47-70); Platelet Count 274 K/mm3 (150-450); RBC Distribution Width CV 12.1 % (11.6-14.6); RBC Distribution Width SD 42.1 fl (35.1-43.9); Red Blood Count 4.07 M/mm3 (4.6-6.2); White Blood Count 11.2 K/mm3 (4.4-11.0)
--- NOTE | 2022-12-27 22:31 | RAD_ITS ---
INDICATION: chest pain EXAMINATION/TECHNIQUE: X-RAY - XR Chest 1 View COMPARISON: November 01, 2022 FINDINGS: LINES/DEVICES: None. LUNGS: No consolidation, edema or effusion. No pneumothorax. MEDIASTINUM AND CARDIOVASCULAR STRUCTURES: Cardiac silhouette not enlarged. Central airways and mediastinal contour are unremarkable. BONES AND SOFT TISSUES: Unremarkable. RAD/Chest 1 View (Portable) IMPRESSION: No radiographic evidence of acute cardiopulmonary disease. Electronically Signed: Yimi Michel DO at 22:48 EDT ,
--- NOTE | 2022-12-27 22:33 | ED.VIS.CHEST ---
HPI History of Present Illness Chief Complaint: Chest Pain Detail of Chief Complaint: Throbbing sensation in chest and head, near syncope Informant: patient Narrative Narrative: Patient presents with primary complaint of near syncope. He states he walks to town back home. He was walking back home he started getting lightheaded and felt he might pass out. He describes a throbbing sensation in his chest and in his head with his pulse. He reports some tingling in his extremities. Patient does have a history of cardiac stent placement approximately 3 years ago. He takes baby aspirin daily. He is no longer on Plavix. On review of records his last stress test was performed in late October of this year and was unremarkable. Patient states that he was admitted to the hospital earlier this year with chest pressure and weight loss. He states no definitive cause for his weight loss was determined. He put the weight on but states that he is now beginning to drop weight again without trying. [facility] Medical History ADD (attention deficit disorder) Anxiety Asthma Atherosclerosis of coronary artery of [place] heart without angina pectoris Benzodiazepine withdrawal Chronic pain CPAP (continuous positive airway pressure) dependence Desire for detoxification DVT (deep venous thrombosis) Dyslipidemia (high LDL; low HDL) Elevated blood pressure reading without diagnosis of hypertension Exertional chest pain Generalized anxiety disorder with panic attacks GERD (gastroesophageal reflux disease) History of drug abuse History of posttraumatic stress disorder (PTSD) Hypersomnia Leucocytosis Migraines Moderate persistent asthma without complication Noncompliance with CPAP treatment Obstructive sleep apnea On home oxygen therapy Opiate abuse, continuous Opiate dependence Palpitations Poor dentition PTSD (post-traumatic stress disorder) Substance abuse Tobacco abuse Home Medications aspirin 81 mg tablet,delayed release 81 mg PO DAILY@0800 [facility] 11/10/20 [History Last Taken 01/18/21 12:00] nitroglycerin 0.4 mg sublingual tablet 0.4 mg sublingual Q5M PRN Cardiac/Chest Pain #25 tabs 01/03/21 [Rx Last Taken Unknown] acetaminophen 325 mg tablet 650 mg PO Q6H PRN PRN Pain 1-10 Or Fever >100.7 #0 tabs 11/02/22 [Rx Last Taken Unknown] food supplemt, lactose-reduced 0.08 gram-1.5 kcal/mL oral liquid (Ensure Plus High Protein) 120 ml PO 4X/DAY #30 BOTTLES 11/02/22 [Rx Last Taken Unknown] pantoprazole 40 mg tablet,delayed release (Protonix) 40 mg PO DAILY #60 tabs 11/02/22 [Rx Last Taken Unknown] Allergy/AdvReac Type Severity Reaction Status Date / Time naloxone Allergy Hives Verified 12/27/22 22:09 Family History Mother , Age 56 Cancer stomach Heart disease CVA (cerebral vascular accident) Father , Age 52 Heart disease CAD (coronary artery disease) Surgical History History of artificial skin graft History of coronary angioplasty (04/21/20) History of coronary artery stent placement (05/01/19) Hx of heart artery stent Social History household members: significant other current occupational exposures/hazards: No pets and animals: No Smoking Status: Current every day smoker tobacco type: cigarettes second hand exposure: Yes alcohol intake: never substance use type: opiates caffeine: Yes Type: carbonated beverages ROS ROS ED Constitutional Constitutional ED: Denies chills or fever(s) Eyes Eyes: Denies change in vision or discharge from eye(s) ENT ENT ED: Denies discharge from eye(s), rhinorrhea or sore throat Cardiovascular Cardiovascular: Reports chest pain; Denies palpitations Respiratory/Chest Respiratory/Chest: Denies cough or dyspnea Gastrointestinal Gastrointestinal: Denies abdominal pain, diarrhea, nausea or vomiting Genitourinary Genitourinary ED: Denies difficulty urinating or dysuria Musculoskeletal Musculoskeletal: Denies back pain or extremity pain Integumentary Denies Abrasions or rash Neurologic Neurologic: Reports headache(s), paresthesias and weakness Psychiatric Psychiatric: Reports anxiety; Denies depression Allergic/Immunologic Allergic/Immunologic ED: Denies lip swelling or urticaria EXAM Physical Exam Const Vital Signs: 12/27/22 22:07 12/27/22 22:51 12/27/22 22:51 Temperature 97.9 F Temperature Source Temporal Pulse Rate 87 Respiratory Rate 16 Respiratory Effort Normal Blood Pressure 144/92 H Blood Pressure Mean 109 Pulse Ox 98 Oxygen Delivery Method Room Air Room Air 12/27/22 23:07 Temperature Temperature Source Pulse Rate 58 L Respiratory Rate 15 Respiratory Effort Blood Pressure 111/66 Blood Pressure Mean 81 Pulse Ox 96 Oxygen Delivery Method Room Air Positive well nourished and well developed General Appearance ED: well developed HEENT Reports normocephalic and head/scalp atraumatic Eyes PERRL and EOMs intact bilaterally Neck supple Chest Wall inspection of chest normal and palpation of chest normal Resp normal respiratory effort and clear to auscultation bilaterally Cardio regular rate and regular rhythm GI normal to inspection, nondistended, normoactive bowel sounds Palpation: soft Extremity normal to inspection Neuro oriented x3 and no sensory deficits noted Sensorium / Orientation: alert Motor Exam: strength 5/5 throughout Psych Mood & Affect: anxious Skin no rashes or lesions noted Heart Score History: Slightly/Non-Suspicious ECG: Normal Age: >45 - <65 years Risk Factors: >/= 3 Risk Factors or History of CAD Troponin: </= Normal Limit Score: 3 MDM MDM MDM Narrative Medical decision making narrative: EKG obtained to evaluate for cardiac arrhythmia/ischemia. Chest x-ray obtained to evaluate for acute lung pathology, cardiac size, or mediastinal abnormality. Labwork obtained to evaluate for leukocytosis, anemia, and electrolyte derangement. Patient placed on gambling monitor. Given the patient's headache he was given Toradol, Reglan, Benadryl, and IV fluids. I did review his prior work-up in October with similar symptoms. Lab Data Attestation: I reviewed the patient's lab results. Labs: Laboratory Results - last 24 hr 12/27/22 12/27/22 12/28/22 22:25 22:25 00:50 WBC 11.2 H RBC 4.07 L Hgb 12.9 L Hct 38.4 L MCV 94.3 H MCH 31.7 MCHC 33.6 RDW Std Deviation 42.1 RDW Coeff of Denia 12.1 Plt Count 274 MPV 8.5 Immature Gran % (Auto) 0.400 Neut % (Auto) 52.7 Lymph % (Auto) 39.8 Millard % (Auto) 4.9 Eos % (Auto) 1.8 Baso % (Auto) 0.4 Absolute Neuts (auto) 5.9 Absolute Lymphs (auto) 4.44 Nucleated RBC % 0 Sodium 138 Potassium 3.9 Chloride 105 Carbon Dioxide 29.0 Anion Gap 4 L BUN 14 Creatinine 0.76 Estim Creat Clear Calc 108.78 Est GFR (MDRD) Af Amer 141 Est GFR (MDRD) Non-Af 116 BUN/Creatinine Ratio 18.4 Glucose 91 Calcium 9.0 Troponin I High Sens 14 13 TSH 2.02 Radiography Chest X-Ray - ED: 1 View, Read by ED Physician, Normal, Heart, Lungs and Mediastinum Diagnostic Testing: Clinical Impression(s) from Imaging Studies Chest X-Ray 12/27/22 22:31 IMPRESSION: No radiographic evidence of acute cardiopulmonary disease. Electronically Signed: Yimi Michel DO at 22:48 EDT , EKG Initial EKG: Attestation: I personally reviewed and interpreted this EKG as follows: Interpretation: Sinus Rhythm (Sinus 88 with no acute ischemia.) Treatment and Re-Evaluation :: On repeat evaluation patient is sleeping soundly and has to be woken from sleep. CBC reveals mild elevated white count at 11. 2 with normal differential. Chemistry studies unremarkable. Troponin is normal at 14 with repeat 2-hour troponin 13. TSH is 2.02. EKG reveals no ischemia. Chest x-ray per my interpretation reveals no acute findings. Radiology interpretation is reviewed and agrees. When patient awakens he states he feels like he might be getting sick. He is complaining of some body aches. I advised him that he might be getting a viral illness but at this time I see no need for antibiotics. He wishes to find a new primary care physician in the area and will refer to abdelrahman Alex in the no doc list. Return instructions provided. Discharge Plan Triage Chief Complaint: Chest Pain ED Provider: Consuelo Hennessy Dx/Rx/DC Orders Clinical Impression: Headache, Atypical chest pain Instructions: ED Chest Pain, Noncardiac, ED, Migraine (Classical) Prescriptions: No Action aspirin 81 MG tablet 81 mg PO DAILY@0800 Ensure Plus High Protein 0.08 gram-1.5 kcal/mL Liquid 120 ml PO 4X/DAY Qty: 30 0RF acetaminophen 325 mg Tablet 650 mg PO Q6H PRN PRN (Reason: Pain 1-10 Or Fever >100.7) Qty: 0 0RF pantoprazole [Protonix] 40 mg tablet,delayed release (DR/EC) 40 mg PO DAILY Qty: 60 0RF nitroglycerin 0.4 mg tablet, sublingual 0.4 mg sublingual Q5M PRN (Reason: Cardiac/Chest Pain) Qty: 25 3RF Rx Instructions: as directed Primary Care Provider: Isak Wallace Referrals: Isak Wallace DO [Primary Care Provider] - Michel Sanford MD [Med Staff - Active Staff] - As Needed Disposition Disposition: Home, Self Care
[2022-12-27] MEDS: Ketorolac 30 MG/ML Syringe IV (22:45)
[2022-12-27] MEDS: 0.9% Normal Saline 1,000 ML 1000 ML IV (22:45)
[2022-12-27] MEDS: DiphenhydrAMINE 50 MG/ML Syringe 25 MG IV (22:45)
[2022-12-27] MEDS: Metoclopramide 10 MG/2 ML Vial 5 MG IV (22:45)
[2022-12-27 23:04] LABS: Anion Gap 4 (5-15); BUN 14 mg/dL (7-18); BUN/Creat Ratio 18.4 RATIO (10-20); Chloride 105 mmol/L (98-107); Creatinine, Serum 0.76 mg/dL (0.70-1.30); EST Glomerular Filtration Rate 116 mL/min (>60); Est Glom Filt Rate - Afr Amer 141 mL/min (>60); Estimated Creatinine Clearance 108.78 ml/min; Glucose 91 mg/dL (74-106); Potassium 3.9 mmol/L (3.5-5.1); Sodium Level 138 mmol/L (136-145); Thyroid Stim Hormone (TSH) 2.02 uIU/mL (0.358-3.74); Troponin-I HS (w/2H Reflex) 14 pg/mL (3.0-78.0)
[2022-12-27 23:07] VITALS: BP 111/66; PULSE 58; RESP 15; O2SAT 96
[2022-12-28 00:41] LABS: Reflex Troponin-HS? (from REC) Y
[2022-12-28 02:08] LABS: Troponin-I HS 13 pg/mL (3.0-78.0)
[2022-12-28 02:29] VITALS: BP 100/76; PULSE 87; RESP 17; O2SAT 100
== END 2022-12-28 02:30 | disposition home or self-care (01) ==
PROVIDERS: Emergency Provider Emergency Medicine; PCP Family Medicine; Visit Provider Emergency Medicine
DX: R07.89 Other chest pain (principal); I25.10 Atherosclerotic heart disease of native coronary artery without angina pectoris; Z79.82 Long term (current) use of aspirin; Z95.5 Presence of coronary angioplasty implant and graft; R51.9 Headache, unspecified; K21.9 Gastro-esophageal reflux disease without esophagitis; F17.210 Nicotine dependence, cigarettes, uncomplicated; E78.5 Hyperlipidemia, unspecified; Z99.89 Dependence on other enabling machines and devices
CPT/HCPCS: 71045; 80048; 84443; 84484; 85025; 93005; 99284; J7030; A4216

== ENCOUNTER 2023-01-06 22:28 | Emergency (ER) | payer MEDICAID, SELFPAY ==
[2023-01-06 22:29] VITALS: BP 135/91; PULSE 78; RESP 18; TEMP 36.8; O2SAT 99; BMI 20.7
--- NOTE | 2023-01-06 23:21 | EKG12_ITS ---
Test Reason : DIZZINESS Blood Pressure : / mmHG Vent. Rate : 065 BPM Atrial Rate : 065 BPM P-R Int : 176 ms QRS Dur : 080 ms QT Int : 394 ms P-R-T Axes : 073 074 069 degrees QTc Int : 409 ms Normal sinus rhythm Normal ECG Confirmed by ANA MILES, ROSENDA ([id number]), business editor CAMPOS FERRARA ([id number]) on 01/08/2023 8:49:36 AM Referred By: ERNESTO Confirmed By:ROSENDA PEREZ MD
--- NOTE | 2023-01-06 23:21 | RAD_ITS ---
EXAM: XR CHEST, 2 VIEWS CLINICAL INDICATION: chest pain TECHNIQUE: Frontal and lateral views of the chest. COMPARISON: Previous chest radiographs of 12/27/2022 and 11/01/2022. FINDINGS: LUNGS AND PLEURAL SPACES: Lungs are mildly hyperinflated, which may be due to a vigorous inspiratory effort, as the hemidiaphragms are not flattened. No consolidation or edema. No pneumothorax. No effusion. HEART: Unremarkable. Cardiac silhouette not enlarged. Normal pulmonary vasculature. MEDIASTINUM: Central airways and mediastinal contour are unremarkable. BONES/JOINTS: No acute osseous abnormality. SOFT TISSUES: Unremarkable. RAD/Chest PA and Lateral IMPRESSION: No significant interval change or acute process. Electronically Signed: Jay Gallo MD at 0:21 EDT ,
[2023-01-06] MEDS: Aspirin 81 MG TAB.CHEW 324 MG PO (23:39)
[2023-01-06 23:47] LABS: Absolute Lymphocyte Count 3.85 X10^3/uL (0.83-4.51); Absolute Neutrophil Count 4.1 X10^3/uL (2.0-7.7); Basophil# 0.03 X10^3/uL; Basophil% 0.3 % (0-1); Eosinophil# 0.21 X10^3/uL; Eosinophils% 2.4 % (0-5); Hemoglobin 13.6 g/dL (13.0-16.5); Lymphocyte # 3.85 X10^3/ul (0.83-4.51); Lymphocyte % 43.8 % (19-41); Mean Corp Hgb Conc 33.2 g/dL (32-36); Mean Corpuscular Hgb 31.7 pg (27.0-32.0); Mean Corpuscular Volume 95.6 fL (80-94); Mean Platelet Vol. 8.9 fl (6.2-12.0); Monocyte# 0.62 X10^3/uL; Monocyte% 7.1 % (0-10); NRBC Flagged by Analyzer 0 % (0-5); Neutrophil # 4.05 X10^3/uL (2.7-7.7); Neutrophil % 46.1 % (47-70); Platelet Count 279 K/mm3 (150-450); RBC Distribution Width CV 12.1 % (11.6-14.6); RBC Distribution Width SD 42.5 fl (35.1-43.9); Red Blood Count 4.29 M/mm3 (4.6-6.2); White Blood Count 8.8 K/mm3 (4.4-11.0)
--- NOTE | 2023-01-06 23:55 | EDS_ITS ---
HPI History of Present Illness Chief Complaint: Dizziness Detail of Chief Complaint: Intermittent vertigo and chest pain 1 hour prior to examination Informant: patient Onset/Context/Timing Onset: Hours (Chest pain for 1 hour) and Days (Vertigo/dizziness 4 days/weeks) Context: Sudden Onset Timing: Continuous (Chest pain is still present at the time of examination) and Intermittent (Dizziness is intermittent and positional) Quality: Sharp midsternal chest pain and lightheaded/spinning Location: Left of sternum Current Severity: Mild Maximum Severity: Moderate Worsened by: Nothing for chest pain, upright position for dizziness Relieved by: Closing his eyes and nothing with regards to chest pain Associated Symptoms Associated Symptoms: None Narrative Narrative: Patient is a 47-year-old male with known history of coronary disease who smokes and has hypercholesterolemia. States he had a stent placed 3 years ago at [facility]. Will review old records. Triage documented main reason was vertigo which has been ongoing issue. She states no one can figure out why he has vertigo. Presently he has no vertigo. Presently complains of sharp pain left of the sternum with no radiation or associated symptoms. He denies black or maroon-colored stool. He denies any intolerance to greasy or fried foods. He denies fever, chills night sweats. He denies ocular, auditory or visual symptoms. He denies upper respiratory infectious symptoms. He denies history of trauma. He denies history of VTE and has no risk factors. He denies leg pain, swelling or discoloration. Prior similar symptoms: Yes Recent Illness/Hospitalization: Yes [facility] Medical History ADD (attention deficit disorder) Anxiety Asthma Atherosclerosis of coronary artery of [place] heart without angina pectoris Benzodiazepine withdrawal Chronic pain CPAP (continuous positive airway pressure) dependence Desire for detoxification DVT (deep venous thrombosis) Dyslipidemia (high LDL; low HDL) Elevated blood pressure reading without diagnosis of hypertension Exertional chest pain Generalized anxiety disorder with panic attacks GERD (gastroesophageal reflux disease) History of drug abuse History of posttraumatic stress disorder (PTSD) Hypersomnia Leucocytosis Migraines Moderate persistent asthma without complication Noncompliance with CPAP treatment Obstructive sleep apnea On home oxygen therapy Opiate abuse, continuous Opiate dependence Palpitations Poor dentition PTSD (post-traumatic stress disorder) Substance abuse Tobacco abuse Home Medications aspirin 81 mg tablet,delayed release 81 mg PO DAILY@0800 [facility] 11/10/20 [History Last Taken 01/18/21 12:00] nitroglycerin 0.4 mg sublingual tablet 0.4 mg sublingual Q5M PRN Cardiac/Chest Pain #25 tabs 01/03/21 [Rx Last Taken Unknown] acetaminophen 325 mg tablet 650 mg PO Q6H PRN PRN Pain 1-10 Or Fever >100.7 #0 tabs 11/02/22 [Rx Last Taken Unknown] food supplemt, lactose-reduced 0.08 gram-1.5 kcal/mL oral liquid (Ensure Plus High Protein) 120 ml PO 4X/DAY #30 BOTTLES 11/02/22 [Rx Last Taken Unknown] pantoprazole 40 mg tablet,delayed release (Protonix) 40 mg PO DAILY #60 tabs 11/02/22 [Rx Last Taken Unknown] Allergy/AdvReac Type Severity Reaction Status Date / Time naloxone Allergy Hives Verified 01/06/23 22:30 Family History Mother , Age 56 Cancer stomach Heart disease CVA (cerebral vascular accident) Father , Age 52 Heart disease CAD (coronary artery disease) Surgical History History of artificial skin graft History of coronary angioplasty (04/21/20) History of coronary artery stent placement (05/01/19) Hx of heart artery stent Social History household members: significant other current occupational exposures/hazards: No pets and animals: No Smoking Status: Current every day smoker tobacco type: cigarettes second hand exposure: Yes alcohol intake: never substance use type: opiates caffeine: Yes Type: carbonated beverages ROS ROS ED Constitutional Constitutional ED: Denies chills, fever(s), subjective, sweats or weight loss Eyes Eyes: Denies blurry vision, change in vision or diplopia ENT ENT ED: Denies ear pain, rhinorrhea or sore throat Cardiovascular Cardiovascular: Reports chest pain; Denies orthopnea, palpitations, paroxysmal nocturnal dyspnea or racing heartbeat Respiratory/Chest Respiratory/Chest: Denies cough, dyspnea, dyspnea on exertion, orthopnea or paroxysmal nocturnal dyspnea Gastrointestinal Gastrointestinal: Denies abdominal pain, diarrhea, melena, nausea or vomiting Genitourinary Genitourinary ED: Denies dysuria, hematuria or urinary frequency Musculoskeletal Musculoskeletal: Denies arthralgias, back pain, myalgias or neck pain Integumentary Denies rash Neurologic Neurologic: Denies headache(s), paresthesias or weakness Psychiatric Psychiatric: Reports anxiety; Denies depression Endocrine Endocrinology: Denies cold intolerance, heat intolerance, polydipsia or polyuria Hematologic/Lymphatic Hematologic/Lymphatic: Reports systems reviewed and no addt'l complaints, except as documented Allergic/Immunologic Allergic/Immunologic ED: Denies mouth swelling or tongue swelling EXAM Physical Exam Const Vital Signs: 01/06/23 22:29 01/06/23 22:44 01/06/23 23:38 Temperature 98.2 F Temperature Source Temporal Pulse Rate 78 Respiratory Rate 18 Respiratory Pattern Normal Blood Pressure 135/91 H Blood Pressure Mean 105 Pulse Ox 99 Oxygen Delivery Method Room Air Positive well nourished, well developed and unkempt General Appearance ED: unkempt, well developed and NAD; Negative for cyanotic, diaphoretic or pallor HEENT Reports TM's clear and moist mucous membranes HEENT Narrative: Head is normocephalic and atraumatic. Ears are normal. Nares are patent. Posterior pharynx is normal. Uvula is midline. There is no deviation tongue with protrusion. There is no evidence of cerumen impaction. Tympanic Membrane ED: Yes TM's clear Eyes PERRL and EOMs intact bilaterally Eyes Narrative: There is no nystagmus. There is no visual field cut. General Eye ED: Negative for pale conjunctiva or scleral icterus Neck no lymphadenopathy, supple and no JVD Chest Wall inspection of chest normal and palpation of chest normal Resp normal respiratory effort and clear to auscultation bilaterally Cardio regular rate, regular rhythm, S1 normal heart sound, S2 normal heart sound and no murmurs GI normal to inspection, nondistended, normoactive bowel sounds, non-tender, non- distended and no masses; Negative for hepatosplenomegaly Back/Spine no CVA tenderness Thoracic Spine / Upper Back: Negative for thoracic spinal tenderness Lumbar Spine / Lower Back: Negative for lumbar spinal tenderness Extremity normal to inspection Extremity Narrative: There is no asymmetry, swelling, discoloration, leg vein distention, palpable cords or tenderness along the distribution of the deep venous system. Neuro oriented x3, CN's II-XII intact bilaterally and no sensory deficits noted Neuro Narrative: There is no dysmetria. Romberg with eyes open and close negative. The eye askew test was negative. The hints test was negative. [place]-Hallpike maneuver is negative. Gait is normal. Sensorium / Orientation: alert Motor Exam: strength 5/5 throughout Psych mental status grossly normal Appearance: unkempt Skin no rashes or lesions noted, no wounds and skin turgor normal Skin Narrative: Several scars noted which are well-healed without evidence of infection. General Skin Exam: Negative for jaundice or pallor MDM MDM MDM Narrative Medical decision making narrative: Cause of patient's vertigo is unknown. Patient had a work-up for his dizziness with no known etiology. Since he reports history coronary disease, is a smoker and has risk factors for coronary disease chest pain order set was initiated to look for acute cardiac ischemia, elevated troponin, rule out anemia and assess renal function. Patient came out to nurses station at 0059. He states he cannot wait till 134 2-hour troponin. We will have patient signed out a AGAINST MEDICAL ADVICE. In my professional opinion patient has the capacity to understand risk benefits of leaving prior to completion of his work-up. Patient was told to continue taking his aspirin and if pain returns to take nitroglycerin and return to the emergency department. History & Record Review Additional record(s) reviewed:: Prior outpatient record (Patient had a cardiac catheterization at outside facility 2018 with placement of stent.), Prior ED visit and Prior labs Lab Data Attestation: I reviewed the patient's lab results. Lab results narrative: CBC is unremarkable. Basic metabolic panel is unremarkable. First troponin is normal. Labs: Laboratory Results - last 24 hr 01/06/23 01/06/23 23:39 23:39 WBC 8.8 RBC 4.29 L Hgb 13.6 Hct 41.0 MCV 95.6 H MCH 31.7 MCHC 33.2 RDW Std Deviation 42.5 RDW Coeff of Denia 12.1 Plt Count 279 MPV 8.9 Immature Gran % (Auto) 0.300 Neut % (Auto) 46.1 L Lymph % (Auto) 43.8 H Granite % (Auto) 7.1 Eos % (Auto) 2.4 Baso % (Auto) 0.3 Absolute Neuts (auto) 4.1 Absolute Lymphs (auto) 3.85 Nucleated RBC % 0 Sodium 139 Potassium 4.3 Chloride 105 Carbon Dioxide 30.0 Anion Gap 4 L BUN 15 Creatinine 0.69 L Estim Creat Clear Calc 121.71 Est GFR (MDRD) Af Amer 157 Est GFR (MDRD) Non-Af 130 BUN/Creatinine Ratio 21.8 H Glucose 107 H Calcium 9.1 Troponin I High Sens 14 Radiography Chest X-Ray - ED: 2 View and Read by ED Physician (Normal cardiac silhouette and size. Lung parenchyma is normal. No effusion. Perihilar regions normal. Osseous structures are normal.) Diagnostic Testing: Clinical Impression(s) from Imaging Studies Chest X-Ray 01/06/23 23:21 IMPRESSION: No significant interval change or acute process. Electronically Signed: Jay Gallo MD at 0:21 EDT , Rhythm Strip Rhythm Strip: Sinus Rhythm Rate: 72 Ectopy: None EKG Initial EKG: Attestation: I personally reviewed and interpreted this EKG as follows: Interpretation: Sinus Rhythm (EKG is normal. Rate is 65. Parables 176 ms. Cures duration 80 ms. QT duration is 394 ms. [place] is normal.) Prior: Unchanged Differential Diagnosis Chest pain/SOB: pulmonary embolism Reason(s) PE less likely: Positive for PERC negative, not tachycardic and not hypoxic, pneumothorax Reason(s) pneumothorax less likely: Positive for bilateral breath sounds and [employer] withhout PTX, pneumonia Reason(s) pneumonia less likely: Positive for no infiltrate on CXR, no elevation in WBC count, no noted fever and symptoms not consistent with acute infection, aortic dissection Reason(s) Aortic dissection less likely:: Positive for normal vascular exam, normal neurological exam, no significant risk factors for dissection, no widened mediastinum on CXR, pain not sudden onset, no ripping/tearing pain, no pain to back and blood pressure appropriate in ED and CHF Reason(s) CHF less likely: Positive for no significant peripheral edema, no orthopnea and no evidence of fluid overload on CXR Treatment and Re-Evaluation :: Patient was informed that his chest x-ray is unremarkable. EKG is normal and blood work is also normal. He was informed that a 2-hour troponin is pending. Time of this addendum 0030. Discharge Plan Triage Chief Complaint: Dizziness ED Provider: Scott Ruvalcaba Dx/Rx/DC Orders Clinical Impression: Chest pain, Intermittent vertigo, History of coronary artery disease, Hx of gastroesophageal reflux (GERD) Instructions: ED Chest Pain, Uncertain Cause Prescriptions: No Action aspirin 81 MG tablet 81 mg PO DAILY@0800 Ensure Plus High Protein 0.08 gram-1.5 kcal/mL Liquid 120 ml PO 4X/DAY Qty: 30 0RF acetaminophen 325 mg Tablet 650 mg PO Q6H PRN PRN (Reason: Pain 1-10 Or Fever >100.7) Qty: 0 0RF pantoprazole [Protonix] 40 mg tablet,delayed release (DR/EC) 40 mg PO DAILY Qty: 60 0RF nitroglycerin 0.4 mg tablet, sublingual 0.4 mg sublingual Q5M PRN (Reason: Cardiac/Chest Pain) Qty: 25 3RF Rx Instructions: as directed Primary Care Provider: Isak Wallace Referrals: Isak Wallace, [Primary Care Provider] - 2 Days Activity Restrictions/Additional Instructions: I have been informed by Dr. Ruvalcaba that the cause of my chest pain is unknown. I have been informed that it is in my best interest to wait for second troponin to determine if the pain was due to a heart issue. I have been informed by leaving treatment may be more invasive and aggressive. I have been informed that I may not be able to perform 1 or more activities of daily living i.e. bathe myself, close myself, feed myself, etc. Furthermore this may result in injury to my heart which may make it difficult for me to sleep lying flat, walking across the room. This may lead to be being placed on a ventilator and needing a feeding tube or tracheostomy, hole in my neck to breathe. This may result in be being in a semivegetative vegetative state. Due to lack of oxygen I may have physical, mental or cognitive disability. This may result in seizure disorder. This also may result in . Injuries and limitations are not limited to what has been documented. Disposition Disposition: Against Medical Advice Capacity Capacity Assessment Tool Can the patient make a choice & communicate that choice?: Yes Can the patient understand benefits, risks and alternatives?: Yes Can the patient make a logical, rational choice?: Yes Is the choice the patient makes consistent w/ their values?: Yes Is there an impending, emergent risk to the patient?: Yes Does the patient have an Advance Directive?: No Is there a Surrogate Available?: No i.e. HCPOA: No i.e. close relative (spouse, child, parent, sibling)?: No
[2023-01-07 00:07] LABS: Anion Gap 4 (5-15); BUN 15 mg/dL (7-18); BUN/Creat Ratio 21.8 RATIO (10-20); Calcium,Total 9.1 mg/dL (8.5-10.1); Chloride 105 mmol/L (98-107); Creatinine, Serum 0.69 mg/dL (0.70-1.30); EST Glomerular Filtration Rate 130 mL/min (>60); Est Glom Filt Rate - Afr Amer 157 mL/min (>60); Estimated Creatinine Clearance 121.71 ml/min; Glucose 107 mg/dL (74-106); Potassium 4.3 mmol/L (3.5-5.1); Sodium Level 139 mmol/L (136-145); Troponin-I HS (w/2H Reflex) 14 pg/mL (3.0-78.0)
[2023-01-07 01:43] LABS: Reflex Troponin-HS? (from REC) Y
== END 2023-01-07 01:14 | disposition left against medical advice (07) ==
PROVIDERS: Emergency Provider Emergency Medicine; PCP Family Medicine; Visit Provider Emergency Medicine
DX: R42 Dizziness and giddiness (principal); R07.9 Chest pain, unspecified; E78.00 Pure hypercholesterolemia, unspecified; Z79.82 Long term (current) use of aspirin; I25.10 Atherosclerotic heart disease of native coronary artery without angina pectoris; K21.9 Gastro-esophageal reflux disease without esophagitis; Z79.899 Other long term (current) drug therapy; Z95.5 Presence of coronary angioplasty implant and graft; F17.210 Nicotine dependence, cigarettes, uncomplicated; Z53.29 Procedure and treatment not carried out because of patient's decision for other reasons
CPT/HCPCS: 71046; 80048; 84484; 85025; 93005; 99283; A4216

== ENCOUNTER 2023-04-09 01:42 | Emergency (ER) | payer MEDICAID, SELFPAY ==
[2023-04-09 01:43] VITALS: BP 170/71; PULSE 85; RESP 16; TEMP 36.8; O2SAT 99; BMI 21.4
--- NOTE | 2023-04-09 01:45 | EKG12_ITS ---
Test Reason : CP Blood Pressure : / mmHG Vent. Rate : 069 BPM Atrial Rate : 069 BPM P-R Int : 190 ms QRS Dur : 084 ms QT Int : 386 ms P-R-T Axes : 070 069 069 degrees QTc Int : 413 ms Normal sinus rhythm Normal ECG Confirmed by ANA MILES, ROSENDA ([id number]), newspaper managing editor ZOHAIB SHARMA ([id number]) on 04/12/2023 11:11:29 AM Referred By: HANNA Confirmed By:ROSENDA PEREZ MD
--- NOTE | 2023-04-09 02:14 | RAD_ITS ---
EXAM: XR CHEST, 2 VIEWS CLINICAL INDICATION: chest pain TECHNIQUE: Frontal and lateral views of the chest. COMPARISON: Two-view chest 01/06/2023 FINDINGS: LUNGS AND PLEURAL SPACES: Unremarkable. No consolidation or edema. No pneumothorax. No effusion. HEART: Unremarkable. Cardiac silhouette not enlarged. MEDIASTINUM: Central airways and mediastinal contour are unremarkable. BONES/JOINTS: Unremarkable. SOFT TISSUES: Unremarkable. RAD/Chest PA and Lateral IMPRESSION: No radiographic evidence of acute cardiopulmonary disease. Electronically Signed: Bryan Granda MD at 2:36 EDT ,
[2023-04-09 02:26] LABS: Absolute Lymphocyte Count 4.26 X10^3/uL (0.83-4.51); Absolute Neutrophil Count 5.8 X10^3/uL (2.0-7.7); Basophil# 0.04 X10^3/uL; Basophil% 0.4 % (0-1); Eosinophil# 0.33 X10^3/uL; Eosinophils% 2.9 % (0-5); Hemoglobin 13.6 g/dL (13.0-16.5); Lymphocyte # 4.26 X10^3/ul (0.83-4.51); Mean Corp Hgb Conc 33.2 g/dL (32-36); Mean Corpuscular Hgb 31.2 pg (27.0-32.0); Mean Platelet Vol. 8.9 fl (6.2-12.0); Monocyte# 0.79 X10^3/uL; NRBC Flagged by Analyzer 0 % (0-5); Neutrophil # 5.76 X10^3/uL (2.7-7.7); Neutrophil % 51.3 % (47-70); Platelet Count 348 K/mm3 (150-450); RBC Distribution Width CV 11.9 % (11.6-14.6); RBC Distribution Width SD 41.4 fl (35.1-43.9); Red Blood Count 4.36 M/mm3 (4.6-6.2); White Blood Count 11.2 K/mm3 (4.4-11.0)
[2023-04-09 02:44] LABS: Anion Gap 2 (5-15); BUN 12 mg/dL (7-18); BUN/Creat Ratio 15.5 RATIO (10-20); Calcium,Total 9.3 mg/dL (8.5-10.1); Chloride 103 mmol/L (98-107); Creatinine, Serum 0.78 mg/dL (0.70-1.30); EST Glomerular Filtration Rate 113 mL/min (>60); Est Glom Filt Rate - Afr Amer 137 mL/min (>60); Estimated Creatinine Clearance 110.72 ml/min; Glucose 97 mg/dL (74-106); Magnesium 2.1 mg/dL (1.6-2.6); Sodium Level 137 mmol/L (136-145); Troponin-I HS 10 pg/mL (3.0-78.0)
[2023-04-09 02:51] VITALS: BP 125/81; BP 148/73; BP 150/83; PULSE 67; PULSE 68; PULSE 90
[2023-04-09] MEDS: 0.9% Normal Saline 1,000 ML 999 ML IV ×2 (03:10→03:53)
--- NOTE | 2023-04-09 03:51 | EDS_ITS ---
HPI History of Present Illness Chief Complaint: Chest Pain Informant: patient Narrative Narrative: Patient is a 47-year-old male with past medical history of polysubstance abuse but also CAD requiring stent placement few years ago. Patient states that has been under a great deal of stress recently and has noticed that he has been feeling lightheaded and dizzy and is also noticed some vague chest discomfort. The patient states he has not been able to follow-up with any type of specialist but because of his past medical history of CAD and stent placement he was concerned this could be cardiac in nature and therefore comes in for evaluation [facility] Medical History ADD (attention deficit disorder) Anxiety Asthma Atherosclerosis of coronary artery of [place] heart without angina pectoris Benzodiazepine withdrawal Chronic pain CPAP (continuous positive airway pressure) dependence Desire for detoxification DVT (deep venous thrombosis) Dyslipidemia (high LDL; low HDL) Elevated blood pressure reading without diagnosis of hypertension Exertional chest pain Generalized anxiety disorder with panic attacks GERD (gastroesophageal reflux disease) History of drug abuse History of posttraumatic stress disorder (PTSD) Hypersomnia Leucocytosis Migraines Moderate persistent asthma without complication Noncompliance with CPAP treatment Obstructive sleep apnea On home oxygen therapy Opiate abuse, continuous Opiate dependence Palpitations Poor dentition PTSD (post-traumatic stress disorder) Substance abuse Tobacco abuse Home Medications aspirin 81 mg tablet,delayed release 81 mg PO DAILY@0800 [facility] 11/10/20 [History Last Taken 01/18/21 12:00] Allergy/AdvReac Type Severity Reaction Status Date / Time naloxone Allergy Hives Verified 04/09/23 01:48 Family History Mother , Age 56 Cancer stomach Heart disease CVA (cerebral vascular accident) Father , Age 52 Heart disease CAD (coronary artery disease) Surgical History History of artificial skin graft History of coronary angioplasty (04/21/20) History of coronary artery stent placement (05/01/19) Hx of heart artery stent Social History household members: significant other current occupational exposures/hazards: No pets and animals: No Smoking Status: Current every day smoker tobacco type: cigarettes second hand exposure: Yes alcohol intake: never substance use type: opiates caffeine: Yes Type: carbonated beverages ROS ROS ED Constitutional Constitutional ED: Denies chills or fever(s) ENT ENT ED: Denies sore throat Cardiovascular Cardiovascular: Reports chest pain, palpitations, racing heartbeat and other Details: Positive near syncope Respiratory/Chest Respiratory/Chest: Denies cough or dyspnea Gastrointestinal Gastrointestinal: Denies abdominal pain, diarrhea, nausea or vomiting Genitourinary Genitourinary ED: Denies dysuria Musculoskeletal Musculoskeletal: Denies myalgias Integumentary Denies rash Neurologic Neurologic: Denies headache(s) Hematologic/Lymphatic Hematologic/Lymphatic: Denies easy bleeding or easy bruising EXAM Physical Exam Const Vital Signs: 04/09/23 01:43 04/09/23 02:51 04/09/23 04:31 Temperature 98.2 F Temperature Source Temporal Pulse Rate 85 75 Pulse Rate [Lying] 67 Pulse Rate [Sitting (for 1 minute prior to obtaining)] 68 Pulse Rate [Standing (for 1 minute prior to obtaining)] 90 Respiratory Rate 16 18 Blood Pressure 170/71 H Blood Pressure [Lying] 148/73 H Blood Pressure [Sitting (for 1 minute prior to obtaining)] 150/83 H Blood Pressure [Standing (for 1 minute prior to obtaining)] 125/81 H Blood Pressure Mean 104 Blood Pressure Mean [Lying] 98 Blood Pressure Mean [Sitting (for 1 minute prior to obtaining)] 105 Blood Pressure Mean [Standing (for 1 minute prior to obtaining)] 95 Pulse Ox 99 95 Oxygen Delivery Method Room Air Positive well nourished and well developed General Appearance ED: well developed HEENT Reports dry mucous membranes HEENT Narrative: Mucous membranes are dry and tacky with multiple dental caries but no secondary changes to suggest infection Mouth ED: Yes dry mucous membranes Mouth: dry mucous membranes Eyes PERRL and EOMs intact bilaterally General Eye ED: Negative for pale conjunctiva or scleral icterus Neck supple and no JVD Neck Narrative: No nuchal rigidity or meningeal signs noted Chest Wall palpation of chest normal Chest Narrative: No bony deformity or crepitance Resp normal respiratory effort Resp Narrative: There is faint expiratory wheeze noted without nasal flaring retractions tachypnea or accessory muscle use Cardio regular rate and regular rhythm Rate: other Other Details: Radial and carotid pulses are equal and symmetric GI normal to inspection, nondistended, normoactive bowel sounds, non-tender, non- distended and no masses GI Narrative: No voluntary guarding or rigidity or pulsatile mass Auscultation: normoactive bowel sounds Palpation: soft Extremity normal to inspection Extremity Narrative: No asymmetric edema no pitting edema negative Homans' sign bilaterally Neuro oriented x3 and CN's II-XII intact bilaterally Sensorium / Orientation: alert Motor Exam: strength 5/5 throughout Psych mental status grossly normal Skin Skin Narrative: Skin turgor is increased MDM MDM MDM Narrative Medical decision making narrative: Patient presented to the ER hypertensive but otherwise with stable vital. Differential diagnosis is for acute coronary syndrome versus GERD versus pneumonia or pneumothorax or orthostatic syncope or electrolyte derangement. Basic blood work is obtained which shows a normal troponin of 10 stable electrolytes and no need for blood transfusion. Orthostatic vital signs however were obtained and are positive with a drop of approximately 25 point systolically. Patient was therefore given 2 L of fluid and following this was able to ambulate without difficulty. As chest x-ray reveals no acute lung pathology and patient does not have severe electrolyte derangement there is no need for further evaluation in the ER. He can be safely discharged home as he can ambulate without difficulty and work-up reveals no severe electrolyte derangement or signs of acute coronary syndrome. History & Record Review Discussion w/independent historian: Patient Lab Data Attestation: I reviewed the patient's lab results. Labs: Laboratory Results - last 24 hr 04/09/23 02:00 WBC 11.2 H RBC 4.36 L Hgb 13.6 Hct 41.0 MCV 94.0 MCH 31.2 MCHC 33.2 RDW Std Deviation 41.4 RDW Coeff of Denia 11.9 Plt Count 348 MPV 8.9 Immature Gran % (Auto) 0.400 Neut % (Auto) 51.3 Lymph % (Auto) 38.0 [place] % (Auto) 7.0 Eos % (Auto) 2.9 Baso % (Auto) 0.4 Absolute Neuts (auto) 5.8 Absolute Lymphs (auto) 4.26 Nucleated RBC % 0 Sodium 137 Potassium 4.0 Chloride 103 Carbon Dioxide 32.0 Anion Gap 2 L BUN 12 Creatinine 0.78 Estim Creat Clear Calc 110.72 Est GFR (MDRD) Af Amer 137 Est GFR (MDRD) Non-Af 113 BUN/Creatinine Ratio 15.5 Glucose 97 Calcium 9.3 Magnesium 2.1 Troponin I High Sens 10 Radiography Diagnostic Testing: Clinical Impression(s) from Imaging Studies Chest X-Ray 04/09/23 02:14 IMPRESSION: No radiographic evidence of acute cardiopulmonary disease. Electronically Signed: Bryan Granda MD at 2:36 EDT Reading Location ID and State: [facility] / [place] Tel , Service support , Chest x-ray as interpreted by the emergency medicine physician reveals no acute infiltrate pneumothorax pleural effusion or widening of the mediastinum Discharge Plan Triage Chief Complaint: Chest Pain ED Provider: Richy Chahal Dx/Rx/DC Orders Clinical Impression: Orthostatic syncope, Nonspecific chest pain, Dehydration Instructions: What Is Syncope, ED Chest Pain, Uncertain Cause Prescriptions: No Action aspirin 81 MG tablet 81 mg PO DAILY@0800 Primary Care Provider: Isak Wallace Referrals: Isak Wallace DO [Primary Care Provider] - Activity Restrictions/Additional Instructions: Your work-up today showed no signs of heart damage and your electrolytes are normal. Please follow-up with your family doctor and/or manager media to discuss further testing and return to the ER should you have any further concerns Disposition Disposition: Home, Self Care Discharge Date/Time: 04/09/23 04:42
[2023-04-09 04:31] VITALS: PULSE 75; RESP 18; O2SAT 95
== END 2023-04-09 04:42 | disposition home or self-care (01) ==
PROVIDERS: Emergency Provider Emergency Medicine; PCP Family Medicine; Visit Provider Emergency Medicine
DX: R55 Syncope and collapse (principal); R07.9 Chest pain, unspecified; E78.5 Hyperlipidemia, unspecified; E86.0 Dehydration; Z95.5 Presence of coronary angioplasty implant and graft; I25.10 Atherosclerotic heart disease of native coronary artery without angina pectoris; G47.33 Obstructive sleep apnea (adult) (pediatric); Z99.89 Dependence on other enabling machines and devices
CPT/HCPCS: 71046; 80048; 83735; 84484; 85025; 93005; 96360; 96361; 99285; J7030; A4216

== ENCOUNTER 2023-04-22 00:17 | Inpatient (IN) | payer MEDICAID, SELFPAY ==
[2023-04-22] VITALS (8 sets, daily range): BP systolic 116–156; BP diastolic 44–88; PULSE 52–79; RESP 16–18; TEMP 36.3–37; O2SAT 95–98; BMI 20.2; BMI 19.7
[2023-04-22 01:17] LABS: Absolute Lymphocyte Count 3.16 X10^3/uL (0.83-4.51); Absolute Neutrophil Count 6.3 X10^3/uL (2.0-7.7); Basophil# 0.05 X10^3/uL; Basophil% 0.5 % (0-1); Eosinophil# 0.14 X10^3/uL; Eosinophils% 1.4 % (0-5); Hematocrit 37.7 % (40-54); Hemoglobin 12.7 g/dL (13.0-16.5); Lymphocyte # 3.16 X10^3/ul (0.83-4.51); Lymphocyte % 30.6 % (19-41); Mean Corp Hgb Conc 33.7 g/dL (32-36); Mean Corpuscular Hgb 31.1 pg (27.0-32.0); Mean Corpuscular Volume 92.2 fL (80-94); Monocyte# 0.68 X10^3/uL; Monocyte% 6.6 % (0-10); NRBC Flagged by Analyzer 0 % (0-5); Neutrophil # 6.29 X10^3/uL (2.7-7.7); Neutrophil % 60.7 % (47-70); Platelet Count 324 K/mm3 (150-450); RBC Distribution Width CV 12.1 % (11.6-14.6); RBC Distribution Width SD 40.8 fl (35.1-43.9); Red Blood Count 4.09 M/mm3 (4.6-6.2); White Blood Count 10.3 K/mm3 (4.4-11.0)
[2023-04-22 01:34] LABS: AST(SGOT) 18 U/L (15-37); Alanine Aminotransfer ALT/SGPT 19 U/L (16-61); Albumin, Serum 3.8 g/dL (3.2-5.0); Alkaline Phosphatase 96 U/L (45-117); Anion Gap 4 (5-15); BUN 22 mg/dL (7-18); Bilirubin, Direct 0.15 mg/dL (0.00-0.30); Calcium,Total 9.6 mg/dL (8.5-10.1); Chloride 104 mmol/L (98-107); Creatinine, Serum 0.82 mg/dL (0.70-1.30); EST Glomerular Filtration Rate 107 mL/min (>60); Est Glom Filt Rate - Afr Amer 129 mL/min (>60); Estimated Creatinine Clearance 100.04 ml/min; Globulin 3.3 g/dL (2.2-4.2); Glucose 98 mg/dL (74-106); Lipase 14 U/L (13-75); Potassium 3.4 mmol/L (3.5-5.1); Protein, Total 7.1 g/dL (6.4-8.2); Sodium Level 137 mmol/L (136-145)
[2023-04-22] MEDS: 0.9% Normal Saline (1000mL) 1,000 ML 999 ML IV ×2 (01:34→03:03)
[2023-04-22] MEDS: Orphenadrine 60 MG/2 ML Ampul IV (01:35)
[2023-04-22] MEDS: Ondansetron 4 MG/2 ML Vial IV ×2 (01:35→03:28)
[2023-04-22] MEDS: Ketorolac 30 MG/ML Syringe IV (01:35)
[2023-04-22 01:51] LABS: Alcohol, Blood (Medical)-Serum < 3.0 mg/dL
--- NOTE | 2023-04-22 02:24 | PCM.HP.STD ---
[facility] - General General Date of Admission: 04/22/23 Date of Service: 04/22/23 Chief Complaint: Desire for detoxification HPI Narrative RAYMOND ZAMBRANO, is a 47 M with a significant history of CAD status post stent; and opioid abuse who presents with a desire for opioid detoxification. Of note patient's drug of choice is fentanyl. He has been using fentanyl for about 10 years; but with a couple of years clean. He used to snort. However for the past 3 months he has been shooting. He has been using about 1 g to 1.5 g/day. Last time he used was about 14 hours prior to presentation. He reports withdrawal symptoms of abdominal cramps; neck pain; feeling hot and cold and diaphoresis. [facility] Medical History (Updated 04/22/23 @ 03:[address] Ashu Funk MD) ADD (attention deficit disorder) Anxiety Asthma Atherosclerosis of coronary artery of [place] heart without angina pectoris Benzodiazepine withdrawal Chronic pain CPAP (continuous positive airway pressure) dependence Desire for detoxification DVT (deep venous thrombosis) Dyslipidemia (high LDL; low HDL) Elevated blood pressure reading without diagnosis of hypertension Exertional chest pain Generalized anxiety disorder with panic attacks GERD (gastroesophageal reflux disease) History of drug abuse History of posttraumatic stress disorder (PTSD) Hypersomnia Leucocytosis Migraines Moderate persistent asthma without complication Noncompliance with CPAP treatment Obstructive sleep apnea On home oxygen therapy Opiate abuse, continuous Opiate dependence Palpitations Poor dentition PTSD (post-traumatic stress disorder) Substance abuse Tobacco abuse Home Medications aspirin 81 mg tablet,delayed release 81 mg PO DAILY@0800 [facility] 11/10/20 [History Last Taken 01/18/21 12:00] Allergy/AdvReac Type Severity Reaction Status Date / Time naloxone Allergy Hives Verified 04/09/23 01:48 Family History Mother , Age 56 Cancer stomach Heart disease CVA (cerebral vascular accident) Father , Age 52 Heart disease CAD (coronary artery disease) Surgical History History of artificial skin graft History of coronary angioplasty (04/21/20) History of coronary artery stent placement (05/01/19) Hx of heart artery stent Social History household members: significant other current occupational exposures/hazards: No pets and animals: No Smoking Status: Current every day smoker tobacco type: cigarettes second hand exposure: Yes alcohol intake: never substance use type: opiates caffeine: Yes Type: carbonated beverages ROS ROS Narrative Pertinent positives and pertinent negatives as noted in HPI. All other systems were reviewed and are negative Vital Signs Vital Signs Vital Signs: 04/22/23 00:20 Temperature 98.2 F Temperature Source Oral Pulse Rate 79 Respiratory Rate 18 Blood Pressure 156/84 H Blood Pressure Mean 108 Pulse Ox 97 Oxygen Delivery Method Room Air Weight Weight: 64.2 kg Body Mass Index (BMI) 20.2 Physical Exam Narrative Physical exam: General: Well-nourished, well-developed. Head: Normocephalic, atraumatic, no tenderness Eyes: Vision is grossly intact. EOMI ENT, no trauma, moist mucous membranes, no rhinorrhea Neck: Nontender, No thyromegaly. CVS: Regular rate and rhythm. S1-S2 present. No murmur, gallop or rub. Respiratory : clear to auscultation bilaterally, chest wall nontender Abdomen: Soft, nontender, nondistended, normal bowel sounds, no masses : Deferred Back: Nontender, no CVA tenderness, no midline spinal tenderness, deformities, step-offs Extremities: Nontender full range of motion, no trauma Skin: Normal color, no trauma, abrasions Neuro: Alert, oriented, cranial nerves II through XII grossly intact. Psychiatry: Normal mood. Normal affect. Not depressed. Not anxious. Results Lab / Micro Data 04/22/23 01:15 04/22/23 01:15 Labs: Laboratory Results - last 24 hr 04/22/23 01:15: WBC 10.3, RBC 4.09 L, Hgb 12.7 L, Hct 37.7 L, MCV 92.2, MCH 31.1, MCHC 33.7, RDW Std Deviation 40.8, RDW Coeff of Denia 12.1, Plt Count 324, MPV 9.0, Immature Gran % (Auto) 0.200, Neut % (Auto) 60.7, Lymph % (Auto) 30.6, [place] % (Auto) 6.6, Eos % (Auto) 1.4, Baso % (Auto) 0.5, Absolute Neuts (auto) 6.3, Absolute Lymphs (auto) 3.16, Nucleated RBC % 0, Sodium 137, Potassium 3.4 L, Chloride 104, Carbon Dioxide 29.0, Anion Gap 4 L, BUN 22 H, Creatinine 0.82, Estim Creat Clear Calc 100.04, Est GFR (MDRD) Af Amer 129, Est GFR (MDRD) Non-Af 107, BUN/Creatinine Ratio 27.0 H, Glucose 98, Calcium 9.6, Total Bilirubin 0.60, Direct Bilirubin 0.15, AST 18, ALT 19, Alkaline Phosphatase 96, Total Protein 7.1, Albumin 3.8, Globulin 3.3, Lipase 14, Ethyl Alcohol < 3.0 Assessment & Plan Assessment/Plan (1) Desire for detoxification: (2) History of coronary artery disease: (3) Tobacco abuse: PLAN: Plan Opioid dependence and withdrawal Patient be started on Subutex and other adjunctive medications: Gabapentin as needed; dicyclomine as needed; Vistaril as needed; methocarbamol as needed; clonidine as needed; Imodium as needed; trazodone as needed and Zofran as needed. Monitor COWS and CINA score Tobacco abuse Counseled Nicotine patch prescribed. CAD status post stents Stable Aspirin continued DVT prophylaxis Subcutaneous Lovenox ordered. Time spent in the patient's overall evaluation,decision-making process, review of diagnostic data, adjustment of management, discussion with other providers, nursing nursing and ancillary staff involved in patient's care documentation, 45 minutes. Charges/Coding Visit Charges Inpatient E&M: 05207 Init Hosp L2
--- NOTE | 2023-04-22 03:09 | EDS_ITS ---
HPI History of Present Illness Chief Complaint: Substance Abuse Informant: patient Narrative Narrative: Patient is a 47-year-old male with past medical history of CAD as well as polysubstance abuse. He states that over the past 6 months he has been using 1 to 1.5g of fentanyl per day. He states that initially he was smoking the drug but over the past few months has begun injecting. He states that he recently overdosed and took 4 rounds of Narcan to bring him back. He reports after this he decided that he did not want the drug to kill him and now presents with desire for detoxification. He does state has been approximately 24 hours since his last use. He states he is also had bouts of generalized abdominal discomfort with nausea and vomiting. He denies any known sick contacts and states that the symptoms were beginning prior to his cessation of the opioid. [facility] Medical History ADD (attention deficit disorder) Anxiety Asthma Atherosclerosis of coronary artery of [place] heart without angina pectoris Benzodiazepine withdrawal Chronic pain CPAP (continuous positive airway pressure) dependence Desire for detoxification DVT (deep venous thrombosis) Dyslipidemia (high LDL; low HDL) Elevated blood pressure reading without diagnosis of hypertension Exertional chest pain Generalized anxiety disorder with panic attacks GERD (gastroesophageal reflux disease) History of drug abuse History of posttraumatic stress disorder (PTSD) Hypersomnia Leucocytosis Migraines Moderate persistent asthma without complication Noncompliance with CPAP treatment Obstructive sleep apnea On home oxygen therapy Opiate abuse, continuous Opiate dependence Palpitations Poor dentition PTSD (post-traumatic stress disorder) Substance abuse Tobacco abuse Home Medications aspirin 81 mg tablet,delayed release 81 mg PO DAILY@0800 [facility] 11/10/20 [History Last Taken 01/18/21 12:00] Allergy/AdvReac Type Severity Reaction Status Date / Time naloxone Allergy Hives Verified 04/09/23 01:48 Family History Mother , Age 56 Cancer stomach Heart disease CVA (cerebral vascular accident) Father , Age 52 Heart disease CAD (coronary artery disease) Surgical History History of artificial skin graft History of coronary angioplasty (04/21/20) History of coronary artery stent placement (05/01/19) Hx of heart artery stent Social History household members: significant other current occupational exposures/hazards: No pets and animals: No Smoking Status: Current every day smoker tobacco type: cigarettes second hand exposure: Yes alcohol intake: never substance use type: opiates caffeine: Yes Type: carbonated beverages ROS ROS ED Constitutional Constitutional ED: Reports chills and subjective; Denies fever(s) ENT ENT ED: Denies sore throat Cardiovascular Cardiovascular: Denies chest pain Respiratory/Chest Respiratory/Chest: Denies cough or dyspnea Gastrointestinal Gastrointestinal: Reports abdominal pain, nausea and vomiting; Denies diarrhea Genitourinary Genitourinary ED: Denies dysuria Musculoskeletal Musculoskeletal: Reports myalgias Integumentary Denies rash Neurologic Neurologic: Denies headache(s) Psychiatric Psychiatric: Denies suicidal ideation or suicidal thoughts Hematologic/Lymphatic Hematologic/Lymphatic: Denies easy bleeding or easy bruising EXAM Physical Exam Const Vital Signs: 04/22/23 00:20 Temperature 98.2 F Temperature Source Oral Pulse Rate 79 Respiratory Rate 18 Blood Pressure 156/84 H Blood Pressure Mean 108 Pulse Ox 97 Oxygen Delivery Method Room Air Positive well nourished and well developed General Appearance ED: well developed HEENT HEENT Narrative: Mucous membranes are mildly dry and tacky without secondary changes to suggest infection Eyes PERRL and EOMs intact bilaterally General Eye ED: Negative for scleral icterus Neck supple Neck Narrative: No nuchal rigidity or meningeal signs noted Resp normal respiratory effort and clear to auscultation bilaterally Cardio regular rate and regular rhythm Rate: other Other Details: Radial and carotid pulses are equal and symmetric GI non-distended GI Narrative: Abdomen is soft and nondistended with normal active bowel sounds. Patient has mild diffuse pain on palpation without voluntary guarding or rigidity. Auscultation: normoactive bowel sounds Palpation: soft Extremity normal to inspection Neuro oriented x3, CN's II-XII intact bilaterally and no sensory deficits noted Sensorium / Orientation: alert Motor Exam: strength 5/5 throughout Psych mental status grossly normal Psych Narrative: No homicidal or suicidal ideation noted Skin Skin Narrative: Patient has track kelsey of bilateral arms consistent with history of injection of IV drugs but there are no secondary changes to suggest infection. General Skin Exam: Negative for jaundice MDM MDM MDM Narrative Medical decision making narrative: Patient presented to the ER hypertensive but otherwise with stable vitals. He reported being off and opioid for approximately 17 hours. He reports that he has had nausea without vomiting and generalized abdominal as well as an overall sensation of feeling unwell. Symptoms most likely correlate with opioid withdrawal but as differential diagnosis also includes pancreatitis versus biliary colic versus gastroenteritis and elect perform basic laboratory studies. Labs revealed no clinically significant finding. Patient was treated with 2 L of fluid given 2 doses of Zofran and was also dosed with clonidine to help with opioid withdrawal. At this time with desire for detoxification medicine was contacted they do agree except the patient for further treatment. History & Record Review Discussion w/independent historian: Patient Lab Data Attestation: I reviewed the patient's lab results. Labs: Laboratory Results - last 24 hr 04/22/23 01:15 WBC 10.3 RBC 4.09 L Hgb 12.7 L Hct 37.7 L MCV 92.2 MCH 31.1 MCHC 33.7 RDW Std Deviation 40.8 RDW Coeff of Denia 12.1 Plt Count 324 MPV 9.0 Immature Gran % (Auto) 0.200 Neut % (Auto) 60.7 Lymph % (Auto) 30.6 [place] % (Auto) 6.6 Eos % (Auto) 1.4 Baso % (Auto) 0.5 Absolute Neuts (auto) 6.3 Absolute Lymphs (auto) 3.16 Nucleated RBC % 0 Sodium 137 Potassium 3.4 L Chloride 104 Carbon Dioxide 29.0 Anion Gap 4 L BUN 22 H Creatinine 0.82 Estim Creat Clear Calc 100.04 Est GFR (MDRD) Af Amer 129 Est GFR (MDRD) Non-Af 107 BUN/Creatinine Ratio 27.0 H Glucose 98 Calcium 9.6 Total Bilirubin 0.60 Direct Bilirubin 0.15 AST 18 ALT 19 Alkaline Phosphatase 96 Total Protein 7.1 Albumin 3.8 Globulin 3.3 Lipase 14 Ethyl Alcohol < 3.0 Management Discussion w/another healthcare provider: Hospitalist Discharge Plan Triage Chief Complaint: Substance Abuse ED Provider: Richy Chahal Dx/Rx/DC Orders Clinical Impression: Desire for detoxification, History of coronary artery disease, Polysubstance abuse Prescriptions: No Action aspirin 81 MG tablet 81 mg PO DAILY@0800 Primary Care Provider: Care Physician,No Primary Referrals: Isak Wallace DO [Non-Staff] - Disposition Disposition: Acute Care Hospital [facility]
[2023-04-22] MEDS: Clonidine HCl 0.1 MG, Clonidine HCl 0.2 MG 0.3 MG PO (03:36)
--- NOTE | 2023-04-22 04:05 | PCM.HP.STD ---
[facility] - General General Date of Admission: 04/22/23 Date of Service: 04/22/23 Chief Complaint: Desire for detoxification HPI Narrative RAYMOND ZAMBRANO, is a 47 M with a significant history of CAD status post stent; and opioid abuse who presents with a desire for opioid detoxification. Of note patient's drug of choice is fentanyl. He has been using fentanyl for about 10 years; but with a couple of years clean. He used to snort. However for the past 3 months he has been shooting. He has been using about 1 g to 1.5 g/day. Last time he used was about 14 hours prior to presentation. He reports withdrawal symptoms of abdominal cramps; neck pain; feeling hot and cold and diaphoresis. [facility] Medical History (Updated 04/22/23 @ 03:[address] Ashu Funk MD) ADD (attention deficit disorder) Anxiety Asthma Atherosclerosis of coronary artery of [place] heart without angina pectoris Benzodiazepine withdrawal Chronic pain CPAP (continuous positive airway pressure) dependence Desire for detoxification DVT (deep venous thrombosis) Dyslipidemia (high LDL; low HDL) Elevated blood pressure reading without diagnosis of hypertension Exertional chest pain Generalized anxiety disorder with panic attacks GERD (gastroesophageal reflux disease) History of drug abuse History of posttraumatic stress disorder (PTSD) Hypersomnia Leucocytosis Migraines Moderate persistent asthma without complication Noncompliance with CPAP treatment Obstructive sleep apnea On home oxygen therapy Opiate abuse, continuous Opiate dependence Palpitations Poor dentition PTSD (post-traumatic stress disorder) Substance abuse Tobacco abuse Home Medications aspirin 81 mg tablet,delayed release 81 mg PO DAILY@0800 [facility] 11/10/20 [History Last Taken 01/18/21 12:00] Allergy/AdvReac Type Severity Reaction Status Date / Time naloxone Allergy Hives Verified 04/09/23 01:48 Family History Mother , Age 56 Cancer stomach Heart disease CVA (cerebral vascular accident) Father , Age 52 Heart disease CAD (coronary artery disease) Surgical History History of artificial skin graft History of coronary angioplasty (04/21/20) History of coronary artery stent placement (05/01/19) Hx of heart artery stent Social History household members: significant other current occupational exposures/hazards: No pets and animals: No Smoking Status: Current every day smoker tobacco type: cigarettes second hand exposure: Yes alcohol intake: never substance use type: opiates caffeine: Yes Type: carbonated beverages Vital Signs Vital Signs Vital Signs: 04/22/23 00:20 04/22/23 03:27 04/22/23 03:31 Temperature 98.2 F 98.1 F Temperature Source Oral Temporal Pulse Rate 79 62 56 L Respiratory Rate 18 16 18 Blood Pressure 156/84 H 127/65 H 119/63 Blood Pressure Mean 108 85 81 Pulse Ox 97 96 97 Oxygen Delivery Method Room Air Room Air Room Air Weight Weight: 64.2 kg Body Mass Index (BMI) 20.2 Results Lab / Micro Data 04/22/23 01:15 04/22/23 01:15 Labs: Laboratory Results - last 24 hr 04/22/23 01:15: WBC 10.3, RBC 4.09 L, Hgb 12.7 L, Hct 37.7 L, MCV 92.2, MCH 31.1, MCHC 33.7, RDW Std Deviation 40.8, RDW Coeff of Denia 12.1, Plt Count 324, MPV 9.0, Immature Gran % (Auto) 0.200, Neut % (Auto) 60.7, Lymph % (Auto) 30.6, [place] % (Auto) 6.6, Eos % (Auto) 1.4, Baso % (Auto) 0.5, Absolute Neuts (auto) 6.3, Absolute Lymphs (auto) 3.16, Nucleated RBC % 0, Sodium 137, Potassium 3.4 L, Chloride 104, Carbon Dioxide 29.0, Anion Gap 4 L, BUN 22 H, Creatinine 0.82, Estim Creat Clear Calc 100.04, Est GFR (MDRD) Af Amer 129, Est GFR (MDRD) Non-Af 107, BUN/Creatinine Ratio 27.0 H, Glucose 98, Calcium 9.6, Total Bilirubin 0.60, Direct Bilirubin 0.15, AST 18, ALT 19, Alkaline Phosphatase 96, Total Protein 7.1, Albumin 3.8, Globulin 3.3, Lipase 14, Ethyl Alcohol < 3.0 04/22/23 03:40: Ur Drug Screen Comment
[2023-04-22 04:15] LABS: Amphetamine Urine VISTA POSITIVE (<1000 ng/mL); Barbiturate Urine VISTA NEGATIVE (< 200 ng/mL); Benzodiazepine Urine VISTA NEGATIVE (< 200 ng/mL); Cocaine Urine VISTA NEGATIVE (< 300 ng/mL); Ecstacy Urine VISTA POSITIVE (< 500 ng/mL); Methadone Urine VISTA NEGATIVE (< 300 ng/mL); PCP Urine VISTA NEGATIVE (< 25 ng/mL); THC Urine VISTA NEGATIVE (< 50 ng/mL); Vista UDS pH Range 5
[2023-04-22] MEDS: Buprenorphine HCl 2 MG TAB.SUBL SL ×3 (04:56→20:43)
[2023-04-22] MEDS: Methocarbamol 750 MG Tablet PO ×3 (04:56→17:36)
[2023-04-22] MEDS: hydrOXYzine PAM 25 MG Capsule 50 MG PO ×3 (04:56→20:43)
[2023-04-22] MEDS: Dicyclomine 10 MG Capsule 20 MG PO ×3 (04:56→17:36)
[2023-04-22] MEDS: Enoxaparin 40 MG/0.4 ML Syringe SC (08:07)
[2023-04-22] MEDS: Aspirin E.C. 81 MG Tablet PO (08:07)
[2023-04-22] MEDS: Gabapentin 300 MG Capsule PO ×2 (08:07→17:36)
[2023-04-22] MEDS: cloNIDine HCl 0.1 MG Tablet PO ×2 (08:07→17:36)
[2023-04-22] MEDS: Ondansetron 8 MG Tablet PO (08:17)
--- NOTE | 2023-04-22 09:40 | PN.HOSP_ITS ---
Reason for Visit Reason for Visit: Diagnoses Tobacco use (04/22/23) Personal history of other diseases of the circulatory system (04/22/23) Subjective Subjective Patient is a 47-year-old gentleman with history of opioid dependence admitted with acute opioid withdrawal Objective Data Objective Data Vital Signs: Vital Signs Temp Pulse Resp BP Pulse Ox O2 Del Method 97.4 F L 63 18 129/88 H 95 Room Air 04/22/23 08:16 04/22/23 08:16 04/22/23 08:16 04/22/23 08:16 04/22/23 08:16 04/22/23 08:16 Oxygen Delivery Method Room Air Weight: 62.4 kg Body Mass Index (BMI) 19.7 Intake & Output: Intake and Output for Last 24 Hours 04/20/23 04/21/23 04/22/23 23:59 23:59 23:59 Intake Total 1999 Balance 1999 Lab / Micro Data 04/22/23 01:15 04/22/23 01:15 Labs: Laboratory Results - last 24 hr 04/22/23 01:15: WBC 10.3, RBC 4.09 L, Hgb 12.7 L, Hct 37.7 L, MCV 92.2, MCH 31.1, MCHC 33.7, RDW Std Deviation 40.8, RDW Coeff of Denia 12.1, Plt Count 324, MPV 9.0, Immature Gran % (Auto) 0.200, Neut % (Auto) 60.7, Lymph % (Auto) 30.6, [place] % (Auto) 6.6, Eos % (Auto) 1.4, Baso % (Auto) 0.5, Absolute Neuts (auto) 6.3, Absolute Lymphs (auto) 3.16, Nucleated RBC % 0, Sodium 137, Potassium 3.4 L , Chloride 104, Carbon Dioxide 29.0, Anion Gap 4 L, BUN 22 H, Creatinine 0.82, Estim Creat Clear Calc 100.04, Est GFR (MDRD) Af Amer 129, Est GFR (MDRD) Non-Af 107, BUN/Creatinine Ratio 27.0 H, Glucose 98, Calcium 9.6, Total Bilirubin 0.60, Direct Bilirubin 0.15, AST 18, ALT 19, Alkaline Phosphatase 96, Total Protein 7.1, Albumin 3.8, Globulin 3.3, Lipase 14, Ethyl Alcohol < 3.0 04/22/23 03:40: Urine Opiates Screen POSITIVE H, Urine Methadone Screen NEGATIVE, Ur Barbiturates Screen NEGATIVE, Ur Phencyclidine Scrn NEGATIVE, Ur Amphetamines Screen POSITIVE H, MDMA (Ecstasy) Screen POSITIVE H, U Benzodiazepines Scrn NEGATIVE, Urine Cocaine Screen NEGATIVE, U Cannabinoids Screen NEGATIVE, Ur Drug Screen Comment Physical Exam Narrative GENERAL: cooperative HEENT: Atraumatic; normocephalic EYES; Anicteric, Normal Conjunctiva NECK; supple, normal thyroid, RESPIRATORY: Diminished to auscultation CARDIOVASCULAR: Regular S1 S2, GI: soft, normoactive bowel sounds, : No Renal angle tenderness; EXTREMITIES: No edema, no clubbing, MUSCULOSKELETAL: no muscle wasting NEURO: Awake; no lateralizing signs. SKIN: No Rash PSYCH; Flat affect Assessment & Plan Assessment/Plan (1) Desire for detoxification: (2) History of coronary artery disease: (3) Tobacco abuse: PLAN: Plan Patient is a 47-year-old gentleman with history of opioid dependence admitted with acute opioid withdrawal 1. Acute opioid withdrawal ? Patient admitted to regular nursing floor. Treatment initiated with Subutex taper in addition to adjuvant medications. Progressed being monitored with Cina score 2. Tobacco dependence - Counseled on cessation, offered nicotine patch for tobacco cravings 3. Coronary artery disease ? With previous PCI with stents patient is on aspirin continue 4. DVT prophylaxis Subcutaneous Lovenox ordered. Time spent in the patient's overall evaluation,decision-making process, review of diagnostic data, adjustment of management, discussion with other providers, nursing nursing and ancillary staff involved in patient's care documentation, 35 minutes. Charges/Coding Visit Charges Inpatient E&M: 24298 Subs Hosp L2
--- NOTE | 2023-04-22 11:05 | ADDICTION ---
This machine sign writer met with PT to conduct ASAM, MSE, AUDIT, DUDIT assessments and to plan for d/c. PT A+Ox4 and participated actively. All assessments completed and placed in PT's chart. PT plans to f/u with individual counselor at [facility] for counseling and IOP services. This worker encouraged residential treatment based on his relapse hx, medical issues, and family hx. Pt declined residential treatment. PT did not indicate a need for transportation post d/c from [facility].
[2023-04-22] MEDS: traZODone 100 MG Tablet PO (20:43)
[2023-04-22] MEDS: 0.9% Saline Lock 10 ML Syringe IV (20:44)
[2023-04-23] MEDS: Methocarbamol 750 MG Tablet PO ×2 (00:16→20:52)
[2023-04-23] MEDS: Dicyclomine 10 MG Capsule 20 MG PO ×3 (00:17→16:44)
[2023-04-23] MEDS: Gabapentin 300 MG Capsule PO ×2 (01:47→20:50)
[2023-04-23] MEDS: cloNIDine HCl 0.1 MG Tablet PO ×2 (01:47→20:51)
[2023-04-23 05:53] VITALS: BP 128/52; PULSE 56; RESP 16; TEMP 36.7; O2SAT 99
[2023-04-23] MEDS: Buprenorphine HCl 2 MG TAB.SUBL SL ×3 (05:57→20:51)
--- NOTE | 2023-04-23 07:48 | PN.HOSP_ITS ---
Reason for Visit Reason for Visit: Diagnoses Tobacco use (04/22/23) Personal history of other diseases of the circulatory system (04/22/23) Subjective Subjective Seen still complains of abdominal leg cramps Objective Data Objective Data Vital Signs: Vital Signs Temp Pulse Resp BP Pulse Ox O2 Del Method 98.0 F 56 L 16 128/52 H 99 Room Air 04/23/23 05:53 04/23/23 05:53 04/23/23 05:53 04/23/23 05:53 04/23/23 05:53 04/23/23 05:53 Oxygen Delivery Method Room Air Weight: 62.4 kg Body Mass Index (BMI) 19.7 Intake & Output: Intake and Output for Last 24 Hours 04/21/23 04/22/23 04/23/23 23:59 23:59 23:59 Intake Total 2920 / 2920 240 / 240 Balance 2920 / 2920 240 / 240 Lab / Micro Data 04/22/23 01:15 04/22/23 01:15 Physical Exam Narrative GENERAL: cooperative HEENT: Atraumatic; normocephalic EYES; Anicteric, Normal Conjunctiva NECK; supple, normal thyroid, RESPIRATORY: Diminished to auscultation CARDIOVASCULAR: Regular S1 S2, GI: soft, normoactive bowel sounds, : No Renal angle tenderness; EXTREMITIES: No edema, no clubbing, MUSCULOSKELETAL: no muscle wasting NEURO: Awake; no lateralizing signs. SKIN: No Rash PSYCH; Flat affect Assessment & Plan Assessment/Plan (1) Desire for detoxification: (2) History of coronary artery disease: (3) Tobacco abuse: PLAN: Plan Patient is a 47-year-old gentleman with history of opioid dependence admitted w [facility] acute opioid withdrawal 1. Acute opioid withdrawal ? Patient admitted to regular nursing floor. Treatment initiated with Subutex taper in addition to adjuvant medications. Progressed being monitored with Cina score ? 04/23/2023 patient still has significant symptoms including abdominal and leg cramps 2. Tobacco dependence - Counseled on cessation, offered nicotine patch for tobacco cravings 3. Coronary artery disease ? With previous PCI with stents patient is on aspirin continue 4. DVT prophylaxis Subcutaneous Lovenox ordered. Time spent in the patient's overall evaluation,decision-making process, review of diagnostic data, adjustment of management, discussion with other providers, nursing nursing and ancillary staff involved in patient's care documentation, 35 minutes. Charges/Coding Visit Charges Inpatient E&M: 98369 Subs Hosp L2
[2023-04-23 09:48] VITALS: BP 110/48; PULSE 62; RESP 20; TEMP 37.3; O2SAT 99
[2023-04-23] MEDS: hydrOXYzine PAM 25 MG Capsule 50 MG PO (09:53)
[2023-04-23] MEDS: Aspirin E.C. 81 MG Tablet PO (09:53)
[2023-04-23] MEDS: Ondansetron 8 MG Tablet PO (09:53)
[2023-04-23 12:45] VITALS: BP 143/65; PULSE 71; RESP 18; TEMP 36.7; O2SAT 97
--- NOTE | 2023-04-23 13:07 | CASEMGMT ---
Patient is self pay. SW has tried 3 times to talk with patient regarding Medicaid and prescription assistance program. However, patient has been sleeping. SW did leave a Medicaid application and list of prescription assistance programs in patient's room. SW will check back with patient as time allows. Camilla Toro SPINE SPECIALIST DIANNE
[2023-04-23 16:40] VITALS: BP 125/69; PULSE 63; RESP 18; TEMP 36.9; O2SAT 98
[2023-04-23 20:16] VITALS: BP 103/45; PULSE 72; RESP 18; TEMP 37.2; O2SAT 94
[2023-04-23] MEDS: traZODone 100 MG Tablet PO (20:51)
[2023-04-24 00:15] VITALS: BP 138/64; PULSE 60; RESP 18; TEMP 37.1; O2SAT 97
[2023-04-24 04:45] VITALS: BP 136/79; PULSE 62; RESP 18; TEMP 37.1; O2SAT 95
[2023-04-24] MEDS: Buprenorphine HCl 2 MG TAB.SUBL SL (04:59)
[2023-04-24] MEDS: Methocarbamol 750 MG Tablet PO (05:00)
[2023-04-24 10:02] VITALS: BP 108/74; PULSE 82; RESP 16; TEMP 36.8; O2SAT 95
[2023-04-24] MEDS: Aspirin E.C. 81 MG Tablet PO (10:10)
[2023-04-24] MEDS: hydrOXYzine PAM 25 MG Capsule 50 MG PO (10:10)
[2023-04-24] MEDS: Dicyclomine 10 MG Capsule 20 MG PO (10:10)
--- NOTE | 2023-04-24 11:20 | PCM.PN.HOSP ---
Reason for Visit Reason for Visit: Diagnoses Tobacco use (04/22/23) Personal history of other diseases of the circulatory system (04/22/23) Subjective Subjective Patient seen still complains of abdominal cramps. Plan is to observe patient for 1 more day. Objective Data Objective Data Vital Signs: Vital Signs Temp Pulse Resp BP Pulse Ox O2 Del Method 98.3 F 82 16 108/74 95 Room Air 04/24/23 10:02 04/24/23 10:02 04/24/23 10:02 04/24/23 10:02 04/24/23 10:02 04/24/23 10:02 Oxygen Delivery Method Room Air Weight: 62.4 kg Body Mass Index (BMI) 19.7 Intake & Output: Intake and Output for Last 24 Hours 04/22/23 04/23/23 04/24/23 23:59 23:59 23:59 Intake Total 2920 / 2920 980 / 1220 360 / 360 Balance 2920 / 2920 980 / 1220 360 / 360 Lab / Micro Data 04/22/23 01:15 04/22/23 01:15 Physical Exam Narrative GENERAL: cooperative HEENT: Atraumatic; normocephalic EYES; Anicteric, Normal Conjunctiva NECK; supple, normal thyroid, RESPIRATORY: Diminished to auscultation CARDIOVASCULAR: Regular S1 S2, GI: soft, normoactive bowel sounds, : No Renal angle tenderness; EXTREMITIES: No edema, no clubbing, MUSCULOSKELETAL: no muscle wasting NEURO: Awake; no lateralizing signs. SKIN: No Rash PSYCH; Flat affect Assessment & Plan Assessment/Plan (1) Desire for detoxification: (2) History of coronary artery disease: (3) Tobacco abuse: PLAN: Plan Patient is a 47-year-old gentleman with history of opioid dependence admitted with acute opioid withdrawal 1. Acute opioid withdrawal ? Patient admitted to regular nursing floor. Treatment initiated with Subutex taper in addition to adjuvant medications. Progressed being monitored with Cina score ? 04/23/2023 patient still has significant symptoms including abdominal and leg cramps ? 04/24/2023. Patient seen still complains of abdominal cramps 2. Tobacco dependence - Counseled on cessation, offered nicotine patch for tobacco cravings 3. Coronary artery disease ? With previous PCI with stents patient is on aspirin continue 4. DVT prophylaxis Subcutaneous Lovenox ordered. Time spent in the patient's overall evaluation,decision-making process, review of diagnostic data, adjustment of management, discussion with other providers, nursing nursing and ancillary staff involved in patient's care documentation, 35 minutes. Charges/Coding Visit Charges Inpatient E&M: 24323 Subs Hosp L2
[2023-04-24 13:40] VITALS: BP 124/71; PULSE 83; RESP 16; TEMP 36.7; O2SAT 98
--- NOTE | 2023-04-24 13:52 | PCM.DC.SUM ---
Providers Date of Admission: 04/22/23 Date of Discharge: 04/24/23 Primary Care Physician: Brandie Primary Care Phys Reason For Visit: DESIRE FOR DETOXIFICATION Diagnosis Discharge Diagnosis (1) Desire for detoxification: Status: Acute (2) History of coronary artery disease: Status: Acute Code(s): Z86.79 - Personal history of other diseases of the circulatory system (3) Tobacco abuse: Status: Acute Code(s): Z72.0 - Tobacco use Plan Patient is a 47-year-old gentleman with history of opioid dependence admitted with acute opioid withdrawal 1. Acute opioid withdrawal ? Patient admitted to regular nursing floor. Treatment initiated with Subutex taper in addition to adjuvant medications. Progressed being monitored with Cina score ? 04/23/2023 patient still has significant symptoms including abdominal and leg cramps ? 04/24/2023. Patient seen still complains of abdominal cramps ? Patient was discharged home with plans for patient to follow-up with [facility] counseling services 2. Tobacco dependence - Counseled on cessation, offered nicotine patch for tobacco cravings 3. Coronary artery disease ? With previous PCI with stents patient is on aspirin continue 4. DVT prophylaxis Subcutaneous Lovenox ordered. Time spent in the patient's overall evaluation,decision-making process, review of diagnostic data, adjustment of management, discussion with other providers, nursing nursing and ancillary staff involved in patient's care documentation, 35 minutes. Medications at Discharge Home Medications aspirin 81 mg tablet,delayed release 81 mg PO DAILY@0800 [facility] 11/10/20 Hospital Course Operations None Procedures None Physical Exam Narrative GENERAL: cooperative HEENT: Atraumatic; normocephalic EYES; Anicteric, Normal Conjunctiva NECK; supple, normal thyroid, RESPIRATORY: Diminished to auscultation CARDIOVASCULAR: Regular S1 S2, GI: soft, normoactive bowel sounds, : No Renal angle tenderness; EXTREMITIES: No edema, no clubbing, MUSCULOSKELETAL: no muscle wasting NEURO: Awake; no lateralizing signs. SKIN: No Rash PSYCH; Flat affect Weight / BMI Weight Weight: 62.4 kg Body Mass Index (BMI) 19.7 ABG / Lab / Microbiology Data 04/22/23 01:15 04/22/23 01:15 D/C Instructions Discharge Diet: No restrictions Discharge Activity: Return to Normal Activity Call your doctor if you observe: Fever of 101 or Higher, Shortness of breath, Fainting spells and Chest pain Meaningful Use Info Meaningful Use Diagnoses (Choose all that apply): None applicable Discharge Plan Admission Admit Date/Time: 04/22/23 02:24 Attending Provider: Joao Burgos Primary Care Provider: Care Physician,No Primary Consulting Providers: Ashu Funk Discharge Orders/Prescriptions Prescriptions: Continued aspirin 81 MG tablet 81 mg PO DAILY@0800 Referrals / Follow Up: Isak Wallace DO [Non-Staff] - Within 1 Week Care Physician,No Primary [Primary Care Provider] - Disposition Disposition (needs filled in before D/C Order can be placed): Home, Self Care Charges/Coding Visit Charges Inpatient E&M: 01031 Disch Hosp >30min
--- NOTE | 2023-04-24 21:08 | CASEMGMT ---
Social Work Met with patient prior to discharge today. This senior technical writer familiar with patient from prior encounters within the hospital setting. Patient expressed remembering this senior technical writer after reminder. Patient walking in the hallway, when this senior technical writer approached the patient. Patient receptive to speaking to health and social care teacher, but continued to walk, making multiple laps around the unit during social work visit. When patient was ready, patient went back to his room and conversation was finished there. Patient talked about relationship status with the mother of patient's children, and the loss of custody of the children because the mother refused to get treatment. Patient talked about trauma of finding a friend and then the patient's [id number] from overdoses. Patient discussed how his drug use has escalated over the years, and belief that counseling and treatment doesn't really help the patient. Patient reports belief that usually knows more than the counselor when it comes to addiction and what is needed to get sober. Patient reports the best he ever did was living in [place], but does not want to move away as would be moving away from his children. Supportive listening, reflection and encouragement given to patient. Patient declined this senior technical writer's offer to get patient established with treatment or counseling. This senior technical writer addressed basis needs for the patient. Patient reports to have a place to live, and also mentioned that has a few people can stay with, alluding that housing may not be his own. This senior technical writer offered to look for a mcfp for patient, but patient declined stating it's too warm out and would not want to use a mcfp until the weather warrants it. Inquired whether patient is concerned about food, and patient reports to get by on this. Patient reports to know the resources in town, and denies being worried about meeting basic needs. Patient reports the main issue is the loss of insurance a month and a half ago. Offered to call [employer] [facility] for assistance. Patient reports his application is already in, and just need to take the initiative to follow up. Educated patient that health and social care teacher yesterday left resources at patient's bedside, which this senior technical writer visualized were still in patients room. Patient thanked this senior technical writer for time today. Plan: Discharge to self, resources for self pay provided. Patient declined referrals for counseling. Denies any needs for discharge. -KARLY Alfredo
== END 2023-04-24 14:55 | disposition home or self-care (01) | DRG 897 ==
LOC: ED 03:16 → PCU 03:37
PROVIDERS: Admitting Provider Hospitalist; Emergency Provider Emergency Medicine; Visit Provider Internal Medicine
DX: F11.23 Opioid dependence with withdrawal (principal); E78.5 Hyperlipidemia, unspecified; I25.10 Atherosclerotic heart disease of native coronary artery without angina pectoris; F17.200 Nicotine dependence, unspecified, uncomplicated; Z95.5 Presence of coronary angioplasty implant and graft; G89.29 Other chronic pain; Z79.82 Long term (current) use of aspirin; Z82.3 Family history of stroke
CPT/HCPCS: 80048; 80076; 80307; 82077; 83690; 85025; 99284; 99406; J7030; A4216; J2405

== ENCOUNTER 2023-06-24 08:56 | Emergency (ER) | payer MEDICAID, SELFPAY ==
[2023-06-24 08:57] VITALS: BP 159/102; PULSE 106; RESP 15; TEMP 36.3; O2SAT 100; BMI 21.7
--- NOTE | 2023-06-24 09:27 | EX.ED.DYSGE1 ---
HPI History of Present Illness Chief Complaint: Allergic Reaction Narrative Narrative: 48-year-old male presenting with allergic reaction. Is not sure what he is coming contact with. He believes it might be his new spray deodorant. Use that yesterday and today. Yesterday he noted rash and hives on the right side of his body after using deodorant. Today he states it feels like its more on the left. He has some facial swelling and periorbital edema. He does not have any difficulty breathing. No abdominal pain. He has a hive-like rash on the back and on the lower extremities. No new medications. No new soaps, dyes, linens, detergents etc. other than the deodorant. [facility] Medical History ADD (attention deficit disorder) Anxiety Asthma Atherosclerosis of coronary artery of [place] without angina pectoris Benzodiazepine withdrawal Chronic pain CPAP (continuous positive airway pressure) dependence Desire for detoxification DVT (deep venous thrombosis) Dyslipidemia (high LDL; low HDL) Elevated blood pressure reading without diagnosis of hypertension Exertional chest pain Generalized anxiety disorder with panic attacks GERD (gastroesophageal reflux disease) History of drug abuse History of posttraumatic stress disorder (PTSD) Hypersomnia Leucocytosis Migraines Moderate persistent asthma without complication Noncompliance with CPAP treatment Obstructive sleep apnea On home oxygen therapy Opiate abuse, continuous Opiate dependence Palpitations Poor dentition PTSD (post-traumatic stress disorder) Substance abuse Tobacco abuse Home Medications aspirin 81 mg tablet,delayed release 81 mg PO DAILY@0800 [facility] 11/10/20 [History Last Taken 01/18/21 12:00] amoxicillin 875 mg-potassium clavulanate 125 mg tablet 1 tab PO BID #20 tabs 06/24/23 [Rx Last Taken Unknown] diphenhydramine HCl 25 mg capsule (Benadryl) 25 mg PO TID PRN allergic reaction #20 caps 06/24/23 [Rx Last Taken Unknown] epinephrine 0.3 mg/0.3 mL injection, auto-injector (EpiPen 2-Guero) 0.3 mg (0.3 mL) IM Q4H PRN anaphylaxis #2 ea 06/24/23 [Rx Last Taken Unknown] famotidine 20 mg tablet (Pepcid) 20 mg PO BID PRN allergic symptoms #10 tabs 06/24/23 [Rx Last Taken Unknown] prednisone 50 mg tablet 50 mg PO DAILY 4 days #4 tabs 06/24/23 [Rx Last Taken Unknown] Allergy/AdvReac Type Severity Reaction Status Date / Time naloxone Allergy Hives Verified 06/24/23 08:57 Family History Mother , Age 56 Cancer stomach Heart disease CVA (cerebral vascular accident) Father , Age 52 Heart disease CAD (coronary artery disease) Surgical History History of artificial skin graft History of coronary angioplasty (04/21/20) History of coronary artery stent placement (05/01/19) Hx of heart artery stent Social History household members: significant other current occupational exposures/hazards: No pets and animals: No Smoking Status: Current every day smoker tobacco type: cigarettes second hand exposure: Yes alcohol intake: never substance use type: opiates caffeine: Yes Type: carbonated beverages ROS ROS ED Constitutional Constitutional ED: Denies chills, fever(s) or sweats Eyes Eyes: Denies blurry vision or change in vision ENT ENT ED: Reports other; Denies ear pain or sore throat Cardiovascular Cardiovascular: Denies chest pain, palpitations or racing heartbeat Respiratory/Chest Respiratory/Chest: Denies cough, dyspnea or sputum Gastrointestinal Gastrointestinal: Denies abdominal pain, constipation, diarrhea, nausea or vomiting Genitourinary Genitourinary ED: Denies dysuria, hematuria or urinary frequency Musculoskeletal Musculoskeletal: Denies arthralgias, myalgias or neck pain Integumentary Reports rash; Denies abscess or Abrasions Neurologic Neurologic: Denies headache(s), paresthesias or weakness Psychiatric Psychiatric: Denies anxiety, depression, suicidal ideation or suicidal thoughts Endocrine Endocrinology: Denies polydipsia or polyuria EXAM Physical Exam Const Vital Signs: 06/24/23 08:57 06/24/23 10:47 Temperature 97.4 F L Temperature Source Temporal Pulse Rate 106 H 65 Respiratory Rate 15 18 Blood Pressure 159/102 H 115/67 Blood Pressure Mean 121 83 Pulse Ox 100 97 Oxygen Delivery Method Room Air Room Air Positive well nourished General Appearance ED: NAD; Negative for pallor HEENT Reports moist mucous membranes HEENT Narrative: There is facial swelling around the left side of the lips. Airway is patent stridor. Tongue without edema. No sublingual edema. Buccal mucosa normal. Attention intact. Eyes Eyes Narrative: Left periorbital edema. No extraocular entrapment. No pain with movement. No evidence of cellulitis. Neck no lymphadenopathy and supple Chest Wall inspection of chest normal Resp normal respiratory effort and clear to auscultation bilaterally Auscultation: Negative for rales, rhonchi or wheezes Cardio regular rhythm Rate: tachycardic Neuro oriented x3 and CN's II-XII intact bilaterally Sensorium / Orientation: alert Psych mental status grossly normal Skin Skin Narrative: Hive-like rash noted to the back on the right and left as well as the right flank and bilateral lower extremities General Skin Exam: Negative for jaundice or pallor MDM MDM MDM Narrative Medical decision making narrative: Patient with allergic reaction. He is treated with Solu-Medrol, Benadryl, Pepcid. Do not believe he is an EpiPen. Will monitor. Unclear with the cause of the allergic reaction is. Believes it might be deodorant. After medication patient was monitored for a couple of hours. Rash is now improving. Itching is also improving. He still has some facial swelling. At this point he told me he had a bad tooth and showed me that his upper maxillary tooth on the left is broken and decayed. He requested antibiotics for this. I will put him on Augmentin for the tooth. He is given a short burst of prednisone, Benadryl, Pepcid for home. He was also given an EpiPen should his allergy reaction worsen. I do not believe he needs epinephrine here. Patient was amenable to this plan and is discharged home in stable condition. Impression: 1. Allergic reaction 2. Dental caries Lab Data Attestation: I reviewed the patient's lab results. Discharge Plan Triage Chief Complaint: Allergic Reaction ED Provider: Omar Edwards Dx/Rx/DC Orders Instructions: ED General Allergic Reactions, ED Dental Abscess Prescriptions: New prednisone 50 mg tablet 50 mg PO DAILY 4 Days Qty: 4 0RF diphenhydramine HCl [Benadryl] 25 mg capsule 25 mg PO TID PRN (Reason: allergic reaction) Qty: 20 0RF famotidine [Pepcid] 20 mg tablet 20 mg PO BID PRN (Reason: allergic symptoms) Qty: 10 0RF amoxicillin-pot clavulanate 875-125 mg tablet 1 tab PO BID Qty: 20 0RF epinephrine [EpiPen 2-Guero] 0.3 mg/0.3 mL auto-injector 0.3 mg IM Q4H PRN (Reason: anaphylaxis) Qty: 2 0RF No Action aspirin 81 MG tablet 81 mg PO DAILY@0800 Primary Care Provider: Care Physician,No Primary Referrals: [facility] [Outside] - 3-5 Days Care Physician,No Primary [Primary Care Provider] - Disposition Disposition: Home, Self Care
[2023-06-24] MEDS: DiphenhydrAMINE 50 MG/ML Syringe 25 MG IV (09:52)
[2023-06-24] MEDS: Famotidine 200 MG/20 ML MDV 20 MG in 0.9% Normal Saline (Pres. free 8 ML 300 MG IV (09:52)
[2023-06-24] MEDS: MethylPREDNISolone 125 MG/2 ML Vial IV (09:52)
[2023-06-24 10:47] VITALS: BP 115/67; PULSE 65; RESP 18; O2SAT 97
[2023-06-24] MEDS: Amox/Clavulanate 875 MG Tablet PO (11:38)
[2023-06-24 11:40] VITALS: BP 95/53; PULSE 70; RESP 18; O2SAT 98
== END 2023-06-24 11:40 | disposition home or self-care (01) ==
PROVIDERS: Emergency Provider Student in an Organized Health Care Education/Training Program; Visit Provider Student in an Organized Health Care Education/Training Program
DX: T78.40XA Allergy, unspecified, initial encounter (principal); I25.10 Atherosclerotic heart disease of native coronary artery without angina pectoris; K02.9 Dental caries, unspecified; G47.33 Obstructive sleep apnea (adult) (pediatric); F17.210 Nicotine dependence, cigarettes, uncomplicated; Z86.718 Personal history of other venous thrombosis and embolism; Z99.81 Dependence on supplemental oxygen; Z95.5 Presence of coronary angioplasty implant and graft; X58.XXXA Exposure to other specified factors, initial encounter
CPT/HCPCS: 96374; 96375; 99283; A4216; J3490

== ENCOUNTER 2023-07-01 09:09 | Emergency (ER) | payer MEDICAID, SELFPAY ==
[2023-07-01 09:10] VITALS: BP 117/95; PULSE 104; RESP 18; TEMP 37.2; O2SAT 95
--- NOTE | 2023-07-01 09:18 | EDS_ITS ---
HPI HPI - URI History of Present Illness Chief Complaint: Cough Narrative Narrative: 48-year-old male presenting with subjective fevers, chills, body aches, cough. Patient states this started about 4 days ago. Its progressively gotten worse. He states he is producing frothy sputum. He states that his abdomen hurts from coughing so much. Denies chest pain. States he has a history of similar symptoms and had pneumonia. Patient is a smoker but states he is down to half a pack a day since has been sick. No specific history of COPD. ROS ROS ED Constitutional Constitutional ED: Reports chills, fever(s), subjective and sweats ENT ENT ED: Reports rhinorrhea and sore throat Cardiovascular Cardiovascular: Denies chest pain or palpitations Respiratory/Chest Respiratory/Chest: Reports cough, dyspnea and dyspnea on exertion Gastrointestinal Gastrointestinal: Reports abdominal pain; Denies nausea or vomiting Genitourinary Genitourinary ED: Denies dysuria or hematuria Musculoskeletal Musculoskeletal: Reports myalgias; Denies arthralgias Integumentary Denies abscess or Abrasions Neurologic Neurologic: Reports headache(s); Denies paresthesias Psychiatric Psychiatric: Denies anxiety or depression Endocrine Endocrinology: Denies cold intolerance or heat intolerance [facility] Medical History ADD (attention deficit disorder) Anxiety Asthma Atherosclerosis of coronary artery of [place] heart without angina pectoris Benzodiazepine withdrawal Chronic pain CPAP (continuous positive airway pressure) dependence Desire for detoxification DVT (deep venous thrombosis) Dyslipidemia (high LDL; low HDL) Elevated blood pressure reading without diagnosis of hypertension Exertional chest pain Generalized anxiety disorder with panic attacks GERD (gastroesophageal reflux disease) History of drug abuse History of posttraumatic stress disorder (PTSD) Hypersomnia Leucocytosis Migraines Moderate persistent asthma without complication Noncompliance with CPAP treatment Obstructive sleep apnea On home oxygen therapy Opiate abuse, continuous Opiate dependence Palpitations Poor dentition PTSD (post-traumatic stress disorder) Substance abuse Tobacco abuse Home Medications aspirin 81 mg tablet,delayed release 81 mg PO DAILY@0800 [facility] 11/10/20 [History Last Taken 01/18/21 12:00] amoxicillin 875 mg-potassium clavulanate 125 mg tablet 1 tab PO BID #20 tabs 06/24/23 [Rx Last Taken Unknown] diphenhydramine HCl 25 mg capsule (Benadryl) 25 mg PO TID PRN allergic reaction #20 caps 06/24/23 [Rx Last Taken Unknown] epinephrine 0.3 mg/0.3 mL injection, auto-injector (EpiPen 2-Guero) 0.3 mg (0.3 mL) IM Q4H PRN anaphylaxis #2 ea 06/24/23 [Rx Last Taken Unknown] famotidine 20 mg tablet (Pepcid) 20 mg PO BID PRN allergic symptoms #10 tabs 06/24/23 [Rx Last Taken Unknown] prednisone 50 mg tablet 50 mg PO DAILY 4 days #4 tabs 06/24/23 [Rx Last Taken Unknown] albuterol sulfate 90 mcg/actuation aerosol inhaler 1 inh inhalation Q6H PRN shortness of breath or wheezing #8.5 grams 07/01/23 [Rx Last Taken Unknown] benzonatate 200 mg capsule 200 mg PO TID PRN cough #30 caps 07/01/23 [Rx Last Taken Unknown] prednisone 50 mg tablet 50 mg PO DAILY #5 tabs 07/01/23 [Rx Last Taken Unknown] Allergy/AdvReac Type Severity Reaction Status Date / Time naloxone Allergy Hives Verified 07/01/23 09:11 Family History Mother , Age 56 Cancer stomach Heart disease CVA (cerebral vascular accident) Father , Age 52 Heart disease CAD (coronary artery disease) Surgical History History of artificial skin graft History of coronary angioplasty (04/21/20) History of coronary artery stent placement (05/01/19) Hx of heart artery stent Social History household members: significant other current occupational exposures/hazards: No pets and animals: No Smoking Status: Current every day smoker tobacco type: cigarettes second hand exposure: Yes alcohol intake: never substance use type: opiates caffeine: Yes Type: carbonated beverages EXAM Physical Exam Const Vital Signs: 07/01/23 09:10 07/01/23 09:30 07/01/23 09:30 Temperature 98.9 F Temperature Source Temporal Pulse Rate 104 H 108 H Respiratory Rate 18 18 Respiratory Effort Normal Respiratory Depth Normal Respiratory Pattern Normal Normal Blood Pressure 117/95 H Blood Pressure Mean 102 Pulse Ox 95 Oxygen Delivery Method Room Air Room Air 07/01/23 11:20 Temperature Temperature Source Pulse Rate 63 Respiratory Rate 18 Respiratory Effort Respiratory Depth Respiratory Pattern Blood Pressure 98/49 L Blood Pressure Mean 65 Pulse Ox 90 Oxygen Delivery Method Room Air Positive well nourished General Appearance ED: NAD; Negative for pallor HEENT Reports moist mucous membranes normocephalic and atraumatic Throat: posterior oropharynx normal Eyes PERRL and EOMs intact bilaterally Neck no lymphadenopathy, supple and no meningeal signs Resp Auscultation: wheezes expiratory wheezes and throughout GI non-tender Extremity normal to inspection Neuro oriented x3 and CN's II-XII intact bilaterally Sensorium / Orientation: alert Motor Exam: strength 5/5 throughout Psych mental status grossly normal Skin General Skin Exam: Negative for jaundice or pallor MDM MDM MDM Narrative Medical decision making narrative: Presenting cough, fever, chills, shortness of breath. Differential includes pneumonia, COVID, influenza, dehydration, electrolyte abnormalities. Patient also wheezing on examination and is a smoker. This likely reactive airway. Patient will be given Solu-Medrol 125 mg, breathing treatments. Chest x-ray two-view will be obtained. CBC, CMP will also be obtained to assess white blood cell count, hemoglobin, platelets, liver function, renal function, electrolytes. Patient also given Toradol, IV fluids. COVID and influenza swabs will be obtained. CBC shows normal white cell count at 8.1, hemoglobin 13.6, platelets normal. Chest x-ray on my interpretation shows no acute process. The radiologist interprets this and agrees. Patient feeling improved after breathing treatments and Solu-Medrol. No function and electrolytes unremarkable. Total bilirubin elevated 1.1, AST 669, ALT 1068, alkaline phosphatase 293. Patient not have any abdominal pain in the right upper quadrant. He does have history of IV drug abuse. Discussed the case with Dr. Weinberg who is on-call for GI. He recommended a hepatitis panel, EBV, CMV, ANCA. This is purely for follow-up. Patient given return precautions regarding this. He is given a burst of prednisone for his reactive airway/bronchitis. He was given albuterol inhaler for home. I personally ambulated him in the room and he maintained sats of 95 to 96%. Nursing staff also ambulated him later and he was 94%. He feels well enough to go home. Impression: 1. Viral syndrome 2. Acute bronchitis 3. Transaminitis 4. History of IV drug abuse Lab Data Labs: Laboratory Results - last 24 hr 07/01/23 09:30 WBC 8.1 RBC 4.56 L Hgb 13.6 Hct 42.4 MCV 93.0 MCH 29.8 MCHC 32.1 RDW Std Deviation 47.8 H RDW Coeff of Denia 14.1 Plt Count 262 MPV 8.9 Immature Gran % (Auto) 0.400 Neut % (Auto) 56.9 Lymph % (Auto) 31.0 [place] % (Auto) 9.6 Eos % (Auto) 1.7 Baso % (Auto) 0.4 Absolute Neuts (auto) 4.6 Absolute Lymphs (auto) 2.52 Nucleated RBC % 0 Sodium 137 Potassium 4.2 Chloride 104 Carbon Dioxide 28.0 Anion Gap 5 BUN 15 Creatinine 0.73 Estim Creat Clear Calc 109.95 Est GFR (MDRD) Af Amer 147 Est GFR (MDRD) Non-Af 121 BUN/Creatinine Ratio 20.5 H Glucose 143 H Calcium 8.6 Total Bilirubin 1.10 H AST 669 H ALT 1068 H Alkaline Phosphatase 293 H Total Protein 7.0 Albumin 3.1 L Globulin 3.9 Albumin/Globulin Ratio 0.8 L Radiography Diagnostic Testing: Clinical Impression(s) from Imaging Studies Chest X-Ray 07/01/23 09:41 IMPRESSION: Stable hyperinflation with no acute or active cardiopulmonary disease. Electronically Signed: Michael Villagomez MD at 9:59 EST Reading Location ID and State: [address] [place] [address] , Service support , Discharge Plan Triage Chief Complaint: Cough ED Provider: Omar Edwards Dx/Rx/DC Orders Instructions: ED Bronchitis with Wheezing (Adult) Prescriptions: New prednisone 50 mg tablet 50 mg PO DAILY Qty: 5 0RF albuterol sulfate 90 mcg/actuation HFA aerosol inhaler 1 inh inhalation Q6H PRN (Reason: shortness of breath or wheezing) Qty: 8.5 0RF benzonatate 200 mg capsule 200 mg PO TID PRN (Reason: cough) Qty: 30 0RF No Action aspirin 81 MG tablet 81 mg PO DAILY@0800 prednisone 50 mg tablet 50 mg PO DAILY 4 Days Qty: 4 0RF diphenhydramine HCl [Benadryl] 25 mg capsule 25 mg PO TID PRN (Reason: allergic reaction) Qty: 20 0RF famotidine [Pepcid] 20 mg tablet 20 mg PO BID PRN (Reason: allergic symptoms) Qty: 10 0RF amoxicillin-pot clavulanate 875-125 mg tablet 1 tab PO BID Qty: 20 0RF epinephrine [EpiPen 2-Guero] 0.3 mg/0.3 mL auto-injector 0.3 mg IM Q4H PRN (Reason: anaphylaxis) Qty: 2 0RF Primary Care Provider: Care Physician,No Primary Referrals: Friend,Guido, DO [Med Staff - Active Staff] - 3-5 Days Care Physician,No Primary [Primary Care Provider] - Disposition Disposition: Home, Self Care
[2023-07-01] MEDS: Ipratropium/Albuterol Sulfate 3 ML AMPUL.NEB INHALATION (09:27)
[2023-07-01] MEDS: Albuterol 2.5 MG/3 ML VIAL.NEB. INHALATION (09:27)
[2023-07-01 09:30] VITALS: PULSE 108; RESP 18; O2SAT 97
[2023-07-01] MEDS: Ketorolac 15 MG/ML Vial IV (09:34)
[2023-07-01] MEDS: 0.9% Normal Saline (1000mL) 1,000 ML 1000 ML IV (09:34)
[2023-07-01] MEDS: MethylPREDNISolone 125 MG/2 ML Vial IV (09:34)
--- NOTE | 2023-07-01 09:41 | RAD_ITS ---
STUDY: X-RAY CHEST REASON FOR EXAM: Male, 48 years old. Cough. TECHNIQUE: Frontal and lateral views of the chest. COMPARISON: April 09, 2023. FINDINGS: Stable hyperinflation. There is no demonstrated pleural abnormality. Normal size heart. Normal mediastinum and avril. Normal visualized pulmonary arteries. Normal visualized aortic arch and descending thoracic aorta. Normal visualized thoracic spine. Normal visualized ribs, clavicles, and shoulders. No abnormality of the visualized soft tissue structures of the upper abdomen. RAD/Chest PA and Lateral IMPRESSION: Stable hyperinflation with no acute or active cardiopulmonary disease. Electronically Signed: Michael Villagomez MD at 9:59 EST ,
[2023-07-01 09:45] LABS: Absolute Lymphocyte Count 2.52 X10^3/uL (0.83-4.51); Absolute Neutrophil Count 4.6 X10^3/uL (2.0-7.7); Basophil# 0.03 X10^3/uL; Basophil% 0.4 % (0-1); Eosinophil# 0.14 X10^3/uL; Eosinophils% 1.7 % (0-5); Hematocrit 42.4 % (40-54); Hemoglobin 13.6 g/dL (13.0-16.5); Lymphocyte # 2.52 X10^3/ul (0.83-4.51); Mean Corp Hgb Conc 32.1 g/dL (32-36); Mean Corpuscular Hgb 29.8 pg (27.0-32.0); Mean Platelet Vol. 8.9 fl (6.2-12.0); Monocyte# 0.78 X10^3/uL; Monocyte% 9.6 % (0-10); NRBC Flagged by Analyzer 0 % (0-5); Neutrophil # 4.64 X10^3/uL (2.7-7.7); Neutrophil % 56.9 % (47-70); Platelet Count 262 K/mm3 (150-450); RBC Distribution Width CV 14.1 % (11.6-14.6); RBC Distribution Width SD 47.8 fl (35.1-43.9); Red Blood Count 4.56 M/mm3 (4.6-6.2); White Blood Count 8.1 K/mm3 (4.4-11.0)
[2023-07-01 10:17] LABS: ALB/GLOB Ratio 0.8 RATIO (0.9-2.4); AST(SGOT) 669 U/L (15-37); Alanine Aminotransfer ALT/SGPT 1068 U/L (16-61); Albumin, Serum 3.1 g/dL (3.2-5.0); Alkaline Phosphatase 293 U/L (45-117); Anion Gap 5 (5-15); BUN 15 mg/dL (7-18); BUN/Creat Ratio 20.5 RATIO (10-20); Calcium,Total 8.6 mg/dL (8.5-10.1); Chloride 104 mmol/L (98-107); Creatinine, Serum 0.73 mg/dL (0.70-1.30); EST Glomerular Filtration Rate 121 mL/min (>60); Est Glom Filt Rate - Afr Amer 147 mL/min (>60); Estimated Creatinine Clearance 109.95 ml/min; Globulin 3.9 g/dL (2.2-4.2); Glucose 143 mg/dL (74-106); Potassium 4.2 mmol/L (3.5-5.1); Sodium Level 137 mmol/L (136-145)
[2023-07-01 11:20] VITALS: BP 98/49; PULSE 63; RESP 18; O2SAT 90
[2023-07-01 12:55] VITALS: O2SAT 94
[2023-07-01 13:13] VITALS: BP 138/77; PULSE 84; RESP 16; O2SAT 97
[2023-07-02 06:08] LABS: HEPATITIS B SURFACE AG Positive (Negative); Hep C Antibodies Non Reactive (Non Reactive); Hepatitis A IgM Antibody Negative (Negative); Hepatitis B Core AB IgM Positive (Negative)
--- NOTE | 2023-07-04 15:11 | ED.RN ---
PT HEP B POSITIVE. PT TO FOLLOW UP WITH DR. MERINO REGUARDING RESULTS.
[2023-07-05 15:07] LABS: CMV by PCR Negative (Negative); Cytoplasmic Ab (C-ANCA) <1:20 titer (Neg:<1:20); EBV Acute VCA IgM < 36.0 U/mL (0.0-35.9); EBV Nuclear Antigen IgG > 600.0 U/mL (0.0-17.9); Perinuclear Ab (P-ANCA) <1:20 titer (Neg:<1:20)
== END 2023-07-01 13:14 | disposition home or self-care (01) ==
PROVIDERS: Emergency Provider Student in an Organized Health Care Education/Training Program; Visit Provider Student in an Organized Health Care Education/Training Program
DX: J20.9 Acute bronchitis, unspecified (principal); I25.10 Atherosclerotic heart disease of native coronary artery without angina pectoris; F17.210 Nicotine dependence, cigarettes, uncomplicated; B34.9 Viral infection, unspecified; E78.5 Hyperlipidemia, unspecified; R74.01 Elevation of levels of liver transaminase levels; Z87.898 Personal history of other specified conditions; Z99.89 Dependence on other enabling machines and devices; Z79.899 Other long term (current) drug therapy; K21.9 Gastro-esophageal reflux disease without esophagitis; Z95.5 Presence of coronary angioplasty implant and graft
CPT/HCPCS: 71046; 80053; 80074; 85025; 86256; 86664; 86665; 87428; 87496; 94640; 96361; 96374; 96375; 99282; J7030; A4216

== ENCOUNTER 2024-03-10 09:09 | Emergency (ER) | payer MEDICAID, SELFPAY ==
[2024-03-10 09:09] VITALS: BP 147/91; PULSE 67; RESP 22; TEMP 36; O2SAT 100; BMI 21.9
[2024-03-10 09:13] VITALS: O2SAT 98
--- NOTE | 2024-03-10 09:16 | EKG12_ITS ---
Test Reason : SOB Blood Pressure : / mmHG Vent. Rate : 072 BPM Atrial Rate : 072 BPM P-R Int : 196 ms QRS Dur : 086 ms QT Int : 416 ms P-R-T Axes : 066 072 071 degrees QTc Int : 455 ms Normal sinus rhythm Normal ECG Confirmed by Marcus Chris ([id number]), editor farm journal ZOHAIB SHARMA ([id number]) on 03/12/2024 9:24:59 AM Referred By: Confirmed By:Marcus Chris
--- NOTE | 2024-03-10 09:18 | ED.VIS.DYS ---
HPI History of Present Illness Chief Complaint: Shortness of Breath Informant: patient Narrative Narrative: Presents worsening dyspnea burning in his chest for last couple days. He reports mild productive cough. No fevers or chills. Last night had a knot in his epigastric region which subsided. History of coronary stent x 1 5 years ago on a baby aspirin. Tobacco history. 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 Denies leg swelling or cramping. No history of PE or DVT. No wheezing. PE Risk Factors: Positive for Recent travel; Negative for Cancer, OCP + Smoking + > 35, Prior DVT or PE, Recent immobilization or Recent surgery [facility] Medical History History of drug abuse History of posttraumatic stress disorder (PTSD) Tobacco abuse Exertional chest pain On home oxygen therapy CPAP (continuous positive airway pressure) dependence DVT (deep venous thrombosis) Migraines Opiate abuse, continuous Desire for detoxification Substance abuse Anxiety GERD (gastroesophageal reflux disease) Asthma Elevated blood pressure reading without diagnosis of hypertension Benzodiazepine withdrawal Opiate dependence Atherosclerosis of coronary artery of [place] heart without angina pectoris Dyslipidemia (high LDL; low HDL) Poor dentition Noncompliance with CPAP treatment Obstructive sleep apnea PTSD (post-traumatic stress disorder) Generalized anxiety disorder with panic attacks Palpitations Hypersomnia Moderate persistent asthma without complication ADD (attention deficit disorder) Leucocytosis Chronic pain Home Medications ?Medication ?Instructions ?Recorded ?Last Taken ?Type aspirin 81 mg tablet,delayed 81 mg PO DAILY@0800 [facility] 11/10/20 01/18/21 12:00 History release amoxicillin 875 mg-potassium 1 tab PO BID #20 tabs 06/24/23 Unknown Rx clavulanate 125 mg tablet diphenhydramine HCl 25 mg capsule 25 mg PO TID PRN allergic reaction 06/24/23 Unknown Rx (Benadryl) #20 caps epinephrine 0.3 mg/0.3 mL 0.3 mg (0.3 mL) IM Q4H PRN 06/24/23 Unknown Rx injection, auto-injector (EpiPen anaphylaxis #2 ea 2-Guero) famotidine 20 mg tablet (Pepcid) 20 mg PO BID PRN allergic symptoms 06/24/23 Unknown Rx #10 tabs prednisone 50 mg tablet 50 mg PO DAILY 4 days #4 tabs 06/24/23 Unknown Rx albuterol sulfate 90 mcg/actuation 1 inh inhalation Q6H PRN shortness 07/01/23 Unknown Rx aerosol inhaler of breath or wheezing #8.5 grams benzonatate 200 mg capsule 200 mg PO TID PRN cough #30 caps 07/01/23 Unknown Rx prednisone 50 mg tablet 50 mg PO DAILY #5 tabs 07/01/23 Unknown Rx albuterol sulfate 90 mcg/actuation 1 - 2 puff inhalation Q4H PRN PRN 03/10/24 Unknown Rx aerosol inhaler (Ventolin HFA) Wheezing ##1 ibuprofen 600 mg tablet 600 mg PO Q6H PRN PRN pain #20 03/10/24 Unknown Rx TABLETS Allergy/AdvReac Type Severity Reaction Status Date / Time naloxone Allergy Hives Verified 07/01/23 09:11 Family History Mother , Age 56 Cancer stomach Heart disease CVA (cerebral vascular accident) Father , Age 52 Heart disease CAD (coronary artery disease) Surgical History History of coronary angioplasty (04/21/20) History of coronary artery stent placement (05/01/19) Hx of heart artery stent History of artificial skin graft Social History household members: significant other current occupational exposures/hazards: No pets and animals: No Smoking Status: Current every day smoker tobacco type: cigarettes second hand exposure: Yes alcohol intake: never substance use type: opiates caffeine: Yes Type: carbonated beverages ROS ROS ED Constitutional Constitutional ED: Denies chills, fever(s) or sweats Eyes Eyes: Denies change in vision ENT ENT ED: Denies dysphagia or sore throat Cardiovascular Cardiovascular: Denies chest pain, leg edema, palpitations or racing heartbeat Respiratory/Chest Respiratory/Chest: Reports cough and dyspnea; Denies dyspnea on exertion Gastrointestinal Gastrointestinal: Denies abdominal pain, diarrhea, nausea or vomiting Genitourinary Genitourinary ED: Denies dysuria, hematuria or urinary frequency Musculoskeletal Musculoskeletal: Denies back pain, extremity pain or neck pain Integumentary Denies rash or wounds Neurologic Neurologic: Denies headache(s), paresthesias or weakness EXAM Physical Exam Const Vital Signs: 03/10/24 09:09 03/10/24 09:13 03/10/24 10:09 Temperature 96.8 F L Temperature Source Temporal Pulse Rate 67 54 L Respiratory Rate 22 H 16 Respiratory Effort Short of Breath Respiratory Depth Normal Respiratory Pattern Normal Blood Pressure 147/91 H 139/70 H Blood Pressure Mean 109 93 Pulse Ox 100 98 Oxygen Delivery Method Room Air Room Air Room Air 03/10/24 11:00 03/10/24 12:00 03/10/24 12:05 Temperature 97.8 F Temperature Source Pulse Rate 66 50 L 56 L Respiratory Rate 18 17 18 Respiratory Effort Respiratory Depth Respiratory Pattern Blood Pressure 132/73 H 114/93 H 114/96 H Blood Pressure Mean 92 100 102 Pulse Ox 97 99 99 Oxygen Delivery Method Room Air Room Air Positive well nourished and well developed Constitutional Narrative: Appears mild uncomfortable, nontoxic General Appearance ED: well developed HEENT Reports moist mucous membranes normocephalic and atraumatic Eyes EOMs intact bilaterally and conjunctivae normal General Eye ED: Yes normal appearance of both eyes Neck no lymphadenopathy and supple General: Negative for tenderness Chest Wall Chest: Negative for tenderness Resp normal respiratory effort and normal air movement Resp Narrative: Symmetric breath sounds throughout, no wheezing or rales Effort and Inspection: symmetric chest movement; Negative for respiratory distress Cardio regular rate, regular rhythm and no murmurs Peripheral Pulses: pulses 2+ throughout GI normal to inspection, nondistended, normoactive bowel sounds and non-tender Palpation: Negative for guarding or rebound tenderness present Back/Spine no CVA tenderness and no thoracic nor lumbar tenderness Extremity normal to inspection General Extremety ED: Negative for edema or tenderness General Extremity: Negative for edema Neuro oriented x3 and no sensory deficits noted Sensorium / Orientation: awake and alert Skin no rashes or lesions noted and no wounds MDM MDM MDM Narrative Medical decision making narrative: Interventions / MDM: Differential diagnosis: Acute bronchitis, viral syndrome Diagnosis considered but do not suspect: Pneumothorax however normal lung sounds and negative in imaging. ACS however EKG with no ischemic findings and negative cardiac enzymes. My EKG interpretation: Sinus rate of 72, no ST changes, isolated T wave inversion in aVL, nonspecific. Compared to EKG April 2023, aVL T waves are flattened. Imaging independently reviewed and interpreted by myself: CTA chest: No PE, no infiltrates. Was also read by radiology. External documents reviewed: N/A Test considered but not ordered:N/A ED course: Patient nontoxic vital stable symmetric breath sounds bilaterally. Epigastric discomfort since yesterday subsiding. Cardiac history. Cardiac workup initiated. D-dimer complaints of dyspnea and prolonged driving for work. Toradol ordered for symptoms along with fluids. 1000: Initial troponin 18. Creatinine 0.88. White 11.6. Hemoglobin 14.9. D-dimer returned at 0.59. CTA chest ordered for further evaluation. Patient stable on room air. 1135: CT chest neck for PE. Clinically improving symptoms at this time. Delta troponin pending results. Troponin negative. CT negative PE or infiltrates. Patient discussed viral bronchitis with pleurisy symptoms. He will continued on NSAIDs. Albuterol MDI use as needed. Outpatient follow-up with return precautions. All questions were answered. Re-evaluation: stable Disposition discussed with patient/family/significant other: Patient Case discussed with consulting clinician: N/A This note was generated with [employer] dictation software. It may contain incorrect words, spelling, and punctuation that were not noted in checking the note before signing. Lab Data Attestation: I reviewed the patient's lab results. Labs: Laboratory Results - last 24 hr 03/10/24 03/10/24 09:22 11:32 WBC 11.6 H RBC 4.85 Hgb 14.9 Hct 44.0 MCV 90.7 MCH 30.7 MCHC 33.9 RDW Std Deviation 39.7 RDW Coeff of Denia 11.9 Plt Count 276 MPV 8.3 Immature Gran % (Auto) 0.300 Neut % (Auto) 64.5 Lymph % (Auto) 27.7 [place] % (Auto) 4.8 Eos % (Auto) 2.3 Baso % (Auto) 0.4 Absolute Neuts (auto) 7.5 Absolute Lymphs (auto) 3.21 Nucleated RBC % 0 D-Dimer Quant (PE/DVT) 0.59 H* Sodium 137 Potassium 4.3 Chloride 103 Carbon Dioxide 30.0 Anion Gap 4 L BUN 20 H Creatinine 0.88 Estim Creat Clear Calc 99.48 Est GFR (MDRD) Af Amer 118 Est GFR (MDRD) Non-Af 98 BUN/Creatinine Ratio 22.8 H Glucose 107 H Calcium 9.3 Troponin I High Sens 18 16 Radiography Diagnostic Testing: Clinical Impression(s) from Imaging Studies Chest CTA 03/10/24 10:00 IMPRESSION: Normal CTA chest examination, without a demonstrated pulmonary embolism or arterial dissection. No pulmonary embolism is seen. Electronically Signed: Alan Huerta MD at 11:19 EDT , Discharge Plan Triage Chief Complaint: Shortness of Breath ED Provider: Kirk Parnell Dx/Rx/DC Orders Clinical Impression: Acute bronchitis, Tobacco abuse, Acute viral syndrome Instructions: Acute Bronchitis, ED URI, Viral, No Abx (Adult) Prescriptions: New ibuprofen 600 mg tablet 600 mg PO Q6H PRN PRN (Reason: pain) Qty: 20 0RF albuterol sulfate [Ventolin HFA] 90 mcg/actuation HFA aerosol inhaler 1 - 2 puff inhalation Q4H PRN PRN (Reason: Wheezing) Qty: 1 0RF No Action aspirin 81 MG tablet 81 mg PO DAILY@0800 prednisone 50 mg tablet 50 mg PO DAILY Qty: 5 0RF albuterol sulfate 90 mcg/actuation HFA aerosol inhaler 1 inh inhalation Q6H PRN (Reason: shortness of breath or wheezing) Qty: 8.5 0RF benzonatate 200 mg capsule 200 mg PO TID PRN (Reason: cough) Qty: 30 0RF prednisone 50 mg tablet 50 mg PO DAILY 4 Days Qty: 4 0RF diphenhydramine HCl [Benadryl] 25 mg capsule 25 mg PO TID PRN (Reason: allergic reaction) Qty: 20 0RF famotidine [Pepcid] 20 mg tablet 20 mg PO BID PRN (Reason: allergic symptoms) Qty: 10 0RF amoxicillin-pot clavulanate 875-125 mg tablet 1 tab PO BID Qty: 20 0RF epinephrine [EpiPen 2-Guero] 0.3 mg/0.3 mL auto-injector 0.3 mg IM Q4H PRN (Reason: anaphylaxis) Qty: 2 0RF Primary Care Provider: Care Physician,No Primary Referrals: Tamela Guzman MD [Med Staff - Nurse Consultant] - 1 Week Care Physician,No Primary [Primary Care Provider] - Activity Restrictions/Additional Instructions: Your cardiac workup negative. Your CT chest negative for pneumonia or pulmonary embolism. Try to stop smoking. Symptoms concerning for viral upper respiratory infection without pneumonia. Use inhaler and ibuprofen as needed. Print Language: Pashto Disposition Disposition: Home, Self Care Discharge Date/Time: 03/10/24 12:07
[2024-03-10] MEDS: Ketorolac 15 MG/ML Vial IV (09:26)
[2024-03-10] MEDS: 0.9% Normal Saline (500mL Bag) 500 ML 1000 ML IV (09:27)
[2024-03-10 09:32] LABS: Absolute Lymphocyte Count 3.21 X10^3/uL (0.83-4.51); Absolute Neutrophil Count 7.5 X10^3/uL (2.0-7.7); Basophil# 0.05 X10^3/uL; Basophil% 0.4 % (0-1); Eosinophil# 0.27 X10^3/uL; Eosinophils% 2.3 % (0-5); Hemoglobin 14.9 g/dL (13.0-16.5); Lymphocyte # 3.21 X10^3/ul (0.83-4.51); Lymphocyte % 27.7 % (19-41); Mean Corp Hgb Conc 33.9 g/dL (32-36); Mean Corpuscular Hgb 30.7 pg (27.0-32.0); Mean Corpuscular Volume 90.7 fL (80-94); Mean Platelet Vol. 8.3 fl (6.2-12.0); Monocyte# 0.56 X10^3/uL; Monocyte% 4.8 % (0-10); NRBC Flagged by Analyzer 0 % (0-5); Neutrophil # 7.47 X10^3/uL (2.7-7.7); Neutrophil % 64.5 % (47-70); Platelet Count 276 K/mm3 (150-450); RBC Distribution Width CV 11.9 % (11.6-14.6); RBC Distribution Width SD 39.7 fl (35.1-43.9); Red Blood Count 4.85 M/mm3 (4.6-6.2); White Blood Count 11.6 K/mm3 (4.4-11.0)
[2024-03-10 09:53] LABS: Anion Gap 4 (5-15); BUN 20 mg/dL (7-18); BUN/Creat Ratio 22.8 RATIO (10-20); Calcium,Total 9.3 mg/dL (8.5-10.1); Chloride 103 mmol/L (98-107); Creatinine, Serum 0.88 mg/dL (0.70-1.30); EST Glomerular Filtration Rate 98 mL/min (>60); Est Glom Filt Rate - Afr Amer 118 mL/min (>60); Estimated Creatinine Clearance 99.48 ml/min; Glucose 107 mg/dL (74-106); Potassium 4.3 mmol/L (3.5-5.1); Sodium Level 137 mmol/L (136-145); Troponin-I HS (w/2H Reflex) 18 pg/mL (3.0-78.0)
[2024-03-10 09:57] LABS: D-Dimer Quantitative (DVT/PE) 0.59 FEU/ug/m (0.27-0.49)
--- NOTE | 2024-03-10 10:00 | CT_ITS ---
STUDY: CTA CHEST REASON FOR EXAM: Male, 48 years old. Few day history of shortness of breath. Substance abuse. Elevated d-dimer. RADIATION DOSAGE (If Supplied By Facility): CTDIvol = ( 6.33 ) mGy, DLP = ( 250.45 ) mGycm TECHNIQUE: The examination was performed with the intravenous administration of IV 100mL Isovue-370. Post-processing of the angiographic images was performed, with multiplanar reformation and 3D reconstruction. Individualized dose optimization techniques were used for this CT. COMPARISON: Comparison is made with prior examination March 11, 2019. FINDINGS: Normal enhancement of the main pulmonary artery and right and left pulmonary arteries. Normal enhancement of the bilateral peripheral pulmonary arteries. There is no demonstrated pulmonary embolism. Normal thoracic aorta and visualized great vessels. There is no demonstrated aortic dissection. There are calcifications of the coronary arteries. Normal mediastinum. Normal hilar regions. Normal visualized trachea and bronchi. The lungs are well expanded. Normal pulmonary parenchyma. Normal pleura. Normal chest wall structures. Normal osseous structures. Normal visualized upper abdomen. CT/CTA Chest W/WO Contrast IMPRESSION: Normal CTA chest examination, without a demonstrated pulmonary embolism or arterial dissection. No pulmonary embolism is seen. Electronically Signed: Alan Huerta MD at 11:19 EDT ,
[2024-03-10 10:09] VITALS: BP 139/70; PULSE 54; RESP 16; O2SAT 98
[2024-03-10 11:00] VITALS: BP 132/73; PULSE 66; RESP 18; O2SAT 97
[2024-03-10 11:26] LABS: Reflex Troponin-HS? (from REC) Y
[2024-03-10 11:54] LABS: Troponin-I HS 16 pg/mL (3.0-78.0)
[2024-03-10 12:00] VITALS: BP 114/93; PULSE 50; RESP 17; O2SAT 99
[2024-03-10 12:05] VITALS: BP 114/96; PULSE 56; RESP 18; TEMP 36.6; O2SAT 99
== END 2024-03-10 12:07 | disposition home or self-care (01) ==
PROVIDERS: Emergency Provider Emergency Medicine; Visit Provider Emergency Medicine
DX: J20.8 Acute bronchitis due to other specified organisms (principal); F17.210 Nicotine dependence, cigarettes, uncomplicated
CPT/HCPCS: 71275; 80048; 84484; 85025; 85379; 93005; 96361; 96374; 99284; J7030; Q9967; A4216

== ENCOUNTER 2024-03-23 09:08 | Inpatient (IN) | payer MEDICAID, SELFPAY ==
[2024-03-23 09:08] VITALS: BP 154/95; PULSE 108; RESP 18; TEMP 35.6; O2SAT 100; BMI 25.2
--- NOTE | 2024-03-23 09:22 | EX.ED.SAOD ---
HPI History of Present Illness Chief Complaint: Substance Abuse Informant: patient Narrative Narrative: Here for assistance with fentanyl dependence. He states he has been using for the last 15 years. Used to inject last time 6 months ago. Is been snoring. Last use over 24 hours ago. Since then feeling sick and nauseated. Reports cramping in the legs no vomiting no cramping. And feet similar to his previous withdrawal symptoms. No fevers. Of note seen by myself couple weeks ago for a cough and chest pain workup negative. No pneumonia. He states his cough is improved since then. Reports occasional marijuana use. Denies alcohol use. Prior similar symptoms: Yes PFSH PFS Medical History History of drug abuse History of posttraumatic stress disorder (PTSD) Tobacco abuse Exertional chest pain On home oxygen therapy CPAP (continuous positive airway pressure) dependence DVT (deep venous thrombosis) Migraines Opiate abuse, continuous Desire for detoxification Substance abuse Anxiety GERD (gastroesophageal reflux disease) Asthma Elevated blood pressure reading without diagnosis of hypertension Benzodiazepine withdrawal Opiate dependence Atherosclerosis of coronary artery of [place] heart without angina pectoris Dyslipidemia (high LDL; low HDL) Poor dentition Noncompliance with CPAP treatment Obstructive sleep apnea PTSD (post-traumatic stress disorder) Generalized anxiety disorder with panic attacks Palpitations Hypersomnia Moderate persistent asthma without complication ADD (attention deficit disorder) Leucocytosis Chronic pain Home Medications ?Medication ?Instructions ?Recorded ?Last Taken ?Type aspirin 81 mg tablet,delayed 81 mg PO DAILY@0800 [facility] 11/10/20 01/18/21 12:00 History release albuterol sulfate 90 mcg/actuation 1 - 2 puff inhalation Q4H PRN PRN 03/10/24 Unknown Rx aerosol inhaler (Ventolin HFA) Wheezing ##1 Allergy/AdvReac Type Severity Reaction Status Date / Time naloxone Allergy Hives Verified 03/23/24 09:09 Family History Mother , Age 56 Cancer stomach Heart disease CVA (cerebral vascular accident) Father , Age 52 Heart disease CAD (coronary artery disease) Surgical History History of coronary angioplasty (04/21/20) History of coronary artery stent placement (05/01/19) Hx of heart artery stent History of artificial skin graft Social History (Updated 03/23/24 @ 13:[address] Annabel Jacobo MD) household members: significant other current occupational exposures/hazards: No pets and animals: No Smoking Status: Current every day smoker tobacco type: cigarettes second hand exposure: Yes alcohol intake: never substance use type: opiates and IV drugs caffeine: Yes Type: carbonated beverages ROS ROS ED Constitutional Constitutional ED: Denies chills, fever(s) or sweats Eyes Eyes: Denies change in vision ENT ENT ED: Denies dysphagia or sore throat Cardiovascular Cardiovascular: Denies chest pain, leg edema, palpitations or racing heartbeat Respiratory/Chest Respiratory/Chest: Denies cough, dyspnea or dyspnea on exertion Gastrointestinal Gastrointestinal: Reports nausea; Denies abdominal pain, diarrhea or vomiting Genitourinary Genitourinary ED: Denies dysuria, hematuria or urinary frequency Musculoskeletal Musculoskeletal: Denies back pain, extremity pain or neck pain Integumentary Denies rash or wounds Neurologic Neurologic: Denies headache(s), paresthesias or weakness EXAM Physical Exam Const Vital Signs: 03/23/24 09:08 Temperature 96.1 F L Temperature Source Temporal Pulse Rate 108 H Respiratory Rate 18 Blood Pressure 154/95 H Blood Pressure Mean 114 Pulse Ox 100 Oxygen Delivery Method Room Air Positive well nourished and well developed Constitutional Narrative: Nontoxic, fatigued appearing General Appearance ED: well developed HEENT Reports moist mucous membranes normocephalic and atraumatic Eyes EOMs intact bilaterally and conjunctivae normal General Eye ED: Yes normal appearance of both eyes Neck no lymphadenopathy and supple General: Negative for tenderness Chest Wall Chest: Negative for tenderness Resp normal respiratory effort and normal air movement Effort and Inspection: symmetric chest movement; Negative for respiratory distress Cardio regular rhythm and no murmurs Rate: tachycardic Peripheral Pulses: pulses 2+ throughout GI normal to inspection, nondistended, normoactive bowel sounds GI Narrative: Mild tenderness mid abdomen negative Baker's or McBurney's. No guarding or rebound. Palpation: Negative for guarding or rebound tenderness present Back/Spine no CVA tenderness and no thoracic nor lumbar tenderness Extremity normal to inspection General Extremety ED: Negative for edema or tenderness General Extremity: Negative for edema Neuro oriented x3 and no sensory deficits noted Sensorium / Orientation: awake and alert Skin no rashes or lesions noted and no wounds MDM MDM MDM Narrative Medical decision making narrative: Interventions / MDM: Differential diagnosis: Opioid dependence, opioid withdrawal Diagnosis considered but do not suspect: N/A My EKG interpretation: N/A Imaging independently reviewed and interpreted by myself: N/A External documents reviewed: N/A Test considered but not ordered:N/A ED course: Patient presenting with opiate withdrawal symptoms. Nauseated appears fatigue slight tachycardia. Pulse tablets IV. Fluids Zofran labs ordered. Zofran for nausea symptoms. Will plan to discuss with hospital service for admission for detox. 0950: I spoke with Dr. Jacobo for admission. Lab results are pending at this time. Lab results all negative electrolytes were normal including liver enzymes. Toxicology screen was pending collection. Re-evaluation: stable Disposition discussed with patient/family/significant other: Patient Case discussed with consulting clinician: Hospitalist This note was generated with [employer] dictation software. It may contain incorrect words, spelling, and punctuation that were not noted in checking the note before signing. Discharge Plan Dx/Rx/DC Orders Clinical Impression: Opioid withdrawal, History of coronary artery disease, Polysubstance abuse Disposition Disposition: Acute Care Hospital [facility] Discharge Date/Time: 03/23/24 10:40
--- NOTE | 2024-03-23 09:36 | PCM.HP.STD ---
HPI - General General Date of Admission: 03/23/24 Date of Service: 03/23/24 Chief Complaint: Fentanyl withdrawal HPI Narrative The patient is a 48 y/o M w/ PMHx: CAD s/p PCI, HTN, HLD, Asthma, Anxiety and Depression/PTSD, Chronic migraines, PARADISE noncompliant with PAP therapy, Tobacco use, Polysubstance abuse who presents to the [facility] ED on 03/23/24 with history of ongoing opiate abuse with fentanyl dependence ongoing for the last 15 years with last injection approximately 6 months prior and since then reportedly snorting with last use 24 hours prior to presentation with onset nausea, abdominal cramping, fatigue, restlessness, body aches with reporting interest in obtaining clean status. Workup in the ED included T96.1, heart rate 108, BP 154/95, respiratory rate 18, 100% on room air, CBC with WBC 7.9, hemoglobin 16.1, MCV 90.1, platelet 260 without marked shift, CMP with sodium 135 otherwise unremarkable, alcohol less than 3, pending UDS upon requested evaluation of patient. In the ED patient administered 1 L normal saline. In the ED patient administered IV zofran and 1L NS. [facility] Medical History History of drug abuse History of posttraumatic stress disorder (PTSD) Tobacco abuse Exertional chest pain On home oxygen therapy CPAP (continuous positive airway pressure) dependence DVT (deep venous thrombosis) Migraines Opiate abuse, continuous Desire for detoxification Substance abuse Anxiety GERD (gastroesophageal reflux disease) Asthma Elevated blood pressure reading without diagnosis of hypertension Benzodiazepine withdrawal Opiate dependence Atherosclerosis of coronary artery of [place] heart without angina pectoris Dyslipidemia (high LDL; low HDL) Poor dentition Noncompliance with CPAP treatment Obstructive sleep apnea PTSD (post-traumatic stress disorder) Generalized anxiety disorder with panic attacks Palpitations Hypersomnia Moderate persistent asthma without complication ADD (attention deficit disorder) Leucocytosis Chronic pain Home Medications ?Medication ?Instructions ?Recorded ?Last Taken ?Type aspirin 81 mg tablet,delayed 81 mg PO DAILY@0800 [facility] 11/10/20 01/18/21 12:00 History release albuterol sulfate 90 mcg/actuation 1 - 2 puff inhalation Q4H PRN PRN 03/10/24 Unknown Rx aerosol inhaler (Ventolin HFA) Wheezing ##1 Allergy/AdvReac Type Severity Reaction Status Date / Time naloxone Allergy Hives Verified 03/23/24 09:09 Family History Mother , Age 56 Cancer stomach Heart disease CVA (cerebral vascular accident) Father , Age 52 Heart disease CAD (coronary artery disease) Surgical History History of coronary angioplasty (04/21/20) History of coronary artery stent placement (05/01/19) Hx of heart artery stent History of artificial skin graft Social History (Updated 03/23/24 @ 13:[address] Annabel Jacobo MD) household members: significant other current occupational exposures/hazards: No pets and animals: No Smoking Status: Current every day smoker tobacco type: cigarettes second hand exposure: Yes alcohol intake: never substance use type: opiates and IV drugs caffeine: Yes Type: carbonated beverages ROS ROS Narrative Admission Review of Systems: CONSTITUTIONAL: No weight loss, fever, chills, + weakness or fatigue. HEENT: Eyes: No visual loss, blurred vision, double vision or yellow sclerae. Ears, Nose, Throat: No hearing loss, sneezing, congestion, runny nose or sore throat. SKIN: No rash or itching, lesions, wounds except + occasional stage ecchymoses, abrasion. CARDIOVASCULAR: No chest pain, chest pressure or chest discomfort, palpitations, edema, orthopnea, syncopal events. RESPIRATORY: No shortness of breath, cough or sputum, wheezing, hemoptysis. GASTROINTESTINAL: + anorexia, nausea, abdominal cramping. No vomiting, diarrhea, abdominal pain, melena, BRBPR. GENITOURINARY: No dysuria, frequency, urgency or retention. NEUROLOGICAL: No headache, dizziness, syncope, paralysis, ataxia, numbness or tingling in the extremities, focal weakness, change in bowel or bladder control, seizure. MUSCULOSKELETAL: + muscle, back pain, joint pain or stiffness. HEMATOLOGIC: No anemia, bleeding or bruising. LYMPHATICS: No enlarged nodes. No history of splenectomy. PSYCHIATRIC: + History of anxiety and depression/PTSD. ENDOCRINOLOGIC: + reports of sweating, cold or heat intolerance. No polyuria or polydipsia. ALLERGIES: + History of asthma. Vital Signs Vital Signs Vital Signs: 03/23/24 09:08 Temperature 96.1 F L Temperature Source Temporal Pulse Rate 108 H Respiratory Rate 18 Blood Pressure 154/95 H Blood Pressure Mean 114 Pulse Ox 100 Oxygen Delivery Method Room Air Weight Weight: 175 lb 14.862 oz Body Mass Index (BMI) 25.2 Physical Exam Narrative Physical Examination: General: Awake, alert, oriented x 3 and cooperative, seated upright in the MD bed, restless, mildly agitated, evident withdrawal. Skin: Normal color, normal turgor, no icterus, no cyanosis except occasional stage ecchymoses, abrasion HEENT: AT/NC, EOMI, PERRLA, moderately dry MM, no carotid bruits or JVD noted. Lungs: Mildly diminished, greater bases, appropriate effort no rales, ronchi or wheezing. Heart: Mildly tachycardic with regular rhythm; no gallop, rub audible. Abdomen: Soft, mild generalized discomfort with palpation with no rebound or guarding, ND, hyperactive BS, no appreciated HSM. Extremities: No cyanosis, clubbing, or edema. Neurological: Patient awake, alert, oriented as no, cognitive function intact; pupils equally reactive to light and accommodation, cranial nerves gross normal, moving all 4 extremities, no focal deficits, restless, mildly agitated, strength moderately globally [place] secondary to acute withdrawal presentation. Psychiatric: Affect appears restless, agitated, underlying history of anxiety depression/PTSD. Results Lab / Micro Data 03/23/24 09:50 03/23/24 09:50 Assessment & Plan Assessment/Plan (1) Opioid withdrawal: PLAN: Plan The patient is a 48 y/o M w/ PMHx: CAD s/p PCI, HTN, HLD, Asthma, Anxiety and Depression/PTSD, Chronic migraines, PARADISE noncompliant with PAP therapy, Tobacco use, Polysubstance abuse who presents to the [facility] ED on 03/23/24 with history of ongoing opiate abuse with fentanyl dependence ongoing for the last 15 years with last injection approximately 6 months prior and since then reportedly snorting with last use 24 hours prior to presentation with onset acute opiate withdrawal. #1. Acute Opiate Withdrawal: Will admit to MD, routine labs including CBC, CMP, urine for drug screen obtained in the ED as noted, will initiate and continue on protocol with tapering course of Subutex, as needed tylenol, ibuprofen, bowel regimen, gabapentin, Bentyl, Vistaril, methocarbamol, clonidine, PRN nightly trazodone for insomnia, IV fluids, IV antiemetics. Once patient clinically improved and completion of taper nearing will plan consultation with case management for transition to next level of rehabilitation care. #2. Polysubstance Abuse, IVDA Hx: Will obtain hepatitis panel, syphilis RPR, HIV given recent history and Lasix months of IV drug abuse, encourage clean status, continue evaluation treatment as noted above. UDS pending upon evaluation. #3. CAD: Status post previous PCI proximal LAD/D1 bifurcation with WALI to pLAD and PTCA of D1 05/2019 with follow-up FFR guided PCI of LAD/D1 bifurcation with angio sculpt angioplasty to LAD and PTCA alone to D1 04/2020, noncompliant unfortunately medication, will resume aspirin therapy, add back previous statin noted on most recent cardiology visit, at that time from review of cardiology notes patient was not on any beta-robert therapy or ALLYSON inhibitor/ARB, BP currently elevated however this could be with associated with her and all and given he had not been on prior some concern for chronic low blood pressure versus bradycardia, will defer immediate addition but continue to monitor. #4. Chronic asthma: Not on any chronic regimen, encouraged tobacco cessation PRN albuterol, HOB, IS parameters. #5. Anxiety and depression/PTSD: Per current list not on any regimen, likely contributing to #1, case management/social work consulted and could benefit from aggressive counseling and therapy. #6. Hypertension: Noted history however from review of cardiology notes he has not been on any beta-robert or ALLYSON inhibitor/ARB at his visits with cardiology, unclear if BP was lower at that time or issues with bradycardia, BP elevated above goal, upon current presentation but in the setting of acute opiate withdrawal, continue monitor and add regimen if appropriate. #7. Hyperlipidemia: Adding statin therapy back as noted. #8. Tobacco Abuse: Encouraged cessation, inpatient consultation per RT, NR if desired. #9. PARADISE: Noncompliant with PAP therapy. #10. DVT prophylaxis: Low risk for type of presentation, encourage ambulation Charges/Coding Visit Charges Inpatient E&M: 10303 Init Hosp L3
[2024-03-23] MEDS: Ondansetron 4 MG/2 ML Vial IV (09:58)
[2024-03-23] MEDS: 0.9% Normal Saline (1000mL) 1,000 ML 1000 ML IV (09:58)
[2024-03-23 10:15] LABS: AST(SGOT) 15 U/L (15-37); Alanine Aminotransfer ALT/SGPT 15 U/L (16-61); Albumin, Serum 3.7 g/dL (3.2-5.0); Alkaline Phosphatase 114 U/L (45-117); Anion Gap 4 (5-15); BUN 15 mg/dL (7-18); BUN/Creat Ratio 18.2 RATIO (10-20); Calcium,Total 9.5 mg/dL (8.5-10.1); Chloride 104 mmol/L (98-107); Creatinine, Serum 0.83 mg/dL (0.70-1.30); EST Glomerular Filtration Rate 105 mL/min (>60); Est Glom Filt Rate - Afr Amer 127 mL/min (>60); Estimated Creatinine Clearance 111.16 ml/min; Globulin 3.6 g/dL (2.2-4.2); Glucose 97 mg/dL (74-106); Potassium 4.4 mmol/L (3.5-5.1); Protein, Total 7.3 g/dL (6.4-8.2); Sodium Level 135 mmol/L (136-145)
[2024-03-23 10:23] LABS: Absolute Lymphocyte Count 2.35 X10^3/uL (0.83-4.51); Absolute Neutrophil Count 4.9 X10^3/uL (2.0-7.7); Basophil# 0.03 X10^3/uL; Basophil% 0.4 % (0-1); Eosinophil# 0.16 X10^3/uL; Hematocrit 44.4 % (40-54); Hemoglobin 16.1 g/dL (13.0-16.5); Lymphocyte # 2.35 X10^3/ul (0.83-4.51); Lymphocyte % 29.8 % (19-41); Mean Corp Hgb Conc 36.3 g/dL (32-36); Mean Corpuscular Hgb 32.7 pg (27.0-32.0); Mean Corpuscular Volume 90.1 fL (80-94); Mean Platelet Vol. 8.6 fl (6.2-12.0); Monocyte# 0.41 X10^3/uL; Monocyte% 5.2 % (0-10); NRBC Flagged by Analyzer 0 % (0-5); Neutrophil # 4.91 X10^3/uL (2.7-7.7); Neutrophil % 62.3 % (47-70); Platelet Count 261 K/mm3 (150-450); RBC Distribution Width CV 11.8 % (11.6-14.6); RBC Distribution Width SD 38.8 fl (35.1-43.9); Red Blood Count 4.93 M/mm3 (4.6-6.2); White Blood Count 7.9 K/mm3 (4.4-11.0)
[2024-03-23 10:31] LABS: Alcohol, Blood (Medical)-Serum < 3.0 mg/dL
[2024-03-23 10:39] VITALS: BP 132/70; PULSE 88; RESP 18; TEMP 36.6; O2SAT 95
[2024-03-23 10:58] VITALS: BMI 25.8
[2024-03-23 11:00] VITALS: BP 148/77; PULSE 74; RESP 18; TEMP 36.6; O2SAT 100
[2024-03-23] MEDS: Lactated Ringers 1,000 ML 125 ML IV (11:43)
[2024-03-23 13:00] LABS: HIV - WCH Non-Reactive (Nonreactive); Hepatitis B Surface Antibody Reactive; Hepatitis B Surface Antigen Non-Reactive (Nonreactive); Hepatitis C Antibody Non-Reactive (Nonreactive); Syphilis Antibodies Non-reactive
[2024-03-23 14:57] VITALS: BP 113/64; PULSE 56; RESP 18; TEMP 36.9; O2SAT 100
[2024-03-23] MEDS: Gabapentin 300 MG Capsule PO (15:09)
[2024-03-23] MEDS: Methocarbamol 750 MG Tablet PO (15:09)
[2024-03-23 15:46] VITALS: O2SAT 95
[2024-03-23] MEDS: Ibuprofen 600 MG Tablet PO (20:19)
[2024-03-23] MEDS: Atorvastatin Calcium 40 MG Tablet PO (20:19)
[2024-03-23] MEDS: cloNIDine HCl 0.1 MG Tablet PO (20:20)
[2024-03-23] MEDS: Ondansetron 8 MG Tablet PO (20:20)
[2024-03-23] MEDS: traZODone 100 MG Tablet PO (20:26)
[2024-03-23 21:00] VITALS: BP 147/75; PULSE 64; RESP 18; TEMP 36.4; O2SAT 97
[2024-03-24] MEDS: hydrOXYzine PAM 25 MG Capsule 50 MG PO ×2 (01:50→16:49)
[2024-03-24] MEDS: Acetaminophen 325 MG Tablet 650 MG PO ×2 (01:50→16:49)
[2024-03-24] MEDS: Gabapentin 300 MG Capsule PO ×3 (01:50→19:50)
[2024-03-24] MEDS: Dicyclomine 10 MG Capsule 20 MG PO ×3 (01:50→19:50)
[2024-03-24] MEDS: Methocarbamol 750 MG Tablet PO ×3 (01:52→16:49)
[2024-03-24 03:00] VITALS: BP 102/61; PULSE 56; RESP 18; TEMP 36.4; O2SAT 94
[2024-03-24] MEDS: Buprenorphine HCl 2 MG TAB.SUBL SL ×4 (03:27→19:48)
--- NOTE | 2024-03-24 07:26 | PN.HOSP_ITS ---
Reason for Visit Reason for Visit: Diagnoses Opioid use, unspecified with withdrawal (03/23/24) Subjective Subjective Patient unfortunately as noted previously had delayed his initiation of Subutex taper with significant withdrawal symptoms overnight including nausea, dyspepsia, abdominal cramping, body aches and chills therefore discussed additional dose of Subutex at this time in addition to ongoing as needed agents substance abuse protocol to which she is amenable. Patient denies fevers, chest pain or dyspnea. Objective Data Objective Data Vital Signs: Vital Signs Temp Pulse Resp BP Pulse Ox O2 Del Method 97.5 F L 56 L 18 102/61 94 Room Air 03/24/24 03:00 03/24/24 03:00 03/24/24 03:00 03/24/24 03:00 03/24/24 03:00 03/24/24 04:09 Oxygen Delivery Method Room Air Weight: 141 lb 5.061 oz Body Mass Index (BMI) 25.8 Intake & Output: Intake and Output for Last 24 Hours 03/22/24 03/23/24 03/24/24 23:59 23:59 23:59 Intake Total 1999 600 / 600 Balance 1999 600 / 600 Lab / Micro Data 03/23/24 09:50 03/23/24 09:50 Labs: Laboratory Results - last 24 hr 03/23/24 09:50: WBC 7.9, RBC 4.93, Hgb 16.1, Hct 44.4, MCV 90.1, MCH 32.7 H, M CHC 36.3 H, RDW Std Deviation 38.8, RDW Coeff of [place] 11.8, Plt Count 261, MPV 8.6, Immature Gran % (Auto) 0.300, Neut % (Auto) 62.3, Lymph % (Auto) 29.8, [place] % (Auto) 5.2, Eos % (Auto) 2.0, Baso % (Auto) 0.4, Absolute Neuts (auto) 4.9, Absolute Lymphs (auto) 2.35, Nucleated RBC % 0, Sodium 135 L, Potassium 4.4, Chloride 104, Carbon Dioxide 27.0, Anion Gap 4 L, BUN 15, Creatinine 0.83, Estim Creat Clear Calc 111.16, Est GFR (MDRD) Af Amer 127, Est GFR (MDRD) Non-Af 105, BUN/Creatinine Ratio 18.2, Glucose 97, Calcium 9.5, Total Bilirubin 0.30, AST 15, ALT 15 L, Alkaline Phosphatase 114, Total Protein 7.3, Albumin 3.7, Globulin 3.6, Albumin/Globulin Ratio 1.0, Ethyl Alcohol < 3.0 03/23/24 11:15: Syphilis Total Ab Non-reactive, Hep Bs Antigen Non-Reactive, Hep Bs Antibody Reactive, Hepatitis C Antibody Non-Reactive, HIV 1&2 Antibody Non- Reactive Physical Exam Narrative Physical Examination: General: Awake, alert, oriented x 3 and cooperative, laying in the MS bed, restless, fatigued, appears uncomfortable and overt withdrawal. Skin: Normal color, normal turgor, no icterus, no cyanosis except occasional stage ecchymoses, abrasion HEENT: AT/NC, EOMI, PERRLA, moderately dry MM. Lungs: Mildly diminished, greater bases, appropriate effort no rales, ronchi or wheezing. Heart: Currently mildly tachycardic with regular rhythm; no gallop, rub audible. Abdomen: Soft, mild generalized discomfort with palpation with no rebound or guarding, ND, hyperactive BS. Extremities: No cyanosis, clubbing, or edema. Neurological: Patient awake, alert, oriented as no, cognitive function intact; pupils equally reactive to light and accommodation, cranial nerves gross normal, moving all 4 extremities, no focal deficits, restless, uncomfortable appearing, strength moderately globally decreased, more overt withdrawal symptoms as patient unfortunately deferred initiation of his Subutex taper. Psychiatric: Affect appears fatigued, uncomfortable appearing, ill-appearing, active withdrawal, underlying history of anxiety depression/PTSD. Assessment & Plan Assessment/Plan (1) Opioid withdrawal: PLAN: Plan The patient is a 48 y/o M w/ PMHx: CAD s/p PCI, HTN, HLD, Asthma, Anxiety and Depression/PTSD, Chronic migraines, PARADISE noncompliant with PAP therapy, Tobacco use, Polysubstance abuse who presents to the [facility] ED on 03/23/24 with history of ongoing opiate abuse with fentanyl dependence ongoing for the last 15 years with last injection approximately 6 months prior and since then reportedly snorting with last use 24 hours prior to presentation with onset acute opiate withdrawal. #1. Acute Opiate Withdrawal: Admitted to [place], routine labs including CBC, CMP, urine for drug screen obtained in the ED as noted, initiated and continued on protocol with tapering course of Subutex, as needed tylenol, ibuprofen, bowel regimen, gabapentin, Bentyl, Vistaril, methocarbamol, clonidine, PRN nightly trazodone for insomnia, IV fluids, IV antiemetics. Once patient clinically improved and completion of taper nearing will plan consultation with case management for transition to next level of rehabilitation care. 03/24/2020 4 AM patient with significant withdrawal symptoms still likely secondary to deferring his initiation of Subutex therefore will give additional dose at this time. #2. Polysubstance Abuse, IVDA Hx: Nonreactive hepatitis, syphilis and HIV assessments which were obtained given history of IV drug use last 6 months prior. Encouraged clean status, continue evaluation treatment as noted above. UDS unfortunately has not been obtained, discussed with nursing and still encouraged this to be obtained. #3. CAD: Status post previous PCI proximal LAD/D1 bifurcation with WALI to pLAD and PTCA of D1 05/2019 with follow-up FFR guided PCI of LAD/D1 bifurcation with angio sculpt angioplasty to LAD and PTCA alone to D1 04/2020, noncompliant unfortunately medication, will resume aspirin therapy, add back previous statin noted on most recent cardiology visit, at that time from review of cardiology notes patient was not on any beta-robert therapy or ALLYSON inhibitor/ARB, BP currently elevated however this could be with associated with her and all and given he had not been on prior some concern for chronic low blood pressure versus bradycardia, will defer immediate addition but continue to monitor. #4. Chronic asthma: Not on any chronic regimen, encouraged tobacco cessation PRN albuterol, HOB, IS parameters. #5. Anxiety and depression/PTSD: Per current list not on any regimen, likely contributing to #1, case management/social work consulted and could benefit from aggressive counseling and therapy. #6. Hypertension: Noted history however from review of cardiology notes he has not been on any beta-robert or ALLYSON inhibitor/ARB at his visits with cardiology, unclear if BP was lower at that time or issues with bradycardia, BP elevated above goal, upon current presentation but in the setting of acute opiate withdrawal, continue monitor and add regimen if appropriate. #7. Hyperlipidemia: Added statin therapy back as noted. #8. Tobacco Abuse: Encouraged cessation, inpatient consultation per RT, NR if desired. #9. PARADISE: Noncompliant with PAP therapy. #10. DVT prophylaxis: Low risk for type of presentation, encourage ambulation Charges/Coding Visit Charges Inpatient E&M: 30501 Subs Hosp L2
[2024-03-24] MEDS: Ibuprofen 600 MG Tablet PO ×2 (07:42→19:50)
[2024-03-24] MEDS: cloNIDine HCl 0.1 MG Tablet PO ×2 (07:42→16:49)
[2024-03-24] MEDS: Ondansetron 8 MG Tablet PO ×2 (07:47→19:49)
[2024-03-24 07:51] VITALS: BP 147/123; PULSE 88; RESP 14; TEMP 37; O2SAT 97
[2024-03-24] MEDS: Aspirin E.C. 81 MG Tablet PO (10:53)
[2024-03-24 11:00] VITALS: BP 144/79; PULSE 79; RESP 14; TEMP 36.6; O2SAT 97
--- NOTE | 2024-03-24 11:16 | ADDICTION ---
This flex o writer operator met with PT to conduct ASAM, MSE, AUDIT, DUDIT assessments and to plan for d/c. PT A+Ox4 and participated actively. All assessments completed. PT has no plans to f/u with treatment or counseling services. This worker encouraged residential treatment based on his relapse hx, medical issues, and family hx. Pt declined. PT did not indicate a need for transportation post d/c from [facility].
[2024-03-24 12:31] VITALS: O2SAT 96
[2024-03-24 17:00] VITALS: BP 136/78; PULSE 82; RESP 14; TEMP 36.8; O2SAT 97
--- NOTE | 2024-03-24 17:56 | NURSING ---
MULTIPLE ATTEMPTS TO OBTAIN URINE SAMPLE THIS SHIFT, PATIENT STATES HE KEEPS FORGETTING TO PROVIDE SAMPLE
[2024-03-24] MEDS: Atorvastatin Calcium 40 MG Tablet PO (19:49)
[2024-03-24] MEDS: traZODone 100 MG Tablet PO (19:49)
[2024-03-24 21:00] VITALS: BP 145/77; PULSE 55; RESP 16; TEMP 35.9; O2SAT 96
[2024-03-25 03:00] VITALS: BP 140/72; PULSE 54; RESP 16; TEMP 35.9; O2SAT 95
[2024-03-25] MEDS: Methocarbamol 750 MG Tablet PO ×3 (03:14→15:44)
[2024-03-25] MEDS: Acetaminophen 325 MG Tablet 650 MG PO (03:15)
[2024-03-25] MEDS: hydrOXYzine PAM 25 MG Capsule 50 MG PO ×2 (03:15→15:44)
[2024-03-25] MEDS: Dicyclomine 10 MG Capsule 20 MG PO ×4 (03:15→21:12)
[2024-03-25] MEDS: Buprenorphine HCl 2 MG TAB.SUBL SL ×3 (03:15→23:03)
[2024-03-25] MEDS: cloNIDine HCl 0.1 MG Tablet PO (03:15)
--- NOTE | 2024-03-25 06:44 | PCM.PN.HOSP ---
Reason for Visit Reason for Visit: Diagnoses Opioid use, unspecified with withdrawal (03/23/24) Subjective Subjective Patient notes continued significant withdrawal symptoms including poor appetite, mild nausea, mild diarrhea, general abdominal cramping, muscle aches in addition to significant restless leg which is his worst complaint he notes. Discussed some improvements with 03/24/2024 pulsed dose times 1 of additional Subutex. Given his significant restless leg patient is amenable to initiating low-dose Mirapex to see if this will assist. Patient with still CINA scores in the 8 range. Patient denies fevers, chills, chest pain, dyspnea. Objective Data Objective Data Vital Signs: Vital Signs Temp Pulse Resp BP Pulse Ox O2 Del Method 96.6 F L 54 L 16 140/72 H 95 Room Air 03/25/24 03:00 03/25/24 03:00 03/25/24 03:00 03/25/24 03:00 03/25/24 03:00 03/25/24 03:00 Oxygen Delivery Method Room Air Weight: 141 lb 5.061 oz Body Mass Index (BMI) 25.8 Intake & Output: Intake and Output for Last 24 Hours 03/23/24 03/24/24 03/25/24 23:59 23:59 23:59 Intake Total 1999 1920 / 2320 800 / 800 Balance 1999 2320 800 / 800 Lab / Micro Data 03/23/24 09:50 03/23/24 09:50 Physical Exam Narrative Physical Examination: General: Awake, alert, oriented x 3 and cooperative, laying in the MS bed, appears more comfortable in no prior but still reporting notably elevated CINA scoring. Skin: Normal color, normal turgor, no icterus, no cyanosis except occasional stage ecchymoses, abrasions. HEENT: AT/NC, EOMI, PERRLA, MMM. Lungs: Mildly diminished, greater bases, appropriate effort no rales, ronchi or wheezing. Heart: Regular rate with regular rhythm; no gallop, rub audible. Abdomen: Soft, still mild generalized discomfort with palpation, nondistended, ongoing hyperactive BS. Extremities: No cyanosis, clubbing, or edema. Neurological: Patient awake, alert, oriented as no, cognitive function intact; pupils equally reactive to light and accommodation, cranial nerves gross normal, moving all 4 extremities, no focal deficits, currently more comfortable than the day prior but still reporting restlessness and significant issues with restless leg, strength moderately globally decreased secondary to withdrawal symptoms. Psychiatric: Affect appears fatigued, underlying history of anxiety depression/PTSD. Assessment & Plan Assessment/Plan (1) Opioid withdrawal: PLAN: Plan The patient is a 48 y/o M w/ PMHx: CAD s/p PCI, HTN, HLD, Asthma, Anxiety and Depression/PTSD, Chronic migraines, PARADISE noncompliant with PAP therapy, Tobacco use, Polysubstance abuse who presents to the [facility] ED on 03/23/24 with history of ongoing opiate abuse with fentanyl dependence ongoing for the last 15 years with last injection approximately 6 months prior and since then reportedly snorting with last use 24 hours prior to presentation with onset acute opiate withdrawal. #1. Acute Opiate Withdrawal: Admitted to [place], routine labs including CBC, CMP, urine for drug screen obtained in the ED as noted, initiated and continued on protocol with tapering course of Subutex, as needed tylenol, ibuprofen, bowel regimen, gabapentin, Bentyl, Vistaril, methocarbamol, clonidine, PRN nightly trazodone for insomnia, IV fluids, IV antiemetics. Once patient clinically improved and completion of taper nearing will plan consultation with case management for transition to next level of rehabilitation care. 03/24/24 pulsed dose additional Subutex secondary to severity of withdrawal symptoms. 03/25/2024 given severity of restless legs will add low-dose Mirapex and continue to monitor. Encouraged oral intake attempts. #2. Polysubstance Abuse, IVDA Hx: Nonreactive hepatitis, syphilis and HIV assessments which were obtained given history of IV drug use last 6 months prior. Encouraged clean status, continue evaluation treatment as noted above. UDS unfortunately has not been obtained, discussed with nursing and still encouraged this to be obtained. #3. CAD: Status post previous PCI proximal LAD/D1 bifurcation with WALI to pLAD and PTCA of D1 05/2019 with follow-up FFR guided PCI of LAD/D1 bifurcation with angio sculpt angioplasty to LAD and PTCA alone to D1 04/2020, noncompliant unfortunately medication, will resume aspirin therapy, add back previous statin noted on most recent cardiology visit, at that time from review of cardiology notes patient was not on any beta-robert therapy or ALLYSON inhibitor/ARB, BP currently elevated however this could be with associated with her and all and given he had not been on prior some concern for chronic low blood pressure versus bradycardia, will defer immediate addition but continue to monitor. #4. Chronic asthma: Not on any chronic regimen, encouraged tobacco cessation PRN albuterol, HOB, IS parameters. #5. Anxiety and depression/PTSD: Per current list not on any regimen, likely contributing to #1, case management/social work consulted and could benefit from aggressive counseling and therapy. #6. Hypertension: Noted history however from review of cardiology notes he has not been on any beta-robert or ALLYSON inhibitor/ARB at his visits with cardiology, unclear if BP was lower at that time or issues with bradycardia, BP elevated above goal, upon current presentation but in the setting of acute opiate withdrawal, continue monitor and add regimen if appropriate. #7. Hyperlipidemia: Added statin therapy back as noted. #8. Tobacco Abuse: Encouraged cessation, inpatient consultation per RT, NR if desired. #9. PARADISE: Noncompliant with PAP therapy. #10. DVT prophylaxis: Low risk for type of presentation, encourage ambulation Charges/Coding Visit Charges Inpatient E&M: 97702 Subs Hosp L2
[2024-03-25] MEDS: Gabapentin 300 MG Capsule PO ×2 (07:40→23:03)
[2024-03-25] MEDS: Aspirin E.C. 81 MG Tablet PO (07:40)
[2024-03-25 08:04] VITALS: BP 136/71; PULSE 61; RESP 16; TEMP 36.7; O2SAT 96
[2024-03-25] MEDS: Ibuprofen 600 MG Tablet PO (09:19)
[2024-03-25] MEDS: Pramipexole Di-HCl 0.25 MG Tablet PO ×2 (14:37→21:11)
[2024-03-25 14:39] VITALS: BP 113/100; PULSE 61; RESP 14; TEMP 36.3; O2SAT 96
[2024-03-25] MEDS: traZODone 100 MG Tablet PO (21:12)
[2024-03-25] MEDS: Atorvastatin Calcium 40 MG Tablet PO (21:12)
[2024-03-25] MEDS: Sodium Chloride 0.65% 1 SPRAY SPRAY.BTL NASAL (21:12)
[2024-03-25 21:15] VITALS: BP 134/83; PULSE 64; RESP 15; TEMP 36.8; O2SAT 97
[2024-03-25] MEDS: Mag /Aluminum/Simeth WCH UDC 30 ML ORAL.SUSP PO (23:17)
[2024-03-26] MEDS: MELATONIN 10 MG TABLET PO (00:11)
[2024-03-26 03:50] VITALS: BP 128/84; PULSE 61; RESP 12; TEMP 36.3; O2SAT 98
[2024-03-26] MEDS: Pramipexole Di-HCl 0.25 MG Tablet PO ×2 (06:06→13:38)
--- NOTE | 2024-03-26 06:27 | PN.HOSP_ITS ---
Reason for Visit Reason for Visit: Diagnoses Opioid use, unspecified with withdrawal (03/23/24) Subjective Subjective Patient notes dizziness and lightheadedness with activity with orthostatic vital signs assessed noted to be significantly positive with aggressive IV fluid boluses administered with improvement of orthostatics and eventual resolution of symptoms. Patient also notes no bowel movement over the last 2 days and does state that he is prone to constipation but declined any regimen addition. On evaluation he did report significant right upper quadrant discomfort therefore to be cautious gallbladder ultrasound obtained and this was unremarkable and labs upon initial presentation not concerning. Patient eager for discharge and requested transition to home setting with continued outpatient follow-up with 180. Patient denies fevers, chills, nausea, emesis, chest pain or dyspnea. Objective Data Objective Data Vital Signs: Vital Signs Temp Pulse Resp BP Pulse Ox O2 Del Method 97.3 F L 61 12 128/84 H 98 Room Air 03/26/24 03:50 03/26/24 03:50 03/26/24 03:50 03/26/24 03:50 03/26/24 03:50 03/26/24 03:50 Oxygen Delivery Method Room Air Weight: 141 lb 5.061 oz Body Mass Index (BMI) 25.8 Intake & Output: Intake and Output for Last 24 Hours 03/24/24 03/25/24 03/26/24 23:59 23:59 23:59 Intake Total 1920 / 2320 1300 / 1300 Balance 1920 / 2320 1300 / 1300 Lab / Micro Data 03/23/24 09:50 03/23/24 09:50 Physical Exam Narrative Physical Examination: General: Awake, alert, oriented x 3 and cooperative, laying in the MS bed, notes improvement of withdrawal symptoms however does report being lightheaded with activity attempts and some mild abdominal discomfort. Skin: Normal color, normal turgor, no icterus, no cyanosis except occasional stage ecchymoses, abrasions. HEENT: AT/NC, EOMI, PERRLA, MMM. Lungs: Mildly diminished, greater bases, appropriate effort no rales, ronchi or wheezing. Heart: Regular rate with regular rhythm; no gallop, rub audible. Abdomen: Soft, primarily right upper quadrant discomfort but only with deep palpation, nondistended, mildly hyperactive BS Extremities: No cyanosis, clubbing, or edema. Neurological: Patient awake, alert, oriented as no, cognitive function intact; pupils equally reactive to light and accommodation, cranial nerves gross normal, moving all 4 extremities, no focal deficits, currently more comfortable than the day prior but still reporting restlessness and significant issues with restless leg, strength moderately global decreased but improving. Psychiatric: Affect appears fatigued, underlying history of anxiety depression/PTSD. Assessment & Plan Assessment/Plan (1) Opioid withdrawal: PLAN: Plan The patient is a 48 y/o M w/ PMHx: CAD s/p PCI, HTN, HLD, Asthma, Anxiety and Depression/PTSD, Chronic migraines, PARADISE noncompliant with PAP therapy, Tobacco use, Polysubstance abuse who presents to the [facility] ED on 03/23/24 with history of ongoing opiate abuse with fentanyl dependence ongoing for the last 15 years with last injection approximately 6 months prior and since then reportedly snorting with last use 24 hours prior to presentation with onset acute opiate withdrawal. #1. Acute Opiate Withdrawal: Admitted to [place], routine labs including CBC, CMP, urine for drug screen obtained in the ED as noted, initiated and continued on protocol with tapering course of Subutex, as needed tylenol, ibuprofen, bowel regimen, gabapentin, Bentyl, Vistaril, methocarbamol, clonidine, PRN nightly trazodone for insomnia, IV fluids, IV antiemetics. Once patient clinically improved and completion of taper nearing will plan consultation with case management for transition to next level of rehabilitation care. 03/24/24 pulsed dose additional Subutex secondary to severity of withdrawal symptoms. 03/25/2024 given severity of restless legs added low-dose Mirapex with improvement. 03/26/2024 patient completed Subutex taper with plan discharge with follow-up outpatient with 180. #2. Lightheadedness, dizziness with orthostasis suspected secondary dehydration component: Patient's 03/26/2024 with lightheadedness and dizziness increased complaints as he had been up more and attempting to be active, orthostatics notably positive, administered aggressive IV fluid hydration with repeat orthostatics improved and eventual resolution of symptoms. #3. Abdominal discomfort, right upper quadrant, unclear exact etiology: Given ongoing discomfort and pain with right upper quadrant palpation although underlying constipation and previous to this generalized discomfort of the abdomen to be cautious obtain right upper quadrant ultrasound which was unremarkable. Given no marked findings plan for outpatient follow-up to reassess encouraged. Also encouraged bowel regimen given constipation propensity but patient declined. #3. Polysubstance Abuse, IVDA Hx: Nonreactive hepatitis, syphilis and HIV assessments which were obtained given history of IV drug use last 6 months prior. Encouraged clean status. #5. CAD: Status post previous PCI proximal LAD/D1 bifurcation with WALI to pLAD and PTCA of D1 05/2019 with follow-up FFR guided PCI of LAD/D1 bifurcation with angio sculpt angioplasty to LAD and PTCA alone to D1 04/2020, noncompliant unfortunately medication, will resume aspirin therapy, add back previous statin noted on most recent cardiology visit, at that time from review of cardiology notes patient was not on any beta-robert therapy or ALLYSON inhibitor/ARB, BP currently elevated however this could be with associated with her and all and given he had not been on prior some concern for chronic low blood pressure versus bradycardia, will defer immediate addition but continue to monitor. #6. Chronic asthma: Not on any chronic regimen, encouraged tobacco cessation PRN albuterol, HOB, IS parameters. #7. Anxiety and depression/PTSD: Per current list not on any regimen, likely contributing to #1, case management/social work consulted and could benefit from aggressive counseling and therapy. #8. Hypertension: Noted history however from review of cardiology notes he has not been on any beta-robert or ALLYSON inhibitor/ARB at his visits with cardiology, unclear if BP was lower at that time or issues with bradycardia, BP elevated above goal, upon current presentation but in the setting of acute opiate withdrawal, continue monitor and add regimen if appropriate. #9. Hyperlipidemia: Added statin therapy back as noted. #10. Tobacco Abuse: Encouraged cessation, inpatient consultation per RT, NR if desired. #11. PARADISE: Noncompliant with PAP therapy. #12. DVT prophylaxis: Low risk for type of presentation, encourage ambulation Charges/Coding Visit Charges Inpatient E&M: 05192 Subs Hosp L3
[2024-03-26 08:44] VITALS: BP 123/77; PULSE 74; RESP 16; TEMP 36.7; O2SAT 95
[2024-03-26] MEDS: Ondansetron 8 MG Tablet PO (08:58)
[2024-03-26] MEDS: 0.9% Normal Saline (1000mL) 1,000 ML 999 ML IV ×2 (09:00→11:48)
[2024-03-26] MEDS: Methocarbamol 750 MG Tablet PO (09:03)
[2024-03-26] MEDS: Aspirin E.C. 81 MG Tablet PO (09:03)
[2024-03-26] MEDS: Acetaminophen 325 MG Tablet 650 MG PO (09:03)
[2024-03-26] MEDS: Dicyclomine 10 MG Capsule 20 MG PO (09:03)
--- NOTE | 2024-03-26 11:21 | DCINST_ITS ---
Discharge Instructions Diet Discharge Diet: Low fat / Low cholesterol Activity Discharge Activity: Return to Normal Activity May resume sexual activity in: No Restrictions Weight Bearing Status: Weight bearing as tolerated Dressing / Incision Call your doctor if you observe: Fever of 101 or Higher, Shortness of breath, Dizziness, Swelling in the ankles, Chest pain, Increased palpitations (irregular heartbeat), Calf discomfort and Uncontrolled pain Follow Up Care Test Results: Test results from this visit will be discussed in further detail at your follow- up appointment, if applicable. Discharge Plan Admission Admit Date/Time: 03/23/24 09:37 Primary Reason for Your Visit: Acute Opiate Withdrawal Attending Provider: Annabel Jacobo Primary Care Provider: Care Physician,No Primary Instructions Patient Instructions: CAD, ED Opiate Abuse Additional Instructions / Restrictions: ADDITIONAL INSTRUCTIONS/CARE PLAN: #1. Acute Opiate Withdrawal: --Initiated and continued on protocol until completion with tapering course of Subutex, as needed tylenol, ibuprofen, bowel regimen, gabapentin, Bentyl, Vistaril, methocarbamol, clonidine, PRN nightly trazodone for insomnia. --Nonreactive hepatitis, syphilis and HIV assessments. #2. CAD: --Status post previous PCI proximal LAD/D1 bifurcation with WALI to pLAD and PTCA of D1 05/2019 with follow-up FFR guided PCI of LAD/D1 bifurcation with angio sculpt angioplasty to LAD and PTCA alone to D1. --Encourage continued daily baby 81 mg aspirin. --Per cardiology last evaluation will add back moderate dose statin therapy. --Given low normal blood pressure and bradycardia deferred beta robert or cnidy inhibitor addition. Discharge Orders/Prescriptions Prescriptions: New atorvastatin 40 mg Tablet 40 mg PO QHS 30 Days Qty: 30 0RF Continued aspirin 81 MG tablet 81 mg PO DAILY@0800 albuterol sulfate [Ventolin HFA] 90 mcg/actuation HFA aerosol inhaler 1 - 2 puff inhalation Q4H PRN PRN (Reason: Wheezing) Qty: 1 0RF Referrals / Follow Up: Ina Torres NP [Other] (Please establish with primary care and take first open available visit.) Adam Lozada NP, [employer] [Med Staff - Adv Practice Prof] - (Please follow-up with next open visit to assure appropriate CAD follow-up.) Disposition Disposition (needs filled in before D/C Order can be placed): Home, Self Care
--- NOTE | 2024-03-26 11:21 | PCM.DC.SUM ---
Providers Date of Admission: 03/23/24 Date of Discharge: 03/26/24 Primary Care Physician: No Primary Care Phys Reason For Visit: OPIATE WITHDRAWAL Diagnosis Discharge Diagnosis (1) Opioid withdrawal: Status: Acute Code(s): F11.93 - Opioid use, unspecified with withdrawal Plan: DISCHARGE DIAGNOSES: #1. Acute Opiate Withdrawal #2. Lightheadedness, dizziness with orthostasis suspected secondary dehydration component #3. Abdominal discomfort, right upper quadrant, unclear exact etiology #3. Polysubstance Abuse, IVDA Hx #5. CAD #6. Chronic asthma #7. Anxiety and depression/PTSD #8. Hypertension; however, during presentation noted to be normotensive primarily #9. Hyperlipidemia #10. Tobacco Abuse #11. PARADISE, Noncompliant with PAP therapy Medications at Discharge Home Medications aspirin 81 mg tablet,delayed release 81 mg PO DAILY@0800 [facility] 11/10/20 albuterol sulfate 90 mcg/actuation aerosol inhaler (Ventolin HFA) 1 - 2 puff inhalation Q4H PRN PRN Wheezing ##1 03/10/24 atorvastatin 40 mg tablet 40 mg PO QHS 30 days #30 tabs 03/26/24 Hospital Course Operations None Procedures EKG Summary of Care Provided Minutes Spent on Discharge: 35 Hospital Course: The patient is a 48 y/o M w/ PMHx: CAD s/p PCI, HTN, HLD, Asthma, Anxiety and Depression/PTSD, Chronic migraines, PARADISE noncompliant with PAP therapy, Tobacco use, Polysubstance abuse who presented to the [facility] ED on 03/23/24 with history of ongoing opiate abuse with fentanyl dependence ongoing for the last 15 years with last injection approximately 6 months prior and since then reportedly snorting with last use 24 hours prior to presentation with onset acute opiate withdrawal. Admitted to [place], routine labs including CBC, CMP, urine for drug screen obtained in the ED as noted, initiated and continued on protocol with tapering course of Subutex, as needed tylenol, ibuprofen, bowel regimen, gabapentin, Bentyl, Vistaril, methocarbamol, clonidine, PRN nightly trazodone for insomnia, IV fluids, IV antiemetics. Once patient clinically improved and completion of taper nearing will plan consultation with case management for transition to next level of rehabilitation care. 03/24/24 pulsed dose additional Subutex secondary to severity of withdrawal symptoms. 03/25/2024 given severity of restless legs added low-dose Mirapex with improvement. During presentation syphilis, hepatitis panel and HIV obtained all noted to be nonreactive. Patient's 03/26/2024 with lightheadedness and dizziness increased complaints as he had been up more and attempting to be active, orthostatics notably positive, administered aggressive IV fluid hydration with repeat orthostatics improved and eventual resolution of symptoms.Patient with abdominal discomfort and pain with right upper quadrant palpation although underlying constipation and previous to this generalized discomfort of the abdomen to be cautious obtain right upper quadrant ultrasound which was unremarkable. Given no marked findings plan for outpatient follow-up to reassess encouraged. Also encouraged bowel regimen given constipation propensity but patient declined. Patient with CAD status post previous PCI proximal LAD/D1 bifurcation with WALI to pLAD and PTCA of D1 05/2019 with follow-up FFR guided PCI of LAD/D1 bifurcation with angio sculpt angioplasty to LAD and PTCA alone to D1 04/2020, noncompliant unfortunately medication, resumed aspirin therapy, added back previous statin noted on most recent cardiology visit, at that time from review of cardiology notes patient was not on any beta-robert therapy or ALLYSON inhibitor/ARB, BP initially elevated but following subutex taper initiation eventually normotensive prior possible history of chronic low blood pressure versus bradycardia, thus deferred immediate addition but continue to monitor 03/26/2024 patient completed Subutex taper with plan discharge with follow-up outpatient with 180. Weight / BMI Weight Weight: 141 lb 5.061 oz Body Mass Index (BMI) 25.8 ABG / Lab / Microbiology Data 03/23/24 09:50 03/23/24 09:50 D/C Instructions Discharge Diet: Low fat / Low cholesterol May resume sexual activity in: No Restrictions Weight Bearing Status: Weight bearing as tolerated Call your doctor if you observe: Fever of 101 or Higher, Shortness of breath, Dizziness, Swelling in the ankles, Chest pain, Increased palpitations (irregular heartbeat), Calf discomfort and Uncontrolled pain Meaningful Use Info Meaningful Use Meaningful Use Diagnoses (Choose all that apply): None applicable Ischemic Stroke Statin Dosing Therapy Reference: STATIN DOSE THERAPY REFERENCE: * Patients > 75 years receive moderate or high dose statin therapy. * Patients 75 years or YOUNGER should receive HIGH intensity statin dose unless contraindicated. You will be required to document reason for non-treatment if statin daily dose does not meet guidelines. HIGH DOSE STATIN THERAPY DAILY Atorvastatin > than or = to 40 mg Rosuvastatin > than or = to 20 mg Amlodipine + Atorvastatin > than or = to 2.5/40 mg Ezetimibe + Simvastatin 10/80 mg Simvastatin 80mg Discharge Plan Admission Admit Date/Time: 03/23/24 09:37 Primary Reason for Your Visit: Acute Opiate Withdrawal Attending Provider: Annabel Jacobo Primary Care Provider: Care Physician,No Primary Instructions Patient Instructions: CAD, ED Opiate Abuse Additional Instructions / Restrictions: ADDITIONAL INSTRUCTIONS/CARE PLAN: #1. Acute Opiate Withdrawal: --Initiated and continued on protocol until completion with tapering course of Subutex, as needed tylenol, ibuprofen, bowel regimen, gabapentin, Bentyl, Vistaril, methocarbamol, clonidine, PRN nightly trazodone for insomnia. --Nonreactive hepatitis, syphilis and HIV assessments. #2. CAD: --Status post previous PCI proximal LAD/D1 bifurcation with WALI to pLAD and PTCA of D1 05/2019 with follow-up FFR guided PCI of LAD/D1 bifurcation with angio sculpt angioplasty to LAD and PTCA alone to D1. --Encourage continued daily baby 81 mg aspirin. --Per cardiology last evaluation will add back moderate dose statin therapy. --Given low normal blood pressure and bradycardia deferred beta robert or allyson inhibitor addition. Discharge Orders/Prescriptions Prescriptions: New atorvastatin 40 mg Tablet 40 mg PO QHS 30 Days Qty: 30 0RF Continued aspirin 81 MG tablet 81 mg PO DAILY@0800 albuterol sulfate [Ventolin HFA] 90 mcg/actuation HFA aerosol inhaler 1 - 2 puff inhalation Q4H PRN PRN (Reason: Wheezing) Qty: 1 0RF Referrals / Follow Up: Ina Torres NP [Other] (Please establish with primary care and take first open available visit.) Adam Lozada NP, [employer] [Med Staff - Adv Practice Prof] - (Please follow-up with next open visit to assure appropriate CAD follow-up.) Disposition Disposition (needs filled in before D/C Order can be placed): Home, Self Care Charges/Coding Visit Charges Inpatient E&M: 44542 Disch Hosp >30min
[2024-03-26 11:27] VITALS: BP 101/79; BP 127/76; BP 136/79; PULSE 110; PULSE 69
[2024-03-26 13:18] VITALS: BP 115/81; BP 153/72; BP 156/77; PULSE 61; PULSE 63; PULSE 90
[2024-03-26] MEDS: 0.9% Normal Saline (500mL Bag) 500 ML 999 ML IV (13:38)
--- NOTE | 2024-03-26 14:30 | US_ITS ---
STUDY: ABDOMINAL ULTRASOUND - RIGHT UPPER QUADRANT REASON FOR VISIT: Male, 48 years old RUQ pain TECHNIQUE: Ultrasound evaluation of the right upper quadrant was performed with real-time and static ghosh-scale imaging. TECHNICAL QUALITY: Adequate. COMPARISON: Comparison is made with prior study dated November 14, 2018. FINDINGS: Liver: The liver measures 14.8 cm. There is normal echogenicity of the liver. The bile ducts are within normal limits. There is hepatic color flow. The direction of portal flow is hepatopetal. There is no demonstrated mass lesion. Gallbladder: Normal distended gallbladder. The gallbladder wall measures 3.0 mm. There is a negative sonographic Baker''s sign. There is no pericholecystic fluid. There are no gallstones. Common Bile Duct (C.B.D.): The common bile duct measures 5 mm. Pancreas: Normal size of the head, body and tail of the pancreas. There is normal echogenicity of the pancreas. There is no demonstrated pancreatic mass or cyst. Right Kidney: Normal size of the right kidney. The right kidney measures 11.1 cm x 6 cm x 5.4 cm. Normal renal cortex. The right cortex measures 2.1 cm. There is no demonstrated renal mass or cyst. There is no right hydronephrosis. US/Gallbladder IMPRESSION: Normal right upper quadrant ultrasound examination. Electronically Signed: Alan Huerta MD at 15:32 EDT ,
[2024-03-26 15:59] VITALS: BP 123/77; PULSE 74; RESP 16; TEMP 36.7; O2SAT 95
== END 2024-03-26 16:24 | disposition home or self-care (01) | DRG 773 ==
LOC: ED 09:34 → PCU 09:59
PROVIDERS: Admitting Provider Family Medicine; Emergency Provider Emergency Medicine; Visit Provider Family Medicine
DX: F11.23 Opioid dependence with withdrawal (principal); E78.5 Hyperlipidemia, unspecified; I10 Essential (primary) hypertension; F32.A Depression, unspecified; J45.909 Unspecified asthma, uncomplicated; F41.9 Anxiety disorder, unspecified; G43.709 Chronic migraine without aura, not intractable, without status migrainosus; I25.10 Atherosclerotic heart disease of native coronary artery without angina pectoris; G47.33 Obstructive sleep apnea (adult) (pediatric); E86.0 Dehydration; R42 Dizziness and giddiness; F43.10 Post-traumatic stress disorder, unspecified; Z72.0 Tobacco use; Z95.5 Presence of coronary angioplasty implant and graft; Z79.82 Long term (current) use of aspirin; Z91.199 Patient's noncompliance with other medical treatment and regimen due to unspecified reason; R10.11 Right upper quadrant pain
CPT/HCPCS: 36415; 76705; 80053; 82077; 85025; 86703; 86706; 86780; 86803; 87340; 97802; 99284; J7030; J7040; J7120; J2405

== ENCOUNTER 2024-03-29 14:46 | Emergency (ER) | payer MEDICAID, SELFPAY ==
[2024-03-29 14:47] VITALS: BP 148/118; PULSE 92; RESP 18; TEMP 36.8; O2SAT 99; BMI 21.3
--- NOTE | 2024-03-29 14:59 | EKG12_ITS ---
Test Reason : CP Blood Pressure : / mmHG Vent. Rate : 081 BPM Atrial Rate : 081 BPM P-R Int : 158 ms QRS Dur : 080 ms QT Int : 368 ms P-R-T Axes : 075 077 074 degrees QTc Int : 427 ms Sinus rhythm with marked sinus arrhythmia Minimal voltage criteria for LVH, may be normal variant ( Sokolow-Figueroa ) Borderline ECG Confirmed by Marcus Chris ([id number]), scientific editor CAMPOS FERRARA ([id number]) on 03/30/2024 11:00:24 AM Referred By: TL Confirmed By:Marcus Chris
--- NOTE | 2024-03-29 15:03 | ED.VIS.CHEST ---
HPI <ELIZABETH Thorne - Last Filed: 03/29/24 18:35> History of Present Illness Chief Complaint: Chest Pain Narrative Narrative: Patient presenting today with left-sided nonradiating chest pain that has been intermittent since yesterday evening. The pain seems to be nonexertional. He does report some minimal shortness of breath with exertion. He has had chest pain similar to this in the past. He does have a PMH of CAD, HTN, HLD, asthma, anxiety, depression, and polysubstance abuse. He was recently discharged here from detox on 03/26/2024 from fentanyl, he has not used since being home and last use was 1 week ago, last IV drug use was 6 months ago. He denies fevers, chills, abdominal pain, nausea, and vomiting. PE Risk Factors: Negative for Recent Travel/Surgery, Recent Immobilization or Prior DVT or PE PFSH <ELIZABETH Thorne - Last Filed: 03/29/24 18:35> [facility] Medical History History of drug abuse History of posttraumatic stress disorder (PTSD) Tobacco abuse Exertional chest pain On home oxygen therapy CPAP (continuous positive airway pressure) dependence DVT (deep venous thrombosis) Migraines Opiate abuse, continuous Desire for detoxification Substance abuse Anxiety GERD (gastroesophageal reflux disease) Asthma Elevated blood pressure reading without diagnosis of hypertension Benzodiazepine withdrawal Opiate dependence Atherosclerosis of coronary artery of [place] heart without angina pectoris Dyslipidemia (high LDL; low HDL) Poor dentition Noncompliance with CPAP treatment Obstructive sleep apnea PTSD (post-traumatic stress disorder) Generalized anxiety disorder with panic attacks Palpitations Hypersomnia Moderate persistent asthma without complication ADD (attention deficit disorder) Leucocytosis Chronic pain Home Medications ?Medication ?Instructions ?Recorded ?Last Taken ?Type aspirin 81 mg tablet,delayed 81 mg PO DAILY@0800 [facility] 11/10/20 01/18/21 12:00 History release albuterol sulfate 90 mcg/actuation 1 - 2 puff inhalation Q4H PRN PRN 03/10/24 Unknown Rx aerosol inhaler (Ventolin HFA) Wheezing ##1 atorvastatin 40 mg tablet 40 mg PO QHS 30 days #30 tabs 03/26/24 Unknown Rx ondansetron 4 mg disintegrating 4 mg PO Q8H PRN PRN Nausea #10 tabs 03/29/24 Unknown Rx tablet Allergy/AdvReac Type Severity Reaction Status Date / Time naloxone Allergy Hives Verified 03/23/24 09:09 Family History Mother , Age 56 Cancer stomach Heart disease CVA (cerebral vascular accident) Father , Age 52 Heart disease CAD (coronary artery disease) Surgical History History of coronary angioplasty (04/21/20) History of coronary artery stent placement (05/01/19) Hx of heart artery stent History of artificial skin graft Social History household members: significant other current occupational exposures/hazards: No pets and animals: No Smoking Status: Current every day smoker tobacco type: cigarettes second hand exposure: Yes alcohol intake: never substance use type: opiates and IV drugs caffeine: Yes Type: carbonated beverages ROS <ELIZABETH Thorne - Last Filed: 03/29/24 18:35> ROS ED Constitutional Constitutional ED: Denies chills or fever(s) Cardiovascular Cardiovascular: Reports chest pain; Denies palpitations Respiratory/Chest Respiratory/Chest: Reports dyspnea on exertion; Denies cough Gastrointestinal Gastrointestinal: Denies abdominal pain, nausea or vomiting Musculoskeletal Musculoskeletal: Denies arthralgias or myalgias Integumentary Denies rash Neurologic Neurologic: Denies weakness EXAM <ELIZABETH Thorne - Last Filed: 03/29/24 18:35> Physical Exam Const Vital Signs: 03/29/24 14:47 03/29/24 15:47 03/29/24 16:00 Temperature 98.2 F Temperature Source Temporal Pulse Rate 92 75 67 Respiratory Rate 18 20 H 19 H Blood Pressure 148/118 H 152/88 H 155/70 H Blood Pressure Mean 128 109 98 Pulse Ox 99 100 98 Oxygen Delivery Method Room Air Room Air 03/29/24 17:01 Temperature 97.8 F Temperature Source Pulse Rate 64 Respiratory Rate 18 Blood Pressure 167/80 H Blood Pressure Mean 109 Pulse Ox 100 Oxygen Delivery Method Positive well nourished, well developed and no apparent distress General Appearance ED: well developed HEENT Reports normocephalic and head/scalp atraumatic Mouth ED: Yes moist mucous membranes normal Eyes PERRL and EOMs intact bilaterally Neck full ROM and supple Chest Wall inspection of chest normal and palpation of chest normal Resp normal respiratory effort and clear to auscultation bilaterally Cardio regular rate and regular rhythm GI soft to palpation, non-tender, non-distended and no masses Back/Spine normal ROM and normal to inspection Extremity normal to inspection and full ROM Neuro oriented x3, CN's II-XII intact bilaterally, moves all extremities, no focal motor deficits and no sensory deficits noted Sensorium / Orientation: awake and alert Psych mental status grossly normal and thought process normal Skin no rashes or lesions noted and no wounds <Dr. Ron Das DO - Last Filed: 03/29/24 17:19> Physical Exam Const Vital Signs: 03/29/24 14:47 03/29/24 15:47 03/29/24 16:00 Temperature 98.2 F Temperature Source Temporal Pulse Rate 92 75 67 Respiratory Rate 18 20 H 19 H Blood Pressure 148/118 H 152/88 H 155/70 H Blood Pressure Mean 128 109 98 Pulse Ox 99 100 98 Oxygen Delivery Method Room Air Room Air 03/29/24 17:01 Temperature 97.8 F Temperature Source Pulse Rate 64 Respiratory Rate 18 Blood Pressure 167/80 H Blood Pressure Mean 109 Pulse Ox 100 Oxygen Delivery Method MDM <ELIZABETH Thorne - Last Filed: 03/29/24 18:35> [facility] Narrative Medical decision making narrative: Patient presents today due to chest pain that started last night, he has been seen here for chest pain in the past, he did have CTA of the chest on 03/10/2024 to assess for PE and was negative. He is PERC negative, low suspicion for PE. He also thinks that he could be still withdrawing from opiates as he has been having intermittent muscle spasms, nausea, and anxiety. He was given Vistaril here for the anxiety, I will give him a prescription for Zofran. He has nonspecific leukocytosis, this has been elevated in the past, UA negative for UTI chest x-ray negative for any infiltrates or cardiopulmonary abnormality, troponin is 17. Patient reports that he is very familiar with [facility] and does have contact information to follow-up with them. I have also given him a referral for psychiatry, PCP, and cardiology. He is seen Dr. Ross in the past but has not followed up recently. Encouraged that he have close follow-up with them and strict return instructions were discussed. He will be discharged home in stable condition. Lab Data Labs: Laboratory Results - last 24 hr 03/29/24 03/29/24 14:55 15:36 WBC 13.3 H RBC 5.01 Hgb 15.1 Hct 43.8 MCV 87.4 MCH 30.1 MCHC 34.5 RDW Std Deviation 38.0 RDW Coeff of [place] 11.9 Plt Count 295 MPV 8.5 Immature Gran % (Auto) 0.300 Neut % (Auto) 61.2 Lymph % (Auto) 33.2 [place] % (Auto) 4.6 Eos % (Auto) 0.5 Baso % (Auto) 0.2 Absolute Neuts (auto) 8.1 H Absolute Lymphs (auto) 4.41 Nucleated RBC % 0 Sodium 139 Potassium 3.8 Chloride 105 Carbon Dioxide 27.0 Anion Gap 7 BUN 14 Creatinine 0.78 Estim Creat Clear Calc 109.44 Est GFR (MDRD) Af Amer 136 Est GFR (MDRD) Non-Af 113 BUN/Creatinine Ratio 18.0 Glucose 118 H Calcium 10.3 H Troponin I High Sens 17 Urine Color Yellow Urine Clarity Sl. Cloudy Urine pH 5.0 Ur Specific [place] 1.020 Urine Protein 15 H Urine Glucose (UA) Normal Urine Ketones 50 H Urine Occult Blood 25 H Urine Nitrite Negative Urine Bilirubin 1 H Urine Urobilinogen Normal Ur Leukocyte Esterase 25 H Urine RBC 0-5 SEEN Urine WBC 0-5 SEEN Ur Squamous Epith Cells 0 SEEN Urine Bacteria RARE Urine Mucus 0 SEEN Radiography X-Ray: Read by ED Physician Diagnostic Testing: Clinical Impression(s) from Imaging Studies Chest X-Ray 03/29/24 15:04 IMPRESSION: No acute cardiopulmonary process identified. Electronically Signed: Terrie Carlos MD at 15:52 EDT , EKG Initial EKG: Comments: 81 bpm, sinus rhythm, no ST elevation, no cardiac ischemia <Dr. Ron Das, DO - Last Filed: 03/29/24 17:19> MDM History & Record Review Discussion w/independent historian: Patient Additional record(s) reviewed:: Prior inpatient record and Prior ED visit Lab Data Attestation: I reviewed the patient's lab results. Labs: Laboratory Results - last 24 hr 03/29/24 03/29/24 14:55 15:36 WBC 13.3 H RBC 5.01 Hgb 15.1 Hct 43.8 MCV 87.4 MCH 30.1 MCHC 34.5 RDW Std Deviation 38.0 RDW Coeff of [place] 11.9 Plt Count 295 MPV 8.5 Immature Gran % (Auto) 0.300 Neut % (Auto) 61.2 Lymph % (Auto) 33.2 [place] % (Auto) 4.6 Eos % (Auto) 0.5 Baso % (Auto) 0.2 Absolute Neuts (auto) 8.1 H Absolute Lymphs (auto) 4.41 Nucleated RBC % 0 Sodium 139 Potassium 3.8 Chloride 105 Carbon Dioxide 27.0 Anion Gap 7 BUN 14 Creatinine 0.78 Estim Creat Clear Calc 109.44 Est GFR (MDRD) Af Amer 136 Est GFR (MDRD) Non-Af 113 BUN/Creatinine Ratio 18.0 Glucose 118 H Calcium 10.3 H Troponin I High Sens 17 Urine Color Yellow Urine Clarity Sl. Cloudy Urine pH 5.0 Ur Specific [place] 1.020 Urine Protein 15 H Urine Glucose (UA) Normal Urine Ketones 50 H Urine Occult Blood 25 H Urine Nitrite Negative Urine Bilirubin 1 H Urine Urobilinogen Normal Ur Leukocyte Esterase 25 H Urine RBC 0-5 SEEN Urine WBC 0-5 SEEN Ur Squamous Epith Cells 0 SEEN Urine Bacteria RARE Urine Mucus 0 SEEN Radiography Diagnostic Testing: Clinical Impression(s) from Imaging Studies Chest X-Ray 03/29/24 15:04 IMPRESSION: No acute cardiopulmonary process identified. Electronically Signed: Terrie Carlos MD at 15:52 EDT , Treatment and Re-Evaluation :: I have personally performed a face to face assessment of the patient and have reviewed the RICHY Note. I performed a substantive portion of the visit including all aspects of the following. My sun findings include: History is 48-year-old male who was recently admitted for fentanyl withdrawal. He states he went back to work on Saturday. He continues to have decreased sleep anxiety nausea with eating decreased appetite discomfort in the chest as well as lightheadedness which has persisted since his admission. He has prior history of coronary artery disease with stent placement. Recently restarted on aspirin and statin. Exam is patient is alert no acute distress heart is regular without murmur lung sounds are clear and equal. Neurovascular intact in the upper and lower extremities bilaterally. Abdomen soft nontender. Medical Decison Making EKG does not show concerning ST segments. My independent interpretation of the chest x-ray is no acute process. Troponin is negative. BMP essentially negative. Urinalysis with no overt infection. White count nonspecifically elevated at 13. I do wonder if this is still some withdrawal symptoms. She does not wish Suboxone or any medication for the withdrawal. Received Vistaril here for anxiety. We can certainly write for some Zofran if needed. I would recommend that he establish care with cardiology for follow-up. We should also use primary care. He has not have any long-term plan for opiate addiction would encourage him to do so even if it is only attending meetings. I think the patient should improve the further he gets away from the withdrawal of use. Discharge Plan Triage Chief Complaint: Chest Pain ED Midlevel Provider: Marion Díaz ED Provider: Ron Das Dx/Rx/DC Orders Clinical Impression: Opioid withdrawal, Chest pain, Anxiety Instructions: ED Chest Pain, Uncertain Cause, ED Opioid Withdrawal Prescriptions: New ondansetron 4 mg tablet,disintegrating 4 mg PO Q8H PRN PRN (Reason: Nausea) Qty: 10 0RF No Action aspirin 81 MG tablet 81 mg PO DAILY@0800 albuterol sulfate [Ventolin HFA] 90 mcg/actuation HFA aerosol inhaler 1 - 2 puff inhalation Q4H PRN PRN (Reason: Wheezing) Qty: 1 0RF atorvastatin 40 mg Tablet 40 mg PO QHS 30 Days Qty: 30 0RF Primary Care Provider: Care Physician,No Primary Referrals: Mercedez Kenney MD [Med Staff - Tuberculosis Specialist] - 1 Week Morelia Ross MD [Med Staff - Active Staff] - 1 Week Saad Ovalles DO [Med Staff - Tuberculosis Specialist] - 1 Week Care Physician,No Primary [Primary Care Provider] - Activity Restrictions/Additional Instructions: Have given you referrals for a PCP, slot operations manager, and psychiatrist. Please return for any worsening of your symptoms. Print Language: Citizen Of [place] Disposition Disposition: Home, Self Care Discharge Date/Time: 03/29/24 17:02
--- NOTE | 2024-03-29 15:04 | RAD_ITS ---
HISTORY: chest pain. TECHNIQUE: XR Chest 2 Views. COMPARISON: 07/01/2023. FINDINGS: CARDIOMEDIASTINAL BORDERS: Cardiac silhouette within normal limits in size. Mediastinal contour unremarkable. LUNGS: Radiographically clear. Chronic mild hyperinflation. PLEURA: No pleural effusion or pneumothorax seen. OSSEOUS STRUCTURES: Unremarkable. RAD/Chest PA and Lateral IMPRESSION: No acute cardiopulmonary process identified. Electronically Signed: Terrie Carlos MD at 15:52 EDT ,
[2024-03-29 15:13] LABS: Absolute Lymphocyte Count 4.41 X10^3/uL (0.83-4.51); Absolute Neutrophil Count 8.1 X10^3/uL (2.0-7.7); Basophil# 0.03 X10^3/uL; Basophil% 0.2 % (0-1); Eosinophil# 0.07 X10^3/uL; Eosinophils% 0.5 % (0-5); Hematocrit 43.8 % (40-54); Hemoglobin 15.1 g/dL (13.0-16.5); Lymphocyte # 4.41 X10^3/ul (0.83-4.51); Lymphocyte % 33.2 % (19-41); Mean Corp Hgb Conc 34.5 g/dL (32-36); Mean Corpuscular Hgb 30.1 pg (27.0-32.0); Mean Corpuscular Volume 87.4 fL (80-94); Mean Platelet Vol. 8.5 fl (6.2-12.0); Monocyte# 0.61 X10^3/uL; Monocyte% 4.6 % (0-10); NRBC Flagged by Analyzer 0 % (0-5); Neutrophil # 8.14 X10^3/uL (2.7-7.7); Neutrophil % 61.2 % (47-70); Platelet Count 295 K/mm3 (150-450); RBC Distribution Width CV 11.9 % (11.6-14.6); Red Blood Count 5.01 M/mm3 (4.6-6.2); White Blood Count 13.3 K/mm3 (4.4-11.0)
[2024-03-29] MEDS: 0.9% Normal Saline (1000mL) 1,000 ML 999 ML IV (15:35)
[2024-03-29 15:43] LABS: Mucous, Urine 0 SEEN /hpf (<or=2+); Squamous Epithelial Cells - UA 0 SEEN /hpf (0-5)
[2024-03-29 15:46] LABS: Color, Urine Yellow (Yellow); Glucose, Dipstick Normal (Normal); Ketone-Dipstick 50 mg/dl (Negative); Leukocyte Esterase-Dipstick 25 /ul (Negative); Nitrite-Dipstick Negative (Negative); Occult Blood-Urine 25 /ul (Negative); Protein-Dipstick 15 mg/dl (Negative); Urine Clarity Sl. Cloudy (Clear); Urine Urobilinogen Normal (Normal)
[2024-03-29 15:47] VITALS: BP 152/88; PULSE 75; RESP 20; O2SAT 100
[2024-03-29 15:53] LABS: Urine Bilirubin Dipstick 1 mg/dL (Negative)
[2024-03-29 15:59] LABS: Bacteria RARE /hpf (None Seen); Red Blood Cells-Urine 0-5 SEEN /hpf (0-5); White Blood Cells 0-5 SEEN /hpf (0-5)
[2024-03-29 16:00] VITALS: BP 155/70; PULSE 67; RESP 19; O2SAT 98
[2024-03-29 16:01] LABS: Anion Gap 7 (5-15); BUN 14 mg/dL (7-18); Calcium,Total 10.3 mg/dL (8.5-10.1); Chloride 105 mmol/L (98-107); Creatinine, Serum 0.78 mg/dL (0.70-1.30); EST Glomerular Filtration Rate 113 mL/min (>60); Est Glom Filt Rate - Afr Amer 136 mL/min (>60); Estimated Creatinine Clearance 109.44 ml/min; Glucose 118 mg/dL (74-106); Potassium 3.8 mmol/L (3.5-5.1); Sodium Level 139 mmol/L (136-145); Troponin-I HS 17 pg/mL (3.0-78.0)
[2024-03-29] MEDS: hydrOXYzine PAM 25 MG Capsule 50 MG PO (16:04)
[2024-03-29 17:01] VITALS: BP 167/80; PULSE 64; RESP 18; TEMP 36.6; O2SAT 100
== END 2024-03-29 17:02 | disposition home or self-care (01) ==
PROVIDERS: Physician Assistant; Emergency Provider Emergency Medicine; Visit Provider Emergency Medicine
DX: F11.23 Opioid dependence with withdrawal (principal); I25.10 Atherosclerotic heart disease of native coronary artery without angina pectoris; F41.9 Anxiety disorder, unspecified; I10 Essential (primary) hypertension; R07.9 Chest pain, unspecified; E78.5 Hyperlipidemia, unspecified; G47.33 Obstructive sleep apnea (adult) (pediatric); Z99.89 Dependence on other enabling machines and devices; Z79.82 Long term (current) use of aspirin; Z79.899 Other long term (current) drug therapy; Z95.5 Presence of coronary angioplasty implant and graft; F17.210 Nicotine dependence, cigarettes, uncomplicated
CPT/HCPCS: 71046; 80048; 81001; 84484; 85025; 93005; 96360; 99284; A4216

== ENCOUNTER 2024-07-08 09:25 | Emergency (ER) | payer MEDICAID, SELFPAY ==
[2024-07-08 09:25] VITALS: BP 101/39; PULSE 60; RESP 15; TEMP 35.9; O2SAT 98
--- NOTE | 2024-07-08 09:48 | CT_ITS ---
HISTORY: Near syncope. TECHNIQUE: Multiple axial images were obtained of the head without intravenous contrast. A radiation dose optimization technique was used for this scan. 247 images. COMPARISON: None. FINDINGS: BRAIN PARENCHYMA: No significant attenuation abnormality. No acute intra-axial hemorrhage. CSF SPACES: Cerebral ventricles, cortical sulci, and other extra-axial CSF spaces within normal limits in size for age. No midline shift or other significant mass effect. No acute extra-axial hemorrhage. OTHER: Intact calvarium. No significant air fluid levels in the paranasal sinuses or mastoid air cells. Unremarkable orbits. CT/Brain/Head without Contrast IMPRESSION: No acute intracranial process identified. Electronically Signed: Terrie Carlos MD at 11:51 EST ,
--- NOTE | 2024-07-08 09:49 | EKG12_ITS ---
Test Reason : SYNCOPE Blood Pressure : */* mmHG Vent. Rate : 49 BPM Atrial Rate : 49 BPM P-R Int : 198 ms QRS Dur : 98 ms QT Int : 448 ms P-R-T Axes : 68 76 74 degrees QTcB Int : 404 ms Sinus bradycardia Minimal voltage criteria for LVH, may be normal variant ( Sokolow-Figueroa ) Borderline ECG Confirmed by Marcus Chris ([id number]), editor managing newspaper ZOHAIB SHARMA ([id number]) on 07/09/2024 1:04:57 PM Referred By: Confirmed By: Marcus Chris
--- NOTE | 2024-07-08 09:55 | EX.ED.DYSGE1 ---
HPI History of Present Illness Chief Complaint: Dizziness Narrative Narrative: Chief complaint and HPI: 49-year-old male with history of CAD status post PCI, HLD, anxiety, polysubstance abuse particularly fentanyl presents for evaluation of intermittent lightheadedness/near syncope. Patient states for the past 2 days he has been having intermittent lightheadedness. Does not necessarily relate it to change in position. Patient states yesterday he developed some chest pain with his episode of lightheadedness. States it lasted several minutes but resolved. Patient currently not having chest pain. Patient states that he used fentanyl earlier this morning and shortly later developed intermittent lightheadedness at work. Denies any other substance abuse. He denies any fever, chills, chest pain, shortness of breath, numbness/tingling, neurological deficits such as focal weakness, abdominal pain, nausea, vomiting, dysuria. States he has been eating and drinking well. Denies any recent travel or surgery. Denies any bilateral lower extremity swelling or pain. Review of systems: See HPI Medications: As listed on the chart Allergies: As listed on the chart PFSH: Per chart Vital signs: As listed on the chart. Reviewed. 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 Neuro: Alert, oriented, grossly intact, sensation intact, no focal deficits Psych: Cooperative, appropriate mood and affect [facility] Medical History History of drug abuse History of posttraumatic stress disorder (PTSD) Tobacco abuse Exertional chest pain On home oxygen therapy CPAP (continuous positive airway pressure) dependence DVT (deep venous thrombosis) Migraines Opiate abuse, continuous Desire for detoxification Substance abuse Anxiety GERD (gastroesophageal reflux disease) Asthma Elevated blood pressure reading without diagnosis of hypertension Benzodiazepine withdrawal Opiate dependence Atherosclerosis of coronary artery of [place] heart without angina pectoris Dyslipidemia (high LDL; low HDL) Poor dentition Noncompliance with CPAP treatment Obstructive sleep apnea PTSD (post-traumatic stress disorder) Generalized anxiety disorder with panic attacks Palpitations Hypersomnia Moderate persistent asthma without complication ADD (attention deficit disorder) Leucocytosis Chronic pain Home Medications ?Medication ?Instructions ?Recorded ?Last Taken ?Type aspirin 81 mg tablet,delayed 81 mg PO DAILY@0800 heart health 11/10/20 01/18/21 12:00 History release albuterol sulfate 90 mcg/actuation 1 - 2 puff inhalation Q4H PRN PRN 03/10/24 Unknown Rx aerosol inhaler (Ventolin HFA) Wheezing ##1 atorvastatin 40 mg tablet 40 mg PO QHS 30 days #30 tabs 03/26/24 Unknown Rx ondansetron 4 mg disintegrating 4 mg PO Q8H PRN PRN Nausea #10 tabs 03/29/24 Unknown Rx tablet Allergy/AdvReac Type Severity Reaction Status Date / Time naloxone Allergy Hives Verified 03/23/24 09:09 Family History Mother , Age 56 Cancer stomach Heart disease CVA (cerebral vascular accident) Father , Age 52 Heart disease CAD (coronary artery disease) Surgical History History of coronary angioplasty (04/21/20) History of coronary artery stent placement (05/01/19) Hx of heart artery stent History of artificial skin graft Social History household members: significant other current occupational exposures/hazards: No pets and animals: No Smoking Status: Current every day smoker tobacco type: cigarettes second hand exposure: Yes alcohol intake: never substance use type: opiates and IV drugs caffeine: Yes Type: carbonated beverages EXAM Physical Exam Const Vital Signs: 07/08/24 09:25 07/08/24 10:40 07/08/24 11:25 Temperature 96.7 F L Temperature Source Temporal Pulse Rate 60 59 L Pulse Rate [Lying] 42 L Pulse Rate [Sitting (for 1 minute prior to obtaining)] 47 L Pulse Rate [Standing (for 1 minute prior to obtaining)] 64 Respiratory Rate 15 16 Blood Pressure 101/39 L 169/74 H Blood Pressure [Lying] 110/61 Blood Pressure [Sitting (for 1 minute prior to obtaining)] 95/60 Blood Pressure [Standing (for 1 minute prior to obtaining)] 85/57 L Blood Pressure Mean 59 105 Blood Pressure Mean [Lying] 77 Blood Pressure Mean [Sitting (for 1 minute prior to obtaining)] 71 Blood Pressure Mean [Standing (for 1 minute prior to obtaining)] 66 Pulse Ox 98 97 Oxygen Delivery Method Room Air 07/08/24 13:00 07/08/24 13:57 Temperature 97.9 F Temperature Source Pulse Rate 57 L 78 Pulse Rate [Lying] Pulse Rate [Sitting (for 1 minute prior to obtaining)] Pulse Rate [Standing (for 1 minute prior to obtaining)] Respiratory Rate 16 16 Blood Pressure 159/72 H 104/81 H Blood Pressure [Lying] Blood Pressure [Sitting (for 1 minute prior to obtaining)] Blood Pressure [Standing (for 1 minute prior to obtaining)] Blood Pressure Mean 101 88 Blood Pressure Mean [Lying] Blood Pressure Mean [Sitting (for 1 minute prior to obtaining)] Blood Pressure Mean [Standing (for 1 minute prior to obtaining)] Pulse Ox 98 99 Oxygen Delivery Method Room Air MDM MDM MDM Narrative Medical decision making narrative: 49-year-old male with history of CAD status post PCI, HLD, anxiety, polysubstance abuse particularly fentanyl presents for evaluation of intermittent lightheadedness/near syncope. Differential diagnosis includes but is not limited to symptomatic substance/fentanyl abuse, dehydration, ALEXSANDRA, anemia, UTI. Suspect less likely intracranial abnormality, ACS, PE. Laboratory workup ordered including CT head. NS bolus ordered. Patient's orthostatic vital signs were positive. This can explain his lightheadedness. On chart review, patient had a stress test in 2022 that was negative for ischemia. His EF was 61. He did have carotid ultrasound in 2020 that showed stenosis less than 50% in all vessels. EKG reviewed see below. CBC without leukocytosis. Patient has known anemia with hemoglobin of 12.3. CMP without ALEXSANDRA. BNP unremarkable. D-dimer elevated at 0.52. Patient's D-dimer was elevated in March as well at 0.59. However with his near syncope cannot rule out PE. CTA chest ordered. Troponin flat x 2. CT head without any acute intracranial abnormality. CTA chest negative for PE. UA negative for UTI. Urine drug screen positive for opiates, amphetamines, ecstasy, cocaine. Patient has multiple reasons for his likely near syncope including polysubstance abuse and orthostatic hypotension. Patient was educated on all of his results. He states that he only uses fentanyl. I explained to them that his drug screen was positive for multiple other substances and therefore his fentanyl is likely laced. Patient does not want any help with substance abuse at this time. Patient currently asymptomatic. Ambulated in the ED without difficulty. Patient is stable to discharge home. He was educated to keep up with his fluid hydration over the next several days. Change positions slowly. Follow-up with PCP. Return precautions explained. EKG: Interpreted by me/EM physician: EKG shows sinus bradycardia without any acute ischemic changes. Heart rate 49. Impression: 1. Episodic lightheadedness/near syncope 2. Orthostatic hypotension 3. Polysubstance abuse Lab Data Labs: Laboratory Results - last 24 hr 07/08/24 07/08/24 07/08/24 10:20 10:48 12:27 WBC 7.4 RBC 4.21 L Hgb 12.3 L Hct 36.7 L MCV 87.2 MCH 29.2 MCHC 33.5 RDW Std Deviation 38.6 RDW Coeff of [place] 12.1 Plt Count 262 MPV 8.8 Immature Gran % (Auto) 0.300 Neut % (Auto) 69.2 Lymph % (Auto) 24.6 [place] % (Auto) 4.5 Eos % (Auto) 1.1 Baso % (Auto) 0.3 Absolute Neuts (auto) 5.1 Absolute Lymphs (auto) 1.82 Nucleated RBC % 0 D-Dimer Quant (PE/DVT) 0.52 H* Sodium 135 L Potassium 3.8 Chloride 103 Carbon Dioxide 28.0 Anion Gap 5 BUN 13 Creatinine 0.72 Estim Creat Clear Calc 109.85 Est GFR (MDRD) Af Amer 149 Est GFR (MDRD) Non-Af 123 BUN/Creatinine Ratio 18.1 Glucose 109 H Calcium 9.5 Total Bilirubin 0.60 AST 16 ALT 15 L Alkaline Phosphatase 106 Troponin I High Sens 17 15 B-Natriuretic Peptide 22.2 Total Protein 7.2 Albumin 3.7 Globulin 3.5 Albumin/Globulin Ratio 1.1 Urine Color Yellow Urine Clarity Clear Urine pH 6.0 Ur Specific [place] 1.025 Urine Protein 30 H Urine Glucose (UA) Normal Urine Ketones Negative Urine Occult Blood Negative Urine Nitrite Negative Urine Bilirubin 1 H Urine Urobilinogen 1 H Ur Leukocyte Esterase 25 H Urine RBC 0 SEEN Urine WBC 0-5 SEEN Ur Squamous Epith Cells 0 SEEN Urine Bacteria 0 SEEN Urine Mucus 3+ Urine Opiates Screen POSITIVE H Urine Methadone Screen NEGATIVE Ur Barbiturates Screen NEGATIVE Ur Phencyclidine Scrn NEGATIVE Ur Amphetamines Screen POSITIVE H MDMA (Ecstasy) Screen POSITIVE H U Benzodiazepines Scrn NEGATIVE Urine Cocaine Screen POSITIVE H U Cannabinoids Screen NEGATIVE Ur Drug Screen Comment Ethyl Alcohol < 3.0 Radiography Diagnostic Testing: Clinical Impression(s) from Imaging Studies Brain CT 07/08/24 09:48 IMPRESSION: No acute intracranial process identified. Electronically Signed: Terrie Carlos MD at 11:51 EST Reading Location ID and State: [facility] / [place] Tel , Service support , Chest CTA 07/08/24 10:50 IMPRESSION: No evidence of pulmonary embolism. Electronically Signed: Terrie Carlos MD at 11:50 EST , Discharge Plan Triage Chief Complaint: Dizziness ED Provider: Sharif Combs Dx/Rx/DC Orders Clinical Impression: Episodic lightheadedness, Polysubstance abuse Instructions: Substance Abuse Rehab Program, Treating Drug Abuse and Addiction, ED Dizziness, Uncertain Cause Prescriptions: No Action aspirin 81 MG tablet 81 mg PO DAILY@0800 albuterol sulfate [Ventolin HFA] 90 mcg/actuation HFA aerosol inhaler 1 - 2 puff inhalation Q4H PRN PRN (Reason: Wheezing) Qty: 1 0RF atorvastatin 40 mg Tablet 40 mg PO QHS 30 Days Qty: 30 0RF ondansetron 4 mg tablet,disintegrating 4 mg PO Q8H PRN PRN (Reason: Nausea) Qty: 10 0RF Primary Care Provider: Care Physician,No Primary Referrals: Michel Sanford MD [Med Staff - Active Staff] - 3-5 Days Care Physician,No Primary [Primary Care Provider] - Activity Restrictions/Additional Instructions: Return back to the ED if symptoms change or worsen. Follow-up with your primary care physician if you do not have 1 follow-up with the 1 provided above. Print Language: Bulgarian Disposition Disposition: Home, Self Care Discharge Date/Time: 07/08/24 13:59
--- NOTE | 2024-07-08 10:38 | CM.ED ---
Social Work Reason for visit: No PCP Patient verified that he does not currently have a PCP. Resource list given with local physicians. Patient accepting of same. Genevieve Peters, WEB PRODUCER, DIRECTOR SPECIALTY
[2024-07-08 10:40] VITALS: BP 110/61; BP 85/57; BP 95/60; PULSE 42; PULSE 47; PULSE 64
[2024-07-08 10:48] LABS: D-Dimer Quantitative (DVT/PE) 0.52 FEU/ug/m (0.27-0.49)
--- NOTE | 2024-07-08 10:50 | CT_ITS ---
HISTORY: near syncope, assess for PE, elevated dimer. TECHNIQUE: CT angiogram of the chest was performed after the intravenous administration of 100mL Isovue-370. Post-processing of the angiographic images was performed with multiplanar reformation and 3D reconstruction. Individualized dose optimization techniques were used for this CT. 1239 images. COMPARISON: 03/29/2024, 03/10/2024. FINDINGS: CENTRAL AIRWAYS: Mild dependent material in the trachea. LUNGS: Clear. PLEURA: No pneumothorax or significant pleural effusion. HEART/PERICARDIUM: Heart within normal limits in size. No pericardial effusion. PULMONARY ARTERIES: No filling defect. AORTA/VESSELS: No thoracic aortic aneurysm or dissection flap. Mild atherosclerosis. MEDIASTINUM/ASAEL: No pathologically enlarged lymph nodes. OSSEOUS STRUCTURES: Small enchondroma in the proximal right humerus. UPPER ABDOMEN: Unremarkable. CT/CTA Chest W/WO Contrast IMPRESSION: No evidence of pulmonary embolism. Electronically Signed: Terrie Carlos MD at 11:50 EST ,
[2024-07-08 10:51] LABS: Bacteria 0 SEEN /hpf (None Seen); Red Blood Cells-Urine 0 SEEN /hpf (0-5); Squamous Epithelial Cells - UA 0 SEEN /hpf (0-5)
[2024-07-08 10:54] LABS: Absolute Lymphocyte Count 1.82 X10^3/uL (0.83-4.51); Absolute Neutrophil Count 5.1 X10^3/uL (2.0-7.7); Basophil# 0.02 X10^3/uL; Basophil% 0.3 % (0-1); Eosinophil# 0.08 X10^3/uL; Eosinophils% 1.1 % (0-5); Hematocrit 36.7 % (40-54); Hemoglobin 12.3 g/dL (13.0-16.5); Lymphocyte # 1.82 X10^3/ul (0.83-4.51); Lymphocyte % 24.6 % (19-41); Mean Corp Hgb Conc 33.5 g/dL (32-36); Mean Corpuscular Hgb 29.2 pg (27.0-32.0); Mean Corpuscular Volume 87.2 fL (80-94); Mean Platelet Vol. 8.8 fl (6.2-12.0); Monocyte# 0.33 X10^3/uL; Monocyte% 4.5 % (0-10); NRBC Flagged by Analyzer 0 % (0-5); Neutrophil # 5.13 X10^3/uL (2.7-7.7); Neutrophil % 69.2 % (47-70); Platelet Count 262 K/mm3 (150-450); RBC Distribution Width CV 12.1 % (11.6-14.6); RBC Distribution Width SD 38.6 fl (35.1-43.9); Red Blood Count 4.21 M/mm3 (4.6-6.2); White Blood Count 7.4 K/mm3 (4.4-11.0)
[2024-07-08 11:00] LABS: Alcohol, Blood (Medical)-Serum < 3.0 mg/dL
[2024-07-08 11:01] LABS: ALB/GLOB Ratio 1.1 RATIO (0.9-2.4); AST(SGOT) 16 U/L (15-37); Alanine Aminotransfer ALT/SGPT 15 U/L (16-61); Albumin, Serum 3.7 g/dL (3.2-5.0); Alkaline Phosphatase 106 U/L (45-117); Anion Gap 5 (5-15); BUN 13 mg/dL (7-18); BUN/Creat Ratio 18.1 RATIO (10-20); Calcium,Total 9.5 mg/dL (8.5-10.1); Chloride 103 mmol/L (98-107); Creatinine, Serum 0.72 mg/dL (0.70-1.30); EST Glomerular Filtration Rate 123 mL/min (>60); Est Glom Filt Rate - Afr Amer 149 mL/min (>60); Estimated Creatinine Clearance 109.85 ml/min; Globulin 3.5 g/dL (2.2-4.2); Glucose 109 mg/dL (74-106); Potassium 3.8 mmol/L (3.5-5.1); Protein, Total 7.2 g/dL (6.4-8.2); Sodium Level 135 mmol/L (136-145); Troponin-I HS (w/2H Reflex) 17 pg/mL (3.0-78.0)
[2024-07-08 11:09] LABS: Color, Urine Yellow (Yellow); Glucose, Dipstick Normal (Normal); Ketone-Dipstick Negative (Negative); Leukocyte Esterase-Dipstick 25 /ul (Negative); Nitrite-Dipstick Negative (Negative); Occult Blood-Urine Negative /ul (Negative); Protein-Dipstick 30 mg/dl (Negative); Specific Gravity, Urine 1.025 (1.002-1.030); Urine Clarity Clear (Clear); Urine Urobilinogen 1 mg/dl (Normal)
[2024-07-08 11:14] LABS: Urine Bilirubin Dipstick 1 mg/dL (Negative)
[2024-07-08 11:25] VITALS: BP 169/74; PULSE 59; RESP 16; O2SAT 97
[2024-07-08 11:33] LABS: Mucous, Urine 3+ /hpf (<or=2+); White Blood Cells 0-5 SEEN /hpf (0-5)
[2024-07-08 11:34] LABS: Amphetamine Urine VISTA POSITIVE (<1000 ng/mL); Barbiturate Urine VISTA NEGATIVE (< 200 ng/mL); Benzodiazepine Urine VISTA NEGATIVE (< 200 ng/mL); Cocaine Urine VISTA POSITIVE (< 300 ng/mL); Ecstacy Urine VISTA POSITIVE (< 500 ng/mL); Methadone Urine VISTA NEGATIVE (< 300 ng/mL); PCP Urine VISTA NEGATIVE (< 25 ng/mL); THC Urine VISTA NEGATIVE (< 50 ng/mL); Vista UDS pH Range 5
[2024-07-08] MEDS: 0.9% Normal Saline (1000mL) 1,000 ML 999 ML IV (11:53)
[2024-07-08 12:24] LABS: Reflex Troponin-HS? (from REC) Y
[2024-07-08 13:00] VITALS: BP 159/72; PULSE 57; RESP 16; O2SAT 98
[2024-07-08 13:07] LABS: Troponin-I HS 15 pg/mL (3.0-78.0)
[2024-07-08 13:12] LABS: BNP,B-Type NATRIURETIC PEPTIDE 22.2 pg/mL (0-100)
[2024-07-08 13:57] VITALS: BP 104/81; PULSE 78; RESP 16; TEMP 36.6; O2SAT 99
== END 2024-07-08 13:59 | disposition home or self-care (01) ==
PROVIDERS: Emergency Provider Surgery; Visit Provider Surgery
DX: R42 Dizziness and giddiness (principal); F19.19 Other psychoactive substance abuse with unspecified psychoactive substance-induced disorder; I25.10 Atherosclerotic heart disease of native coronary artery without angina pectoris; F17.210 Nicotine dependence, cigarettes, uncomplicated; F41.9 Anxiety disorder, unspecified; E78.5 Hyperlipidemia, unspecified; Z86.718 Personal history of other venous thrombosis and embolism; I95.1 Orthostatic hypotension
CPT/HCPCS: 70450; 71275; 80053; 80307; 81001; 82077; 83880; 84484; 85025; 85379; 93005; 96360; 99285; Q9967

== ENCOUNTER 2024-10-29 01:24 | Emergency (ER) | payer MEDICAID, SELFPAY ==
[2024-10-29 01:26] VITALS: BP 127/77; PULSE 75; RESP 16; TEMP 36.7; O2SAT 98; BMI 19.7
[2024-10-29 01:29] VITALS: O2SAT 98
--- NOTE | 2024-10-29 01:32 | EDS_ITS ---
HPI History of Present Illness Chief Complaint: Shortness of Breath Informant: patient Onset/Context/Timing Onset: Days (4) Context: gradual Timing: Continuous Quality: Positive for Dyspnea on exertion and Wheezing Worsened by: Exertion Relieved by: Nothing Associated Symptoms cough, rhinorrhea, fever and green sputum; Negative for post nasal drip, ear pain, sore throat, chills, sweats, clear sputum, white sputum or yellow sputum Narrative Narrative: Patient presents with shortness of breath that has been getting worse over the past 4 days. Patient states it is gradually getting worse. Patient states his breathing is worse with any exertion. Patient also admits to some wheezing. Patient admits to some pain on the right side of his chest. Patient describes it as a pressure. Patient states it is worse with movement. Patient states his breathing is worse with exertion. Patient states nothing helps with his breathing. Patient admits to a fever of 102.3 yesterday. Patient admits to some rhinorrhea. Patient states he is coughing up some green sputum. [facility] Medical History Polysubstance abuse History of coronary artery disease History of drug abuse History of posttraumatic stress disorder (PTSD) Tobacco abuse Exertional chest pain On home oxygen therapy CPAP (continuous positive airway pressure) dependence DVT (deep venous thrombosis) Migraines Opiate abuse, continuous Desire for detoxification Substance abuse Anxiety GERD (gastroesophageal reflux disease) Asthma Elevated blood pressure reading without diagnosis of hypertension Benzodiazepine withdrawal Opiate dependence Atherosclerosis of coronary artery of [place] heart without angina pectoris Dyslipidemia (high LDL; low HDL) Poor dentition Noncompliance with CPAP treatment Obstructive sleep apnea PTSD (post-traumatic stress disorder) Generalized anxiety disorder with panic attacks Palpitations Hypersomnia Moderate persistent asthma without complication ADD (attention deficit disorder) Leucocytosis Chronic pain Home Medications ?Medication ?Instructions ?Recorded ?Last Taken ?Type aspirin 81 mg tablet,delayed 81 mg PO DAILY@0800 heart [facility] 11/10/20 01/18/21 12:00 History release atorvastatin 40 mg tablet 40 mg PO QHS 30 days #30 tab s 03/26/24 Unknown Rx ondansetron 4 mg disintegrating 4 mg PO Q8H PRN PRN Na usea #10 tabs 03/29/24 Unknown Rx tablet albuterol sulfate 90 mcg/actuation 1 - 2 puff inhalati on Q4H PRN PRN 10/29/24 Unknown Rx aerosol inhaler (Ventolin HFA) Wheezing ##1 azithromycin 250 mg tablet 250 mg PO DAILY #4 TABLETS 10/29/24 Unknown Rx Allergy/AdvReac Type Severity Reaction Status Date / Time naloxone Allergy Hives Verified 10/29/24 01:28 Family History Mother , Age 56 Cancer stomach Heart disease CVA (cerebral vascular accident) Father , Age 52 Heart disease CAD (coronary artery disease) Surgical History History of coronary angioplasty (04/21/20) History of coronary artery stent placement (05/01/19) Hx of heart artery stent History of artificial skin graft Social History household members: significant other current occupational exposures/hazards: No pets and animals: No Smoking Status: Current every day smoker tobacco type: cigarettes second hand exposure: Yes alcohol intake: never substance use type: opiates and IV drugs caffeine: Yes Type: carbonated beverages ROS ROS ED Constitutional Constitutional ED: Reports fever(s); Denies chills Eyes Eyes: Denies blurry vision or change in vision ENT ENT ED: Denies rhinorrhea or sore throat Cardiovascular Cardiovascular: Reports chest pain; Denies palpitations Respiratory/Chest Respiratory/Chest: Reports cough and dyspnea Gastrointestinal Gastrointestinal: Denies nausea or vomiting Genitourinary Genitourinary ED: Denies dysuria or hematuria Musculoskeletal Musculoskeletal: Reports back pain; Denies neck pain Integumentary Denies abscess or rash Neurologic Neurologic: Reports headache(s); Denies weakness Allergic/Immunologic Allergic/Immunologic ED: Denies mouth swelling or urticaria EXAM Physical Exam Const Vital Signs: 10/29/24 01:26 10/29/24 01:29 10/29/24 01:52 Temperature 98.1 F Temperature Source Oral Pulse Rate 75 82 Respiratory Rate 16 20 H Respiratory Effort Normal Non-Labored Respiratory Depth Normal Respiratory Pattern Normal Normal Blood Pressure 127/77 H Blood Pressure Mean 93 Pulse Ox 98 Oxygen Delivery Method Room Air Room Air 10/29/24 02:25 10/29/24 03:27 Temperature 98.4 F Temperature Source Pulse Rate 79 83 Respiratory Rate 20 H 18 Respiratory Effort Respiratory Depth Respiratory Pattern Blood Pressure 125/84 H 136/69 H Blood Pressure Mean 97 91 Pulse Ox 96 95 Oxygen Delivery Method Room Air Positive well nourished and well developed Constitutional Narrative: BMI is 19.7 General Appearance ED: well developed and NAD HEENT Reports moist mucous membranes Neck supple, no meningeal signs and no JVD Resp normal respiratory effort Auscultation: diminished lung sounds diffuse Cardio regular rate and regular rhythm GI non-tender and non-distended Palpation: soft Neuro oriented x3, CN's II-XII intact bilaterally and no sensory deficits noted Amos Coma Scale: document GCS findings Spontaneous Obeys Commands Oriented 15 Sensorium / Orientation: alert Speech: speech normal Motor Exam: strength 5/5 throughout Psych mental status grossly normal MDM MDM MDM Narrative Medical decision making narrative: Differential diagnosis includes pneumonia, bronchitis, pneumothorax, cardiac dysrhythmia, cardiac ischemia, and a viral illness. Chest x-ray will be obtained to assess for pneumonia, bronchitis, pneumothorax. EKG will be obtained to assess for cardiac dysrhythmia and cardiac ischemia. CBC will be obtained to assess for leukocytosis and anemia. Basic metabolic profile will be obtained to assess for electrolyte abnormality and renal function. COVID-19, influenza, and RSV PCR will be obtained to assess for viral illness. Lab Data Lab results narrative: Lab work was unable to be obtained due to the patient's history of IV drug use. Radiography Chest X-Ray - ED: 2 View, Read by ED Physician, Read by Radiologist, Right Infiltrate and Left Infiltrate Diagnostic Testing: Clinical Impression(s) from Imaging Studies Chest X-Ray 10/29/24 01:47 IMPRESSION: Bilateral multifocal patchy ill-defined opacity at the peripheral right upper/mid and right lower lung and left perihilar mid and lower consistent with infiltrate, inflammatory or infectious. Reading Location: [id number] PA and lateral chest x-ray was obtained. There are 2 views. On my independent interpretation, there is a right lower lobe infiltrate. There is also a left perihilar infiltrate. Radiologist also interpreted the x-rays and agrees. EKG Initial EKG: Attestation: I personally reviewed and interpreted this EKG as follows: Interpretation: Sinus Rhythm (76) Comments: EKG was obtained. On my independent interpretation, it showed a normal sinus rhythm with a rate of 76. SD interval, QRS interval, and QTc intervals were all normal. [place] was normal. There is left ventricular hypertrophy noted. There are no acute ST or T wave changes. Prior EKG tracings: available for review Prior: Unchanged (07/08/2024) Treatment and Re-Evaluation :: Patient was given a DuoNeb aerosol here. IV line and blood work was unable to be obtained due to the patient's history of IV drug use. Patient was advised of his findings. Patient was given a dose of Zithromax here. Patient has a CURB 6 5 score of 0 and a PORT score of 50. The patient was given a prescription for Zithromax. Patient is also given prescription for refill of his albuterol inhaler. Patient was instructed to follow-up with his primary care physician in 5 to 7 days. Patient was instructed to return if worse in any way. Patient understood and was agreeable with the plan. All questions were answered. Discharge Plan Triage Chief Complaint: Shortness of Breath ED Provider: Anshu Ford Dx/Rx/DC Orders Clinical Impression: Pneumonia, Tobacco abuse Instructions: ED Pneumonia (Adult) Prescriptions: New azithromycin 250 mg tablet 250 mg PO DAILY Qty: 4 0RF Continued albuterol sulfate [Ventolin HFA] 90 mcg/actuation HFA aerosol inhaler 1 - 2 puff inhalation Q4H PRN PRN (Reason: Wheezing) Qty: 1 0RF No Action aspirin 81 MG tablet 81 mg PO DAILY@0800 atorvastatin 40 mg Tablet 40 mg PO QHS 30 Days Qty: 30 0RF ondansetron 4 mg tablet,disintegrating 4 mg PO Q8H PRN PRN (Reason: Nausea) Qty: 10 0RF Primary Care Provider: Care Physician,No Primary Referrals: Care Physician,No Primary [Primary Care Provider] - Print Language: Nigerian Disposition Disposition: Home, Self Care Discharge Date/Time: 10/29/24 03:28
--- NOTE | 2024-10-29 01:47 | EKG12_ITS ---
Test Reason : DYSRHYTHMIA Blood Pressure : */* mmHG Vent. Rate : 76 BPM Atrial Rate : 76 BPM P-R Int : 184 ms QRS Dur : 88 ms QT Int : 376 ms P-R-T Axes : 74 75 70 degrees QTcB Int : 423 ms Normal sinus rhythm Minimal voltage criteria for LVH, may be normal variant ( Sokolow-Figueroa ) Borderline ECG bpm Confirmed by ANA MILES, ROSENDA ([id number]), loan expeditor ZOHAIB SHARMA ([id number]) on 10/30/2024 8:19:26 AM Referred By: Confirmed By: ROSENDA PEREZ MD
--- NOTE | 2024-10-29 01:47 | RAD_ITS ---
EXAM: Chest PA and lateral CLINICAL HISTORY: Dyspnea COMPARISON: 03/29/2024 and CTA 07/08/2024 TECHNIQUE: PA and lateral views of the chest FINDINGS: Bilateral multifocal patchy ill-defined opacity at the peripheral right upper/mid and right lower lung and left perihilar mid and lower consistent with infiltrate, inflammatory or infectious. No pleural effusion or pneumothorax. The cardiac and mediastinal contours are within limits. The visualized osseous structures appear within limits. RAD/Chest PA and Lateral IMPRESSION: Bilateral multifocal patchy ill-defined opacity at the peripheral right upper/m id and right lower lung and left perihilar mid and lower consistent with infiltrate, inflammatory or infectious. Reading Location: [id number]
[2024-10-29 01:52] VITALS: PULSE 82; RESP 20
[2024-10-29] MEDS: Ipratropium/Albuterol Sulfate 3 ML AMPUL.NEB INHALATION (01:52)
[2024-10-29 02:25] VITALS: BP 125/84; PULSE 79; RESP 20; O2SAT 96
[2024-10-29] MEDS: Azithromycin 250 MG Tablet 500 MG PO (03:26)
[2024-10-29 03:27] VITALS: BP 136/69; PULSE 83; RESP 18; TEMP 36.9; O2SAT 95
== END 2024-10-29 03:28 | disposition home or self-care (01) ==
PROVIDERS: Emergency Provider Emergency Medicine; Visit Provider Emergency Medicine
DX: J18.9 Pneumonia, unspecified organism (principal); E78.5 Hyperlipidemia, unspecified; I25.10 Atherosclerotic heart disease of native coronary artery without angina pectoris; F17.210 Nicotine dependence, cigarettes, uncomplicated; Z95.5 Presence of coronary angioplasty implant and graft; Z86.718 Personal history of other venous thrombosis and embolism; J45.909 Unspecified asthma, uncomplicated; Z99.89 Dependence on other enabling machines and devices; G47.33 Obstructive sleep apnea (adult) (pediatric)
CPT/HCPCS: 71046; 87631; 93005; 94640; 99283; A4216

== ENCOUNTER 2024-11-09 05:46 | Emergency (ER) | payer MEDICAID, SELFPAY ==
[2024-11-09 05:47] VITALS: BP 174/95; PULSE 107; RESP 16; TEMP 36.4; O2SAT 99; BMI 18.9
--- NOTE | 2024-11-09 05:53 | RAD_ITS ---
PROCEDURE: CHEST PA AND LATERAL 11/09/2024 REASON FOR EXAM: COUGH/SOB, CHECK PROGRESSION OF PNEUMONIA TECHNIQUE: Frontal and lateral views of the chest. COMPARISON: 10/29/2024. FINDINGS: Significant decrease of the previously described bilateral multifocal pulmonary infiltrates. Minimal residual infiltrates are still noted in the left perihilar zone and the right lower lobe. Unchanged diffuse spondylosis and mild multilevel degenerative disc disease. There is no demonstrated pleural abnormality. Normal heart and pericardium. Normal mediastinum and avril. Normal visualized pulmonary arteries. Normal visualized aortic arch and descending thoracic aorta. Normal visualized ribs. There is no demonstrated abnormality of the visualized soft tissue structures of the upper abdomen. RAD/Chest PA and Lateral IMPRESSION: 1. Significant decrease of the previously described bilateral multifocal pulmon irene infiltrates. 2. Minimal residual infiltrates are still noted in the left perihilar zone and the right lower lobe. Reading [facility]
--- NOTE | 2024-11-09 05:56 | ED.VIS.DYS ---
HPI History of Present Illness Chief Complaint: Cold Sx Informant: patient Narrative Narrative: 49-year-old male states he has been having cough, shortness of breath, pleuritic right lower chest pain for the past 2 weeks, he was seen here a week ago, prescribed azithromycin which he filled, took, finished, and he feels no better. He has no new symptoms. He has not followed up with a PCP, he states he does not have want to follow-up with. He states he continues to smoke. He states he had a stent 10 years ago, and 4 years ago he took himself off of all of his medications because it made him feel better and he has taken none of them since. Also has a history of IV drug use. He states he is a very difficult stick. [facility] Medical History Polysubstance abuse History of coronary artery disease History of drug abuse History of posttraumatic stress disorder (PTSD) Tobacco abuse Exertional chest pain On home oxygen therapy CPAP (continuous positive airway pressure) dependence DVT (deep venous thrombosis) Migraines Opiate abuse, continuous Desire for detoxification Substance abuse Anxiety GERD (gastroesophageal reflux disease) Asthma Elevated blood pressure reading without diagnosis of hypertension Benzodiazepine withdrawal Opiate dependence Atherosclerosis of coronary artery of [place] heart without angina pectoris Dyslipidemia (high LDL; low HDL) Poor dentition Noncompliance with CPAP treatment Obstructive sleep apnea PTSD (post-traumatic stress disorder) Generalized anxiety disorder with panic attacks Palpitations Hypersomnia Moderate persistent asthma without complication ADD (attention deficit disorder) Leucocytosis Chronic pain Home Medications ?Medication ?Instructions ?Recorded ?Last Taken ?Type aspirin 81 mg tablet,delayed 81 mg PO DAILY@0800 [facility] 11/10/20 01/18/21 12:00 History release albuterol sulfate 90 mcg/actuation 1 - 2 puff inhalation Q4H PRN PRN 10/29/24 Unknown Rx aerosol inhaler (Ventolin HFA) Wheezing ##1 benzonatate 100 mg capsule 200 mg (2 x 100 mg) PO TID PRN PRN 11/09/24 Unknown Rx Cough #20 CAPSULES naproxen 500 mg tablet 500 mg PO BID PRN #14 tabs 11/09/24 Unknown Rx Allergy/AdvReac Type Severity Reaction Status Date / Time naloxone Allergy Hives Verified 10/29/24 01:28 Family History Mother , Age 56 Cancer stomach Heart disease CVA (cerebral vascular accident) Father , Age 52 Heart disease CAD (coronary artery disease) Surgical History History of coronary angioplasty (04/21/20) History of coronary artery stent placement (05/01/19) Hx of heart artery stent History of artificial skin graft Social History household members: significant other current occupational exposures/hazards: No pets and animals: No Smoking Status: Current every day smoker tobacco type: cigarettes second hand exposure: Yes alcohol intake: never substance use type: opiates and IV drugs caffeine: Yes Type: carbonated beverages ROS ROS ED Constitutional Constitutional ED: Denies chills or fever(s) Eyes Eyes: Denies change in vision or diplopia ENT ENT ED: Denies rhinorrhea or sore throat Cardiovascular Cardiovascular: Reports chest pain; Denies palpitations Respiratory/Chest Respiratory/Chest: Reports cough, dyspnea, dyspnea on exertion and sputum; Denies hemoptysis Gastrointestinal Gastrointestinal: Denies abdominal pain, diarrhea, nausea or vomiting Genitourinary Genitourinary ED: Denies dysuria or hematuria Musculoskeletal Musculoskeletal: Denies back pain or neck pain Integumentary Denies abscess or rash Neurologic Neurologic: Denies headache(s), paresthesias or weakness Psychiatric Psychiatric: Denies suicidal thoughts EXAM Physical Exam Const Vital Signs: 11/09/24 05:47 11/09/24 05:52 Temperature 97.5 F L Temperature Source Oral Pulse Rate 107 H Respiratory Rate 16 Respiratory Effort Normal Respiratory Pattern Normal Blood Pressure 174/95 H Blood Pressure Mean 121 Pulse Ox 99 Oxygen Delivery Method Room Air Positive well nourished and well developed Constitutional Narrative: Well-appearing no distress General Appearance ED: well developed and NAD HEENT Reports moist mucous membranes normocephalic and atraumatic Eyes PERRL and EOMs intact bilaterally Neck full ROM, supple and no JVD Resp normal respiratory effort and clear to auscultation bilaterally Resp Narrative: Diminished, clear throughout. Conversive in full sentences. No splinting with deep inspiration. Cardio regular rate, regular rhythm and no murmurs Rate: Negative for tachycardic GI non-tender and non-distended Auscultation: normoactive bowel sounds Palpation: soft Back/Spine no CVA tenderness General Back: other FROM Extremity normal to inspection General Extremety ED: Negative for edema, pulses abnormal or tenderness General Extremity: Negative for edema or pulses abnormal Neuro oriented x3, CN's II-XII intact bilaterally, no sensory deficits noted and gait normal Sensorium / Orientation: awake and alert Motor Exam: strength 5/5 throughout Psych mental status grossly normal Skin no rashes or lesions noted and no wounds MDM MDM MDM Narrative Medical decision making narrative: We were able to get blood from the patient. He has a leukocytosis of 13.5 with a slight trend toward leftward shift no bandemia, he refused blood work attempts when he was here week ago so I do not have anything recent to compare it to. His two-view chest x-ray, on my interpretation shows significant improvement of his pneumonia compared with before. Radiology in agreement see the impression below which I reviewed. Patient has no new symptoms. His pleuritic chest pain is in the area where he has right-sided lower lobe pneumonia, albeit improving. He is not hypoxic he is 99% room air at this time I do not think he needs to be worked up for pulmonary embolus or any other acute pathology (negative CTA for PE 4 months ago, no risk factors for PE since then), he probably has a component of pleurisy along with the pneumonia. He technically is still systemically therapeutic on his antibiotic, he started azithromycin a week ago. I think reasonable to treat him with NSAIDs and cough medication, but I advised him that he needs to follow-up with a primary care doctor. His blood pressure is high, and this needs rechecked when he is feeling better. History & Record Review Additional record(s) reviewed:: Prior outpatient record (CTA 07/2024) and Prior ED visit Lab Data Attestation: I reviewed the patient's lab results. Labs: Laboratory Results - last 24 hr 11/09/24 06:02 WBC 13.5 H RBC 4.21 L Hgb 12.6 L Hct 36.9 L MCV 87.6 MCH 29.9 MCHC 34.1 RDW Std Deviation 39.3 RDW Coeff of Denia 12.3 Plt Count 468 H MPV 8.7 Immature Gran % (Auto) 0.400 Neut % (Auto) 78.7 H Lymph % (Auto) 15.2 L [place] % (Auto) 5.0 Eos % (Auto) 0.4 Baso % (Auto) 0.3 Absolute Neuts (auto) 10.6 H Absolute Lymphs (auto) 2.05 Nucleated RBC % 0 Sodium 137 Potassium 4.2 Chloride 99 Carbon Dioxide 26.4 Anion Gap 11 BUN 17 Creatinine 0.90 Estim Creat Clear Calc 83.33 Est GFR (MDRD) Non-Af 104 BUN/Creatinine Ratio 18.5 Glucose 97 Calcium 9.5 Radiography Diagnostic Testing: Clinical Impression(s) from Imaging Studies Chest X-Ray 11/09/24 05:53 IMPRESSION: 1. Significant decrease of the previously described bilateral multifocal pulmonary infiltrates. 2. Minimal residual infiltrates are still noted in the left perihilar zone and the right lower lobe. Reading Location: [place] [address] Discharge Plan Triage Chief Complaint: Cold Sx ED Provider: Aleksander Amaro Dx/Rx/DC Orders Clinical Impression: Pneumonia, Pleurisy, Elevated blood pressure reading Instructions: ED Pleurisy Prescriptions: New benzonatate 100 mg capsule 200 mg PO TID PRN PRN (Reason: Cough) Qty: 20 0RF naproxen 500 mg tablet 500 mg PO BID PRN Qty: 14 0RF No Action aspirin 81 MG tablet 81 mg PO DAILY@0800 albuterol sulfate [Ventolin HFA] 90 mcg/actuation HFA aerosol inhaler 1 - 2 puff inhalation Q4H PRN PRN (Reason: Wheezing) Qty: 1 0RF Primary Care Provider: Care Physician,No Primary Referrals: [facility] [place] [Non-Staff] - As soon as possible Print Language: Sami Disposition Disposition: Home, Self Care
[2024-11-09 06:34] LABS: Absolute Lymphocyte Count 2.05 X10^3/uL (0.83-4.51); Absolute Neutrophil Count 10.6 X10^3/uL (2.0-7.7); Basophil# 0.04 X10^3/uL; Basophil% 0.3 % (0-1); Eosinophil# 0.05 X10^3/uL; Eosinophils% 0.4 % (0-5); Hematocrit 36.9 % (40-54); Hemoglobin 12.6 g/dL (13.0-16.5); Lymphocyte # 2.05 X10^3/ul (0.83-4.51); Lymphocyte % 15.2 % (19-41); Mean Corp Hgb Conc 34.1 g/dL (32-36); Mean Corpuscular Hgb 29.9 pg (27.0-32.0); Mean Corpuscular Volume 87.6 fL (80-94); Mean Platelet Vol. 8.7 fl (6.2-12.0); Monocyte# 0.68 X10^3/uL; NRBC Flagged by Analyzer 0 % (0-5); Neutrophil # 10.64 X10^3/uL (2.7-7.7); Neutrophil % 78.7 % (47-70); Platelet Count 468 K/mm3 (150-450); RBC Distribution Width CV 12.3 % (11.6-14.6); RBC Distribution Width SD 39.3 fl (35.1-43.9); Red Blood Count 4.21 M/mm3 (4.6-6.2); White Blood Count 13.5 K/mm3 (4.4-11.0)
[2024-11-09 06:58] LABS: Anion Gap 11 (5-15); BUN 17 mg/dL (4-19); BUN/Creat Ratio 18.5 RATIO (10-20); Calcium,Total 9.5 mg/dL (7.6-11.0); Carbon Dioxide 26.4 mmol/L (21.0-32.0); Chloride 99 mmol/L (98-108); EST Glomerular Filtration Rate 104 (>60); Estimated Creatinine Clearance 83.33 ml/min (50-250); Glucose 97 mg/dL (70-99); Potassium 4.2 mmol/L (3.3-5.1); Sodium Level 137 mmol/L (133-145)
[2024-11-09] MEDS: Naproxen 500 MG Tablet PO (07:03)
[2024-11-09 07:04] VITALS: BP 163/83; PULSE 95; RESP 17; TEMP 36.8; O2SAT 99
== END 2024-11-09 07:07 | disposition home or self-care (01) ==
PROVIDERS: Emergency Provider Emergency Medicine; Visit Provider Emergency Medicine
DX: J18.9 Pneumonia, unspecified organism (principal); F11.99 Opioid use, unspecified with unspecified opioid-induced disorder; R03.0 Elevated blood-pressure reading, without diagnosis of hypertension; R09.1 Pleurisy; F17.210 Nicotine dependence, cigarettes, uncomplicated; I25.10 Atherosclerotic heart disease of native coronary artery without angina pectoris; E78.5 Hyperlipidemia, unspecified; Z95.5 Presence of coronary angioplasty implant and graft; G47.33 Obstructive sleep apnea (adult) (pediatric); Z99.89 Dependence on other enabling machines and devices; Z86.718 Personal history of other venous thrombosis and embolism; J45.909 Unspecified asthma, uncomplicated
CPT/HCPCS: 71046; 80048; 85025; 99282

== ENCOUNTER 2024-11-23 05:12 | Observation (INO) | payer MEDICAID, SELFPAY ==
[2024-11-23] VITALS (12 sets, daily range): BP systolic 151–190; BP diastolic 73–103; PULSE 78–100; RESP 12–19; TEMP 36.6–36.9; O2SAT 97–100; BMI 18.8; BMI 18.3
--- NOTE | 2024-11-23 05:24 | EKG12_ITS ---
Test Reason : DYSRHYTHMIA Blood Pressure : */* mmHG Vent. Rate : 91 BPM Atrial Rate : 91 BPM P-R Int : 170 ms QRS Dur : 84 ms QT Int : 348 ms P-R-T Axes : 76 76 55 degrees QTcB Int : 428 ms Normal sinus rhythm Minimal voltage criteria for LVH, may be normal variant ( Sokolow-Figueroa ) Borderline ECG Confirmed by ANA MILES, ROSENDA ([id number]), health editor ZOHAIB SHARMA ([id number]) on 11/25/2024 7:57:43 AM Referred By: BB Confirmed By: ROSENDA PEREZ MD
--- NOTE | 2024-11-23 05:27 | ED.VIS.CHEST ---
HPI History of Present Illness Chief Complaint: Chest Pain Informant: patient and EMS Narrative Narrative: 49-year-old male presenting to the ER 5 AM for 2 different reasons; for the past 1.5 days he has had left-sided chest burning that has a pleuritic component to it, a little bit of shortness of breath because of that, no cough or fevers. He said that he did get lightheaded and passed out about an hour ago and another time yesterday. Also he has been abusing IV fentanyl regularly, and he has not had any in 2 days because he is trying to stop and feels like he is in withdrawal and feels miserable because of that. This includes diffuse abdominal cramping, nausea and vomiting, anxiety. Therefore, he is wanting detox. He states he had a friend who of fentanyl overdose recently, and he states that he needs to get off of it. He denies regularly abusing any other substances. He was seen here by myself 2 weeks ago because of right sided pleuritic chest pain and resolving pneumonia, he states all of that did get better and completely go away shortly thereafter. He has not followed up with anybody. Continues to smoke. He admitted that he was an IV drug abuser then but he was coy about actively abusing fentanyl, which he states he was doing at that time when I ask him about it now. As before, he continues to be off of all of his regular prescription medications. [facility] Medical History Polysubstance abuse History of coronary artery disease History of drug abuse History of posttraumatic stress disorder (PTSD) Tobacco abuse Exertional chest pain On home oxygen therapy CPAP (continuous positive airway pressure) dependence DVT (deep venous thrombosis) Migraines Opiate abuse, continuous Desire for detoxification Substance abuse Anxiety GERD (gastroesophageal reflux disease) Asthma Elevated blood pressure reading without diagnosis of hypertension Benzodiazepine withdrawal Opiate dependence Atherosclerosis of coronary artery of [place] heart without angina pectoris Dyslipidemia (high LDL; low HDL) Poor dentition Noncompliance with CPAP treatment Obstructive sleep apnea PTSD (post-traumatic stress disorder) Generalized anxiety disorder with panic attacks Palpitations Hypersomnia Moderate persistent asthma without complication ADD (attention deficit disorder) Leucocytosis Chronic pain Home Medications ?Medication ?Instructions ?Recorded ?Last Taken ?Type NK 11/23/24 Unknown History Allergy/AdvReac Type Severity Reaction Status Date / Time naloxone Allergy Hives Verified 11/23/24 05:13 Family History Mother , Age 56 Cancer stomach Heart disease CVA (cerebral vascular accident) Father , Age 52 Heart disease CAD (coronary artery disease) Surgical History History of coronary angioplasty (04/21/20) History of coronary artery stent placement (05/01/19) Hx of heart artery stent History of artificial skin graft Social History household members: significant other current occupational exposures/hazards: No pets and animals: No Smoking Status: Current every day smoker tobacco type: cigarettes second hand exposure: Yes alcohol intake: never substance use type: opiates and IV drugs caffeine: Yes Type: carbonated beverages ROS ROS ED Constitutional Constitutional ED: Denies chills or fever(s) Eyes Eyes: Denies change in vision or diplopia ENT ENT ED: Denies rhinorrhea or sore throat Cardiovascular Cardiovascular: Reports as per HPI, chest pain and syncope; Denies palpitations or radiating jaw, neck or arm pain Respiratory/Chest Respiratory/Chest: Reports dyspnea; Denies cough Gastrointestinal Gastrointestinal: Reports abdominal pain, diarrhea, nausea and vomiting; Denies melena Genitourinary Genitourinary ED: Denies dysuria or hematuria Musculoskeletal Musculoskeletal: Denies back pain or neck pain Integumentary Denies abscess or rash Neurologic Neurologic: Denies headache(s), paresthesias or weakness Psychiatric Psychiatric: Reports anxiety; Denies suicidal thoughts EXAM Physical Exam Const Vital Signs: 11/23/24 05:14 11/23/24 05:29 11/23/24 05:30 Temperature 98.3 F Temperature Source Oral Pulse Rate 97 86 100 Respiratory Rate 12 12 13 Blood Pressure 165/97 H Blood Pressure Mean 119 Pulse Ox 100 Oxygen Delivery Method Room Air 11/23/24 05:31 11/23/24 05:31 11/23/24 05:45 Temperature Temperature Source Pulse Rate 88 80 Respiratory Rate 18 12 Blood Pressure 151/103 H 173/87 H Blood Pressure Mean 117 110 Pulse Ox Oxygen Delivery Method Room Air 11/23/24 06:00 11/23/24 07:00 Temperature Temperature Source Pulse Rate 78 98 Respiratory Rate 19 H Blood Pressure 160/77 H 190/78 H Blood Pressure Mean 99 115 Pulse Ox 98 Oxygen Delivery Method Room Air Positive well nourished and well developed General Appearance ED: well developed and NAD HEENT Reports moist mucous membranes normocephalic and atraumatic Eyes PERRL and EOMs intact bilaterally Neck full ROM and supple Resp normal respiratory effort and clear to auscultation bilaterally Cardio regular rate, regular rhythm and no murmurs GI non-distended GI Narrative: Mild diffuse tenderness without guarding or rebound Auscultation: normoactive bowel sounds Palpation: soft Back/Spine no CVA tenderness General Back: other FROM Extremity normal to inspection General Extremety ED: Negative for edema, pulses abnormal or tenderness General Extremity: Negative for edema or pulses abnormal Neuro oriented x3, CN's II-XII intact bilaterally and no sensory deficits noted Sensorium / Orientation: awake and alert Motor Exam: strength 5/5 throughout Skin no rashes or lesions noted and no wounds Skin Narrative: No sign of any infected or thrombosed injection sites on his arms Heart Score History: Slightly/Non-Suspicious ECG: Normal Age: >45 - <65 years Risk Factors: >/= 3 Risk Factors or History of CAD Score: 3 MDM MDM MDM Narrative Medical decision making narrative: 1 view chest x-ray on my interpretation is normal, it shows complete resolution of the right lower lobe pneumonia that he had, and I see no pneumonia or infiltrates or pneumothorax on the left. D-dimer was considered given his symptoms and pleuritic nature of it, that is negative, ruling out pulmonary embolus acutely. His EKG is unremarkable see below my interpretation. Troponin is normal, he has had discomfort for 1.5 days I do not think we have to wait for a second 1 to dispo. His drug screen shows cocaine in addition to the fentanyl he admitted to. He was given tramadol as well as some Zofran and a dose of lorazepam and IV fluids. Chest discomfort may be esophageal related to the vomiting he was having. Does not appear to be cardiac or pulmonary embolus or anything dangerous at this time. Discussed with hospitalist for admission for detox. I would be okay with him going to medical surgical floor since I would not admit him for the chest complaints. Lab Data Attestation: I reviewed the patient's lab results. Labs: Laboratory Results - last 24 hr 11/23/24 11/23/24 05:29 05:30 WBC 9.7 RBC 4.40 L Hgb 13.3 Hct 38.4 L MCV 87.3 MCH 30.2 MCHC 34.6 RDW Std Deviation 40.2 RDW Coeff of Denia 12.5 Plt Count 306 MPV 8.6 Immature Gran % (Auto) 0.200 Neut % (Auto) 61.6 Lymph % (Auto) 31.7 [place] % (Auto) 4.9 Eos % (Auto) 1.3 Baso % (Auto) 0.3 Absolute Neuts (auto) 6.0 Absolute Lymphs (auto) 3.09 Nucleated RBC % 0 D-Dimer Quant (PE/DVT) 0.45 Sodium 136 Potassium 3.7 Chloride 99 Carbon Dioxide 26.1 Anion Gap 11 BUN 13 Creatinine 0.75 Estim Creat Clear Calc 99.33 Est GFR (MDRD) Non-Af 110 BUN/Creatinine Ratio 17.3 Glucose 99 Calcium 8.5 Troponin T High Sens 11 Urine Opiates Screen NEGATIVE U Buprenorphine Qual NEGATIVE Ur Oxycodone Screen NEGATIVE Urine Methadone Screen NEGATIVE Urine Fentanyl Screen PRESUMPTIVE POSITIVE Ur Barbiturates Screen NEGATIVE Ur Phencyclidine Scrn NEGATIVE Ur Amphetamines Screen PRESUMPTIVE POSITIVE U Benzodiazepines Scrn NEGATIVE Urine Cocaine Screen PRESUMPTIVE POSITIVE U Cannabinoids Screen NEGATIVE Ethyl Alcohol < 10.1 Radiography Diagnostic Testing: Clinical Impression(s) from Imaging Studies Chest X-Ray 11/23/24 05:50 IMPRESSION: 1. Complete resolution of bilateral pulmonary infiltrates. 2. No radiographic evidence of an acute cardiopulmonary pathology. Reading Location: [place] [address] Rhythm Strip Rhythm Strip: Sinus Rhythm Rate: 95 Ectopy: None EKG Initial EKG: Attestation: I personally reviewed and interpreted this EKG as follows: Interpretation: Sinus Rhythm and No Acute Injury Pattern Comments: Nml axis & intervals; nml EKG Discharge Plan Dx/Rx/DC Orders Clinical Impression: Opiate dependence, Opiate withdrawal, Polysubstance abuse, Non-cardiac chest pain Disposition Disposition: Acute Care [facility]
[2024-11-23] MEDS: 0.9% Normal Saline (1000mL) 1,000 ML 999 ML IV (05:38)
[2024-11-23] MEDS: Ondansetron 4 MG/2 ML Vial IV (05:38)
[2024-11-23] MEDS: traMADol 50 MG Tablet 100 MG PO (05:39)
[2024-11-23] MEDS: Lorazepam 2 MG/ML WCH Syringe 1 MG IV (05:47)
--- NOTE | 2024-11-23 05:50 | RAD_ITS ---
PROCEDURE: CHEST 1 VIEW (PORTABLE) 11/23/2024 REASON FOR EXAM: CHEST PAIN TECHNIQUE: Frontal view of the chest. COMPARISON: 11/09/2024. FINDINGS: The lungs are expanded. There is no demonstrated parenchymal abnormality. There is no demonstrated pleural abnormality. Normal heart and pericardium. Normal mediastinum and avril. Normal visualized pulmonary arteries. Normal visualized aortic arch and descending thoracic aorta. Normal visualized thoracic spine. Normal visualized ribs, clavicles, and shoulders. There is no demonstrated abnormality of the visualized soft tissue structures of the upper abdomen. RAD/Chest 1 View (Portable) IMPRESSION: 1. Complete resolution of bilateral pulmonary infiltrates. 2. No radiographic evidence of an acute cardiopulmonary pathology. Reading [facility]
[2024-11-23 05:56] LABS: Absolute Lymphocyte Count 3.09 X10^3/uL (0.83-4.51); Basophil# 0.03 X10^3/uL; Basophil% 0.3 % (0-1); Eosinophil# 0.13 X10^3/uL; Eosinophils% 1.3 % (0-5); Hematocrit 38.4 % (40-54); Hemoglobin 13.3 g/dL (13.0-16.5); Lymphocyte # 3.09 X10^3/ul (0.83-4.51); Lymphocyte % 31.7 % (19-41); Mean Corp Hgb Conc 34.6 g/dL (32-36); Mean Corpuscular Hgb 30.2 pg (27.0-32.0); Mean Corpuscular Volume 87.3 fL (80-94); Mean Platelet Vol. 8.6 fl (6.2-12.0); Monocyte# 0.48 X10^3/uL; Monocyte% 4.9 % (0-10); NRBC Flagged by Analyzer 0 % (0-5); Neutrophil # 5.99 X10^3/uL (2.7-7.7); Neutrophil % 61.6 % (47-70); Platelet Count 306 K/mm3 (150-450); RBC Distribution Width CV 12.5 % (11.6-14.6); RBC Distribution Width SD 40.2 fl (35.1-43.9); White Blood Count 9.7 K/mm3 (4.4-11.0)
[2024-11-23 06:02] LABS: D-Dimer Quantitative (DVT/PE) 0.45 FEU/ug/m (0.27-0.49)
[2024-11-23 06:12] LABS: Amphetamine Urine PRESUMPTIVE POSITIVE (<1000 ng/mL); Barbiturate Urine NEGATIVE (< 200 ng/mL); Benzodiazepine Urine NEGATIVE (< 200 ng/mL); Buprenorphine Urine NEGATIVE (< 200 ng/mL); Cocaine Urine PRESUMPTIVE POSITIVE (< 300 ng/mL); Fentanyl, Urine PRESUMPTIVE POSITIVE; Methadone Urine NEGATIVE (< 300 ng/mL); Opiates Urine NEGATIVE (< 300 ng/mL); Oxycodone, Urine NEGATIVE (< 100 ng/mL); PCP Urine NEGATIVE (< 25 ng/mL); THC Urine NEGATIVE (< 50 ng/mL)
[2024-11-23 06:13] LABS: Alcohol, Blood (Medical)-Serum < 10.1 mg/dL (<=10.0); Troponin T High Sensitivity 11 ng/L (<=22)
[2024-11-23 06:14] LABS: Anion Gap 11 (5-15); BUN 13 mg/dL (4-19); BUN/Creat Ratio 17.3 RATIO (10-20); Calcium,Total 8.5 mg/dL (7.6-11.0); Carbon Dioxide 26.1 mmol/L (21.0-32.0); Chloride 99 mmol/L (98-108); Creatinine, Serum 0.75 mg/dL (0.70-1.20); EST Glomerular Filtration Rate 110 (>60); Estimated Creatinine Clearance 99.33 ml/min (50-250); Glucose 99 mg/dL (70-99); Potassium 3.7 mmol/L (3.3-5.1); Sodium Level 136 mmol/L (133-145)
--- NOTE | 2024-11-23 07:09 | PCM.HP.STD ---
[facility] - General General Date of Admission: 11/23/24 Date of Service: 11/23/24 Chief Complaint: Cramps in the leg, left lower chest/upper quadrant abdominal pain, fentanyl use HPI Roxanne ZAMBRANO, is a 49 M came to the ED with chest pain for last 2 days and wanted detox for fentanyl dependence and withdrawal symptoms. Patient describes his chest pain as left upper quadrant, burning type with intermittent reflux symptoms. Patient he had the symptoms for several days to weeks. He also complained of anxiety attack, cramps in lower extremities feeling cold and semisolid to liquid loose bowel movement, diarrhea. He has all the symptoms of opioid withdrawal. Patient uses IV fentanyl 1 to 1.5 g daily. He also smokes cigarettes/nicotine dependence. Denied other substance use including crack cocaine, methamphetamine Bath salt or ecstasy Patient came to ED on 10/29 and was treated with azithromycin for pneumonia as an outpatient. After that he came to ER on 11/09 for atypical chest pain/pleuritic chest pain, and URI symptoms [facility] Medical History Polysubstance abuse History of coronary artery disease History of drug abuse History of posttraumatic stress disorder (PTSD) Tobacco abuse Exertional chest pain On home oxygen therapy CPAP (continuous positive airway pressure) dependence DVT (deep venous thrombosis) Migraines Opiate abuse, continuous Desire for detoxification Substance abuse Anxiety GERD (gastroesophageal reflux disease) Asthma Elevated blood pressure reading without diagnosis of hypertension Benzodiazepine withdrawal Opiate dependence Atherosclerosis of coronary artery of robinson heart without angina pectoris Dyslipidemia (high LDL; low HDL) Poor dentition Noncompliance with CPAP treatment Obstructive sleep apnea PTSD (post-traumatic stress disorder) Generalized anxiety disorder with panic attacks Palpitations Hypersomnia Moderate persistent asthma without complication ADD (attention deficit disorder) Leucocytosis Chronic pain Home Medications ?Medication ?Instructions ?Recorded ?Last Taken ?Type NK 11/23/24 Unknown History Allergy/AdvReac Type Severity Reaction Status Date / Time naloxone Allergy Hives Verified 11/23/24 05:13 Family History Mother , Age 56 Cancer stomach Heart disease CVA (cerebral vascular accident) Father , Age 52 Heart disease CAD (coronary artery disease) Surgical History History of coronary angioplasty (04/21/20) History of coronary artery stent placement (05/01/19) Hx of heart artery stent History of artificial skin graft Social History household members: significant other current occupational exposures/hazards: No pets and animals: No Smoking Status: Current every day smoker tobacco type: cigarettes second hand exposure: Yes alcohol intake: never substance use type: opiates and IV drugs caffeine: Yes Type: carbonated beverages ROS ROS Narrative Constitutional: Reports fatigue and weakness. Feeling cold. No fever. HEENT: Reports systems reviewed and no addt'l complaints, except as documented Respiratory/Chest: No acute shortness of breath or respiratory distress or wheezing. CVS: As described in HPI Gastrointestinal: Heartburn denies coffee ground emesis, hematemesis or vomiting Genitourinary: Denies burning urination or new urinary tract symptoms Musculoskeletal: Denies acute joint pain or limited range of motion. No acute injury Neurologic: Denies seizure-like symptoms. skin: No ulcer. No rash Endocrinology: Reports systems reviewed and no addt'l complaints, except as documented Hematologic/Lymphatic: Reports systems reviewed and no addt'l complaints, except as documented Rest 14 ROS are negative except as mentioned in HPI Vital Signs Vital Signs Vital Signs: 11/23/24 05:14 11/23/24 05:29 11/23/24 05:30 Temperature 98.3 F Temperature Source Oral Pulse Rate 97 86 100 Respiratory Rate 12 12 13 Blood Pressure 165/97 H Blood Pressure Mean 119 Pulse Ox 100 Oxygen Delivery Method Room Air 11/23/24 05:31 11/23/24 05:31 11/23/24 05:45 Temperature Temperature Source Pulse Rate 88 80 Respiratory Rate 18 12 Blood Pressure 151/103 H 173/87 H Blood Pressure Mean 117 110 Pulse Ox Oxygen Delivery Method Room Air 11/23/24 06:00 11/23/24 07:00 Temperature Temperature Source Pulse Rate 78 98 Respiratory Rate 19 H Blood Pressure 160/77 H 190/78 H Blood Pressure Mean 99 115 Pulse Ox 98 Oxygen Delivery Method Room Air Weight Weight: 131 lb 6.328 oz Body Mass Index (BMI) 18.8 Physical Exam Narrative General: Hyperactive, anxiety, awake, oriented x 3 with intermittent lethargy HEENT: Atraumatic, PERRLA, EOMI, Normocephalic Oral: Oral mucosa dry no Gingival or Mucosal Lesions/ Ulcerations Neck: Supple, No JVD, Negative Carotid Bruits Chest wall/Lungs: Air entry diminished in bilateral lung bases. No crepitation/rhonchi Cardiovascular: Regular rate, Regular Rhythm, Normal S1, Normal S2, No M/G/R Abdomen: Bowel Sounds Present, Soft, Non Tender, Non-Distended : No dysuria. No renal angle tenderness. No suprapubic tenderness. Extremities: No edema, Capillary Refill Less than 3 Seconds Skin: Needle track signs present. Small bumps at the needle sites. No abscess Musculoskeletal: No Tenderness to Palpation of Joints or Extremities Neurological: Cranial nerves II-XII grossly intact, DTR 2+/4. No acute focal neurological deficit. Psych/Mental Status: Flat affect Results Lab / Micro Data 11/23/24 05:29 11/23/24 05:29 Labs: Laboratory Results - last 24 hr 11/23/24 05:29: WBC 9.7, RBC 4.40 L, Hgb 13.3, Hct 38.4 L, MCV 87.3, MCH 30.2, MCHC 34.6, RDW Std Deviation 40.2, RDW Coeff of Denia 12.5, Plt Count 306, MPV 8.6, Immature Gran % (Auto) 0.200, Neut % (Auto) 61.6, Lymph % (Auto) 31.7, [place] % (Auto) 4.9, Eos % (Auto) 1.3, Baso % (Auto) 0.3, Absolute Neuts (auto) 6.0, Absolute Lymphs (auto) 3.09, Nucleated RBC % 0, D-Dimer Quant (PE/DVT) 0.45, Sodium 136, Potassium 3.7, Chloride 99, Carbon Dioxide 26.1, Anion Gap 11, BUN 13, Creatinine 0.75, Estim Creat Clear Calc 99.33, Est GFR (MDRD) Non-Af 110, BUN/Creatinine Ratio 17.3, Glucose 99, Calcium 8.5, Troponin T High Sens 11, Ethyl Alcohol < 10.1 11/23/24 05:30: Urine Opiates Screen NEGATIVE, U Buprenorphine Qual NEGATIVE, Ur Oxycodone Screen NEGATIVE, Urine Methadone Screen NEGATIVE, Urine Fentanyl Screen PRESUMPTIVE POSITIVE, Ur Barbiturates Screen NEGATIVE, Ur Phencyclidine Scrn NEGATIVE, Ur Amphetamines Screen PRESUMPTIVE POSITIVE, U Benzodiazepines Scrn NEGATIVE, Urine Cocaine Screen PRESUMPTIVE POSITIVE, U Cannabinoids Screen NEGATIVE Rhythm Strip Rhythm Strip: Sinus Rhythm Rate: 95 Ectopy: None Imaging Radiology Impression Chest X-Ray 11/23/24 05:50 IMPRESSION: 1. Complete resolution of bilateral pulmonary infiltrates. 2. No radiographic evidence of an acute cardiopulmonary pathology. Reading Location: [place] [id number] Assessment & Plan Assessment/Plan (1) Opiate withdrawal: (2) Non-cardiac chest pain: PLAN: Plan This 49-year-old gentleman is being admitted for acute opioid withdrawal syndrome and noncardiac chest pain. 1. Acute opioid withdrawal syndrome with history of chronic opioid use, dependence and tolerance: Patient is being admitted on Med[facility] floor. The patient is started on buprenorphine along with other adjunctive medications as needed for medical stabilization as per order set of opioid withdrawal syndrome.Patient also on trazodone, hydroxyzine, gabapentin as needed ordered. 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 2. Noncardiac chest pain probably GERD/pleuritic chest pain: Twelve-lead EKG reviewed. NSR at [facility] [address] segment deviation to suggest [place]. Previous EKG also similar on 10/29. First troponin normal. Second troponin pending 3. Polysubstance use: U tox positive for fentanyl screen, amphetamine and cocaine. Although patient denies amphetamine cocaine but is positive. Patient also smokes cigarettes. Nicotine patch offered. 4. Recent pneumonia bilateral multifocal: Patient completed antibiotic. Currently not having any acute symptoms related to her pneumonia. Other chronic psychiatric disease which include PTSD, ADHD, anxiety and depression. DVT prophylaxis: Moderate risk. Enoxaparin 40 mg subcu daily ordered Living will/advanced directive/end of life care: Patient does not have living will or advanced directive. After discussion of benefits/risks procedures involved with full code, DNR CC arrest and DNR CC, the patient opted for full code. He states his sister is next of kin Patient does want artificial life support including intubation, tube feed, ventilator and/chest compression, central venous catheter, vasopressor and DC shock if needed Total time spent in [id number] encounter in discussion of advanced directive 17 minutes. Charges/Coding Visit Charges Inpatient E&M: 25238 Init Hosp L3 Procedures Hospitalists Procedures: 37293 Advncd Care Plan 30 Min
[2024-11-23] MEDS: 0.9% Normal Saline (1000mL) 1,000 ML 15 ML IV (07:32)
[2024-11-23 07:44] LABS: Prothrombin Time (Protime)PT. 13.4 SECONDS (11.7-14.9)
--- NOTE | 2024-11-23 07:49 | ED.RN ---
RAMP contract signed
[2024-11-23 08:06] LABS: Troponin T High Sens 2 HR 8 ng/L (<=22)
[2024-11-23 08:51] LABS: AST(SGOT) 19 U/L (<=37); Alanine Aminotransfer ALT/SGPT 11 U/L (<=46); Albumin, Serum 3.9 g/dL (3.5-5.0); Alkaline Phosphatase 113 U/L (40-129); Bilirubin, Direct 0.26 mg/dL (0.00-0.30); Globulin 3.2 g/dL (2.2-4.2); Protein, Total 7.1 g/dL (5.9-8.4); Total Bilirubin 0.71 mg/dL (0.00-1.30)
[2024-11-23] MEDS: hydrOXYzine PAM 25 MG Capsule 50 MG PO (09:18)
[2024-11-23] MEDS: Methocarbamol 750 MG Tablet PO (09:19)
[2024-11-23] MEDS: Ondansetron 8 MG Tablet PO (09:19)
[2024-11-23] MEDS: Enoxaparin 40 MG/0.4 ML Syringe SC (09:31)
--- NOTE | 2024-11-23 09:58 | NURSING ---
Pt refused troponin labs to be done this am and Dr. Lawler made aware.
--- NOTE | 2024-11-23 11:08 | ADDICTION ---
This lyric writer attempted to meet with PT to conduct ASAM, MSE, and DUDIT assessments and to plan for d/c. PT requested to be seen tomorrow as he is not feeling well and wanted to rest today. This lyric writer informed 24 Hour Navigator that he will need seen tomorrow.
[2024-11-23] MEDS: Dicyclomine 10 MG Capsule 20 MG PO (12:17)
[2024-11-23] MEDS: Ibuprofen 600 MG Tablet PO (12:18)
[2024-11-23] MEDS: Acetaminophen 500 MG Tablet PO (14:56)
[2024-11-23] MEDS: Gabapentin 300 MG Capsule PO (14:56)
--- NOTE | 2024-11-23 15:11 | NURSING ---
Charge nurse saw on camera that pt still had another cell phone that was hidden in his bed. Pt began to talk on it while this RN went into the room to take it from the pt and he refused to turn it in. AMA papers were signed and Dr. Lawler made aware and a Quantros was filled out.
--- NOTE | 2024-11-23 16:12 | DS.PCM_ITS ---
Providers Date of Admission: 11/23/24 Date of Discharge: 11/23/24 Primary Care Physician: No Primary Care Phys Reason For Visit: OPOID USE Diagnosis Discharge Diagnosis (1) Opiate withdrawal: Status: Acute Code(s): F11.93 - Opioid use, unspecified with withdrawal (2) Non-cardiac chest pain: Status: Acute Code(s): R07.89 - Other chest pain Plan This 49-year-old gentleman is being admitted for acute opioid withdrawal syndrome and noncardiac chest pain. 1. Acute opioid withdrawal syndrome with history of chronic opioid use, dependence and tolerance: Patient is being admitted on [facility] floor. The patient is started on buprenorphine along with other adjunctive medications as needed for medical stabilization as per order set of opioid withdrawal syndrome.Patient also on trazodone, hydroxyzine, gabapentin as needed ordered. 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 11/23: Patient was admitted in the morning and he signed AMA and on 4:00 and left the hospital. 2. Noncardiac chest pain probably GERD/pleuritic chest pain: Twelve-lead EKG reviewed. NSR at [facility] [address] segment deviation to suggest [place]. Previous EKG also similar on 10/29. First troponin normal. Second troponin pending 3. Polysubstance use: U tox positive for fentanyl screen, amphetamine and cocaine. Although patient denies amphetamine cocaine but is positive. Patient also smokes cigarettes. Nicotine patch offered. 4. Recent pneumonia bilateral multifocal: Patient completed antibiotic. Currently not having any acute symptoms related to her pneumonia. Other chronic psychiatric disease which include PTSD, ADHD, anxiety and depression. DVT prophylaxis: Moderate risk. Enoxaparin 40 mg subcu daily ordered Living will/advanced directive/end of life care: Patient does not have living will or advanced directive. After discussion of benefits/risks procedures involved with full code, DNR CC arrest and DNR CC, the patient opted for full code. He states his sister is next of kin Patient does want artificial life support including intubation, tube feed, ventilator and/chest compression, central venous catheter, vasopressor and DC shock if needed Total time spent in [id number] encounter in discussion of advanced directive 17 minutes. Medications at Discharge Home Medications NK 11/23/24 Physical Exam Narrative Please see exam finding on the H&P. Weight / BMI Weight Weight: 129 lb 10.109 oz Body Mass Index (BMI) 18.3 ABG / Lab / Microbiology Data 11/23/24 05:29 11/23/24 05:29 Laboratory: Laboratory Results - last 24 hr 11/23/24 05:29: WBC 9.7, RBC 4.40 L, Hgb 13.3, Hct 38.4 L, MCV 87.3, MCH 30.2, MCHC 34.6, RDW Std Deviation 40.2, RDW Coeff of Denia 12.5, Plt Count 306, MPV 8.6, Immature Gran % (Auto) 0.200, Neut % (Auto) 61.6, Lymph % (Auto) 31.7, [place] % (Auto) 4.9, Eos % (Auto) 1.3, Baso % (Auto) 0.3, Absolute Neuts (auto) 6.0, Absolute Lymphs (auto) 3.09, Nucleated RBC % 0, PT 13.4, INR 1.0, D-Dimer Quant (PE/DVT) 0.45, Sodium 136, Potassium 3.7, Chloride 99, Carbon Dioxide 26.1, Anion Gap 11, BUN 13, Creatinine 0.75, Estim Creat Clear Calc 99.33, Est GFR (MDRD) Non-Af 110, BUN/Creatinine Ratio 17.3, Glucose 99, Calcium 8.5, Troponin T High Sens 11, Ethyl Alcohol < 10.1 11/23/24 05:30: Urine Opiates Screen NEGATIVE, U Buprenorphine Qual NEGATIVE, Ur Oxycodone Screen NEGATIVE, Urine Methadone Screen NEGATIVE, Urine Fentanyl Screen PRESUMPTIVE POSITIVE, Ur Barbiturates Screen NEGATIVE, Ur Phencyclidine Scrn NEGATIVE, Ur Amphetamines Screen PRESUMPTIVE POSITIVE, U Benzodiazepines Scrn NEGATIVE, Urine Cocaine Screen PRESUMPTIVE POSITIVE, U Cannabinoids Screen NEGATIVE 11/23/24 07:20: Total Bilirubin 0.71, Direct Bilirubin 0.26, AST 19, ALT 11, Alkaline Phosphatase 113, Troponin T Hi Sens 2 Hr 8, Total Protein 7.1, Albumin 3.9, Globulin 3.2 Radiography Diagnostic Testing: Radiology Impression Chest X-Ray 11/23/24 05:50 IMPRESSION: 1. Complete resolution of bilateral pulmonary infiltrates. 2. No radiographic evidence of an acute cardiopulmonary pathology. [facility] Inst[facility] DC O2, CPAP, BIPAP Needs Home O2 Discharge instructions: No Meaningful Use Info Meaningful Use Meaningful Use Diagnoses (Choose all that apply): None applicable Ischemic Stroke Statin Dosing Therapy Reference: STATIN DOSE THERAPY REFERENCE: * Patients > 75 years receive moderate or high dose statin therapy. * Patients 75 years or YOUNGER should receive HIGH intensity statin dose unless contraindicated. You will be required to document reason for non-treatment if statin daily dose does not meet guidelines. HIGH DOSE STATIN THERAPY DAILY Atorvastatin > than or = to 40 mg Rosuvastatin > than or = to 20 mg Amlodipine + Atorvastatin > than or = to 2.5/40 mg Ezetimibe + Simvastatin 10/80 mg Simvastatin 80mg Discharge Plan Admission Admit Date/Time: 11/23/24 07:06 Attending Provider: Marc Lawler Primary Care Provider: Care Physician,No Primary Discharge Orders/Prescriptions Prescriptions: No Action NK Referrals / Follow Up: Care Physician,No Primary [Primary Care Provider] - Disposition Disposition (needs filled in before D/C Order can be placed): Against Medical Advice Charges/Coding Visit Charges Inpatient E&M: 76849 Disch Hosp
== END 2024-11-23 15:57 | disposition left against medical advice (07) ==
LOC: ED 06:29 → MS3 11-24 12:04
PROVIDERS: Admitting Provider Internal Medicine; Emergency Provider Emergency Medicine; Visit Provider Internal Medicine
DX: F11.23 Opioid dependence with withdrawal (principal); F19.10 Other psychoactive substance abuse, uncomplicated; R19.7 Diarrhea, unspecified; Z53.29 Procedure and treatment not carried out because of patient's decision for other reasons; R07.89 Other chest pain; I25.10 Atherosclerotic heart disease of native coronary artery without angina pectoris; J45.40 Moderate persistent asthma, uncomplicated; E78.5 Hyperlipidemia, unspecified; K21.9 Gastro-esophageal reflux disease without esophagitis; F43.10 Post-traumatic stress disorder, unspecified; F32.A Depression, unspecified; F41.9 Anxiety disorder, unspecified; F90.9 Attention-deficit hyperactivity disorder, unspecified type; F17.210 Nicotine dependence, cigarettes, uncomplicated; Z95.5 Presence of coronary angioplasty implant and graft
CPT/HCPCS: 71045; 80048; 80076; 80307; 82077; 84484; 85025; 85379; 85610; 93005; 96361; 96372; 96374; 96375; 99221; 99285; A4216; G0378; J2405